=== PATIENT | female | born 1980 | race Caucasian/White ===

== ENCOUNTER 2021-03-08 09:43 | Outpatient (REF) | payer OTHER, SELFPAY ==
--- NOTE | ~2021-03-08 | XR_ITS ---
EXAMINATION: XR SINUSES CLINICAL INFORMATION: Acute sinusitis. COMPARISON: None TECHNIQUE: 3 views of the sinuses were obtained. FINDINGS: Paranasal sinuses appear clear without air-fluid levels. No fractures are identified. No radiodense foreign bodies. XR/XR sinus min 3V IMPRESSION: Unremarkable sinus exam.
[2021-03-08 11:15] LABS: MANUAL DIFF FLAG NO
[2021-03-08 11:18] LABS: Glucose Urine UA NEG (NEG); Leukocyte Esterase Urine NEG (NEG); Nitrite Urine NEG (NEG); Specific Gravity - Urine <= 1.005 (1.005-1.025); Urine Blood NEG (NEG); Urine Ketones NEG (NEG); Urine Protein NEG (NEG-TRACE)
[2021-03-08 11:22] LABS: Appearance Urine HAZY; Color Urine YELLOW
[2021-03-08 11:30] LABS: Basophils Absolute Auto 0.1 X10*3/uL (0.0-0.2); Basophils Percent Auto 1.2 % (0-2); Eosinophils Absolute Auto 0.2 X10*3/uL (0.0-0.4); Eosinophils Percent Auto 2.8 % (0-4); Hematocrit 38.1 % (37-47); Hemoglobin 12.7 g/dl (12.0-16.0); Imm Gran Abs Auto 0.01 X10*3/uL (0.00-0.03); Imm Gran Pct Auto 0.2 % (0.0-0.4); Lymphocytes Absolute Auto 2.4 X10*3/uL (1.2-4.9); Lymphocytes Percent Auto 40.4 % (20-40); Mean Corpuscular HGB Conc 33.3 g/dl (31.0-35.0); Mean Corpuscular Hemoglobin 30.3 pg (27.0-33.0); Mean Corpuscular Volume 90.9 fL (80-98); Monocytes Absolute Auto 0.6 X10*3/uL (0.1-1.2); Monocytes Percent Auto 10.6 % (2-11); Neutrophils Absolute Auto 2.7 X10*3/uL (2.0-8.3); Neutrophils Percent Auto 44.8 % (45-73); Platelet Count 341 X10*3/uL (160-400); Red Blood Count 4.19 X10*6/uL (4.20-5.50); Red Cell Distribution Width 13.2 % (11.0-16.0)
[2021-03-08 11:37] LABS: RBC Urine 0-2 /HPF (0); Squamous Epithelial Cell Urine 2+ /LPF; WBC Urine 0-2 /HPF (0-4)
[2021-03-08 12:51] LABS: Alanine Aminotransferase 14 U/L (0-31); Albumin Level 4.3 g/dL (3.5-5.0); Alkaline Phosphatase 30 U/L (39-117); Anion Gap 13 (12-20); Aspartate Amino Transferase 13 U/L (5-31); Bilirubin Total 0.2 mg/dL (0.0-1.0); Blood Urea Nitrogen 10 mg/dL (9-16); Calcium 8.9 mg/dL (8.4-10.2); Carbon Dioxide 23 mmol/L (22-29); Chloride 103 mmol/L (96-108); Estimated Glomerular Filt Rate > 60; Glucose Random 164 mg/dL (60-115); Potassium 4.3 mmol/L (3.3-5.1); Sodium 135 mmol/L (135-145); Total Protein 6.9 g/dL (6.5-8.0)
== END 2021-03-08 09:44 | disposition home or self-care (01) ==
LOC: HO.HMGCLDS 09:43
PROVIDERS: PCP Nurse Practitioner Family; Visit Provider Nurse Practitioner Family
DX: J01.90 Acute sinusitis, unspecified (principal); R39.15 Urgency of urination
CPT/HCPCS: 36415; 70220; 80053; 81001; 85025; 87086; 87088; 87186

== ENCOUNTER 2021-03-15 11:12 | Outpatient (REF) | payer OTHER, SELFPAY ==
[2021-03-15 14:15] LABS: Glucose Urine UA NEG (NEG); Leukocyte Esterase Urine NEG (NEG); Nitrite Urine NEG (NEG); PH 6.5 (5.0-8.0); Specific Gravity - Urine <= 1.005 (1.005-1.025); Urine Blood NEG (NEG); Urine Ketones NEG (NEG); Urine Protein NEG (NEG-TRACE)
[2021-03-15 14:19] LABS: Appearance Urine CLEAR; Color Urine YELLOW
== END 2021-03-15 11:13 | disposition home or self-care (01) ==
LOC: HO.HMGCLDS 11:12
PROVIDERS: PCP Nurse Practitioner Family; Visit Provider Nurse Practitioner Family
DX: R39.15 Urgency of urination (principal)
CPT/HCPCS: 81003; 87086

== ENCOUNTER 2021-03-18 08:16 | Outpatient (REF) | payer OTHER, SELFPAY ==
--- NOTE | ~2021-03-18 | CT_ITS ---
EXAMINATION: CT HEAD WITHOUT CONTRAST CLINICAL INFORMATION: Headache COMPARISON: None TECHNIQUE: Contiguous axial imaging was performed from the skull base to vertex without intravenous administration of contrast. This CT examination was performed using dose optimization techniques as appropriate, variously including the following: *Automated exposure control *Adjustment of mA and/or kV according to patient size (this includes techniques or standardized protocols for targeted exams where dose is matched to indication/reason for exam; i.e. extremities or head) *Use of iterative reconstruction technique DLP: 703 mGy-cm FINDINGS: There is no evidence of acute intracranial hemorrhage or territorial infarction. No abnormal mass effect or midline shift is seen. [place] to white matter differentiation is well preserved. No extra-axial fluid collections are identified. The ventricles are normal in size. There is no abnormal attenuation within the brain parenchyma. The osseous structures and soft tissues are normal. The mastoid air cells and visualized portions of the paranasal sinuses are well aerated. CT/CT head/brain wo con IMPRESSION: No acute intracranial pathology.
== END 2021-03-18 08:17 | disposition home or self-care (01) ==
LOC: HO.CT 08:16
PROVIDERS: PCP Nurse Practitioner Family; Visit Provider Nurse Practitioner Family
DX: R51.9 Headache, unspecified (principal); G89.29 Other chronic pain
CPT/HCPCS: 70450

== ENCOUNTER 2021-03-29 13:19 | Outpatient (REF) | payer OTHER, SELFPAY ==
[2021-03-29 14:31] LABS: Glucose Urine UA NEG (NEG); Leukocyte Esterase Urine NEG (NEG); Nitrite Urine NEG (NEG); Specific Gravity - Urine <= 1.005 (1.005-1.025); Urine Blood 2+ (NEG); Urine Ketones NEG (NEG); Urine Protein NEG (NEG-TRACE)
[2021-03-29 14:32] LABS: Appearance Urine CLEAR; Color Urine STRAW
[2021-03-29 14:42] LABS: Creatinine Urine 11.76 mg/dL; Microalbumin Urine < 5.0 mg/L
[2021-03-29 14:59] LABS: Squamous Epithelial Cell Urine TRACE /LPF; WBC Urine 0 /HPF (0-4)
[2021-03-29 15:01] LABS: RBC Urine 0-2 /HPF (0)
== END 2021-03-29 13:20 | disposition home or self-care (01) ==
LOC: HO.HMGCLDS 13:19
PROVIDERS: PCP Nurse Practitioner Family; Visit Provider Nurse Practitioner Family
DX: E10.9 Type 1 diabetes mellitus without complications (principal); R39.15 Urgency of urination
CPT/HCPCS: 81001; 82043; 87086

== ENCOUNTER 2021-04-06 08:47 | Outpatient (REF) | payer OTHER, SELFPAY ==
[2021-04-06 12:17] LABS: Appearance Urine CLEAR; Color Urine YELLOW; Glucose Urine UA NEG (NEG); Leukocyte Esterase Urine NEG (NEG); Nitrite Urine NEG (NEG); Specific Gravity - Urine <= 1.005 (1.005-1.025); Urine Blood NEG (NEG); Urine Ketones NEG (NEG); Urine Protein NEG (NEG-TRACE)
[2021-04-06 12:18] LABS: Alanine Aminotransferase 12 U/L (0-31); Albumin Level 4.4 g/dL (3.5-5.0); Alkaline Phosphatase 29 U/L (39-117); Anion Gap 12 (12-20); Aspartate Amino Transferase 11 U/L (5-31); Bilirubin Total 0.4 mg/dL (0.0-1.0); Blood Urea Nitrogen 12 mg/dL (9-16); Calcium 8.8 mg/dL (8.4-10.2); Carbon Dioxide 22 mmol/L (22-29); Chloride 106 mmol/L (96-108); Cholesterol 211 mg/dL; Estimated Glomerular Filt Rate > 60; Glucose Fasting 209 mg/dL (60-99); HDL Cholesterol 44 mg/dL; LDL Cholesterol Calculated 153 mg/dl; Potassium 4.2 mmol/L (3.3-5.1); Sodium 136 mmol/L (135-145); Total Protein 7.1 g/dL (6.5-8.0); Triglycerides 70 mg/dL
[2021-04-06 12:25] LABS: TSH reflex Free T4 3.55 uIU/mL (0.32-4.0)
[2021-04-06 12:49] LABS: RBC Urine 0 /HPF (0); Squamous Epithelial Cell Urine TRACE /LPF; WBC Urine 0 /HPF (0-4)
[2021-04-06 13:24] LABS: Estimated Average Glucose 163 mg/dL; Hemoglobin A1c % 7.3 %
== END 2021-04-06 08:48 | disposition home or self-care (01) ==
LOC: HO.HMGCLDS 08:47
PROVIDERS: PCP Nurse Practitioner Family; Visit Provider Nurse Practitioner Family
DX: E10.9 Type 1 diabetes mellitus without complications (principal)
CPT/HCPCS: 36415; 80053; 80061; 81001; 83036; 84443

== ENCOUNTER 2021-04-09 10:20 | Outpatient (REF) | payer OTHER, SELFPAY ==
--- NOTE | ~2021-04-09 | US_ITS ---
EXAMINATION: US RETROPERITONEAL COMPLETE (RENAL) CLINICAL INFORMATION: Urgency of urination. COMPARISON: Ultrasound abdomen 12/21/2012. TECHNIQUE: Real-time imaging of the kidneys and bladder. FINDINGS: RIGHT KIDNEY: 10.8 x 4.7 x 6.1 cm (SAG x AP x TRV). The kidney is normal in size, contour, and echogenicity. Renal cortical thickness is normal. No calculi or focal parenchymal lesions. No hydronephrosis. LEFT KIDNEY: 10.3 x 4.5 x 5.5 cm (SAG x AP x TRV). The kidney is normal in size, contour, and echogenicity. Renal cortical thickness is normal. No calculi or focal parenchymal lesions. No hydronephrosis. BLADDER: Well distended and normal. Bilateral ureteral jets are demonstrated. Prevoid bladder volume is 209 mL. Postvoid bladder volume is 3.7 mL. US/US retroperitoneal comp IMPRESSION: Normal exam.
== END 2021-04-09 10:21 | disposition home or self-care (01) ==
LOC: HO.HMGCX 10:20
PROVIDERS: PCP Nurse Practitioner Family; Visit Provider Nurse Practitioner Family
DX: R39.15 Urgency of urination (principal); R10.2 Pelvic and perineal pain
CPT/HCPCS: 76770

== ENCOUNTER 2021-08-24 09:53 | Outpatient (REF) | payer OTHER, SELFPAY ==
[2021-08-24 10:23] LABS: Binax Internal Control QC Valid; Binax Now Covid-19 Ag Negative (Negative); Binax Performed by: HO.BONILM
[2021-08-24 11:31] LABS: Hematocrit 40.2 % (37.0-47.0); Hemoglobin 12.8 g/dl (12.0-16.0); Mean Corpuscular HGB Conc 31.8 g/dl (31.0-35.0); Mean Corpuscular Hemoglobin 29.2 pg (27.0-33.0); Mean Corpuscular Volume 91.6 fL (80.0-98.0); Mean Platelet Volume 9.7 fL (9.4-12.3); Platelet Count 338 X10*3/uL (160-400); Red Blood Count 4.39 X10*6/uL (4.20-5.50); Red Cell Distribution Width 13.6 % (11.0-16.0)
[2021-08-24 11:58] LABS: Estimated Average Glucose 183 mg/dL
[2021-08-24 12:01] LABS: Alanine Aminotransferase 11 U/L (0-31); Albumin Level 4.1 g/dL (3.5-5.0); Alkaline Phosphatase 28 U/L (39-117); Anion Gap 11 (12-20); Aspartate Amino Transferase 12 U/L (5-31); Bilirubin Direct < 0.2 mg/dL (0.0-0.5); Bilirubin Total 0.3 mg/dL (0.0-1.0); Blood Urea Nitrogen 16 mg/dL (9-16); C Reactive Protein 0.21 mg/dL (< or = 0.50); Calcium 9.2 mg/dL (8.4-10.2); Carbon Dioxide 25 mmol/L (22-29); Chloride 107 mmol/L (96-108); Estimated Glomerular Filt Rate > 60; Glucose Random 212 mg/dL (60-115); Potassium 4.8 mmol/L (3.3-5.1); Sodium 138 mmol/L (135-145)
== END 2021-08-24 09:54 | disposition home or self-care (01) ==
LOC: HO.HMGCLDS 09:53
PROVIDERS: PCP Nurse Practitioner Family; Visit Provider Internal Medicine
DX: Z20.822 Contact with and (suspected) exposure to COVID-19 (principal); J06.9 Acute upper respiratory infection, unspecified; R73.9 Hyperglycemia, unspecified
CPT/HCPCS: 80048; 80076; 83036; 85027; 86140

== ENCOUNTER 2021-10-05 08:05 | Outpatient (REF) | payer OTHER, SELFPAY ==
[2021-10-05 11:38] LABS: Appearance Urine CLEAR; Color Urine YELLOW; Glucose Urine UA NEG (NEG); Leukocyte Esterase Urine NEG (NEG); Nitrite Urine NEG (NEG); Urine Blood NEG (NEG); Urine Ketones 5 MG/DL (NEG); Urine Protein NEG (NEG-TRACE)
[2021-10-05 11:54] LABS: Cholesterol 137 mg/dL; HDL Cholesterol 41 mg/dL; LDL Cholesterol Calculated 70 mg/dl; Triglycerides 131 mg/dL
[2021-10-05 12:09] LABS: Calcium Oxalate Crystals Urine 1+ /LPF; Mucus Urine TRACE /LPF; RBC Urine 0 /HPF (0); Squamous Epithelial Cell Urine TRACE /LPF; WBC Urine 0 /HPF (0-4)
== END 2021-10-05 08:06 | disposition home or self-care (01) ==
LOC: HO.HMGCLDS 08:05
PROVIDERS: Visit Provider Nurse Practitioner Family
DX: R39.15 Urgency of urination (principal); E78.5 Hyperlipidemia, unspecified
CPT/HCPCS: 36415; 80061; 81001; 87086

== ENCOUNTER 2021-10-18 13:21 | Outpatient (REF) | payer OTHER, SELFPAY ==
--- NOTE | ~2021-10-18 | XR_ITS ---
EXAMINATION: XR CERVICAL SPINE CLINICAL INFORMATION: Cervical disc disorder COMPARISON: None TECHNIQUE: 3 views of the cervical spine were obtained. FINDINGS: There are no prevertebral soft tissue or bony abnormalities demonstrated. No compression fractures or subluxations are identified. Alignment is maintained at the atlanto-axial articulation. The disc spaces are preserved. No endplate changes are seen. The prevertebral soft tissues are normal. The foramina are patent. XR/XR cervical spine 2V IMPRESSION: Unremarkable examination.
== END 2021-10-18 13:22 | disposition home or self-care (01) ==
LOC: HO.HMGCX 13:21
PROVIDERS: PCP Nurse Practitioner Family; Visit Provider Nurse Practitioner Family
DX: M50.90 Cervical disc disorder, unspecified, unspecified cervical region (principal)
CPT/HCPCS: 72040

== ENCOUNTER 2022-01-07 15:27 | Outpatient (REF) | payer OTHER, SELFPAY ==
[2022-01-07 16:50] LABS: MANUAL DIFF FLAG NO
[2022-01-07 16:52] LABS: Basophils Absolute Auto 0.1 X10*3/uL (0.0-0.2); Basophils Percent Auto 1.6 % (0-2); Eosinophils Absolute Auto 0.6 X10*3/uL (0.0-0.4); Eosinophils Percent Auto 7.3 % (0-4); Hematocrit 39.3 % (37.0-47.0); Imm Gran Abs Auto 0.01 X10*3/uL (0.00-0.03); Imm Gran Pct Auto 0.1 % (0.0-0.4); Lymphocytes Absolute Auto 3.2 X10*3/uL (1.2-4.9); Lymphocytes Percent Auto 41.4 % (20-40); Mean Corpuscular HGB Conc 33.1 g/dl (31.0-35.0); Mean Corpuscular Hemoglobin 30.2 pg (27.0-33.0); Mean Corpuscular Volume 91.2 fL (80.0-98.0); Mean Platelet Volume 9.4 fL (9.4-12.3); Monocytes Absolute Auto 0.6 X10*3/uL (0.1-1.2); Monocytes Percent Auto 8.1 % (2-11); Neutrophils Absolute Auto 3.2 x10*3/uL (2.0-8.3); Neutrophils Percent Auto 41.5 % (45-73); Platelet Count 397 X10*3/uL (160-400); Red Blood Count 4.31 X10*6/uL (4.20-5.50); Red Cell Distribution Width 12.8 % (11.0-16.0); White Blood Count 7.7 X10*3/uL (4.8-10.8)
[2022-01-07 17:08] LABS: Anion Gap 13 (12-20); Blood Urea Nitrogen 12 mg/dL (9-16); Calcium 9.5 mg/dL (8.4-10.2); Carbon Dioxide 26 mmol/L (22-29); Chloride 101 mmol/L (96-108); Estimated Glomerular Filt Rate > 60; Glucose Random 115 mg/dL (60-115); Potassium 4.2 mmol/L (3.3-5.1); Sodium 136 mmol/L (135-145)
[2022-01-07 17:30] LABS: Thyroid Stimulating Hormone 3.29 uIU/mL (0.32-4.0)
== END 2022-01-07 15:28 | disposition home or self-care (01) ==
LOC: HO.HMGCLDS 15:27
PROVIDERS: PCP Nurse Practitioner Family; Visit Provider Physician Assistant
DX: R00.2 Palpitations (principal); I49.3 Ventricular premature depolarization; R06.02 Shortness of breath; R07.89 Other chest pain
CPT/HCPCS: 36415; 80048; 84443; 85025

== ENCOUNTER 2022-02-09 15:24 | Outpatient (REF) | payer OTHER, SELFPAY ==
--- NOTE | ~2022-02-09 | XR_ITS ---
EXAMINATION: XR SINUSES CLINICAL INFORMATION: J34.89 - Other specified disorders of nose and nasal sinuses COMPARISON: Sinus radiographs 03/08/2021; CT head 03/08/2021 TECHNIQUE: 3 views of the sinuses were obtained. 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 The sinuses are otherwise well-aerated and clear. No mucosal thickening, polypoid mass, or air-fluid levels. No bony sclerosis or thickening or destructive process. XR/XR sinus min 3V IMPRESSION: Unremarkable examination.
== END 2022-02-09 15:25 | disposition home or self-care (01) ==
LOC: HO.HMGCX 15:24
PROVIDERS: PCP Nurse Practitioner Family; Visit Provider Nurse Practitioner Family
DX: J34.89 Other specified disorders of nose and nasal sinuses (principal)
CPT/HCPCS: 70220

== ENCOUNTER 2022-06-15 07:15 | Outpatient (REF) | payer OTHER, SELFPAY ==
--- NOTE | ~2022-06-15 | MR_ITS ---
EXAMINATION: MR BRAIN WITHOUT CONTRAST CLINICAL INFORMATION: Migraine COMPARISON: CT head without contrast 03/18/2021. TECHNIQUE: Multiplanar multisequence MR imaging of the brain was obtained without intravenous contrast. FINDINGS: There is no acute infarct on diffusion-weighted imaging. There is no intracranial hemorrhage on iron-sensitive imaging. No extra-axial collection or mass effect/herniation. Normal parenchymal signal characteristics. No hydrocephalus. The ventricles are normal in morphology and size. The major flow voids at the skull base are preserved. The midline structures are normal. The cerebellar tonsils are normally positioned. The craniocervical junction is normal. Marrow signal is within normal limits. The visualized soft tissues are without significant abnormality. No signal abnormality within the paranasal sinuses or within the mastoid air cells. MR/MR head/brain wo con IMPRESSION: Unremarkable noncontrast MRI of the brain.
== END 2022-06-15 07:16 | disposition home or self-care (01) ==
LOC: HO.MRI 07:15
PROVIDERS: Visit Provider Nurse Practitioner Family
DX: G43.909 Migraine, unspecified, not intractable, without status migrainosus (principal)
CPT/HCPCS: 70551

== ENCOUNTER → 2022-08-30 09:00 | Outpatient (BNVA) | payer OTHER, SELFPAY | PROVIDERS: PCP Nurse Practitioner Family; Visit Provider Nurse Practitioner Family | DX: Z13.89 Encounter for screening for other disorder (principal) ==

== ENCOUNTER 2022-11-24 09:32 | Outpatient (REF) | payer OTHER, SELFPAY | END 2022-11-24 09:33 | disposition home or self-care (01) | LOC: HO.LAB 09:32 | PROVIDERS: Visit Provider Internal Medicine | DX: R35.0 Frequency of micturition (principal) | CPT/HCPCS: 87086 ==

== ENCOUNTER 2022-11-29 14:18 | Outpatient (REF) | payer OTHER, SELFPAY ==
[2022-11-30 11:48] LABS: Appearance Urine Clear; Color Urine Yellow; Glucose Urine UA Negative (Negative); Leukocyte Esterase Urine Negative (Negative); Nitrite Urine Negative (Negative); Urine Blood Negative (Negative); Urine Ketones Trace mg/dL (Negative); Urine Protein Negative (Neg-Trace)
== END 2022-11-29 14:19 | disposition home or self-care (01) ==
LOC: HO.HMGCLDS 14:18
PROVIDERS: PCP Nurse Practitioner Family; Visit Provider Nurse Practitioner Family
DX: Z00.00 Encounter for general adult medical examination without abnormal findings (principal); R35.0 Frequency of micturition
CPT/HCPCS: 81003; 87086

== ENCOUNTER → 2022-12-12 14:51 | Outpatient (BNVA) | payer OTHER, SELFPAY | PROVIDERS: PCP Nurse Practitioner Family; Visit Provider Nurse Practitioner Family | DX: R39.15 Urgency of urination (principal); R35.0 Frequency of micturition; R39.89 Other symptoms and signs involving the genitourinary system; E10.9 Type 1 diabetes mellitus without complications; Z79.4 Long term (current) use of insulin | CPT/HCPCS: 51798 ==

== ENCOUNTER 2022-12-20 12:31 | Outpatient (REF) | payer OTHER, SELFPAY ==
--- NOTE | ~2022-12-20 | US_ITS ---
EXAMINATION: US RETROPERITONEAL COMPLETE (RENAL) CLINICAL INFORMATION: Frequency of micturition. COMPARISON: Ultrasound retroperitoneal complete (renal) 04/09/2021. Ultrasound abdomen complete 12/21/2012. TECHNIQUE: Real-time imaging of the kidneys and bladder. FINDINGS: RIGHT KIDNEY: 10.7 x 5.0 x 5.6 cm (SAG x AP x TRV). The kidney is normal in size, contour, and echogenicity. Renal cortical thickness is normal. No calculi or focal parenchymal lesions. No hydronephrosis. LEFT KIDNEY: 10.7 x 6.1 x 5.4 cm (SAG x AP x TRV). The kidney is normal in size, contour, and echogenicity. Renal cortical thickness is normal. No calculi or focal parenchymal lesions. No hydronephrosis. BLADDER: Well distended and normal. Bilateral ureteral jets are demonstrated. Prevoid bladder volume is 223 mL. Postvoid bladder volume is 7.7 mL. US/US retroperitoneal comp IMPRESSION: Normal renal and bladder ultrasound.
== END 2022-12-20 12:32 | disposition home or self-care (01) ==
LOC: HO.HMGCX 12:31
PROVIDERS: PCP Nurse Practitioner Family; Visit Provider Nurse Practitioner Family
DX: R35.0 Frequency of micturition (principal); R39.15 Urgency of urination; R39.89 Other symptoms and signs involving the genitourinary system
CPT/HCPCS: 76770

== ENCOUNTER 2022-12-23 07:30 | Outpatient (REF) | payer OTHER, SELFPAY ==
[2022-12-23 11:17] LABS: MANUAL DIFF FLAG NO
[2022-12-23 11:34] LABS: Appearance Urine Clear; Color Urine Yellow; Glucose Urine UA Negative (Negative); Leukocyte Esterase Urine Negative (Negative); Nitrite Urine Negative (Negative); PH 5.5 (5.0-9.0); Specific Gravity - Urine 1.025 (1.005-1.025); Urine Blood Negative (Negative); Urine Ketones Negative (Negative); Urine Protein Negative (Neg-Trace)
[2022-12-23 11:49] LABS: Basophils Absolute Auto 0.1 X10*3/uL (0.0-0.2); Basophils Percent Auto 1.3 % (0-2); Eosinophils Absolute Auto 0.5 X10*3/uL (0.0-0.4); Eosinophils Percent Auto 7.4 % (0-4); Hematocrit 37.9 % (37.0-47.0); Hemoglobin 12.6 g/dl (12.0-16.0); Imm Gran Abs Auto 0.01 X10*3/uL (0.00-0.03); Imm Gran Pct Auto 0.2 % (0.0-0.4); Lymphocytes Absolute Auto 2.8 X10*3/uL (1.2-4.9); Lymphocytes Percent Auto 46.3 % (20-40); Mean Corpuscular HGB Conc 33.2 g/dl (31.0-35.0); Mean Corpuscular Hemoglobin 29.7 pg (27.0-33.0); Mean Corpuscular Volume 89.4 fL (80.0-98.0); Monocytes Absolute Auto 0.5 X10*3/uL (0.1-1.2); Monocytes Percent Auto 7.8 % (2-11); Neutrophils Absolute Auto 2.2 x10*3/uL (2.0-8.3); Platelet Count 336 X10*3/uL (160-400); Red Blood Count 4.24 X10*6/uL (4.20-5.50); Red Cell Distribution Width 13.5 % (11.0-16.0); White Blood Count 6.1 X10*3/uL (4.8-10.8)
[2022-12-23 12:00] LABS: Alanine Aminotransferase 17 U/L (0-31); Albumin Level 4.4 g/dL (3.5-5.0); Alkaline Phosphatase 25 U/L (39-117); Anion Gap 13 (12-20); Aspartate Amino Transferase 14 U/L (5-31); Bilirubin Total 0.3 mg/dL (0.0-1.0); Blood Urea Nitrogen 14 mg/dL (9-16); Calcium 9.2 mg/dL (8.4-10.2); Carbon Dioxide 24 mmol/L (22-29); Chloride 106 mmol/L (96-108); Cholesterol 200 mg/dL; Estimated Glomerular Filt Rate > 60; Glucose Fasting 169 mg/dL (60-99); HDL Cholesterol 43 mg/dL; LDL Cholesterol Calculated 143 mg/dl; Potassium 4.4 mmol/L (3.3-5.1); Sodium 139 mmol/L (135-145); Triglycerides 74 mg/dL
[2022-12-23 12:17] LABS: TSH reflex Free T4 5.61 uIU/mL (0.32-4.0)
[2022-12-23 13:58] LABS: Free T4 (Free Thyroxine) 0.86 ng/dL (0.71-1.85)
== END 2022-12-23 07:31 | disposition home or self-care (01) ==
LOC: HO.HMGCLDS 07:30
PROVIDERS: PCP Nurse Practitioner Family; Visit Provider Nurse Practitioner Family
DX: Z00.00 Encounter for general adult medical examination without abnormal findings (principal); R35.0 Frequency of micturition; E10.9 Type 1 diabetes mellitus without complications; F41.9 Anxiety disorder, unspecified
CPT/HCPCS: 36415; 80053; 80061; 81003; 84439; 84443; 85025; 87086

== ENCOUNTER 2023-01-04 09:55 | Outpatient (REF) | payer OTHER, SELFPAY ==
[2023-01-05 13:39] LABS: BV Int Neg Control Negative (Negative); BV Int Pos Control Positive (Positive)
== END 2023-01-04 09:56 | disposition home or self-care (01) ==
LOC: HO.LAB 09:55
PROVIDERS: PCP Nurse Practitioner Family; Visit Provider Advanced Practice Midwife
DX: N89.8 Other specified noninflammatory disorders of vagina (principal); R39.89 Other symptoms and signs involving the genitourinary system; R35.0 Frequency of micturition; E10.9 Type 1 diabetes mellitus without complications; B37.31 Acute candidiasis of vulva and vagina; N90.4 Leukoplakia of vulva; Z79.899 Other long term (current) drug therapy
CPT/HCPCS: 81003; 87102; 87480; 87510; 87660

== ENCOUNTER 2023-01-09 17:07 | Outpatient (REF) | payer OTHER, SELFPAY ==
[2023-01-09 17:41] LABS: Appearance Urine Clear; Color Urine Yellow; Glucose Urine UA Negative (Negative); Leukocyte Esterase Urine Trace (Negative); Nitrite Urine Negative (Negative); UMIC TRIGGER UACC YES; Urine Blood Negative (Negative); Urine Ketones Trace mg/dL (Negative); Urine Protein Negative (Neg-Trace)
[2023-01-09 17:44] LABS: Bacteria Urine None Seen (None Seen); Hyaline Casts Urine 0-2 /LPF (0-2); RBC Urine 0-2 /HPF (0-2); Squamous Epithelial Cell Urine 0-2 /HPF (0-2); WBC Urine 0-5 /HPF (0-5)
== END 2023-01-09 17:08 | disposition home or self-care (01) ==
LOC: HO.LAB 17:07
PROVIDERS: PCP Nurse Practitioner Family; Visit Provider Nurse Practitioner Family
DX: R30.0 Dysuria (principal)
CPT/HCPCS: 81001

== ENCOUNTER → 2023-01-11 12:39 | Outpatient (BNVA) | payer OTHER, SELFPAY | PROVIDERS: PCP Nurse Practitioner Family; Visit Provider Urology | DX: N30.10 Interstitial cystitis (chronic) without hematuria (principal); R35.1 Nocturia; R35.0 Frequency of micturition; R23.2 Flushing; E10.9 Type 1 diabetes mellitus without complications | CPT/HCPCS: 52000 ==

== ENCOUNTER 2023-01-18 08:05 | Outpatient (REF) | payer OTHER, SELFPAY ==
[2023-01-19 13:55] LABS: BV Int Neg Control Negative (Negative); BV Int Pos Control Positive (Positive)
== END 2023-01-18 08:06 | disposition home or self-care (01) ==
LOC: HO.LAB 08:05
PROVIDERS: PCP Nurse Practitioner Family; Visit Provider Advanced Practice Midwife
DX: N89.8 Other specified noninflammatory disorders of vagina (principal); N94.89 Other specified conditions associated with female genital organs and menstrual cycle; N90.89 Other specified noninflammatory disorders of vulva and perineum; L29.2 Pruritus vulvae
CPT/HCPCS: 81003; 81025; 87480; 87510; 87660

== ENCOUNTER → 2023-01-26 14:35 | Outpatient (BNVA) | payer OTHER, SELFPAY | PROVIDERS: Visit Provider Nurse Practitioner Family | DX: R35.1 Nocturia (principal); N89.8 Other specified noninflammatory disorders of vagina; R39.89 Other symptoms and signs involving the genitourinary system; R35.0 Frequency of micturition | CPT/HCPCS: 51798 ==

== ENCOUNTER 2023-02-10 07:50 | Outpatient (REF) | payer OTHER, SELFPAY ==
--- NOTE | ~2023-02-10 | MM_ITS ---
EXAMINATION: MM SCREENING DIGITAL BREAST TOMOSYNTHESIS, BILATERAL CLINICAL INFORMATION: Screening. Asymptomatic. The lifetime risk of breast cancer based on the Tyrer-Cuzick Model is 10%. COMPARISON: Mammography: This is a baseline mammogram. TECHNIQUE: Digital breast tomosynthesis is performed in both the craniocaudal and mediolateral oblique views along with computer-aided detection (CAD). Synthesized 2D images are generated from the tomosynthesis. FINDINGS: The breasts are heterogeneously dense, which may obscure small masses (ACR BI-RADS breast composition Category c). There are no significant masses, abnormal calcifications, or other abnormalities. MM/MM tomosynthesis screening BI IMPRESSION: No mammographic evidence of malignancy. ASSESSMENT: BI-RADS BI-RADS 1 - Negative RECOMMENDATION: Routine annual mammography screening. 1 year F/U This examination should not preclude the clinical evaluation of a suspicious palpable abnormality. This patient's information was entered into a reminder system with a target due date for their next mammogram.
== END 2023-02-10 07:51 | disposition home or self-care (01) ==
LOC: HO.MAMMO 07:50
PROVIDERS: PCP Nurse Practitioner Family; Visit Provider Nurse Practitioner Family
DX: Z12.31 Encounter for screening mammogram for malignant neoplasm of breast (principal)
CPT/HCPCS: 77063; 77067

== ENCOUNTER → 2023-02-10 08:15 | Outpatient (BNV) | payer OTHER, SELFPAY | PROVIDERS: PCP Nurse Practitioner Family; Visit Provider Radiology Diagnostic Radiology | DX: Z12.31 Encounter for screening mammogram for malignant neoplasm of breast (principal) | CPT/HCPCS: 77063; 77067 ==

== ENCOUNTER → 2023-02-24 12:59 | Outpatient (BNVA) | payer OTHER, SELFPAY | PROVIDERS: PCP Nurse Practitioner Family; Visit Provider Nurse Practitioner Family ==

== ENCOUNTER 2023-02-28 13:04 | Outpatient (AMB) | payer OTHER, SELFPAY ==
--- NOTE | 2023-02-28 13:13 | A.OFFVIS_ITS ---
Intake Vital Signs 02/28/23 13:14 Height 5 ft 3 in Weight 149 lb 7.574 oz BMI 26.5 BP 96/60 Blood Pressure Location Lt brachial Position Sitting Pulse 77 Intake Visit Reasons: TUBE COREMAKER/ glojamesski/prev PVC pt/ pvc's trans care Intake Note: NPV w/ EKG Field Operator Required: No Accompanied by: Self / Same As Patient Allergies amoxicillin [AMOXICILLIN] Allergy (Unknown, Verified 02/28/23 13:16) HIVES azithromycin Allergy (Unknown, Verified 02/28/23 13:16) palpitations levofloxacin Allergy (Unknown, Verified 02/28/23 13:16) Hives Sulfa (Sulfonamide Antibiotics) Allergy (Unknown, Verified 02/28/23 13:16) Unknown ciprofloxacin [From Cipro] Adverse Reaction (Mild, Verified 02/28/23 13:16) Rash bactrium Adverse Reaction (Mild, Uncoded 02/28/23 13:16) Rash Medication List - Last Reconciled 02/28/23 by Chu Shelton MD atorvastatin 20 mg PO DAILY 90 days blood-glucose meter As directed cetirizine 20 mg (2 x 10 mg) PO DAILY fluticasone propionate 50 mcg/actuation 2 sprays intranasal BID insulin lispro units subcut insulin lispro (Humalog U-100 Insulin) 0 - 50 units subcut DAILY levothyroxine 25 mcg PO DAILY metformin 1,000 mg PO BID metoprolol tartrate 25 mg PO BID nitrofurantoin macrocrystal 50 mg PO BEDTIME norethindrone (contraceptive) 0.35 mg PO DAILY HPI HPI Comments History of Present Illness Details Michelle is here for consultation regarding palpitations. She has been previously seen at [facility] but she would like to switch. Over the last couple of years, she has been having palpitations. It seems that she was having lot of PVCs initially. Patient states that one point, her burden was over 20%. However, more recently it has been much less. She has a structurally normal heart by echocardiogram and also has unremarkable prior stress test. Patient states that she can still feel her heart pounding at different times. Somewhat erratic. Additionally, she has also been diagnosed with type 1 diabetes in the last couple of years. Her sugars are well controlled. She is on insulin. Otherwise, generally doing okay apart from occasional palpitations. When she sometimes gets up she can get dizzy. That seems orthostatic. According to [facility] notes, she has tried different drugs including as a beautiful all, flecainide, verapamil, Inderal. Most recently on Lopressor. She is listed to be on 25 mg twice daily. She might take an additional tablet if she feels too much palpitations. She believes that she had COVID when the pandemic started and that might have led to the palpitations but not entirely clear. [facility] Medical History Diabetes type 1, controlled Facial cellulitis Lichen sclerosus of vulva PVC (premature ventricular contraction) Family History Father Heart disease Mother No problems noted. Family/Other Thyroid disease Social History Housing: House Alcohol intake: former Patient Tobacco Use Status: Former Tobacco user Years Smoked: 6 years ago e-Cigarette/Vaping Use: Former Use Second Hand Smoke Exposure: No service: No Current occupational status: employed Current occupation: [employer] Current occupational exposures/hazards: No Cognitive needs: No Hearing needs: No Vision needs: No Review of Systems Const Denies chills, Denies daytime sleepiness, Denies fatigue, Denies fever(s), Denies frequent falls, Denies night sweats, Denies snoring, Denies weakness, Denies weight gain and Denies weight loss Eyes Denies loss of vision ENT Denies dizziness and Denies hearing loss Card Denies chest pain, Denies chest pain with activity, Denies syncope, Denies rapid heart rate, Denies edema, Denies claudication, Denies leg edema, Denies lightheadedness, Denies palpitations, Denies dyspnea, Denies dyspnea on exertion and Denies orthopnea Resp Denies cough, Denies excessive phlegm production, Denies dyspnea, Denies dyspnea on exertion, Denies snoring and Denies wheezing GI Denies abdominal pain, Denies hematochezia, Denies change in bowel habits, Denies change in stool character, Denies heartburn, Denies nausea and Denies vomiting Denies hematuria, Denies urinary frequency and Denies dysuria Musc Denies arthralgias, Denies muscle weakness, Denies numbness and Denies tingling Skin/Breast Denies nail changes and Denies rash Neuro Denies Abnormal speech present, Denies dizziness, Denies syncope, Denies frequent falls, Denies loss of vision, Denies memory loss, Denies numbness, Denies tingling and Denies weakness Psych Denies depression and Denies memory loss Endo Denies fatigue and Denies palpitations Aller/Immun Denies wheezing Physical Exam Vital Signs: Last Vital Signs Pulse 77 02/28/23 13:14 BP 96/60 02/28/23 13:14 BMI result Body Mass Index 26.5 Const General: comfortable and no acute distress Orientation/consciousness: patient oriented x3 HEENT Other: Unremarkable Head: Yes normal to inspection Neck Neck: Yes normal visual inspection Chest Chest palpation & inspection: normal inspection of the chest Resp Auscultation: clear to auscultation bilaterally Cardio Palpation: normal PMI Heart sounds: S1 normal heart sound present, S2 normal heart sound present, no gallops, no murmurs and no rubs GI Palpation (GI): Soft to palpation Back/Spine/Pelvis Other: unremarkable Skin General skin exam: no rashes or lesions noted Neuro General: patient oriented x3 Speech: No Abnormal speech present Extrem General: Yes normal to inspection Psych Mental Status: mental status grossly normal Office Procedures EKG Details: EKG with sinus rhythm at 77/Min; sinus arrhythmia; no significant ST-T changes and otherwise unremark[place] [id number], Complete Assessment & Plan Assessment & Plan (1) Sinus tachycardia: Code(s): R00.0 - Tachycardia, unspecified (2) PVC (premature ventricular contraction): Code(s): I49.3 - Ventricular premature depolarization (3) Diabetes type 1, controlled: Code(s): E10.9 - Type 1 diabetes mellitus without complications Plan Prior cardiology records reviewed. Echocardiogram from 2021 with LVEF of 60-65%. Normal diastolic function no significant valvular disease. Normal left atrial size. Stress test 2021-10.9 Mets; 86% of max predicted heart rate and no symptoms or EKG changes. Fourteen day monitor 2021-symptomatic events correlating with sinus rhythm or sinus tachycardia; isolated PACs/PVCs with a burden of less than 2%. Most recent Holter from this year shows sinus rhythm with an average rate of 82/Min. Max 143/Min. For about 7 hours out of 48 hours, she had sinus tachycardia. There is only 1 Pac/PVC. When she had reported palpitations/chest pain, EKG had shown sinus rhythm in the 80s. Overall, structurally normal heart, sinus tachycardia, rare PACs/PVCs. She has been well managed so far and would continue the current level of care. She can continue beta-blockers but hopefully does not require this lifelong. Her diabetes may also play a role in some of the erratic heart rates and sinus tachycardia. We discussed these in detail. No changes made to her medical regimen for now. We will recheck in 6 months with another Holter that time. Total time spent including review of all the [facility] records, counseling, documentation, coordination of care-50 minutes. Orders: Orders ECG 7 day holter monitor Today I49.3 - Ventricular premature depolarization, R00.0 - Tachycardia, unspecified, R00.2 - Palpitations Medications: Changed From nitrofurantoin macrocrystal must administer with a meal/food 50 mg PO BEDTIME 90 days 90 caps 1RF To nitrofurantoin macrocrystal must administer with a meal/food 50 mg PO BEDTIME Coding Level of Care Code New Pt Level 4 (78695) Diagnoses Sinus tachycardia R00.0 PVC (premature ventricular contraction) I49.3 Diabetes type 1, controlled E10.9 CPT Codes EKG - CPT: 41063-[id number], Complete ([id number])
[2023-02-28 13:14] VITALS: BP 96/60; PULSE 77; BMI 26.5
== END 2023-02-28 13:41 | disposition home or self-care (01) ==
PROVIDERS: PCP Nurse Practitioner Family; Visit Provider Internal Medicine
DX: R00.0 Tachycardia, unspecified (principal); I49.3 Ventricular premature depolarization; E10.9 Type 1 diabetes mellitus without complications
CPT/HCPCS: 93010; 99204

== ENCOUNTER → 2023-02-28 13:04 | Outpatient (BNVA) | payer OTHER, SELFPAY | PROVIDERS: PCP Nurse Practitioner Family; Visit Provider Internal Medicine | DX: I49.3 Ventricular premature depolarization (principal); R00.2 Palpitations; R00.0 Tachycardia, unspecified; E10.9 Type 1 diabetes mellitus without complications | CPT/HCPCS: 93005 ==

== ENCOUNTER 2023-04-13 08:23 | Outpatient (AMB) | payer OTHER, SELFPAY ==
--- NOTE | 2023-04-13 08:51 | AM.OFFVISNUR ---
Intake Intake Visit Reasons: ekg/palpitations/on new med Allergies amoxicillin [AMOXICILLIN] Allergy (Unknown, Verified 04/13/23 08:51) HIVES azithromycin Allergy (Unknown, Verified 04/13/23 08:51) palpitations levofloxacin Allergy (Unknown, Verified 04/13/23 08:51) Hives Sulfa (Sulfonamide Antibiotics) Allergy (Unknown, Verified 04/13/23 08:51) Unknown ciprofloxacin [From Cipro] Adverse Reaction (Mild, Verified 04/13/23 08:51) Rash bactrium Adverse Reaction (Mild, Uncoded 04/13/23 08:51) Rash Nursing Note EKG patient complaining of palpitations. EKG shows NSR w/ heart rate of 83bpm. Patient reports feeling on going palpitations no other complaints. EKG handed to Dr. Shelton for review. Office Procedures EKG [id number], Complete Coding CPT Codes EKG - CPT: 83925-Ivvgzicdshdoihofs, Complete ([id number])
== END 2023-04-13 09:01 | disposition home or self-care (01) ==
PROVIDERS: PCP Nurse Practitioner Family; Visit Provider Internal Medicine
DX: R94.31 Abnormal electrocardiogram [ECG] [EKG] (principal)
CPT/HCPCS: 93010

== ENCOUNTER → 2023-04-13 08:23 | Outpatient (BNVA) | payer OTHER, SELFPAY | PROVIDERS: PCP Nurse Practitioner Family; Visit Provider Internal Medicine | DX: R00.2 Palpitations (principal) | CPT/HCPCS: 93005 ==

== ENCOUNTER → 2023-04-17 13:40 | Outpatient (BNVA) | payer OTHER, SELFPAY | PROVIDERS: PCP Nurse Practitioner Family; Visit Provider Nurse Practitioner Family ==

== ENCOUNTER 2023-04-27 15:00 | Outpatient (AMB) | payer OTHER, SELFPAY ==
--- NOTE | 2023-04-27 15:00 | A.OFFVIS_ITS ---
Intake Intake Visit Reasons: 3m follow up Intake Note: Patient is present for follow up recurrent uti/frequency/nocturia/interstitial cystitis Urology Medications: none Blood Thinner: none Restaurant Attendant Required: No Allergies azithromycin Allergy (Unknown, Verified 04/27/23 15:01) palpitations levofloxacin Allergy (Unknown, Verified 04/27/23 15:01) Hives Sulfa (Sulfonamide Antibiotics) Allergy (Unknown, Verified 04/27/23 15:01) Unknown ciprofloxacin [From Cipro] Adverse Reaction (Mild, Verified 04/27/23 15:01) Rash bactrium Adverse Reaction (Mild, Uncoded 04/27/23 15:01) Rash HPI HPI Comments History of Present Illness Details Michelle is a pleasant 42-year-old female patient of Dr. Schaefer.?She has a past medical history of type 1 diabetes, migraines, and dyslipidemia. She is being follow-up on today via video telehealth for follow- up of her recurrent urinary tract infections and lower urinary tract symptoms. In discussion with the patient today she reports to be doing and feeling well. She reports having started Augmentin therapy for recent microgen testing completed that showed Klebsiella pneumoniae on 04/24. She discusses following up with an schedule announcer and having testing for her longstanding history of penicillin and has since been told she is not allergic. When asked she reports she continues with urinary frequency and bladder pressure. Previous workup has included a retroperitoneal ultrasound noting the bladder is well distended and normal. Normal retroperitoneal ultrasound. As well as an in office cystoscopy noting trabeculation grade 2, decreased bladder capacity, combination diabetic cystopathy versus interstitial cystitis. Patient has trialed and had no improvement with daily tadalafil and evening amitriptyline and gabapentin. She reports being diagnosed with vaginal atrophy and Lichen Sclerosis. She has trialed estradiol and felt this helped her urinary issues however made vaginal issues worse. She reports to be drinking plenty of water daily. She discusses calling pelvic floor therapy in [place] and is awaiting call back for further assessment evaluation. 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 [facility] Medical History PVC (premature ventricular contraction) Lichen sclerosus of vulva Facial cellulitis Diabetes type 1, controlled Family History Father Heart disease Mother No problems noted. Family/Other Thyroid disease Social History Housing: House Alcohol intake: former Patient Tobacco Use Status: Former Tobacco user Years Smoked: 6 years ago e-Cigarette/Vaping Use: Former Use Second Hand Smoke Exposure: No service: No Current occupational status: employed Current occupation: [employer] Current occupational exposures/hazards: No Cognitive needs: No Hearing needs: No Vision needs: No Review of Systems Const All systems reviewed & are unremarkable except as noted in HPI and below Reports as per HPI Eyes Reports no additional complaints ENT Reports no additional complaints Card Reports no additional complaints Resp Reports no additional complaints GI Reports no additional complaints Reports as per HPI Musc Reports no additional complaints Neuro Reports as per HPI Psych Reports no additional complaints Endo Reports as per HPI [place]/Lymph Reports no additional complaints Aller/Immun Reports no additional complaints Physical Exam Const General: cooperative, healthy appearing, comfortable, no acute distress, well developed, alert and awake Orientation/consciousness: patient oriented x3 Resp Effort & Inspection: normal respiratory effort and able to speak in complete sentences Neuro General: patient oriented x3 Psych Appearance: grossly normal Mental Status: mental status grossly normal Speech and movement: Clear speech present Affect: normal affect Attitude: cooperative Thought process: Normal thought process present Thought content: Normal thought content present Insight: Fair insight present (Psych) Judgement: Fair judgement present (Psych) Assessment & Plan Assessment & Plan (1) Nocturia more than twice per night: Code(s): R35.1 - Nocturia (2) Sensation of pressure in bladder area: Code(s): R39.89 - Other symptoms and signs involving the genitourinary system (3) Frequency of urination: Code(s): R35.0 - Frequency of micturition (4) Urinary tract infection: Code(s): N39.0 - Urinary tract infection, site not specified Plan Recent Microgen results reviewed with the patient today-Klebsiella pneumoniae Start/continue Augmentin as discussed and prescribed. Discussed, educated, encouraged to continue drinking plenty of water daily. Discussed at length UTI prevention with Lucy mannose supplement, vitamin-C, increasing fluid intake, behavioral therapy with timed voiding, perineal hygiene and postcoital voiding, and management of constipation with stool softeners and increased fiber intake. Discuss trial of methenamine and vitamin-C if recurrent UTIs continue. Discussed holding low-dose suppression therapy of nitrofurantoin while on treatment of urinary tract infection Follow-up in 1 month with PVR; or sooner with any issues, concerns, and or questions. Medications: New itraconazole must administer with a meal/food 200 mg (2 x 100 mg) PO DAILY 2 days 4 caps 3RF Patient Instructions: The patient had an opportunity to ask questions regarding the treatment plan. All questions were answered. Physical exam, labs, and imaging were discussed and reviewed in detail. As well as risks, benefits, and discussion of treatment choices. No major barriers to understanding were identified. The patient expressed understanding and agreement with the above treatment plan. The patient was made aware they should contact our office by phone for worsening of their current condition, the appearance of new symptoms, or with any questions or concerns. Compliance is encouraged with any medications and follow up testing that is ordered. It is a privilege to be allowed the opportunity to participate in? your urological care.? Again, if you have any questions or concerns If you have any questions or concerns please do not hesitate to contact me. The office is [phone]. This note is constructed using voice recognition software. While every effort has been made to ensure accuracy rn case management errors may have been included. Yours sincerely, TRACY Burk Telehealth Telehealth Location of provider rendering services: practice address Location of patient: address on file Patient Identification confirmed using: Name, : Yes Telehealth method: video Patient verbally consented to treatment: Yes Patient verbally consented to billing insurance company: Yes Patient informed of any privacy concerns related to visit: Yes Minutes spent on Phone/Video with Pt.: 15 Coding Level of Care Code Tele Est Pt Level 4 (79172) Diagnoses Nocturia more than twice per night R35.1 Sensation of pressure in bladder area R39.89 Frequency of urination R35.0 Urinary tract infection N39.0
== END 2023-04-27 15:40 | disposition home or self-care (01) ==
LOC: HO.HUSH 15:00
PROVIDERS: PCP Nurse Practitioner Family; Visit Provider Nurse Practitioner Family
DX: R35.1 Nocturia (principal); R39.89 Other symptoms and signs involving the genitourinary system; R35.0 Frequency of micturition; N39.0 Urinary tract infection, site not specified
CPT/HCPCS: 99214

== ENCOUNTER → 2023-04-27 15:00 | Outpatient (BNVA) | payer OTHER, SELFPAY | PROVIDERS: PCP Nurse Practitioner Family; Visit Provider Nurse Practitioner Family ==

== ENCOUNTER 2023-06-02 09:33 | Outpatient (AMB) | payer OTHER, SELFPAY ==
--- NOTE | 2023-06-02 09:37 | MHC.OFFVIS ---
Intake Intake Visit Reasons: follow up/PVR Intake Note: Patient is present for follow up recurrent uti/frequency/nocturia/interstitial cystitis Urology Medications: macrobid Blood Thinner: none Support Team Member Required: No Accompanied by: Self / Same As Patient Allergies azithromycin Allergy (Unknown, Verified 06/02/23 09:53) palpitations levofloxacin Allergy (Unknown, Verified 06/02/23 09:53) Hives Sulfa (Sulfonamide Antibiotics) Allergy (Unknown, Verified 06/02/23 09:53) Unknown ciprofloxacin [From Cipro] Adverse Reaction (Mild, Verified 06/02/23 09:53) Rash bactrium Adverse Reaction (Mild, Uncoded 06/02/23 09:53) Rash Medication List - Last Reconciled 06/02/23 by JOSE DAVID Burk atorvastatin 20 mg PO DAILY 90 days blood-glucose meter As directed cetirizine 20 mg (2 x 10 mg) PO DAILY fluoxetine 20 mg PO DAILY insulin lispro (Humalog U-100 Insulin) 0 - 50 units subcut DAILY levothyroxine 25 mcg PO DAILY metformin 1,000 mg PO BID metoprolol tartrate 25 mg PO BID nitrofurantoin macrocrystal 50 mg PO BEDTIME norethindrone (contraceptive) 0.35 mg PO DAILY HPI HPI Comments History of Present Illness Details Michelle is a pleasant 42-year-old female patient of Dr. Schaefer.?She has a past medical history of type 1 diabetes, migraines, and dyslipidemia. She presents to the office today for follow-up of her recurrent urinary tract infections and lower urinary tract symptoms. In discussion with the patient today she reports to be doing and feeling well. She reports having completed Augmentin therapy for most recent microgen results 04/24 noting Klebsiella pneumoniae. She reports somewhat significant improvement in lower urinary tract symptoms she had been experiencing. She does endorse to intermittent episodes of bladder pressure, urinary urgency, and urinary frequency however reports symptoms are much more improved since prior as well as infrequent. She discusses knowing bladder triggers for herself such as [place] flavored coffee. Previous workup has included a retroperitoneal ultrasound noting the bladder is well distended and normal. Normal retroperitoneal ultrasound. As well as an in office cystoscopy noting trabeculation grade 2, decreased bladder capacity, combination diabetic cystopathy versus interstitial cystitis. Patient has trialled and had no improvement with daily tadalafil and evening amitriptyline and gabapentin. She reports being diagnosed with vaginal atrophy and Lichen Sclerosis. She has trialed estradiol and felt this helped her urinary issues however made vaginal issues worse. She reports to be drinking plenty of water daily. She reports compliance with low-dose Macrobid daily for suppression therapy. In office urinalysis results reviewed with the patient today. PVR 0ml's. She otherwise denies hematuria, dysuria, foul smelling urine, changes to urinary stream, flank pain, fever, and or chills. [facility] Medical History PVC (premature ventricular contraction) Lichen sclerosus of vulva Facial cellulitis Diabetes type 1, controlled Family History Father Heart disease Mother No problems noted. Family/Other Thyroid disease Social History Housing: House Alcohol intake: former Patient Tobacco Use Status: Former Tobacco user Years Smoked: 6 years ago e-Cigarette/Vaping Use: Former Use Second Hand Smoke Exposure: No service: No Current occupational status: employed Current occupation: [employer] Current occupational exposures/hazards: No Cognitive needs: No Hearing needs: No Vision needs: No Review of Systems Const All systems reviewed & are unremarkable except as noted in HPI and below Reports as per HPI Eyes Reports no additional complaints ENT Reports no additional complaints Card Reports no additional complaints Resp Reports no additional complaints GI Reports no additional complaints Reports as per HPI Musc Reports no additional complaints Neuro Reports as per HPI Psych Reports no additional complaints Endo Reports as per HPI [place]/Lymph Reports no additional complaints Aller/Immun Reports no additional complaints Physical Exam Const General: cooperative, healthy appearing, comfortable, no acute distress, well developed, alert and awake Orientation/consciousness: patient oriented x3 Limitations: no limitations HEENT Head: Yes normal to inspection, Yes normocephalic and Yes atraumatic Ears: hearing grossly normal bilaterally Eyes General: appearance normal, both eyes and all related structures Neck Neck: Yes normal visual inspection and Yes trachea midline Chest Chest palpation & inspection: normal inspection of the chest Resp Effort & Inspection: normal respiratory effort and able to speak in complete sentences Cardio Rate: regular rate GI Inspection: Yes normal to inspection General: Yes no CVA tenderness Back/Spine/Pelvis Back: no CVA tenderness Skin General skin exam: no rashes or lesions noted Neuro General: patient oriented x3 Extrem General: Yes normal to inspection Psych Appearance: grossly normal and well kempt Mental Status: mental status grossly normal Speech and movement: Normal speech and movement present and Clear speech present Affect: normal affect Attitude: cooperative Thought process: Normal thought process present Thought content: Normal thought content present Insight: Good insight present (Psych) Judgement: Good judgement present (Psych) Office Procedures Post Void Residual Post Residual Void Post Void Residual (PVR): 0 [id number] Void Residual by ultrasound Results AMB Urinalysis, Automated UA Leukoctes 0 Suman/uL Last Edit by [place] on 06/02/23 09:56 UA Nitrite Negative Last Edit by [place] on 06/02/23 09:56 UA Urobilinogen 0.2 mg/dL Last Edit by [place] on 06/02/23 09:56 UA Protein 0 mg/dL Last Edit by [place] on 06/02/23 09:56 UA pH 6.5 Last Edit by [place] on 06/02/23 09:56 UA Blood 0 Jorge/uL Last Edit by [employer] on 06/02/23 09:56 UA Specific Thompson 1.010 Last Edit by [place] on 06/02/23 09:56 UA Ketone Negative Last Edit by [place] on 06/02/23 09:56 UA Bilirubin 0 mg/dL Last Edit by [place] on 06/02/23 09:56 UA Glucose 0 mg/dL Last Edit by [place] on 06/02/23 09:56 Results Reviewed Results Reviewed: Laboratory Last Values Urine pH (Auto) 6.5 06/02/23 09:44 Specific Thompson (Auto) 1.010 06/02/23 09:44 Urine Protein (Auto) 0 mg/dL 06/02/23 09:44 Glucose (UA)(Auto) 0 mg/dL 06/02/23 09:44 Urine Ketones (Auto) Negative 06/02/23 09:44 Urine Blood (Auto) 0 Jorge/uL 06/02/23 09:44 Urine Nitrite (Auto) Negative 06/02/23 09:44 Urine Bilirubin (Auto) 0 mg/dL 06/02/23 09:44 Urine Urobilinogen (Auto) 0.2 mg/dL 06/02/23 09:44 Leukocyte Esterase (Auto) 0 Suman/uL 06/02/23 09:44 Assessment & Plan Assessment & Plan (1) Sensation of pressure in bladder area: Code(s): R39.89 - Other symptoms and signs involving the genitourinary system (2) Frequency of urination: Code(s): R35.0 - Frequency of micturition (3) Lower urinary tract symptoms: Code(s): R39.9 - Unspecified symptoms and signs involving the genitourinary system (4) Recurrent urinary tract infection: Code(s): N39.0 - Urinary tract infection, site not specified Plan In office urinalysis results reviewed with the patient today; as noted above. PVR 0 mL. Continue Macrobid as prescribed. Discussed, educated, encouraged to continue drinking plenty of water daily. Discussed at length UTI prevention with D mannose supplement, vitamin-C, increasing fluid intake, behavioral therapy with timed voiding, perineal hygiene and postcoital voiding, and management of constipation with stool softeners and increased fiber intake. Discuss trial of methenamine and vitamin-C if recurrent UTIs continue. Discussed bladder triggers/irritants Discussed importance of managing diabetes for improvement in lower urinary tract symptoms as well as overall health and well-being. Follow-up in 3 months with PVR; or sooner with any issues, concerns, and or questions. Orders: Orders AMB Urinalysis Automated 06/02/23 Z13.9 - Encounter for screening, unspecified AMB Post Void Residual by ultrasound 06/02/23 N39.0 - Urinary tract infection, site not specified Medications: Discontinued fluoxetine Discontinued Reason: Ancillary Entered New Order 20 mg PO DAILY 90 caps 0RF amoxicillin-pot clavulanate 875-125 mg Discontinued Reason: Patient Completed Course 1 tab PO BID 7 days 14 tabs 0RF UTI Patient Instructions: The patient had an opportunity to ask questions regarding the treatment plan. All questions were answered. Physical exam, labs, and imaging were discussed and reviewed in detail. As well as risks, benefits, and discussion of treatment choices. No major barriers to understanding were identified. The patient expressed understanding and agreement with the above treatment plan. The patient was made aware they should contact our office by phone for worsening of their current condition, the appearance of new symptoms, or with any questions or concerns. Compliance is encouraged with any medications and follow up testing that is ordered. It is a privilege to be allowed the opportunity to participate in? your urological care.? Again, if you have any questions or concerns If you have any questions or concerns please do not hesitate to contact me. The office is [phone]. This note is constructed using voice recognition software. While every effort has been made to ensure accuracy staff development coordinator rn errors may have been included. Yours sincerely, JOSE DAVID Burk Coding Level of Care Code Est Pt Level 3 (12451) Diagnoses Sensation of pressure in bladder area R39.89 Frequency of urination R35.0 Lower urinary tract symptoms R39.9 Recurrent urinary tract infection N39.0 CPT Codes Post Residual Void - PVR CPT Code: 27251-Zfur Void Residual by ultrasound ([id number])
== END 2023-06-02 10:10 | disposition home or self-care (01) ==
PROVIDERS: PCP Nurse Practitioner Family; Visit Provider Nurse Practitioner Family
DX: R39.89 Other symptoms and signs involving the genitourinary system (principal); R35.0 Frequency of micturition; R39.9 Unspecified symptoms and signs involving the genitourinary system; N39.0 Urinary tract infection, site not specified
CPT/HCPCS: 99213

== ENCOUNTER → 2023-06-02 09:33 | Outpatient (BNVA) | payer OTHER, SELFPAY | PROVIDERS: PCP Nurse Practitioner Family; Visit Provider Nurse Practitioner Family | DX: N39.0 Urinary tract infection, site not specified (principal); E10.9 Type 1 diabetes mellitus without complications; R35.0 Frequency of micturition | CPT/HCPCS: 51798; 81003 ==

== ENCOUNTER 2023-06-06 09:37 | Outpatient (AMB) | payer OTHER, SELFPAY ==
--- NOTE | 2023-06-06 09:47 | A.OFFPC_ITS ---
Vital Signs 06/06/23 09:49 Height 5 ft 3 in Weight 148 lb BMI 26.2 BP 100/68 Blood Pressure Location Lt brachial Position Sitting Pulse 62 Pulse Source Pulse Oximeter Pulse Oximetry (%) 98 Oxygen Delivery Method Room Air Intake Visit Reasons: 6 month follow up Allergies azithromycin Allergy (Unknown, Verified 06/06/23 09:49) palpitations levofloxacin Allergy (Unknown, Verified 06/06/23 09:49) Hives Sulfa (Sulfonamide Antibiotics) Allergy (Unknown, Verified 06/06/23 09:49) Unknown ciprofloxacin [From Cipro] Adverse Reaction (Mild, Verified 06/06/23 09:49) Rash bactrium Adverse Reaction (Mild, Uncoded 06/06/23 09:49) Rash Medication List - Last Reconciled 06/06/23 by JOSE DAVID Edwards atorvastatin 20 mg PO DAILY 90 days blood-glucose meter As directed cetirizine 20 mg (2 x 10 mg) PO DAILY fluoxetine 20 mg PO DAILY insulin lispro (Humalog U-100 Insulin) 0 - 50 units subcut DAILY levothyroxine 25 mcg PO DAILY metformin 1,000 mg PO BID metoprolol tartrate 12.5 mg PO BID norethindrone (contraceptive) 0.35 mg PO DAILY Tobacco use date assessed: 11/29/22 Dental Screening Dental Screen Date: 06/06/23 Did you have a dental visit in the last 12 months?: Yes Did you have a dental problem in the last 6 months where you did not have access to dental care?: No Was dental information given to patient?: Patient has dentist HPI 6 month follow up HPI Details Pt is a diabetic, on a statin. A1C in office today is 7.3. Due for microalbumin, will order. Denies polyuria, polydipsia, and neuropathy. Pt denies any signs and symptoms of hypoglycemia and does know how to correct it. Pt will be following up with endo in July. Eye exam is up to date. Pt c/o joint pains. She reports significant bilat hip pain. She reports popping but no pain associated with this to her hips. Will order XRs and labs. Pt is on levothyroxine 25mcg. Will check TSH. [facility] Medical History PVC (premature ventricular contraction) Lichen sclerosus of vulva Facial cellulitis Diabetes type 1, controlled Family History Father Heart disease Mother No problems noted. Family/Other Thyroid disease Social History Housing: House Alcohol intake: former Patient Tobacco Use Status: Former Tobacco user Years Smoked: 6 years ago e-Cigarette/Vaping Use: Former Use Second Hand Smoke Exposure: No service: No Current occupational status: employed Current occupation: [employer] Current occupational exposures/hazards: No Cognitive needs: No Hearing needs: No Vision needs: No Questionnaire Thrive Questionnaire Date Thrive assessed: 11/29/22 KATHYA-7 AMB Questionnaire KATHYA-7 Date KATHYA - 7 assessed: 11/29/22 Source: Developed by Drs. Luis Fuller, Corrie Pacheco, Fab Miller and colleagues, with an educational darlin from [employer]. Review of Systems Const Reports as per HPI Physical exam (Primary Care) Vital Signs: Last Vital Signs Pulse 62 06/06/23 09:49 BP 100/68 06/06/23 09:49 Pulse Ox 98 06/06/23 09:49 Oxygen Delivery Method Room Air 06/06/23 09:49 BMI result Body Mass Index 26.2 Tobacco/Smoking Status: Tobacco use Status Tobacco use date assessed 11/29/22 06/06/23 09:52 Patient Tobacco Use Status Former Tobacco user 06/06/23 09:52 e-Cigarette/Vaping Use Former Use 06/06/23 09:52 Thrive Assessment: Date of Thrive Assessment Date Thrive assessed 11/29/22 06/06/23 09:52 Const General: cooperative Orientation/consciousness: patient oriented x3 Resp Effort & Inspection: normal respiratory effort Auscultation: clear to auscultation bilaterally Cardio Rate: regular rate Rhythm: regular rhythm Heart sounds: S1 normal heart sound present and S2 normal heart sound present Neuro General: patient oriented x3 Extrem Other: + fabers to right hip, right hip pain exacerbated with abduction of RLE Psych Appearance: grossly normal Mental Status: mental status grossly normal Speech and movement: Normal speech and movement present Affect: normal affect Attitude: cooperative Thought process: Normal thought process present Thought content: Normal thought content present Insight: Good insight present (Psych) Judgement: Good judgement present (Psych) Results AMB Hemoglobin A1c AMB Hemoglobin A1c 7.3 % Last Edit by DAVID Aceves on 06/06/23 10 :38 Results Reviewed Results Reviewed: Laboratory Last Values Hgb A1c (Clinic) 7.3 % (4.0-6.0) H 06/06/23 10:37 Assessment and Plan Assessment & Plan (1) Diabetes type 1, controlled: Code(s): E10.9 - Type 1 diabetes mellitus without complications (2) Arthralgia: Code(s): M25.50 - Pain in unspecified joint Plan: Labs and hip XRs ordered (3) Bilateral hip pain: Code(s): M25.551 - Pain in right hip; M25.552 - Pain in left hip Plan: Labs and XRs ordered Plan The patient agreed to the use of a medical record technician for this encounter. Scribed for GISSELLE Ahmadi-BC by Prabha Pritchett medical record technician, on 06/06/2023 at 09:55 EST. Orders: Orders Complete Blood Count Auto Diff Today M25.50 - Pain in unspecified joint Comprehensive [place]. Panel Fast Today M25.50 - Pain in unspecified joint Lipid Panel Today M25.50 - Pain in unspecified joint Erythrocyte Sedimentation Rate Today M25.50 - Pain in unspecified joint C Reactive Protein Today M25.50 - Pain in unspecified joint DNA Double Stranded-Crithidia Today M25.50 - Pain in unspecified joint Microalbumin, Random (w Creat) Today E10.9 - Type 1 diabetes mellitus without complications TSH reflex Free T4 Today M25.50 - Pain in unspecified joint UA CC w/rflx Micro + Cult Today M25.50 - Pain in unspecified joint Tick-borne Disease Molecular Today M25.50 - Pain in unspecified joint Sjogren's Antibodies Today M25.50 - Pain in unspecified joint AMELIA Reflex Titer and Pattern Today M25.50 - Pain in unspecified joint Rheumatoid Factor Today M25.50 - Pain in unspecified joint Cyclic Citrullinated Peptide Today M25.50 - Pain in unspecified joint XR hips MIKE min 3V Today M25.551 - Pain in right hip, M25.552 - Pain in left hip AMB Hemoglobin A1c Today Z13.9 - Encounter for screening, unspecified Coding Level of Care Code Est Pt Level 3 (69362) Diagnoses Diabetes type 1, controlled E10.9 Arthralgia M25.50 Bilateral hip pain M25.551; M25.552
[2023-06-06 09:49] VITALS: BP 100/68; PULSE 62; O2SAT 98; BMI 26.2
== END 2023-06-06 15:58 | disposition home or self-care (01) ==
PROVIDERS: Visit Provider Nurse Practitioner Family
DX: E10.9 Type 1 diabetes mellitus without complications (principal); M25.50 Pain in unspecified joint; M25.551 Pain in right hip; M25.552 Pain in left hip
CPT/HCPCS: 83036; 99213

== ENCOUNTER 2023-06-06 10:14 | Outpatient (REF) | payer OTHER, SELFPAY ==
--- NOTE | ~2023-06-06 | XR_ITS ---
EXAMINATION: XR BILATERAL HIPS WITH AP PELVIS CLINICAL INFORMATION: Pain in right hip COMPARISON: None available. TECHNIQUE: AP view of the pelvis and single views of each hip were obtained. FINDINGS: No fracture. Hips joint spaces are maintained. Alignment is anatomic. Sacroiliac joints and pubic symphysis are normal. No abnormal soft tissue calcifications. XR/XR hips MIKE min 3V IMPRESSION: Normal bilateral hips.
[2023-06-06 13:23] LABS: Appearance Urine Clear; Color Urine Yellow; Glucose Urine UA Negative (Negative); Leukocyte Esterase Urine Trace (Negative); Nitrite Urine Negative (Negative); UMIC TRIGGER UACC YES; Urine Blood Negative (Negative); Urine Ketones Negative (Negative); Urine Protein Negative (Neg-Trace)
[2023-06-06 13:28] LABS: Bacteria Urine None Seen (None Seen); Hyaline Casts Urine 0-2 /LPF (0-2); RBC Urine 0-2 /HPF (0-2); Squamous Epithelial Cell Urine 0-2 /HPF (0-2); WBC Urine 0-5 /HPF (0-5)
[2023-06-06 13:30] LABS: MANUAL DIFF FLAG NO
[2023-06-06 13:32] LABS: Basophils Absolute Auto 0.1 X10*3/uL (0.0-0.2); Basophils Percent Auto 1.3 % (0-2); Eosinophils Absolute Auto 0.4 X10*3/uL (0.0-0.4); Eosinophils Percent Auto 6.4 % (0-4); Hematocrit 39.3 % (37.0-47.0); Imm Gran Abs Auto 0.01 X10*3/uL (0.00-0.03); Imm Gran Pct Auto 0.1 % (0.0-0.4); Lymphocytes Absolute Auto 2.3 X10*3/uL (1.2-4.9); Lymphocytes Percent Auto 34.2 % (20-40); Mean Corpuscular HGB Conc 33.1 g/dl (31.0-35.0); Mean Corpuscular Hemoglobin 29.9 pg (27.0-33.0); Mean Corpuscular Volume 90.3 fL (80.0-98.0); Mean Platelet Volume 9.8 fL (9.4-12.3); Monocytes Absolute Auto 0.6 X10*3/uL (0.1-1.2); Monocytes Percent Auto 8.4 % (2-11); Neutrophils Absolute Auto 3.4 x10*3/uL (2.0-8.3); Neutrophils Percent Auto 49.6 % (45-73); Platelet Count 375 X10*3/uL (160-400); Red Blood Count 4.35 X10*6/uL (4.20-5.50); Red Cell Distribution Width 13.7 % (11.0-16.0); White Blood Count 6.8 X10*3/uL (4.8-10.8)
[2023-06-06 13:45] LABS: Rheumatoid Factor < 13.0 IU/mL (<15.0)
[2023-06-06 13:56] LABS: Alanine Aminotransferase 16 U/L (0-31); Albumin Level 4.5 g/dL (3.5-5.0); Alkaline Phosphatase 23 U/L (39-117); Anion Gap 12 (12-20); Aspartate Amino Transferase 14 U/L (5-31); Bilirubin Total 0.4 mg/dL (0.0-1.0); Blood Urea Nitrogen 17 mg/dL (9-16); Calcium 9.8 mg/dL (8.4-10.2); Carbon Dioxide 25 mmol/L (22-29); Chloride 105 mmol/L (96-108); Cholesterol 213 mg/dL (<200); Estimated Glomerular Filt Rate > 60; Glucose Fasting 154 mg/dL (60-99); HDL Cholesterol 45 mg/dL (>40); LDL Cholesterol Calculated 154 mg/dL (<100); Potassium 4.4 mmol/L (3.3-5.1); Sodium 138 mmol/L (135-145); Total Protein 7.6 g/dL (6.5-8.0); Triglycerides 70 mg/dL (<150)
[2023-06-06 14:06] LABS: TSH reflex Free T4 2.91 uIU/mL (0.32-4.0)
[2023-06-06 14:11] LABS: Erythrocyte Sedimentation Rate 8 MM/HR (0-20)
[2023-06-06 14:21] LABS: Creatinine Urine 25.04 mg/dL; Microalbumin Urine < 5.0 mg/L
[2023-06-08 13:22] LABS: Cyclic Citrullinated Peptide <16 UNITS
[2023-06-08 18:34] LABS: Antibody to SS-A Antigen <1.0 NEG AI (<1.0 NEG); Antibody to SS-B Antigen <1.0 NEG AI (<1.0 NEG)
[2023-06-09 15:03] LABS: A. Phagocytphilium DNA,RT-PCR NOT DETECTED (NOT DETECTED); Babesia Microti DNA, RT-PCR NOT DETECTED (NOT DETECTED); Borrelia Miyamotoi,DNA RT-PCR NOT DETECTED (NOT DETECTED); E.Chaffeensis DNA RT-PCR NOT DETECTED (NOT DETECTED); Lyme(Borrelia ssp)DNA RT-PCR NOT DETECTED (NOT DETECTED)
[2023-06-13 14:14] LABS: Anti Nuclear Antibody Screen POSITIVE (NEGATIVE); Anti Nuclear Antibody Titer 1:40 titer
[2023-06-15 06:23] LABS: DNAds, Crithidia Antibody Negative (Negative)
== END 2023-06-06 10:15 | disposition home or self-care (01) ==
LOC: HO.HMGCX 10:14
PROVIDERS: PCP Nurse Practitioner Family; Visit Provider Nurse Practitioner Family
DX: M25.552 Pain in left hip (principal); M25.551 Pain in right hip; E10.9 Type 1 diabetes mellitus without complications; M25.50 Pain in unspecified joint
CPT/HCPCS: 36415; 73522; 80053; 80061; 81001; 82043; 82570; 84443; 85025; 85652; 86038; 86039; 86140; 86200; 86235; 86255; 86431; 87468; 87469; 87478; 87484; 87798

== ENCOUNTER → 2023-08-18 12:42 | Outpatient (REF) | payer OTHER, SELFPAY ==
--- NOTE | 2023-08-18 12:44 | HM_ITS ---
* Total monitoring time 5 days and 8 hours. * Underlying rhythm is sinus with an average rate of 74/Min. Range 52 to 119/Min. * Very rare supraventricular ectopy. * Very rare ventricular ectopy. 1 run of 3 beats. * No significant pauses or AV blocks. * Palpitations in diary correlates with sinus rhythm. MTDD
== END ==
LOC: HO.CARD 12:42
PROVIDERS: PCP Nurse Practitioner Family; Visit Provider Internal Medicine
DX: R00.2 Palpitations (principal); R00.0 Tachycardia, unspecified; I49.3 Ventricular premature depolarization
CPT/HCPCS: 93242

== ENCOUNTER → 2023-08-18 12:44 | Outpatient (BNV) | payer OTHER, SELFPAY | PROVIDERS: PCP Nurse Practitioner Family; Visit Provider Internal Medicine | DX: I47.10 Supraventricular tachycardia, unspecified (principal) | CPT/HCPCS: 93244 ==

== ENCOUNTER 2023-11-22 08:04 | Outpatient (AMB) | payer OTHER, SELFPAY ==
[2023-11-22 08:08] VITALS: BP 102/66; PULSE 71; TEMP 37.1; O2SAT 97; BMI 25.7
--- NOTE | 2023-11-22 08:08 | MHC.OFFWIV ---
Intake Vital Signs 11/22/23 08:08 Height 5 ft 3 in Weight 145 lb BMI 25.7 BP 102/66 Blood Pressure Location Rt brachial Position Sitting Pulse 71 Pulse Source Pulse Oximeter Temp 98.7 F Temp Source Oral Pulse Oximetry (%) 97 Oxygen Delivery Method Room Air Intake Visit Reasons: EP ear infection Intake Note: pt is here for ear infection on right side for about 8 days Patient Tobacco Use Status: Former Tobacco user Allergies azithromycin Allergy (Unknown, Verified 11/22/23 08:08) palpitations levofloxacin Allergy (Unknown, Verified 11/22/23 08:08) Hives Sulfa (Sulfonamide Antibiotics) Allergy (Unknown, Verified 11/22/23 08:08) Unknown ciprofloxacin [From Cipro] Adverse Reaction (Mild, Verified 11/22/23 08:08) Rash bactrium Adverse Reaction (Mild, Uncoded 06/06/23 09:49) Rash Do you need a note to return to daycare/school/sports/work: Yes HPI HPI Comments History of Present Illness Details She presents to office with R ear pain She tried to go through teled[facility] without relief R ear pain since last week Constant pain She denies cold symptoms last week but that slowly developed By the weekend it got worse She feels like R sided sinus pressure as well No drainage from ear She said it feels full and feels like she hears crackling No recent travel Trid muinex and sterid nasal spray without relief Ibuprofn helped with headache/ST PFSH Medical History PVC (premature ventricular contraction) Lichen sclerosus of vulva Facial cellulitis Diabetes type 1, controlled Family History Father Heart disease Mother No problems noted. Family/Other Thyroid disease Social History Housing: House Alcohol intake: former Patient Tobacco Use Status: Former Tobacco user Years Smoked: 6 years ago e-Cigarette/Vaping Use: Former Use Second Hand Smoke Exposure: No service: No Current occupational status: employed Current occupation: [employer] Current occupational exposures/hazards: No Cognitive needs: No Hearing needs: No Vision needs: No Review of Systems Const Denies chills, Denies fever(s) and Reports headache(s) (R sided sinus headache) Eyes Denies blurry vision ENT Denies dizziness, Reports ear discharge, Reports otalgia, Reports headache(s) (R sided sinus headache), Reports nasal congestion and Denies sinus pressure Card Denies chest pain and Denies dyspnea Resp Denies cough and Denies dyspnea GI Denies abdominal pain Musc Denies back pain and Denies tingling Neuro Denies dizziness, Reports headache(s) (R sided sinus headache) and Denies tingling Physical Exam Vital Signs: Last Vital Signs Temp 98.7 F 11/22/23 08:08 Pulse 71 11/22/23 08:08 BP 102/66 11/22/23 08:08 Pulse Ox 97 11/22/23 08:08 Oxygen Delivery Method Room Air 11/22/23 08:08 BMI result Body Mass Index 25.7 General: Non-toxic, NAD. Speaking full sentences. Skin: Warm dry throughout Eye: EOMI, PERRL HENT: Airway patent. Uvula midline. No pharyngeal erythema or edema. No NURSE RN BSN. No mastoid tenderness bilaterally. Slight R aurical tenderness to palpation. Canal patent without edema or discharge. R TM non-buging or erythema. + clear fluid behind membrane. L canal clear. TM non-erythematous, non-bulging. No TM perforation or hemotympanum noted bilaterally Lymph: No lymphadenopathy. Respiratory: No respiratory distress MSK: Full ROM extremities. Neurology: A/O No aphasia or facial droop. Gait without abnormality Psych: Good mood and affect Assessment & Plan Assessment & Plan (1) Eustachian tube dysfunction: Code(s): H69.90 - Unspecified Eustachian tube disorder, unspecified ear Qualifiers: Laterality: right Qualified Code(s): H69.91 - Unspecified Eustachian tube disorder, right ear Plan: Patient seen and evaluated. No infection OM or OE noted Discussed concern for fluid She will switch fron flonase to prescription She declined wanting prednisone due to diabetes and sugars Discussed if not infected, may need to go to ENT Discussed s/s to minitor for and when to call office if not improved Patient gave verbal understanding and had no additional questions or concerns at time of discharge All questions answered Medications: New ipratropium bromide administer into each nostril 2 sprays intranasal TID 15 mL 0RF Coding Level of Care Code Est Pt Level 3 (92519) Diagnoses Dysfunction of right eustachian tube H69.91 Laterality: right
== END 2023-11-22 09:08 | disposition home or self-care (01) ==
PROVIDERS: PCP Nurse Practitioner Family; Visit Provider Physician Assistant
DX: H69.91 Unspecified Eustachian tube disorder, right ear (principal)
CPT/HCPCS: 99213

== ENCOUNTER 2023-12-04 11:42 | Outpatient (AMB) | payer OTHER, SELFPAY ==
--- NOTE | 2023-12-04 11:53 | A.OFFVIS_ITS ---
Intake Visit Reasons: 3m/PVR Intake Note: Patient is present for follow up recurrent uti/frequency/nocturia/interstitial cystitis Urology Medications: macrobid Blood Thinner: none PVR: 0ml's Lead Driver Required: No Accompanied by: Self / Same As Patient Allergies azithromycin Allergy (Unknown, Verified 12/04/23 12:29) palpitations levofloxacin Allergy (Unknown, Verified 12/04/23 12:29) Hives Sulfa (Sulfonamide Antibiotics) Allergy (Unknown, Verified 12/04/23 12:29) Unknown ciprofloxacin [From Cipro] Adverse Reaction (Mild, Verified 12/04/23 12:29) Rash bactrium Adverse Reaction (Mild, Uncoded 12/04/23 12:29) Rash Medication List - Last Reconciled 12/04/23 by JOSE DAVID Burk albuterol sulfate 90 mcg/actuation 1 puff inhalation QID PRN atorvastatin 20 mg PO DAILY 90 days blood-glucose meter As directed cetirizine 20 mg (2 x 10 mg) PO DAILY clindamycin-benzoyl peroxide 1-5 % 1 appl topical DAILY duloxetine 20 mg PO DAILY fluoxetine 20 mg PO DAILY insulin lispro (Humalog U-100 Insulin) 0 - 50 units subcut DAILY ipratropium bromide 2 sprays intranasal TID levothyroxine 25 mcg PO DAILY metformin 1,000 mg PO BID metoprolol tartrate 12.5 mg PO BID norethindrone (contraceptive) 0.35 mg PO DAILY oxybutynin chloride 5 mg PO Q8H PRN 30 days HPI Comments Details: Michelle is a pleasant 43-year-old female patient of Dr. Schaefer.?She has a past medical history of type 1 diabetes, migraines, and dyslipidemia. She presents to the office today for follow-up of her recurrent urinary tract infections and lower urinary tract symptoms. In discussion with the patient today she reports to be doing and feeling well. She reports feeling lower urinary tract symptoms she had been experiencing have significantly improved as she felt they were extremely bothersome. She does continue to report urinary urgency and frequency with episodes of bladder pressure however states they are much more tolerable compared to prior. She discusses noting symptoms worsen when she works out. She otherwise denies incontinence, nocturia, hematuria, dysuria, foul smelling urine, changes to urinary stream, flank pain, fever, and or chills.She is happy with her current voiding parameters. Previous workup has included a retroperitoneal ultrasound noting the bladder is well distended and normal. Normal retroperitoneal ultrasound. As well as an in office cystoscopy noting trabeculation grade 2, decreased bladder capacity, combination diabetic cystopathy versus interstitial cystitis. Patient has trialled and had no improvement with daily tadalafil and evening amitriptyline and gabapentin. She reports being diagnosed with vaginal atrophy and Lichen Sclerosis. She has trialed estradiol and felt this helped her urinary issues however made vaginal issues worse. She reports to be drinking plenty of water daily. She discusses feeling her bladder triggers are dark chocolate and caffeinated drinks. She reports having started Cymbalta with her PCP for her ongoing vulvodynia. In office urinalysis results reviewed with the patient today. PVR 0ml's. She otherwise offers no other issues or concerns at this time. [facility] Medical History PVC (premature ventricular contraction) Lichen sclerosus of vulva Facial cellulitis Diabetes type 1, controlled Family History Father Heart disease Mother No problems noted. Family/Other Thyroid disease Social History Housing: House Alcohol intake: former Patient Tobacco Use Status: Former Tobacco user Years Smoked: 6 years ago e-Cigarette/Vaping Use: Former Use Second Hand Smoke Exposure: No service: No Current occupational status: employed Current occupation: [employer] Current occupational exposures/hazards: No Cognitive needs: No Hearing needs: No Vision needs: No Review of Systems Const All systems reviewed & are unremarkable except as noted in HPI and below Reports as per HPI Eyes Reports no additional complaints ENT Reports no additional complaints Card Reports no additional complaints Resp Reports no additional complaints GI Reports no additional complaints Reports as per HPI Musc Reports no additional complaints Neuro Reports as per HPI Psych Reports no additional complaints Endo Reports as per HPI [place]/Lymph Reports no additional complaints Aller/Immun Reports no additional complaints Physical Exam Const General: cooperative, healthy appearing, comfortable, no acute distress, well developed, alert and awake Orientation/consciousness: patient oriented x3 Limitations: no limitations HEENT Head: Yes normal to inspection, Yes normocephalic and Yes atraumatic Ears: hearing grossly normal bilaterally Eyes General: appearance normal, both eyes and all related structures Neck Neck: Yes normal visual inspection and Yes trachea midline Chest Chest palpation & inspection: normal inspection of the chest Resp Effort & Inspection: normal respiratory effort and able to speak in complete sentences Cardio Rate: regular rate GI Inspection: Yes normal to inspection General: Yes no CVA tenderness Back/Spine/Pelvis Back: no CVA tenderness Skin General skin exam: no rashes or lesions noted Neuro General: patient oriented x3 Extrem General: Yes normal to inspection Psych Appearance: grossly normal and well kempt Mental Status: mental status grossly normal Speech and movement: Normal speech and movement present and Clear speech present Affect: normal affect Attitude: cooperative Thought process: Normal thought process present Thought content: Normal thought content present Insight: Fair insight present (Psych) Judgement: Fair judgement present (Psych) Office Procedures Post Void Residual Post Residual Void Post Void Residual (PVR): 0 [id number] Void Residual by ultrasound Results AMB Urinalysis, Automated UA Leukoctes 0 Suman/uL Last Edit by [employer] on 12/04/23 12:07 UA Nitrite Last Edit by [employer] on 12/04/23 12:07 UA Urobilinogen 0.2 mg/dL Last Edit by [employer] on 12/04/23 12:07 UA Protein 0 mg/dL Last Edit by [employer] on 12/04/23 12:07 UA pH 7.0 Last Edit by [employer] on 12/04/23 12:07 UA Blood 0 Jorge/uL Last Edit by [employer] on 12/04/23 12:07 UA Specific [place] 1.015 Last Edit by [employer] on 12/04/23 12:07 UA Ketone Negative Last Edit by [employer] on 12/04/23 12:07 UA Bilirubin 0 mg/dL Last Edit by [employer] on 12/04/23 12:07 UA Glucose 0 mg/dL Last Edit by [employer] on 12/04/23 12:07 Results Reviewed Results Reviewed: Laboratory Last Values Urine pH (Auto) 7.0 12/04/23 12:05 Specific [place] (Auto) 1.015 12/04/23 12:05 Urine Protein (Auto) 0 mg/dL 12/04/23 12:05 Glucose (UA)(Auto) 0 mg/dL 12/04/23 12:05 Urine Ketones (Auto) Negative 12/04/23 12:05 Urine Blood (Auto) 0 Jorge/uL 12/04/23 12:05 Urine Bilirubin (Auto) 0 mg/dL 12/04/23 12:05 Urine Urobilinogen (Auto) 0.2 mg/dL 12/04/23 12:05 Leukocyte Esterase (Auto) 0 Suman/uL 12/04/23 12:05 Assessment & Plan Assessment & Plan (1) Lower urinary tract symptoms: Code(s): R39.9 - Unspecified symptoms and signs involving the genitourinary system Category: Medical (2) Nocturia more than twice per night: Code(s): R35.1 - Nocturia Category: Medical (3) Sensation of pressure in bladder area: Code(s): R39.89 - Other symptoms and signs involving the genitourinary system Category: Medical (4) Frequency of urination: Code(s): R35.0 - Frequency of micturition Category: Medical Plan In office urinalysis results reviewed with the patient today; as noted above. PVR 0 mL. Discussed bladder triggers/irritants. Discussed trial of oxybutynin as needed; prescription provided Discussed referral to pelvic floor therapy for further assessment evaluation; however patient will think about this. Discussed, educated, and stressed the importance of drinking plenty of water daily. Follow-up in 6-8 weeks; or sooner with any issues, concerns, and or questions. Orders: Orders AMB Urinalysis Automated Today Z13.9 - Encounter for screening, unspecified AMB Post Void Residual by ultrasound Today N39.0 - Urinary tract infection, site not specified Medications: New oxybutynin chloride 5 mg PO Q8H PRN 20 tabs 2RF bladder spasms 30 days R33.9 - Retention of urine, unspecified, R39.15 - Urgency of urination Patient Instructions: The patient had an opportunity to ask questions regarding the treatment plan. All questions were answered. Physical exam, labs, and imaging were discussed and reviewed in detail. As well as risks, benefits, and discussion of treatment choices. No major barriers to understanding were identified. The patient expressed understanding and agreement with the above treatment plan. The patient was made aware they should contact our office by phone for worsening of their current condition, the appearance of new symptoms, or with any questions or concerns. Compliance is encouraged with any medications and follow up testing that is ordered. It is a privilege to be allowed the opportunity to participate in? your urological care.? Again, if you have any questions or concerns If you have any questions or concerns please do not hesitate to contact me. The office is [phone]. This note is constructed using voice recognition software. While every effort has been made to ensure accuracy housecalls nurse errors may have been included. Yours sincerely, JOSE DAVID Burk Coding Level of Care Code Est Pt Level 4 (87888) Diagnoses Lower urinary tract symptoms R39.9 Nocturia more than twice per night R35.1 Sensation of pressure in bladder area R39.89 Frequency of urination R35.0 CPT Codes Post Residual Void - PVR CPT Code: 84113-[place] Void Residual by ultrasound ([id number])
== END 2023-12-04 12:31 | disposition home or self-care (01) ==
PROVIDERS: PCP Nurse Practitioner Family; Visit Provider Nurse Practitioner Family
DX: R39.9 Unspecified symptoms and signs involving the genitourinary system (principal); R35.1 Nocturia; R39.89 Other symptoms and signs involving the genitourinary system; R35.0 Frequency of micturition
CPT/HCPCS: 99214

== ENCOUNTER → 2023-12-04 11:42 | Outpatient (BNVA) | payer OTHER, SELFPAY | PROVIDERS: PCP Nurse Practitioner Family; Visit Provider Nurse Practitioner Family | DX: R35.1 Nocturia (principal); R39.89 Other symptoms and signs involving the genitourinary system; R35.0 Frequency of micturition | CPT/HCPCS: 51798; 81003 ==

== ENCOUNTER 2023-12-07 10:44 | Outpatient (AMB) | payer OTHER, SELFPAY ==
--- NOTE | 2023-12-07 11:13 | MHC.PC.OV ---
Vital Signs 12/07/23 11:16 Height 5 ft 3 in Weight 150 lb BMI 26.6 BP 100/70 Blood Pressure Location Rt brachial Position Sitting Pulse 82 Pulse Source Pulse Oximeter Pulse Oximetry (%) 98 Oxygen Delivery Method Room Air Intake Visit Reasons: PE Intake Note: Patient here for physical exam. Pt would like to talk about getting hydroxyzine for bladder issues, she would also like a referral to ENT for frequent sinus infections. mammo: 2022 due this year Allergies azithromycin Allergy (Unknown, Verified 12/07/23 11:17) palpitations levofloxacin Allergy (Unknown, Verified 12/07/23 11:17) Hives Sulfa (Sulfonamide Antibiotics) Allergy (Unknown, Verified 12/07/23 11:17) Unknown ciprofloxacin [From Cipro] Adverse Reaction (Mild, Verified 12/07/23 11:17) Rash bactrium Adverse Reaction (Mild, Uncoded 12/07/23 11:17) Rash Medication List - Last Reconciled 12/07/23 by Antwon Mendoza, PHARMACY CLINICAL SPECIALIST- albuterol sulfate 90 mcg/actuation 1 puff inhalation QID PRN atorvastatin 20 mg PO DAILY 90 days blood-glucose meter As directed cetirizine 20 mg (2 x 10 mg) PO DAILY clindamycin-benzoyl peroxide 1-5 % 1 appl topical DAILY duloxetine 20 mg PO DAILY hydroxyzine HCl 25 mg PO BID PRN 30 days insulin lispro (Humalog U-100 Insulin) 0 - 50 units subcut DAILY ipratropium bromide 2 sprays intranasal TID levothyroxine 50 mcg PO DAILY metformin 1,000 mg PO BID metoprolol tartrate 25 mg PO BID norethindrone (contraceptive) 0.35 mg PO DAILY oxybutynin chloride 5 mg PO Q8H PRN 30 days Tobacco use date assessed: 12/07/23 Dental Screening Dental Screen Date: 12/07/23 Did you have a dental visit in the last 12 months?: Yes Did you have a dental problem in the last 6 months where you did not have access to dental care?: No Was dental information given to patient?: Patient has dentist HPI PE HPI Details Pt is here for a PE. Will order labs. Mammo is up to date. 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 Pt is a diabetic, sees endo. Pt follows up with urology and cardiology. [facility] Medical History PVC (premature ventricular contraction) Lichen sclerosus of vulva Facial cellulitis Diabetes type 1, controlled Family History Father Heart disease Mother No problems noted. Family/Other Thyroid disease Social History Housing: House Alcohol intake: former Patient Tobacco Use Status: Former Tobacco user Years Smoked: 6 years ago e-Cigarette/Vaping Use: Former Use Second Hand Smoke Exposure: No service: No Current occupational status: employed Current occupation: [employer] Current occupational exposures/hazards: No Cognitive needs: No Hearing needs: No Vision needs: No Questionnaire Thrive Questionnaire Date Thrive assessed: 11/29/22 AUDIT C Alcohol Use Questionnaire (AUDIT-C) 1. How often do you have a drink containing alcohol?: Never 3. How often do you have six or more drinks on one occasion?: Never Total Score: 0 Score Reviewed/Action Taken: No KATHYA-7 AMB Questionnaire KATHYA-7 Date KATHYA - 7 assessed: 11/29/22 Source: Developed by Drs. Luis Fuller, Corrie Pacheco, Fab Miller and colleagues, with an educational darlin from [employer]. Review of Systems Const Denies chills and Denies fever(s) Eyes Denies blurry vision ENT Denies vertigo, Denies dizziness and Denies sore throat Card Denies chest pain at rest, Denies chest pain with activity, Denies diaphoresis, Denies dyspnea and Denies dyspnea on exertion Resp Denies cough, Denies dyspnea, Denies dyspnea on exertion and Denies wheezing GI Denies abdominal pain, Denies melena, Denies hematochezia, Denies constipation, Denies diarrhea and Denies loose stools Denies hematuria Musc Denies numbness and Denies tingling Skin/Breast Denies lesions Neuro Denies vertigo, Denies dizziness, Denies numbness and Denies tingling Psych Denies anxiety, Denies depression, Denies homicidal ideation, Denies suicidal ideation and Denies other (substance abuse) Aller/Immun Denies wheezing Physical exam (Primary Care) Vital Signs: Last Vital Signs Pulse 82 12/07/23 11:16 BP 100/70 12/07/23 11:16 Pulse Ox 98 12/07/23 11:16 Oxygen Delivery Method Room Air 12/07/23 11:16 BMI result Body Mass Index 26.6 Tobacco/Smoking Status: Tobacco use Status Tobacco use date assessed 12/07/23 12/07/23 11:20 Patient Tobacco Use Status Former Tobacco user 12/07/23 11:13 e-Cigarette/Vaping Use Former Use 12/07/23 11:13 Thrive Assessment: Date of Thrive Assessment Date Thrive assessed 11/29/22 12/07/23 11:13 Const General: cooperative Nutritional Appearance: well nourished Orientation/consciousness: patient oriented x3 HENMT Head: Yes normal to inspection, Yes normocephalic and Yes atraumatic Ears: TM's normal bilaterally Eyes General: appearance normal, both eyes and all related structures Alignment and Position: alignment normal and position normal Neck Neck: Yes normal visual inspection and Yes no lymphadenopathy Thyroid: Thyroid normal Resp Effort & Inspection: normal respiratory effort Auscultation: clear to auscultation bilaterally Cardio Rate: regular rate Rhythm: regular rhythm Heart sounds: S1 normal heart sound present, S2 normal heart sound present and no murmurs GI Palpation (GI): Soft to palpation and nontender Auscultation: normal bowel sounds Skin Rashes: no rashes Neuro General: patient oriented x3, moves all extremities, no focal motor deficits and deep tendon reflexes 2+ bilaterally Romberg Test: Negative Extrem Right lower extremity: no edema Left lower extremity: no edema Psych Appearance: grossly normal Mental Status: mental status grossly normal Speech and movement: Normal speech and movement present Affect: normal affect Attitude: cooperative Thought process: Normal thought process present Thought content: Normal thought content present Insight: Good insight present (Psych) Judgement: Good judgement present (Psych) Assessment and Plan Assessment & Plan (1) Physical exam: Code(s): Z00.00 - Encounter for general adult medical examination without abnormal findings Plan: Labs ordered Plan The patient agreed to the use of a medical transcription radiology for this encounter. Scribed for JOSE DAVID Ahmadi by willie Sorto scribe, on 12/07/2023 at 11:25 EST. Orders: Orders Complete Blood Count Auto Diff Today Z00.00 - Encounter for general adult medical examination without abnormal findings TSH reflex Free T4 Today Z00.00 - Encounter for general adult medical examination without abnormal findings Comprehensive [place]. Panel Fast Today Z00.00 - Encounter for general adult medical examination without abnormal findings UA CC w/rflx Micro + Cult Today Z00.00 - Encounter for general adult medical examination without abnormal findings Lipid Panel Today Z00.00 - Encounter for general adult medical examination without abnormal findings MM screening mammo BI Today Z12.31 - Encounter for screening mammogram for malignant neoplasm of breast Medications: New hydroxyzine HCl 25 mg PO BID 30 days PRN 60 tabs 1RF anxiety Coding Level of Care Code Est Pt Prev Care 40-64y(54536) Diagnoses Physical exam Z00.00
[2023-12-07 11:16] VITALS: BP 100/70; PULSE 82; O2SAT 98; BMI 26.6
== END 2023-12-07 11:40 | disposition home or self-care (01) ==
PROVIDERS: Visit Provider Nurse Practitioner Family
DX: Z00.00 Encounter for general adult medical examination without abnormal findings (principal)
CPT/HCPCS: 99396

== ENCOUNTER 2024-02-13 08:41 | Outpatient (REF) | payer OTHER, SELFPAY ==
--- NOTE | ~2024-02-13 | MM_ITS ---
EXAMINATION: MM SCREENING DIGITAL BREAST TOMOSYNTHESIS, BILATERAL CLINICAL INFORMATION: Screening. Asymptomatic. COMPARISON: Mammography: This study is compared with prior exams dating back to 2022. TECHNIQUE: Digital breast tomosynthesis is performed in both the craniocaudal and mediolateral oblique views along with computer-aided detection (CAD). Synthesized 2D images are generated from the tomosynthesis. FINDINGS: The breasts are heterogeneously dense, which may obscure small masses (ACR BI-RADS breast composition Category c). There are no significant masses, abnormal calcifications, or other abnormalities. MM/MM tomosynthesis screening BI IMPRESSION: No mammographic evidence of malignancy. ASSESSMENT: BI-RADS BI-RADS 1 - Negative RECOMMENDATION: Routine annual mammography screening. 1 year F/U This examination should not preclude the clinical evaluation of a suspicious palpable abnormality. This patient's information was entered into a reminder system with a target due date for their next mammogram.
== END 2024-02-13 08:42 | disposition home or self-care (01) ==
LOC: HO.MAMMO 08:41
PROVIDERS: Visit Provider Nurse Practitioner Family
DX: Z12.31 Encounter for screening mammogram for malignant neoplasm of breast (principal)
CPT/HCPCS: 77063; 77067

== ENCOUNTER → 2024-02-13 09:00 | Outpatient (BNV) | payer OTHER, SELFPAY | PROVIDERS: Visit Provider Radiology Diagnostic Radiology | DX: Z12.31 Encounter for screening mammogram for malignant neoplasm of breast (principal) | CPT/HCPCS: 77063; 77067 ==

== ENCOUNTER 2024-02-26 09:35 | Outpatient (AMB) | payer OTHER, SELFPAY ==
--- OUTSIDE RECORDS SUMMARY | 2024-02-26 09:39 | XMS_ITS | Continuity of Care Document ---
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 Name Role Phone Reji PAZ, Antwon Capps Primary Care Physician [facility]): 08[facility]10/23 - 09/09/23 [facility] [address] [place] [id number] Allergies, Adverse Reactions, Alerts Substance Reaction Severity Status ciprofloxacin Chest pain at rest Moderate Active amoxicillin rash Active azithromycin Active levofloxacin headache Active Bactrim rash Active Immunizations Given and Recorded Vaccine Date Status Refusal Reason pneumococcal 23-valent vaccine 01/08/15 Given influenza virus vaccine, inactivated 1 05/28/13 Re corded tetanus/diphtheria/pertussis, acel(Tdap) 2 04/06/11 Given FluLaval (oldterm) 3 05/31/10 Given 1Result Comment: [06/19/2013] [facility] at [facility] 2Admin Note: VIM 06/17/08 3Admin Note: ADMINISTERED BY [facility] Medications Baqsimi intranasal spray Baqsimi intranasal spray, See Instructions, # 2 each, Refills 11, Tot. Refills 11, Maintenance, useintranasally for emergent hypglycemia E10.9 30 day, 02/18/22 15:28:00 EDT, Supply, 161, cm, 02/10/22 23:44:00 EDT, Height, 67.7, kg, 02/10/22 23:44:00... Start Date: 02/18/22 Status: Ordered BD pen needle 31g 4mm BD pen needle 31g 4mm, See Instructions, # 250 each, Refills 11, Tot. Refills 11, Maintenance, use with insulin 8 x daily. E10.9 30 day, 09/13/21 14:07:00 EST, Supply, 160, cm, 03/16/21 17:17:00 EDT,Height, 63.1, kg, 03/16/21 13:07:00 EDT, Dry Weight Start Date: 09/13/21 Status: Ordered Freestyle Lite Lancets See Instructions, # 120 each, Refills 6, Tot. Refills 6, Maintenance, Use Freestyle lite lancets tocheck blood glucose 4x a day, E10.65, 03/26/21 16:25:00 EDT, Supply, 160, cm, 03/16/21 17:17:00 EDT, Height, 63.1, kg, 03/16/21 13:07:00 EDT, Dry Weight Start Date: 03/26/21 Status: Ordered Freestyle Lite Monitor See Instructions, # 1 each, Refills 0, Tot. Refills 0, Maintenance, Use Freestyle lite glucose meter to check blood glucose 4x a day, E10.65, 07/01/22 12:32:00 EST, Supply, 160, cm, 05/03/22 12:20:00EDT, Height, 68.1, kg, 05/03/22 9:57:00 EDT, Dry We... Start Date: 07/01/22 Status: Ordered Freestyle Lite Test Strips See Instructions, # 750 each, Refills 3, Tot. Refills 3, Maintenance, 8x/day. Use test strips to check blood sugar 8x/day E10.65 90 day, 07/18/23 13:40:00 EST, Supply, 161, cm, 02/23/23 7:34:00 EDT, Height, 68.3, kg, 11/26/22 9:16:00 EDT, Dry Weight Start Date: 07/18/23 Status: Ordered glucagon baqsimi auto injector glucagon baqsimi auto injector, See Instructions, # 2 each, Refills 11, Tot. Refills 11, Maintenance, E10.9 use for emergent hypoglycemia, 08/01/23 11:10:00 EST, Supply, 161, cm, 02/23/23 7:34:00 EDT, Height, 68.3, kg, 11/26/22 9:16:00 EDT, Dry Weight Start Date: 08/01/23 Status: Ordered Humalog 100 u/ml subcutaneous injection See Instructions, USE UPTO 50 UNITS DAILY VIA PUMP, # 50 mL, 3 Refills, Maintenance, 01/26/23 16:03:00 EDT, [facility] #[id number], 161, cm, 11/26/22 9:16:00 EDT, Height, 68.3, kg, 11/26/22 9:16:00 EDT, Dry Weight Start Date: 01/26/23 Status: Ordered Lantus Solostar Pen 100 units/mL subcutaneous solution = 15 units, Subcutaneous Injection, Daily at bedtime, # 10 mL, 5 Refills, Maintenance, 10/25/22 14:51:00 EDT, Solution, [facility] #[id number], Partial fill upon patient request if the prescription is for a schedule II opioid drug., 160, cm, 09/29... Start Date: 10/25/22 Status: Ordered levothyroxine 0.05 mg oral tablet 1 tablet = 50 mcg, By Mouth, Daily, # 30 tablet, 11 Refills, Maintenance, 08/28/23 20:59:00 EST, Tablet, [facility] #[id number], Partial fill upon patient request if the prescription is for a schedule II opioid drug., 161, cm, 02/23/23 7:34:00 ED... Start Date: 08/28/23 Status: Ordered metFORMIN 500 mg oral tablet, extended release 2 tablet = 1,000 mg, By Mouth, 2 times a day, # 120 tablet, 11 Refills, Maintenance, 08/10/23 14:13:00 EST, [facility] #[id number], Partial fill upon patient request if the prescription is for aschedule II opioid drug., 161, cm, 02/23/23 7:34:00... Start Date: 08/10/23 Stop Date: 08/04/24 Status: Ordered oxybutynin 5 mg oral tablet 1 tablet = 5 mg, By Mouth, Daily, # 14 tablet, 0 Refills, Maintenance, 11/26/22 10:32:00 EDT, Tablet, [facility] #[id number], Partial fill upon patient request if the prescription is for a schedule II opioid drug., 161, cm, 11/26/22 9:16:00 EDT,... Start Date: 11/26/22 Status: Ordered Pen Acosta, 31 G x 5 mm BD Ultra Fine III See Instructions, # 100 each, Refills 3, Tot. Refills 3, Maintenance, use daily with victoza, 08/22/23 7:18:00 EST, Supply, 161, cm, 02/23/23 7:34:00 EDT, Height, 68.3, kg, 11/26/22 9:16:00 EDT, Dry Weight Start Date: 08/22/23 Status: Ordered Pen Acosta, 31 G x 5 mm BD Ultra Fine III See Instructions, # 300 each, Refills 3, Tot. Refills 3, Maintenance, E10.9 90 day use with symlin TID, 08/01/23 11:18:00 EST, Supply, 161, cm, 02/23/23 7:34:00 EDT, Height, 68.3, kg, 11/26/22 9:16:00 EDT, Dry Weight Start Date: 08/01/23 Status: Ordered SymlinPen 60 subcutaneous solution = 60 mcg, Subcutaneous Injection, 3 times a day before meals, # 3 mL, 11 Refills, Maintenance, 08/01/23 11:12:00 EST, [id number], please dispense 2 1.5 mL pens as I believeeach pen would last 20 days, 161, cm, 02/23/23 7:34... Start Date: 08/01/23 Status: Ordered Victoza 18 mg/3 mL subcutaneous solution = 1.8 mg, Subcutaneous Injection, Daily, # 27 mL, 3 Refills, Maintenance, 08/22/23 7:18:00 EST, Solution, [facility] #[id number], Partial fill upon patient request if the prescription is for a schedule II opioid drug., 161, cm, 02/23/23 7:34:00 E... Start Date: 08/22/23 Status: Ordered Zyrtec 10 mg oral tablet 1 tablet = 10 mg, By Mouth, Daily, # 90 tablet, 0 Refills, Maintenance, 05/03/16 7:50:31 Start Date: 05/03/16 Stop Date: 08/01/16 Status: Ordered Problem List Condition Confirmation Course Effective Dates Status Health St atus Informant Anxiety 1, 2 Confirmed Active Asthma Confirmed Active GERD - Gastro-esophageal reflux disease 3 Confirmed Active 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/04/13 Active Tobacco 4 Confirmed Active 1no current therapist or psych 2Deidre [place], psych 3intermittent 4smokes occasionally Social History Social History Type Response Smoking Status Former smoker; Other : quit june 2010; entered on: 01/08/15 Sex Patient Care team information Care Team Personnel Name: Reji PAZ , Antwon Capps Position: Reference Physician Member Role: PCP Address: Address: [address] [place] [id number]- Name: Mirza RUSH, Twila Salazar Position: [facility] PARAFFIN PLANT OPERATOR MD Member Role: Lifetime PARAFFIN PLANT OPERATOR Physician Address: Address: [address] [place] [address]'s [facility] [place] [employer] [place] [address]- Care Team Related Persons Name: NAOMIE PADILLA Address: home [address] [place] [address] Name: RUPERTO LOPEZ Address: home [address] [place] [address]
--- OUTSIDE RECORDS SUMMARY | 2024-02-26 09:39 | XMS_ITS | Continuity of Care Document ---
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 Name Role Phone Reji PAZ, Antwon Capps Primary Care Physician [facility] 08[facility]21 - 09/09/21 [facility] [address] [place] [id number] Allergies, Adverse Reactions, Alerts Substance Reaction Severity Status azithromycin Active Bactrim rash Active amoxicillin rash Active levofloxacin headache Active Immunizations Given and Recorded Vaccine Date Status Refusal Reason pneumococcal 23-valent vaccine 01/08/15 Given influenza virus vaccine, inactivated 1 05/28/13 Re corded tetanus/diphtheria/pertussis, acel(Tdap) 2 04/06/11 Given FluLaval (oldterm) 3 05/31/10 Given 1Result Comment: [06/19/2013] [facility] at [facility] 2Admin Note: VIM 06/17/08 3Admin Note: ADMINISTERED BY [facility] Medications Advair Diskus 100 mcg-50 mcg inhalation powder 1, puffs, Inhalation, 2 times a day, OV needed for further refills., # 60 each, Refills 0, Tot. Refills 0, Maintenance, 04/20/16 16:46:50, Route to Pharmacy Electronically, [id number], [facility] [id number] Start Date: 04/20/16 Stop Date: 05/20/16 Status: Ordered Advair Diskus 100 mcg-50 mcg inhalation powder 1, puffs, Inhalation, 2 times a day, # 60 each, Refills 0, Tot. Refills 0, Maintenance, 07/14/16 12:50:54, Route to Pharmacy Electronically, [id number], [id number] Start Date: 07/14/16 Stop Date: 08/13/16 Status: Ordered albuterol 0.083% inhalation solution 3 mL = 2.5 mg, Inhalation, Every 6 hours, # 120 each, 0 Refills, Maintenance, 01/10/19 21:10:23 EDT, Solution Start Date: 01/10/19 Status: Ordered Freestyle Lite Lancets See Instructions, # 120 each, Refills 6, Tot. Refills 6, Maintenance, Use Freestyle lite lancets [facility] blood glucose 4x a day, E10.65, 03/26/21 16:25:00 EDT, Supply, 160, cm, 03/16/21 17:17:00 EDT, Height, 63.1, kg, 03/16/21 13:07:00 EDT, Dry Weight Start Date: 03/26/21 Status: Ordered Freestyle Lite Monitor See Instructions, # 1 each, Maintenance, Use Freestyle lite glucose meter to check blood glucose 4xa day, E10.65, 03/26/21 16:25:00 EDT, Supply, 160, cm, 03/16/21 17:17:00 EDT, Height, 63.1, kg, 03/16/21 13:07:00 EDT, Dry Weight Start Date: 03/26/21 Status: Ordered Freestyle Lite Test Strips See Instructions, # 250 each, Refills 6, Tot. Refills 6, Maintenance, 8x/day. Use test strips to check blood sugar 8x/day E10.65, 04/01/21 14:30:00 EDT, Supply, 160, cm, 03/16/21 17:17:00 EDT, Height, 63.1, kg, 03/16/21 13:07:00 EDT, Dry Weight Start Date: 04/01/21 Status: Ordered glucagon baqsimi auto injector glucagon baqsimi auto injector, See Instructions, # 2 each, Refills 11, Tot. Refills 11, Maintenance, E10.9 use for emergent hypoglycemia, 09/03/20 14:50:00 EST, Supply, 158, cm, 02/09/19 12:52:00 EDT, Height, 66.2, kg, 01/16/19 16:43:00 EDT, Dry Weight Start Date: 09/03/20 Status: Ordered Humalog 100 u/ml subcutaneous injection See Instructions, take up to 30 units daily via insulin pump, # 30 mL, 11 Refills, Maintenance, 08/13/21 15:14:00 EST, [facility] #[id number], Partial fill upon patient request if the prescription is for a schedule II opioid drug., 160, cm, 03/16... Start Date: 08/13/21 Status: Ordered HumaLOG Min KwikPen 100 units/mL injectable solution See Instructions, use with CR and SF, TDD 30 units. 90 day E10.9, # 45 mL, 6 Refills, Maintenance, 08/13/21 15:14:00 EST, Solution, [facility] #[id number], Partial fill upon patient request if the prescription is for a schedule II opioid drug., 1... Start Date: 08/13/21 Status: Ordered INPEN 100/PINK/DELISA PINK DEVICE INPEN 100/PINK/DELISA PINK DEVICE, See Instructions, # 1 each, 0 Refills, Maintenance, CONSULT MD FOR MANE SETTINGS. Start Date: 02/12/21 Status: Ordered metFORMIN 500 mg oral tablet 1 tablet = 500 mg, By Mouth, 2 times a day, # 60 tablet, 11 Refills, Maintenance, 10/01/20 16:53:00EST, [facility] #[id number], Partial fill upon patient request if the prescription is for a schedule II opioid drug., 158, cm, 02/09/19 12:52:00 E... Start Date: 10/01/20 Status: Ordered metFORMIN 500 mg oral tablet, extended release 1 tablet = 500 mg, By Mouth, 2 times a day, # 180 tablet, 3 Refills, Maintenance, 01/01/21 10:11:00EDT, ER Tablet, [facility] #[id number], Partial fill upon patient request if the prescription is for a schedule II opioid drug., 158, cm, 02/09/19... Start Date: 01/01/21 Status: Ordered omnipod dash pods omnipod dash pods, See Instructions, # 10 each, Refills 9, Tot. Refills 9, Maintenance, Change evry3 days for DM for insulin pump, 06/18/21 11:40:00 EST, duplicate from rx sent 04/09/21 that pt states was not received, Supply, 160, cm, 03/16/21 17:17:... Start Date: 06/18/21 Status: Ordered Tresiba FlexTouch 100 units/mL subcutaneous solution See Instructions, TAKE TRESIBA 15 UNITS SQ INJECTION DAILY E 10.9, # 15 mL, 11 Refills, Maintenance, 08/18/21 12:29:00 EST, [facility] #[id number], Partial fill upon patient request if the prescription is for a schedule II opioid drug., 160, cm,... Start Date: 08/18/21 Status: Ordered Zyrtec 10 mg oral tablet 1 tablet = 10 mg, By Mouth, Daily, # 90 tablet, 0 Refills, Maintenance, 05/03/16 7:50:31 Start Date: 05/03/16 Stop Date: 08/01/16 Status: Ordered Problem List Condition Effective Dates Status Health Status Inform ant Anxiety(Confirmed) 1, 2 Active Asthma(Confirmed) Active GERD - Gastro-esophageal ref lux disease(Confirmed) 3 Active Polyuria(Confirmed) 01/04/13 Active Tobacco(Confirmed) 4 Active 1no current therapist or psych 2Deidre [place], psych 3intermittent 4smokes occasionally Social History Social History Type Response Smoking Status Former smoker; Other : quit june 2010; entered on: 01/08/15 Sex
--- OUTSIDE RECORDS SUMMARY | 2024-02-26 09:39 | XMS_ITS | Continuity of Care Document ---
Author Organization [facility] Address [address] [place] [id number]- Care Team Providers Care Body Technician Name Role Phone Reji PAZ, Antwon Capps Primary Care Physician [facility]): 02[facility]07[facility]22 - 03/09/22 [facility] [address] [place] [address] Allergies, Adverse Reactions, Alerts Substance Reaction Severity Status amoxicillin rash Active azithromycin Active levofloxacin headache Active Bactrim rash Active Immunizations Given and Recorded Vaccine Date Status Refusal Reason pneumococcal 23-valent vaccine 01/08/15 Given influenza virus vaccine, inactivated 1 05/28/13 Re corded tetanus/diphtheria/pertussis, acel(Tdap) 2 04/06/11 Given FluLaval (oldterm) 3 05/31/10 Given 1Result Comment: [06/19/2013] [facility] at [facility] 2Admin Note: VIM 06/17/08 3Admin Note: ADMINISTERED BY [facility] Medications Advair Diskus 100 mcg-50 mcg inhalation powder 1, puffs, Inhalation, 2 times a day, OV needed for further refills., # 60 each, Refills 0, Tot. Refills 0, Maintenance, 04/20/16 16:46:50, Route to Pharmacy Electronically, [id number], [facility] [id number] Start Date: 04/20/16 Stop Date: 05/20/16 Status: Ordered Advair Diskus 100 mcg-50 mcg inhalation powder 1, puffs, Inhalation, 2 times a day, # 60 each, Refills 0, Tot. Refills 0, Maintenance, 07/14/16 12:50:54, Route to Pharmacy Electronically, [id number][id number] Start Date: 07/14/16 Stop Date: 08/13/16 Status: Ordered albuterol 0.083% inhalation solution 3 mL = 2.5 mg, Inhalation, Every 6 hours, # 120 each, 0 Refills, Maintenance, 01/10/19 21:10:23 EDT, Solution Start Date: 01/10/19 Status: Ordered Baqsimi intranasal spray Baqsimi intranasal spray, See [...] Dry Weight Start Date: 09/13/21 Status: Ordered dexamethasone 6 mg oral tablet 1 tablet = 6 mg, By Mouth, Once, # 1 tablet, 0 Refills, Soft Stop, 02/11/22 2:10:00 EDT, [facility] #[id number], Partial fill upon patient request if the prescription is for a schedule II opioiddrug., 161, cm, 02/10/22 23:44:00 EDT, Height, 67.7... Start Date: 02/11/22 Status: Ordered Freestyle Lite Lancets See Instructions, # 120 each, Refills 6, Tot. Refills 6, Maintenance, Use Freestyle lite lancets [facility] blood glucose 4x a day, E10.65, 03/26/21 [...] Strips See Instructions, # 250 each, Refills 11, Tot. Refills 11, Maintenance, 8x/day. Use test strips to check blood sugar 8x/day E10.65 30 day, 09/13/21 14:07:00 EST, Supply, 160, cm, 03/16/21 17:17:00 EDT, Height, 63.1, kg, 03/16/21 13:07:00 EDT, Dry We... Start Date: 09/13/21 Status: Ordered glucagon baqsimi auto injector glucagon baqsimi auto injector, See Instructions, # 2 each, Refills 11, Tot. Refills 11, Maintenance, E10.9 use for emergent hypoglycemia, 09/03/20 14:50:00 EST, Supply, 158, cm, 02/09/19 12:52:00 EDT, Height, 66.2, kg, 01/16/19 16:43:00 EDT, Dry Weight Start Date: 09/03/20 Status: Ordered INPEN 100/PINK/DELISA PINK DEVICE INPEN 100/PINK/DELISA PINK DEVICE, See Instructions, # 1 each, 0 Refills, CONSULT MD FOR MANE SETTINGS. Start Date: 02/12/21 Status: Ordered insulin lispro 100 u/ml subcutaneous injection See Instructions, use up to 50 units daily in pump E10.9 90 day, # 50 mL, 3 Refills, Maintenance, 01/17/22 12:46:00 EDT, Solution, [facility] #[id number], Partial fill upon patient request if the prescription is for a schedule II opioid drug., 16... Start Date: 01/17/22 Status: Ordered metFORMIN 500 mg oral tablet 1 tablet = 500 mg, By Mouth, 2 times a day, # 60 tablet, 11 Refills, Maintenance, 10/01/20 16:53:00EST, [facility] #[id number], Partial fill upon patient request if the prescription is for a schedule II opioid drug., 158, cm, 02/09/19 12:52:00 E... Start Date: 10/01/20 Status: Ordered metFORMIN 500 mg oral tablet, extended release 1 tablet = 500 mg, By Mouth, 2 times a day, # 180 tablet, 3 Refills, Maintenance, 01/01/21 10:11:00EDT, ER Tablet, [facility] #[id number], Partial fill upon patient request if the prescription is for a schedule II opioid drug., 158, cm, 02/09/19... Start Date: 01/01/21 Status: Ordered Omnipod 5 five pack Omnipod 5 five pack, See Instructions, # 6 each, Refills 3, Tot. Refills 3, Maintenance, [facility] [id number] change every 3 days E10.9 90 day, 01/17/22 13:07:00 EDT, Supply, 160, cm, 03/16/21 17:17:00 EDT, Height, 63.1, kg, 03/16/21 13:07:00 EDT, Dry... Start Date: 01/17/22 Status: Ordered omnipod dash pods omnipod dash pods, See Instructions, # 10 each, Refills 6, Tot. Refills 6, Maintenance, Change evry3 days for DM for insulin pump OMNI POD DASH 5 Pack DX E10.65, 01/17/22 12:45:00 EDT, Supply, 160, cm, 03/16/21 17:17:00 EDT, Height, 63.1, kg, 03/16... Start Date: 01/17/22 Status: Ordered Tresiba FlexTouch 100 units/mL subcutaneous solution See Instructions, TAKE TRESIBA 15 UNITS SQ INJECTION DAILY E 10.9, # 15 mL, 11 Refills, Maintenance, 08/18/21 12:29:00 EST, [facility] #[id number], Partial fill upon patient request if the [...]
--- OUTSIDE RECORDS SUMMARY | 2024-02-26 09:39 | XMS_ITS | Continuity of Care Document ---
Author Organization [facility] Diabetes Address [address] [place] [id number]- Care Team Providers Care Sales Account Leader Name Role Phone Reji PAZ, Antwon Capps Primary Care Physician [phone] [facility]): 05/18/23 - 06/17/23 [facility] [address] [place] [id number] Allergies, Adverse Reactions, Alerts Substance Reaction Severity Status ciprofloxacin Chest pain at rest Moderate Active Bactrim rash Active levofloxacin headache Active amoxicillin rash Active azithromycin Active Immunizations Given and Recorded Vaccine Date Status Refusal Reason pneumococcal 23-valent vaccine 01/08/15 Given influenza virus vaccine, inactivated 1 05/28/13 Re corded tetanus/diphtheria/pertussis, acel(Tdap) 2 04/06/11 Given FluLaval (oldterm) 3 05/31/10 Given 1Result Comment: [06/19/2013] [facility] 2Admin Note: VIM 06/17/08 3Admin Note: ADMINISTERED BY [facility] Medications Baqsimi intranasal spray Baqsimi intranasal spray, [...] check blood sugar 8x/day E10.65 90 day, 07/01/22 9:43:00 EST, Supply, 160, cm, 05/03/22 12:20:00 EDT, Height, 68.1, kg, 05/03/22 9:57:00 EDT, Dry Weight Start Date: 07/01/22 Status: Ordered glucagon baqsimi auto injector glucagon [...] mL, 3 Refills, Maintenance, 01/26/23 16:03:00 EDT, [facility] #[id number], 161, cm, 11/26/22 9:16:00 EDT, Height, 68.3, kg, 11/26/22 9:16:00 EDT, Dry Weight Start Date: 01/26/23 Status: Ordered Lantus Solostar Pen 100 units/mL subcutaneous solution = 15 units, Subcutaneous Injection, Daily at bedtime, # 10 mL, 5 Refills, Maintenance, 10/25/22 14:51:00 EDT, Solution, [facility] #[id number], Partial fill upon patient request if the prescription is for a schedule II opioid drug., 160, cm, 09/29... Start Date: 10/25/22 Status: Ordered levothyroxine 0.025 mg oral tablet 1 tablet = 25 mcg, By Mouth, Daily, # 90 tablet, 3 Refills, Maintenance, 06/05/23 13:11:00 EST, Tablet, [facility] #[id number], Partial fill upon patient request if the prescription is for a schedule II opioid drug., 161, cm, 02/23/23 7:34:00 EDT... Start Date: 06/05/23 Status: Ordered Omnipod 5 five pack Omnipod 5 five pack, See Instructions, # 6 each, Refills 3, Tot. Refills 3, Maintenance, [facility] [id number] change every 3 days E10.9 90 day, 01/17/22 13:07:00 EDT, Supply, 160, cm, 03/16/21 17:17:00 EDT, Height, 63.1, kg, 03/16/21 13:07:00 EDT, Dry... Start Date: 01/17/22 Status: Ordered oxybutynin 5 mg oral tablet 1 tablet = 5 mg, By Mouth, Daily, # 14 tablet, 0 Refills, Maintenance, 11/26/22 10:32:00 EDT, [facility] #[id number], Partial fill upon patient request if the prescription is for a schedule II opioid drug., 161, cm, 11/26/22 9:16:00 EDT,... Start Date: 11/26/22 Status: Ordered Ozempic 2 mg/1.5 mL (0.25 mg or 0.5 mg dose) subcutaneous solution = 0.5 mg, Subcutaneous Infusion, Every week, rotate injection sites e11.9, # 1.5 mL, 3 Refills, Maintenance, 04/11/23 9:17:00 EDT, [facility] #[id number], Partial fill upon patient request if the prescription is for a schedule II opioid drug., 0... Start Date: 04/11/23 Status: Ordered Zyrtec 10 mg oral tablet [...] Active 1no current therapist or psych 2Deidre [place], psych 3intermittent 4smokes occasionally Social History Social History Type Response Smoking Status Former smoker; Other : quit june 2010; entered on: 01/08/15 Sex Patient Care team information Care Team Personnel Name: Antwon Mendoza NP Position: Reference Physician Member Role: PCP Address: Address: [address] [place] [address]- Name: Twila Blue MD Position: [facility] TELEVISION CABLE INSTALLER MD Member Role: Lifetime TELEVISION CABLE INSTALLER Physician Address: Address: [address] [place] [address]'s [facility] [place] [address]- Care Team Related Persons Name: NAOMIE PADILLA Address: home [address] [place] [address] Name: RUPERTO LOPEZ Address: [address] [place] [address]
--- OUTSIDE RECORDS SUMMARY | 2024-02-26 09:39 | XMS_ITS | Continuity of Care Document ---
Author Organization [facility] Endocrinolo gy and Diabetes Address [address] [place] [address]- Care Team Providers Care Generator Operator Name Role Phone Reji PAZ, Antwon Capps Primary Care Physician [phone] [facility]): 07/18/22 - 08/17/22 [facility] Endocrinology and Diabetes [address] [place] [id number] Allergies, Adverse Reactions, Alerts Substance Reaction Severity Status ciprofloxacin Chest pain at rest Moderate Active amoxicillin rash Active azithromycin Active Bactrim rash Active levofloxacin headache Active Immunizations Given and Recorded Vaccine Date Status Refusal Reason pneumococcal 23-valent vaccine 01/08/15 Given influenza virus vaccine, inactivated 1 05/28/13 Re corded tetanus/diphtheria/pertussis, acel(Tdap) 2 04/06/11 Given FluLaval (oldterm) 3 05/31/10 Given 1Result Comment: [06/19/2013] [facility] at [facility] 2Admin Note: VIM 06/17/08 3Admin Note: ADMINISTERED BY [facility] Medications Advair Diskus 100 mcg-50 mcg inhalation powder 1, puffs, Inhalation, 2 times a day, OV needed for further refills., # 60 each, Refills 0, Tot. Refills 0, Maintenance, 04/20/16 16:46:50, Route to Pharmacy Electronically, [id number], [facility] [id number] Start Date: 04/20/16 Stop Date: 05/20/16 Status: Ordered Advair Diskus 100 mcg-50 mcg inhalation powder 1, puffs, Inhalation, 2 times a day, # 60 each, Refills 0, Tot. Refills 0, Maintenance, 07/14/16 12:50:54, Route to Pharmacy Electronically, [id number], [id number] Start Date: 07/14/16 Stop Date: 08/13/16 Status: Ordered albuterol 0.083% inhalation solution 3 mL = 2.5 mg, Inhalation, Every 6 hours, # 120 each, 0 Refills, Maintenance, 01/10/19 21:10:23 EDT, Solution Start Date: 01/10/19 Status: Ordered albuterol CFC free 90 mcg/inh inhalation aerosol 2, puffs, Inhalation, 4 times a day, PRN, # 18 Gm, Refills 0, Tot. Refills 0, Maintenance, :33:00 EDT, Aerosol, Route to Pharmacy Electronically, NCPDP_[id number], [facility] #[id number], 160, cm, 04/16/22 23:50:00 EDT, Height, 67.9, kg... Start Date: 04/17/22 Status: Ordered Baqsimi intranasal spray Baqsimi intranasal [...] Refills 6, Maintenance, Use [facility] 4x a day, E10.65, 03/26/21 [...] Dry Weight Start Date: 09/03/20 Status: Ordered insulin lispro 100 u/ml subcutaneous injection See Instructions, use up to 50 units daily in pump E10.9 90 day, # 50 mL, 3 Refills, Maintenance, 01/17/22 12:46:00 EDT, Solution, [facility] #[id number], Partial fill upon patient request if the prescription is for a schedule II opioid drug., 16... Start Date: 01/17/22 Status: Ordered levothyroxine 0.025 mg oral tablet 1 tablet = 25 mcg, By Mouth, Daily, # 90 tablet, 3 Refills, Maintenance, 04/13/22 15:19:00 EDT, Tablet, [facility] #[id number], Partial fill upon patient request if the prescription is for a schedule II opioid drug., 161, cm, 02/10/22 23:44:00 ED... Start Date: 04/13/22 Status: Ordered Lidoderm 5% film 1 patch, Topically, Daily, PRN Pain , Mild, # 15 patch, 0 Refills, Maintenance, 05/03/22 11:22:00 EDT, [facility] #[id number], Partial fill upon patient request if the prescription is for a schedule II opioid drug., 1 patch Topically Daily,PRN:Pa... Start Date: 05/03/22 Status: Ordered metFORMIN 1000 mg oral tablet 1 tablet = 1,000 mg, By Mouth, 2 times a day, with food, # 180 tablet, 3 Refills, Maintenance, 10/11/21 10:30:00 EDT, Tablet, [facility] #[id number], Partial fill upon patient request if the prescription is for a schedule II opioid drug., 160, cm... Start Date: 10/11/21 Status: Ordered Omnipod 5 five pack Omnipod 5 five pack, See Instructions, # 6 each, Refills 3, Tot. Refills 3, Maintenance, [facility] [id number] change every 3 days E10.9 90 day, 01/17/22 13:07:00 EDT, Supply, 160, cm, 03/16/21 17:17:00 EDT, Height, 63.1, kg, 03/16/21 13:07:00 EDT, Dry... Start Date: 01/17/22 Status: Ordered Tresiba FlexTouch 100 units/mL subcutaneous solution = 15 units, Subcutaneous Injection, Daily, e10.9, use as directed if needed for pump failure. pt has a coupon card., # 15 mL, 11 Refills, Maintenance, 06/13/22 15:43:00 EST, [facility] #[id number], Partial fill upon patient request if the prescri... Start Date: 06/13/22 Stop Date: 06/08/23 Status: Ordered Zyrtec 10 mg oral tablet [...] Active 1no current therapist or psych 2Deidre [place], psych 3intermittent 4smokes occasionally Social History Social History Type Response Smoking Status Former smoker; Other : quit june 2010; entered on: 01/08/15 Sex Patient Care team information Care Team Personnel Name: Reji PAZ , Antwon Capps Position: Reference Physician Member Role: PCP Address: Address: [address] [place] [address]- Name: Mirza RUSH, Twila Salazar Position: [facility] ELECTRONEURODIAGNOSTIC TECHNICIAN MD Member Role: [employer] ELECTRONEURODIAGNOSTIC TECHNICIAN Physician Address: Address: [address] [place] [address] [facility] [address]- Care Team Related Persons Name: NAOMIE PADILLA Address: home [address] [place] [address] Name: RUPERTO LOPEZ Address: home [address] [place] [address]
--- OUTSIDE RECORDS SUMMARY | 2024-02-26 09:39 | XMS_ITS | Continuity of Care Document ---
Author Organization [facility] Endocrinolo gy and Diabetes Address [address] [place] [address]- Care Team Providers Care Manager Cafe Name Role Phone Reji PAZ, Antwon Capps Primary Care Physician [phone] [facility](s): 08/30/22 - 09/29/22 [facility] Endocrinology and Diabetes [address] [place] [id number] Allergies, Adverse Reactions, Alerts Substance Reaction Severity Status ciprofloxacin Chest pain at rest Moderate Active Bactrim rash Active amoxicillin rash Active azithromycin Active levofloxacin headache Active Immunizations Given and Recorded Vaccine Date Status Refusal Reason pneumococcal 23-valent vaccine 01/08/15 Given influenza virus vaccine, inactivated 1 05/28/13 Re corded tetanus/diphtheria/pertussis, acel(Tdap) 2 04/06/11 Given FluLaval (oldterm) 3 05/31/10 Given 1Result Comment: [06/19/2013] [facility] at [facility] 2Admin Note: VIM 06/17/08 3Admin Note: ADMINISTERED BY [facility] Medications Advair Diskus 100 mcg-50 mcg inhalation powder 1, puffs, Inhalation, 2 times a day, OV needed for further refills., # 60 each, Refills 0, Tot. Refills 0, Maintenance, 04/20/16 16:46:50, Route to Pharmacy Electronically, [id number], [facility] [id number] Start Date: 04/20/16 Stop Date: 05/20/16 Status: Ordered Advair Diskus 100 mcg-50 mcg inhalation powder 1, puffs, Inhalation, 2 times a day, # 60 each, Refills 0, Tot. Refills 0, Maintenance, 07/14/16 12:50:54, Route to Pharmacy Electronically, [id number], [id number] Start Date: 07/14/16 Stop Date: 08/13/16 Status: [...] :33:00 EDT, Aerosol, Route to Pharmacy Electronically, NCPDP_[id number], [email or web address] #[id number], 160, cm, 04/16/22 23:50:00 EDT, Height, 67.9, [...] Refills 6, Maintenance, Use Freestyle lite [facility]ancets [facility] 4x a day, E10.65, 03/26/21 [...] 3 Refills, Maintenance, 01/17/22 12:46:00 EDT, Solution, [facility] #[id number], Partial fill upon patient request if the prescription is for a schedule II opioid drug., 16... Start Date: 01/17/22 Status: Ordered levothyroxine 0.025 mg oral tablet 1 tablet = 25 mcg, By Mouth, Daily, # 90 tablet, 3 Refills, Maintenance, 04/13/22 15:19:00 EDT, Tablet, [facility] #[id number], Partial fill upon patient request if the prescription is for a schedule II opioid drug., 161, cm, 02/10/22 23:44:00 ED... Start Date: 04/13/22 Status: Ordered Lidoderm 5% film 1 patch, Topically, Daily, PRN Pain , Mild, # 15 patch, 0 Refills, Maintenance, 05/03/22 11:22:00 EDT, [facility] #[id number], Partial fill upon patient request if the prescription is for a schedule II opioid drug., 1 patch Topically Daily,PRN:Pa... Start Date: 05/03/22 Status: Ordered metFORMIN 1000 mg oral tablet 1 tablet = 1,000 mg, By Mouth, 2 times a day, with food, # 180 tablet, 3 Refills, Maintenance, 09/23/22 13:57:00 EST, Tablet, [facility] #[id number], Partial fill upon patient request if the prescription is for a schedule II opioid drug., 160, cm... Start Date: 09/23/22 Status: Ordered Omnipod 5 five pack Omnipod 5 five pack, See Instructions, # 6 each, Refills 3, Tot. Refills 3, Maintenance, [facility] [id number] change every 3 days E10.9 90 day, 01/17/22 13:07:00 EDT, Supply, 160, cm, 03/16/21 17:17:00 EDT, Height, 63.1, kg, 03/16/21 13:07:00 EDT, Dry... Start Date: 01/17/22 Status: Ordered Tresiba FlexTouch 100 units/mL subcutaneous solution = 15 units, Subcutaneous Injection, Daily, e10.9, use as directed if needed for pump failure. pt has a coupon card., # 15 mL, 11 Refills, Maintenance, 06/13/22 15:43:00 EST, [email or web address] #[id number], Partial fill upon patient request if the prescri... Start Date: 11/14/22 Stop Date: 06/08/23 Status: Ordered Zyrtec 10 [...] Active 1no current therapist or psych 2Deidre [place], psych 3intermittent 4smokes occasionally Social History Social History Type Response Smoking Status Former smoker; Other : quit june 2010; entered on: 01/08/15 Sex Patient Care team information Care Team Personnel Name: Antwon Mendoza NP Position: Reference Physician Member Role: PCP Address: Address: [address] [place] [address]- Name: Mirza RUSH, Twila Salazar Position: [facility] BUSINESS SERVICES SPECIALIST SALES MD Member Role: [employer] BUSINESS SERVICES SPECIALIST SALES Physician Address: Address: [address] [place] [address] [facility] [address]- Care Team Related Persons Name: NAOMIE PADILLA Address: home [address] [place] [address] Name: RUPERTO LOPEZ Address: [address] [place] [address]
--- OUTSIDE RECORDS SUMMARY | 2024-02-26 09:39 | XMS_ITS | Continuity of Care Document ---
Author Organization [facility] Endocrinolo gy and Diabetes Address [address] [place] [address]- Care Team Providers Care Pinball Machine Repairer Name Role Phone Reji PAZ, Antwon Capps Primary Care Physician [facility] 03[facility]22 - 04/06/22 [facility] Endocrinology and Diabetes [address] [place] [id number] Allergies, Adverse Reactions, Alerts Substance Reaction Severity [...] Note: VIM 06/17/08 3Admin Note: ADMINISTERED BY [facility] Medications Advair Diskus 100 mcg-50 mcg inhalation powder 1, puffs, Inhalation, 2 times a day, OV needed for further refills., # 60 each, Refills 0, Tot. Refills 0, Maintenance, 04/20/16 16:46:50, Route to Pharmacy Electronically, [id number], [facility] [id number] Start Date: 04/20/16 Stop Date: 05/20/16 Status: Ordered Advair Diskus 100 mcg-50 mcg inhalation powder 1, puffs, Inhalation, 2 times a day, # 60 each, Refills 0, Tot. Refills 0, Maintenance, 07/14/16 12:50:54, Route to Pharmacy Electronically, [id number], [id number] Start Date: 07/14/16 Stop Date: 08/13/16 Status: [...] 0 Refills, Soft Stop, 02/11/22 2:10:00 EDT, [email or web address] #[id number], Partial fill upon patient request if the prescription is for a schedule II opioiddrug., 161, cm, 02/10/22 23:44:00 EDT, Height, 67.7... Start Date: 02/11/22 Status: Ordered Freestyle Lite Lancets See Instructions, # 120 each, Refills 6, Tot. Refills 6, Maintenance, Use Freestyle lite lancets [facility] blood glucose 4x a day, E10.65, 03/26/21 [...] Weight Start Date: 09/03/20 Status: Ordered Humalog Cartridge 100 units/mL subcutaneous injection See Instructions, [facility]: [id number] E 10.9 90 day use up to 40 units daily with INPEN, # 36 each, 3 Refills, Maintenance, 09/17/21 13:47:00 EST, Solution, [facility] #[id number], Partial fill upon patient request if the prescription is for a sche... Start Date: 09/17/21 Status: Ordered INPEN 100/PINK/DELISA PINK DEVICE INPEN 100/PINK/DELISA PINK DEVICE, See Instructions, # 1 each, 0 Refills, [facility]SULT FOR [facility]E SETTINGS. Start Date: 02/12/21 Status: Ordered insulin lispro 100 u/ml subcutaneous injection See Instructions, use up to 50 units daily in pump E10.9 90 day, # 50 mL, 3 Refills, Maintenance, 01/17/22 12:46:00 EDT, Solution, [facility] #[id number], Partial fill upon patient request if the prescription is for a schedule II opioid drug., 16... Start Date: 01/17/22 Status: Ordered metFORMIN 1000 mg oral tablet 1 tablet = 1,000 mg, By Mouth, 2 times a day, with food, # 180 tablet, 3 Refills, Maintenance, 10/11/21 10:30:00 EDT, Tablet, [facility] #[id number], Partial fill upon patient request if the prescription is for a schedule II opioid drug., 160, cm... Start Date: 10/11/21 Status: Ordered metFORMIN 500 mg oral tablet 1 tablet = 500 mg, By Mouth, 2 times a day, # 60 tablet, 11 Refills, Maintenance, 10/01/20 16:53:00EST, [facility] #[id number], Partial fill upon patient request if the prescription is for a schedule II opioid drug., 158, cm, 02/09/19 12:52:00 E... Start Date: 10/01/20 Status: Ordered metFORMIN 500 mg oral tablet, extended release 1 tablet = 500 mg, By Mouth, 2 times a day, # 180 tablet, 3 Refills, Maintenance, 01/01/21 10:11:00EDT, ER Tablet, [facility] #[id number], Partial fill upon patient request if the prescription is for a schedule II opioid drug., 158, cm, 02/09/19... Start Date: 01/01/21 Status: Ordered Omnipod 5 five pack Omnipod 5 five pack, See Instructions, # 6 each, Refills 3, Tot. Refills 3, Maintenance, [facility] [id number] change every 3 days E10.9 90 day, [...] mL, 11 Refills, Maintenance, 08/18/21 12:29:00 EST, [email or web address] #[id number], Partial fill upon patient request if the prescription is for a schedule II opioid drug., 160, cm,... Start Date: 08/18/21 Status: Ordered Trulicity Pen 0.75 mg/0.5 mL subcutaneous solution 0.5 mL = 0.75 mg, Subcutaneous Injection, Every week, # 2.5 mL, 0 Refills, Maintenance, 11/05/21 12:22:00 EDT, Solution, [email or web address] #[id number], Partial fill upon patient request if the prescription is for a schedule II opioid drug., 160, cm, ... Start Date: 11/05/21 Status: Ordered Trulicity Pen 1.5 mg/0.5 mL subcutaneous solution = 1.5 mg, Subcutaneous Injection, Every week, 90 day. Please dispense this in one month after the 0.75 mg dose has phased out. rotate injection sites, # 6.5 mL, 3 Refills, Maintenance, 11/05/21 12:22:00 EDT, [facility] #[id number], Part... Start Date: 11/05/21 Status: Ordered Zyrtec 10 mg oral tablet [...] quit june 2010; entered on: 01/08/15 Sex Care Team Personnel Name: Reji PAZ , Antwon Capps Address: [address] [place] [id number]
--- OUTSIDE RECORDS SUMMARY | 2024-02-26 09:39 | XMS_ITS | Continuity of Care Document ---
Author Organization [facility] Endocrinolo gy and Diabetes Address [address] [place] [address]- Care Team Providers Care Support Architect Name Role Phone Reji PAZ, Antwon Capps Primary Care Physician [phone] [facility] 09[facility]14[facility]21 - 10/14/21 [facility] Endocrinology and Diabetes [address] [place] [id number] Allergies, Adverse Reactions, Alerts Substance Reaction [...] Note: VIM 06/17/08 3Admin Note: ADMINISTERED BY [facility] Medications Advair Diskus 100 mcg-50 mcg inhalation powder 1, puffs, Inhalation, 2 times a day, OV needed for further refills., # 60 each, Refills 0, Tot. Refills 0, Maintenance, 04/20/16 16:46:50, Route to Pharmacy Electronically, [id number], [id number] Start Date: 04/20/16 Stop Date: 05/20/16 Status: Ordered Advair Diskus 100 mcg-50 mcg inhalation powder 1, puffs, Inhalation, 2 times a day, # 60 each, Refills 0, Tot. Refills 0, Maintenance, 07/14/16 12:50:54, Route to Pharmacy Electronically, [id number], [id number] Start Date: 07/14/16 Stop Date: 08/13/16 Status: Ordered albuterol 0.083% inhalation solution 3 mL = 2.5 mg, Inhalation, Every 6 hours, # 120 each, 0 Refills, Maintenance, 01/10/19 21:10:23 EDT, Solution Start Date: 01/10/19 Status: Ordered BD pen needle 31g 4mm [...] Refills 6, Maintenance, Use Freestyle lite lancets [facility] glucose 4x a day, E10.65, 03/26/21 [...] 60 tablet, 11 Refills, Maintenance, 10/01/20 16:53:00EST, [facility] #[id number], Partial fill upon patient request if the prescription is for a schedule II opioid drug., 158, cm, 02/09/19 12:52:00 E... Start Date: 10/01/20 Status: Ordered metFORMIN 500 mg oral tablet, extended release 1 tablet = 500 mg, By Mouth, 2 times a day, # 180 tablet, 3 Refills, Maintenance, 01/01/21 10:11:00EDT, ER Tablet, [facility] #[id number], Partial fill upon patient request if the prescription is for a schedule II opioid drug., 158, cm, 02/09/19... Start Date: 01/01/21 Status: Ordered Tresiba FlexTouch 100 units/mL subcutaneous solution See Instructions, TAKE TRESIBA 15 UNITS SQ INJECTION DAILY E 10.9, # 15 mL, 11 Refills, Maintenance, 08/18/21 12:29:00 EST, [facility] #[id number], Partial fill upon patient request if the [...]
--- OUTSIDE RECORDS SUMMARY | 2024-02-26 09:39 | XMS_ITS | Continuity of Care Document ---
Author Organization [facility] Endocrinolo gy and Diabetes Address [address] [place] [address]- Care Team Providers Care Salesperson Floor Coverings Name Role Phone Reji PAZ, Antwon Capps Primary Care Physician [facility]): 04[facility]10[facility]23 - 05/10/23 [facility] Endocrinology and Diabetes [address] [place] [id number] Allergies, Adverse Reactions, Alerts Substance [...] Note: VIM 06/17/08 3Admin Note: ADMINISTERED BY [facility] Medications Baqsimi intranasal spray Baqsimi [...] mL, 3 Refills, Maintenance, 01/26/23 16:03:00 EDT, [facility] #[id number], 161, cm, 11/26/22 9:16:00 EDT, Height, 68.3, kg, 11/26/22 9:16:00 EDT, Dry Weight Start Date: 01/26/23 Status: Ordered Lantus Solostar Pen 100 units/mL subcutaneous solution = 15 units, Subcutaneous Injection, Daily at bedtime, # 10 mL, 5 Refills, Maintenance, 10/25/22 14:51:00 EDT, Solution, [facility] #[id number], Partial fill upon patient request if the prescription is for a schedule II opioid drug., 160, cm, 09/29... Start Date: 10/25/22 Status: Ordered levothyroxine 0.025 mg oral tablet 1 tablet = 25 mcg, By Mouth, Daily, # 90 tablet, 3 Refills, Maintenance, 04/13/22 15:19:00 EDT, Tablet, [facility] #[id number], Partial fill upon patient request if the prescription is for a schedule II opioid drug., 161, cm, 02/10/22 23:44:00 ED... Start Date: 04/13/22 Status: Ordered Omnipod 5 five pack Omnipod 5 five pack, See Instructions, # 6 each, Refills 3, Tot. Refills 3, Maintenance, [facility] [id number] change every 3 days E10.9 90 day, 01/17/22 13:07:00 EDT, Supply, 160, cm, 03/16/21 17:17:00 EDT, Height, 63.1, kg, 03/16/21 13:07:00 EDT, Dry... Start Date: 01/17/22 Status: Ordered oxybutynin 5 mg oral tablet 1 tablet = 5 mg, By Mouth, Daily, # 14 tablet, 0 Refills, Maintenance, 11/26/22 10:32:00 EDT, Tablet, [facility] #[id number], Partial fill upon patient request if the prescription is for a schedule II opioid drug., 161, cm, 11/26/22 9:16:00 EDT,... Start Date: 11/26/22 Status: Ordered Ozempic 2 mg/1.5 mL (0.25 mg or 0.5 mg dose) subcutaneous solution = 0.5 mg, Subcutaneous Infusion, Every week, rotate injection sites e11.9, # 1.5 mL, 3 Refills, Maintenance, 04/11/23 9:17:00 EDT, [facility] #[id number], Partial fill upon patient request if the [...] Active 1no current therapist or psych 2Deidre [place], psych 3intermittent 4smokes occasionally Social History Social History Type Response Smoking Status Former smoker; Other : quit june 2010; entered on: 01/08/15 Sex Patient Care team information Care Team Personnel Name: Antwon Mendoza NP Position: Reference Physician Member Role: PCP Address: Address: [address] [place] [address]- Name: Twila Blue MD Position: [facility] ENVIRONMENTAL PROTECTION OFFICER MD Member Role: [employer] ENVIRONMENTAL PROTECTION OFFICER Physician Address: Address: [address] [place] [address] [place] [address]- Care Team Related Persons Name: NAOMIE PADILLA Address: home [address] [place] [address] Name: RUPERTO LOPEZ Address: [address] [place] [address]
--- OUTSIDE RECORDS SUMMARY | 2024-02-26 09:39 | XMS_ITS | Continuity of Care Document ---
Author Organization [facility] Address [address] [place] [address]- Care Team Providers Care Housemaid Name Role Phone Reji PAZ, Antwon Capps Primary Care Physician [facility] Date[facility]s): 06/29/23 - 07/29/23 [facility] [address] [place] [id number] Allergies, Adverse Reactions, Alerts Substance Reaction Severity Status ciprofloxacin Chest pain at rest Moderate Active azithromycin Active levofloxacin headache Active Bactrim rash Active amoxicillin rash Active Immunizations Given and Recorded Vaccine Date Status Refusal Reason pneumococcal 23-valent vaccine 01/08/15 Given influenza virus vaccine, inactivated 1 05/28/13 Re corded tetanus/diphtheria/pertussis, acel(Tdap) 2 04/06/11 Given FluLaval (oldterm) 3 05/31/10 Given 1Result Comment: [06/19/2013] [facility] at [facility] 2Admin Note: VIM 06/17/08 3Admin Note: ADMINISTERED BY [facility] Medications Baqsimi intranasal spray Baqsimi intranasal [...] day, 09/13/21 14:07:00 EST, Supply, 160, cm, 08/17/21 17:17:00 EDT,Height, 63.1, kg, 03/16/21 13:07:00 EDT, Dry Weight Start Date: 09/13/21 Status: Ordered Freestyle Lite Lancets See Instructions, # 120 each, Refills 6, Tot. Refills 6, Maintenance, Use [facility] l[facility]ets [facility] glucose 4x a day, E10.65, [...] mL, 3 Refills, Maintenance, 01/26/23 16:03:00 EDT, [facility] #[id number], 161, cm, 11/26/22 9:16:00 EDT, Height, 68.3, kg, 11/26/22 9:16:00 EDT, Dry Weight Start Date: 01/26/23 Status: Ordered Lantus Solostar Pen 100 units/mL subcutaneous solution = 15 units, Subcutaneous Injection, Daily at bedtime, # 10 mL, 5 Refills, Maintenance, 10/25/22 14:51:00 EDT, Solution, [facility] #[id number], Partial fill upon patient request if the prescription is for a schedule II opioid drug., 160, cm, 09/29... Start Date: 10/25/22 Status: Ordered levothyroxine 0.025 mg oral tablet 1 tablet = 25 mcg, By Mouth, Daily, # 90 tablet, 3 Refills, Maintenance, 06/05/23 13:11:00 EST, Tablet, [facility] #[id number], Partial fill upon patient request if the prescription is for a schedule II opioid drug., 161, cm, 02/23/23 7:34:00 EDT... Start Date: 06/05/23 Status: Ordered Omnipod 5 five pack Omnipod 5 five pack, See Instructions, # 6 each, Refills 3, Tot. Refills 3, Maintenance, [facility] [id number] change every 3 days E10.9 90 day, 01/17/22 13:07:00 EDT, Supply, 160, cm, 03/16/21 17:17:00 EDT, Height, 63.1, kg, 03/16/21 13:07:00 EDT, Dry... Start Date: 01/17/22 Status: Ordered oxybutynin 5 mg oral tablet 1 tablet = 5 mg, By Mouth, Daily, # 14 tablet, 0 Refills, Maintenance, 11/26/22 10:32:00 EDT, Tablet, [facility] #[id number], Partial fill upon patient request if the prescription is for a schedule II opioid drug., 161, cm, 11/26/22 9:16:00 EDT,... Start Date: 11/26/22 Status: Ordered Ozempic 2 mg/1.5 mL (0.25 mg or 0.5 mg dose) subcutaneous solution = 0.5 mg, Subcutaneous Infusion, Every week, rotate injection sites e11.9, # 1.5 mL, 3 Refills, Maintenance, 04/11/23 9:17:00 EDT, [facility] #[id number], Partial fill upon patient request if the [...] Active 1no current therapist or psych 2Deidre [place], psych 3intermittent 4smokes occasionally Social History Social History Type Response Smoking Status Former smoker; Other : quit june 2010; entered on: 01/08/15 Sex Patient Care team information Care Team Personnel Name: Antwon Mendoza NP Position: Reference Physician Member Role: PCP Address: Address: [address] [place] [id number]- Name: Twila Blue MD Position: [facility] FILTER BED PLACER MD Member Role: [employer]etime FILTER BED PLACER Physician Address: Address: [address] [place] [address]'s Health [place] [address]- Care Team Related Persons Name: NAOMIE PADILLA Address: home [address] [place] [address] Name: RUPERTO LOPEZ Address: home [address] [place] [address]
--- OUTSIDE RECORDS SUMMARY | 2024-02-26 09:39 | XMS_ITS | Continuity of Care Document ---
Author Organization [facility] Diabetes Address [address] [place] [address]- Care Team Providers Care Industrial Court Magistrate Name Role Phone Reji PAZ, Antwon Capps Primary Care Physician [facility]s): 10/24/22 - 11/23/22 [facility] Diabetes [address] [place] [id number] Allergies, Adverse Reactions, Alerts Substance Reaction Severity [...] Note: VIM 06/17/08 3Admin Note: ADMINISTERED BY [facility] Medications Advair Diskus 100 mcg-50 mcg inhalation powder 1, puffs, Inhalation, 2 times a day, OV needed for further refills., # 60 each, Refills 0, Tot. Refills 0, Maintenance, 04/20/16 16:46:50, Route to Pharmacy Electronically, [id number], [facility] [address] Start Date: 04/20/16 Stop Date: 05/20/16 Status: Ordered Advair Diskus 100 mcg-50 mcg inhalation powder 1, puffs, Inhalation, 2 times a day, # 60 each, Refills 0, Tot. Refills 0, Maintenance, 07/14/16 12:50:54, Route to Pharmacy Electronically, [id number], [id number] Start Date: 07/14/16 Stop Date: 08/13/16 Status: [...] :33:00 EDT, Aerosol, Route to Pharmacy Electronically, NCPDP_[id number], [facility] #[id number], 160, cm, 04/16/22 23:50:00 EDT, Height, 67.9, [...] Refills 6, Maintenance, Use Freestyle lite lancets [facility] blood glucose 4x a day, E10.65, [...] 3 Refills, Maintenance, 01/17/22 12:46:00 EDT, Solution, [facility] #[id number], Partial fill upon patient request if the prescription is for a schedule II opioid drug., 16... Start Date: 01/17/22 Status: Ordered Lantus Solostar Pen 100 units/mL subcutaneous solution = 15 units, Subcutaneous Injection, Daily at bedtime, # 10 mL, 5 Refills, Maintenance, 10/25/22 14:51:00 EDT, Solution, [facility] #[id number], Partial fill upon patient request if the prescription is for a schedule II opioid drug., 160, cm, 2... Start Date: 10/25/22 Status: Ordered levothyroxine 0.025 mg oral tablet 1 tablet = 25 mcg, By Mouth, Daily, # 90 tablet, 3 Refills, Maintenance, 04/13/22 15:19:00 EDT, Tablet, [facility] #[id number], Partial fill upon patient request if the prescription is for a schedule II opioid drug., 161, cm, 02/10/22 23:44:00 ED... Start Date: 04/13/22 Status: Ordered Lidoderm 5% film 1 patch, Topically, Daily, PRN Pain , Mild, # 15 patch, 0 Refills, Maintenance, 05/03/22 11:22:00 EDT, [facility] #[id number], Partial fill upon patient request if the prescription is for a schedule II opioid drug., 1 patch Topically Daily,PRN:Pa... Start Date: 05/03/22 Status: Ordered metFORMIN 1000 mg oral tablet 1 tablet = 1,000 mg, By Mouth, 2 times a day, with food, # 180 tablet, 3 Refills, Maintenance, 09/23/22 13:57:00 EST, Tablet, [facility] #[id number], Partial fill upon patient request if the prescription is for a schedule II opioid drug., 160, cm... Start Date: 09/23/22 Status: Ordered Omnipod 5 five pack Omnipod 5 five pack, See Instructions, # 6 each, Refills 3, Tot. Refills 3, Maintenance, [facility] [id number] change every 3 days E10.9 90 day, 01/17/22 13:07:00 EDT, Supply, 160, cm, 03/16/21 17:17:00 EDT, Height, 63.1, kg, 03/16/21 13:07:00 EDT, Dry... Start Date: 01/17/22 Status: Ordered Ozempic 2 mg/1.5 mL (0.25 mg or 0.5 mg dose) subcutaneous solution = 0.25 mg, Subcutaneous Infusion, Every week, take once per week e10.65, # 3 mL, 5 Refills, Maintenance, 11/09/22 12:17:00 EDT, [facility] #[id number], Partial fill upon patient request if the prescription is for a schedule II opioid drug., 0.25... Start Date: 11/09/22 Status: Ordered Victoza 18 mg/3 mL subcutaneous solution = 1.8 mg, Subcutaneous Injection, Daily, # 9 mL, 11 Refills, Maintenance, 10/10/22 11:29:00 EDT, Solution, [facility] #[id number], Partial fill upon patient request if the prescription is for a schedule II opioid drug., 160, cm, 05/03/22 12:20:00... Start Date: 10/10/22 Status: Ordered Zyrtec 10 mg oral tablet [...] Active 1no current therapist or psych 2Deidre Collins, psych 3intermittent 4smokes occasionally Social History Social History Type Response Smoking Status Former smoker; Other : quit june 2010; entered on: 01/08/15 Sex Patient Care team information Care Team Personnel Name: Antwon Mendoza NP Position: Reference Physician Member Role: PCP Address: Address: [address] [place] [address]- Name: Twila Blue MD Position: [facility] HOOPER MD Member Role: [employer]etime HOGSHEAD HOOPER Physician Address: Address: [address] [place] [address]'s [place] [address]- Care Team Related Persons Name: NAOMIE PADILLA Address: home [address] [place] [address] Name: RUPERTO LOPEZ Address: home [address] [place] [address]
--- OUTSIDE RECORDS SUMMARY | 2024-02-26 09:39 | XMS_ITS | Continuity of Care Document ---
Author Organization [facility] Diabetes Address [address] [place] [address]- Care Team Providers Care Car Repairer Helper Name Role Phone Reji PAZ, Antwon Capps Primary Care Physician [facility] Date[facility]s): 10/25/22 - 11/24/22 [facility] Diabetes [address] [place] [id number] Allergies, Adverse Reactions, Alerts Substance [...] Note: VIM 06/17/08 3Admin Note: ADMINISTERED BY [facility] Medications Advair Diskus 100 mcg-50 mcg inhalation powder 1, puffs, Inhalation, 2 times a day, OV needed for further refills., # 60 each, Refills 0, Tot. Refills 0, Maintenance, 04/20/16 16:46:50, Route to Pharmacy Electronically, [id number], [facility] [address] Start Date: 04/20/16 Stop Date: 05/20/16 Status: Ordered Advair Diskus 100 mcg-50 mcg inhalation powder 1, puffs, Inhalation, 2 times a day, # 60 each, Refills 0, Tot. Refills 0, Maintenance, 07/14/16 12:50:54, Route to Pharmacy Electronically, [id number], [id number] Start Date: 07/14/16 Stop Date: 08/13/16 Status: [...] :33:00 EDT, Aerosol, Route to Pharmacy Electronically, NCPDP_[id number], [facility] #[id number], 160, cm, 04/16/22 23:50:00 EDT, Height, 67.9, [...] Refills 6, Maintenance, Use Freestyle lite lancets [facility] blood glucose 4x a day, E10.65, 03/26/21 [...] 3 Refills, Maintenance, 01/17/22 12:46:00 EDT, Solution, [facility] #[id number], Partial fill upon patient request if the prescription is for a schedule II opioid drug., 16... Start Date: 01/17/22 Status: Ordered Lantus Solostar Pen 100 units/mL subcutaneous solution = 15 units, Subcutaneous Injection, Daily at bedtime, # 10 mL, 5 Refills, Maintenance, 10/25/22 14:51:00 EDT, Solution, [facility] #[id number], Partial fill upon patient request if the prescription is for a schedule II opioid drug., 160, cm, 2... Start Date: 10/25/22 Status: Ordered levothyroxine 0.025 mg oral tablet 1 tablet = 25 mcg, By Mouth, Daily, # 90 tablet, 3 Refills, Maintenance, 04/13/22 15:19:00 EDT, Tablet, [facility] #[id number], Partial fill upon patient request if the prescription is for a schedule II opioid drug., 161, cm, 02/10/22 23:44:00 ED... Start Date: 04/13/22 Status: Ordered Lidoderm 5% film 1 patch, Topically, Daily, PRN Pain , Mild, # 15 patch, 0 Refills, Maintenance, 05/03/22 11:22:00 EDT, [facility] #[id number], Partial fill upon patient request if the prescription is for a schedule II opioid drug., 1 patch Topically Daily,PRN:Pa... Start Date: 05/03/22 Status: Ordered metFORMIN 1000 mg oral tablet 1 tablet = 1,000 mg, By Mouth, 2 times a day, with food, # 180 tablet, 3 Refills, Maintenance, 09/23/22 13:57:00 EST, Tablet, [facility] #[id number], Partial fill upon patient request if the prescription is for a schedule II opioid drug., 160, cm... Start Date: 09/23/22 Status: Ordered Omnipod 5 five pack Omnipod 5 five pack, See Instructions, # 6 each, Refills 3, Tot. Refills 3, Maintenance, [facility] [id number] change every 3 days E10.9 90 day, 01/17/22 13:07:00 EDT, Supply, 160, cm, 03/16/21 17:17:00 EDT, Height, 63.1, kg, 03/16/21 13:07:00 EDT, Dry... Start Date: 01/17/22 Status: Ordered Ozempic 2 mg/1.5 mL (0.25 mg or 0.5 mg dose) subcutaneous solution = 0.25 mg, Subcutaneous Infusion, Every week, take once per week e10.65, # 3 mL, 5 Refills, Maintenance, 11/09/22 12:17:00 EDT, [facility] #[id number], Partial fill upon patient request if the prescription is for a schedule II opioid drug., 0.25... Start Date: 11/09/22 Status: Ordered Victoza 18 mg/3 mL subcutaneous solution = 1.8 mg, Subcutaneous Injection, Daily, # 9 mL, 11 Refills, Maintenance, 10/10/22 11:29:00 EDT, Solution, [facility] #[id number], Partial fill upon patient request if the [...] Active 1no current therapist or psych 2Deidre Ash, psych 3intermittent 4smokes occasionally Social History Social History Type Response Smoking Status Former smoker; Other : quit june 2010; entered on: 01/08/15 Sex Patient Care team information Care Team Personnel Name: Antwon Mendoza NP Position: Reference Physician Member Role: PCP Address: Address: [address] [place] [address]- Name: Twila Blue MD Position: [facility] CLINICAL QUALITY ANALYST MD Member Role: [employer]etime CLINICAL QUALITY ANALYST Physician Address: Address: [address] [place] [address]'s Health [place] [address]- Care Team Related Persons Name: NAOMIE PADILLA Address: home [address] [place] [address] Name: RUPERTO LOPEZ Address: home [address] [place] [address]
--- OUTSIDE RECORDS SUMMARY | 2024-02-26 09:39 | XMS_ITS | Continuity of Care Document ---
Author Organization [facility]ocrinolo gy and Diabetes Address [address] [place] [address]- Care Team Providers Care Manager Physical Name Role Phone Reji PAZ, Antwon Capps Primary Care Physician [facility] Date[facility]s): 04/24/23 - 05/24/23 [facility] Diabetes [address] [place] [id number] Allergies, Adverse Reactions, Alerts Substance Reaction Severity [...] Note: VIM 06/17/08 3Admin Note: ADMINISTERED BY [facility] Medications Baqsimi intranasal spray Baqsimi [...] mL, 3 Refills, Maintenance, 01/26/23 16:03:00 EDT, [facility] #[id number], 161, cm, 11/26/22 9:16:00 EDT, Height, 68.3, kg, 11/26/22 9:16:00 EDT, Dry Weight Start Date: 01/26/23 Status: Ordered Lantus Solostar Pen 100 units/mL subcutaneous solution = 15 units, Subcutaneous Injection, Daily at bedtime, # 10 mL, 5 Refills, Maintenance, 10/25/22 14:51:00 EDT, Solution, [facility] #[id number], Partial fill upon patient request if the prescription is for a schedule II opioid drug., 160, cm, 09/29... Start Date: 10/25/22 Status: Ordered levothyroxine 0.025 mg oral tablet 1 tablet = 25 mcg, By Mouth, Daily, # 90 tablet, 3 Refills, Maintenance, 04/13/22 15:19:00 EDT, Tablet, [facility] #[id number], Partial fill upon patient request if the prescription is for a schedule II opioid drug., 161, cm, 02/10/22 23:44:00 ED... Start Date: 04/13/22 Status: Ordered Omnipod 5 five pack Omnipod 5 five pack, See Instructions, # 6 each, Refills 3, Tot. Refills 3, Maintenance, [facility] [id number] change every 3 days E10.9 90 day, 01/17/22 13:07:00 EDT, Supply, 160, cm, 03/16/21 17:17:00 EDT, Height, 63.1, kg, 03/16/21 13:07:00 EDT, Dry... Start Date: 01/17/22 Status: Ordered oxybutynin 5 mg oral tablet 1 tablet = 5 mg, By Mouth, Daily, # 14 tablet, 0 Refills, Maintenance, 11/26/22 10:32:00 EDT, Tablet, [facility] #[id number], Partial fill upon patient request if the prescription is for a schedule II opioid drug., 161, cm, 11/26/22 9:16:00 EDT,... Start Date: 11/26/22 Status: Ordered Ozempic 2 mg/1.5 mL (0.25 mg or 0.5 mg dose) subcutaneous solution = 0.5 mg, Subcutaneous Infusion, Every week, rotate injection sites e11.9, # 1.5 mL, 3 Refills, Maintenance, 04/11/23 9:17:00 EDT, [facility] #[id number], Partial fill upon patient request if the [...] Active 1no current therapist or psych 2Deidre Key[place], psych 3intermittent 4smokes occasionally Social History Social History Type Response Smoking Status Former smoker; Other : quit june 2010; entered on: 01/08/15 Sex Patient Care team information Care Team Personnel Name: Antwon Mendoza NP Position: Reference Physician Member Role: PCP Address: Address: [address] [place] [id number]- Name: Twila Blue MD Position: [facility] BUSINESS LAW TEACHER MD Member Role: Lifetime BUSINESS LAW TEACHER Physician Address: Address: [address] [place] [address]'s [facility] [place] [address]- Care Team Related Persons Name: NAOMIE PADILLA Address: home [address] [place] [address] Name: RUPERTO LOPEZ Address: [address] [place] [address]
--- OUTSIDE RECORDS SUMMARY | 2024-02-26 09:39 | XMS_ITS | Continuity of Care Document ---
Author Organization [facility] Address [address] [place] [address]- Care Team Providers Care Medical Nurse Name Role Phone Kylee Liriano MD Primary Care Physician Encounter [facility] Date(s): 10/16/20 - 11/15/[address] [address] Attending Physician: Admtr, Ar8 Admitting Physician: Admtr, Ar8 Referring Physician: Admtr, Ar8 Allergies, Adverse Reactions, Alerts Substance Reaction Severity Status Bactrim rash Active amoxicillin rash Active azithromycin Active levofloxacin headache Active Immunizations Given and Recorded Vaccine Date Status Refusal Reason pneumococcal 23-valent vaccine 01/08/15 Given influenza virus vaccine, inactivated 1 05/28/13 Re corded tetanus/diphtheria/pertussis, acel(Tdap) 2 04/06/11 Given FluLaval (oldterm) 3 05/31/10 Given 1Result Comment: [06/19/2013] given at [facility] 2Admin Note: VIM 06/17/08 3Admin Note: ADMINISTERED BY [facility] Medications Advair Diskus 100 mcg-50 mcg inhalation powder 1, puffs, Inhalation, 2 times a day, OV needed for further refills., # 60 each, Refills 0, Tot. Refills 0, Maintenance, 04/20/16 16:46:50, Route to Pharmacy Electronically, [id number], [facility] Start Date: 04/20/16 Stop Date: 05/20/16 Status: Ordered Advair Diskus 100 mcg-50 mcg inhalation powder 1, puffs, Inhalation, 2 times a day, # 60 each, Refills 0, Tot. Refills 0, Maintenance, 07/14/16 12:50:54, Route to Pharmacy Electronically, [id number], [id number] Start Date: 07/14/16 Stop Date: 08/13/16 Status: Ordered albuterol 0.083% inhalation solution 3 mL = 2.5 mg, Inhalation, Every 6 hours, # 120 each, 0 Refills, Maintenance, 01/10/19 21:10:23 EDT, Solution Start Date: 01/10/19 Status: Ordered glucagon baqsimi auto injector glucagon baqsimi auto injector, See Instructions, # 2 each, Refills 11, Tot. Refills 11, Maintenance, E10.9 use for emergent hypoglycemia, 09/03/20 14:50:00 EST, Supply, 158, cm, 02/09/19 12:52:00 EDT, Height, 66.2, kg, 01/16/19 16:43:00 EDT, Dry Weight Start Date: 09/03/20 Status: Ordered HumaLOG Min KwikPen 100 units/mL injectable solution See Instructions, use with CR and SF, TDD 10 units. 90 day E10.9, # 15 mL, 3 Refills, Maintenance, 09/03/20 14:40:00 EST, Solution, [facility] #[id number], Partial fill upon patient request if the prescription is for a schedule II opioid drug., 1... Start Date: 09/03/20 Status: Ordered metFORMIN 500 mg oral tablet 1 tablet = 500 mg, By Mouth, 2 times a day, # 60 tablet, 11 Refills, Maintenance, 10/01/20 16:53:00EST, [facility] #[id number], Partial fill upon patient request if the prescription is for a schedule II opioid drug., 158, cm, 02/09/19 12:52:00 E... Start Date: 10/01/20 Status: Ordered Zyrtec 10 mg oral tablet [...]
--- OUTSIDE RECORDS SUMMARY | 2024-02-26 09:39 | XMS_ITS | Continuity of Care Document ---
Author Organization [facility] Address [address] [place] [address]- Care Team Providers Care Lacing Presser Name Role Phone Reji PAZ, Antwon Capps Primary Care Physician [phone] Encounter [facility] Date(s): 10/25/21 - 11/24/21 [facility] [address] [place] [address]- Allergies, Adverse Reactions, Alerts Substance Reaction Severity [...] Note: VIM 06/17/08 3Admin Note: ADMINISTERED BY [facility] Medications Advair Diskus 100 mcg-50 mcg inhalation powder 1, puffs, Inhalation, 2 times a day, OV needed for further refills., # 60 each, Refills 0, Tot. Refills 0, Maintenance, 04/20/16 16:46:50, Route to Pharmacy Electronically, [id number], [facility] [address] Start Date: 04/20/16 Stop Date: 05/20/16 Status: Ordered Advair Diskus 100 mcg-50 mcg inhalation powder 1, puffs, Inhalation, 2 times a day, # 60 each, Refills 0, Tot. Refills 0, Maintenance, 07/14/16 12:50:54, Route to Pharmacy Electronically, [id number] Start Date: 07/14/16 Stop Date: 08/13/16 Status: [...] Refills 6, Maintenance, Use [facility] glucose 4x a day, E10.65, [...] 60 tablet, 11 Refills, Maintenance, 10/01/20 16:53:00EST, [facility] #[id number], Partial fill upon patient request if the prescription is for a schedule II opioid drug., 158, cm, 02/09/19 12:52:00 E... Start Date: 10/01/20 Status: Ordered metFORMIN 500 mg oral tablet, extended release 1 tablet = 500 mg, By Mouth, 2 times a day, # 180 tablet, 3 Refills, Maintenance, 01/01/21 10:11:00EDT, ER Tablet, [facility] #[id number], Partial fill upon patient request if the prescription is for a schedule II opioid drug., 158, cm, 02/09/19... Start Date: 01/01/21 Status: Ordered Tresiba FlexTouch 100 units/mL subcutaneous solution See Instructions, TAKE TRESIBA 15 UNITS SQ INJECTION DAILY E 10.9, # 15 mL, 11 Refills, Maintenance, 08/18/21 12:29:00 EST, [facility] #[id number], Partial fill upon patient request if the [...]
--- OUTSIDE RECORDS SUMMARY | 2024-02-26 09:39 | XMS_ITS | Continuity of Care Document ---
Author Organization [facility] Address [address] [place] [address]- Care Team Providers Care Shellfish Processing Machine Tender Name Role Phone Reji PAZ, Antwon Capps Primary Care Physician [phone] Encounter [facility] Date(s): 09/27/21 - 10/27/21 [facility] [address] [place] [address]- Allergies, Adverse Reactions, Alerts Substance Reaction Severity [...] Note: VIM 06/17/08 3Admin Note: ADMINISTERED BY [facility] Medications Advair Diskus 100 mcg-50 mcg inhalation powder 1, puffs, Inhalation, 2 times a day, OV needed for further refills., # 60 each, Refills 0, Tot. Refills 0, Maintenance, 04/20/16 16:46:50, Route to Pharmacy Electronically, [id number], [facility] [id number] Start Date: 04/20/16 Stop Date: 05/20/16 Status: Ordered Advair Diskus 100 mcg-50 mcg inhalation powder 1, puffs, Inhalation, 2 times a day, # 60 each, Refills 0, Tot. Refills 0, Maintenance, 07/14/16 12:50:54, Route to Pharmacy Electronically, [id number] Start Date: 07/14/16 Stop Date: 08/13/16 Status: [...] Refills 6, Maintenance, Use Freestyle lite lancets [facility] blood glucose 4x a day, E10.65, [...] 60 tablet, 11 Refills, Maintenance, 10/01/20 16:53:00EST, [facility] #[id number], Partial fill upon patient request if the prescription is for a schedule II opioid drug., 158, cm, 02/09/19 12:52:00 E... Start Date: 10/01/20 Status: Ordered metFORMIN 500 mg oral tablet, extended release 1 tablet = 500 mg, By Mouth, 2 times a day, # 180 tablet, 3 Refills, Maintenance, 01/01/21 10:11:00EDT, ER Tablet, [facility] #[id number], Partial fill upon patient request if the prescription is for a schedule II opioid drug., 158, cm, 02/09/19... Start Date: 01/01/21 Status: Ordered Tresiba FlexTouch 100 units/mL subcutaneous solution See Instructions, TAKE TRESIBA 15 UNITS SQ INJECTION DAILY E 10.9, # 15 mL, 11 Refills, Maintenance, 08/18/21 12:29:[id number], Partial fill upon patient request if the [...]
--- OUTSIDE RECORDS SUMMARY | 2024-02-26 09:39 | XMS_ITS | Continuity of Care Document ---
Author Organization [facility] Address [address] [place] [address]- Care Team Providers Care Furnace Reliner Name Role Phone Reji PAZ, Antwon Capps Primary Care Physician [facility] Date(s): 01/19/22 - 02/18/22 [facility] [address] [place] [id number] Allergies, Adverse Reactions, Alerts Substance Reaction [...] Note: VIM 06/17/08 3Admin Note: ADMINISTERED BY [facility] Medications Advair Diskus 100 mcg-50 mcg inhalation powder 1, puffs, Inhalation, 2 times a day, OV needed for further refills., # 60 each, Refills 0, Tot. Refills 0, Maintenance, 04/20/16 16:46:50, Route to Pharmacy Electronically, [id number], [facility] [address] Start Date: 04/20/16 Stop Date: 05/20/16 Status: Ordered Advair Diskus 100 mcg-50 mcg inhalation powder 1, puffs, Inhalation, 2 times a day, # 60 each, Refills 0, Tot. Refills 0, Maintenance, 07/14/16 12:50:54, Route to Pharmacy Electronically, [id number], [id number] Start Date: 07/14/16 Stop Date: 08/13/16 Status: [...] 0 Refills, Soft Stop, 02/11/22 2:10:00 EDT, [facility] #[id number], Partial fill upon patient request if the prescription is for a schedule II opioiddrug., 161, cm, 02/10/22 23:44:00 EDT, Height, 67.7... Start Date: 02/11/22 Status: Ordered Freestyle Lite Lancets See Instructions, # 120 each, Refills 6, Tot. Refills 6, Maintenance, [facility], E10.65, [...] 3 Refills, Maintenance, 01/17/22 12:46:00 EDT, Solution, [facility] #[id number], Partial fill upon patient request if the prescription is for a schedule II opioid drug., 16... Start Date: 01/17/22 Status: Ordered metFORMIN 500 mg oral tablet 1 tablet = 500 mg, By Mouth, 2 times a day, # 60 tablet, 11 Refills, Maintenance, 10/01/20 16:53:00EST, [facility] #[id number], Partial fill upon patient request if the prescription is for a schedule II opioid drug., 158, cm, 02/09/19 12:52:00 E... Start Date: 10/01/20 Status: Ordered metFORMIN 500 mg oral tablet, extended release 1 tablet = 500 mg, By Mouth, 2 times a day, # 180 tablet, 3 Refills, Maintenance, 01/01/21 10:11:00EDT, ER Tablet, [facility] #[id number], Partial fill upon patient request if the prescription is for a schedule II opioid drug., 158, cm, 02/09/19... Start Date: 01/01/21 Status: Ordered Omnipod 5 five pack Omnipod 5 five pack, See Instructions, # 6 each, Refills 3, Tot. Refills 3, Maintenance, [facility] [id number] change every 3 days E10.9 90 day, [...] mL, 11 Refills, Maintenance, 08/18/21 12:29:00 EST, [facility] #[id number], Partial fill upon patient request if the [...]
--- OUTSIDE RECORDS SUMMARY | 2024-02-26 09:39 | XMS_ITS | Continuity of Care Document ---
Author Organization [facility] Address [address] [place] [address]- Care Team Providers Care Linotype Worker Name Role Phone Reji PAZ, Antwon Capps Primary Care Physician [phone] Encounter [facility] Date(s): 10/05/21 - 11/04/21 [facility] [address] [place] [id number] Allergies, Adverse [...] Note: VIM 06/17/08 3Admin Note: ADMINISTERED BY [facility] Medications Advair Diskus 100 mcg-50 mcg inhalation powder 1, puffs, Inhalation, 2 times a day, OV needed for further refills., # 60 each, Refills 0, Tot. Refills 0, Maintenance, 04/20/16 16:46:50, Route to Pharmacy Electronically, [id number], [facility] [address] Start Date: 04/20/16 Stop Date: 05/20/16 Status: Ordered Advair Diskus 100 mcg-50 mcg inhalation powder 1, puffs, Inhalation, 2 times a day, # 60 each, Refills 0, Tot. Refills 0, Maintenance, 07/14/16 12:50:54, Route to Pharmacy Electronically, [id number] Start Date: 07/14/16 Stop Date: 08/13/16 Status: [...] Refills 6, Maintenance, Use Freestyle lite lancets [facility] blood glucose 4x a day, E10.65, [...] # 60 tablet, 11 Refills, Maintenance, 10/01/20 16:53:[facility][id number], Partial fill upon patient request if the prescription is for a schedule II opioid drug., 158, cm, 02/09/19 12:52:00 E... Start Date: 10/01/20 Status: Ordered metFORMIN 500 mg oral tablet, extended release 1 tablet = 500 mg, By Mouth, 2 times a day, # 180 tablet, 3 Refills, Maintenance, 01/01/21 10:11:00EDT, ER Tablet, [facility] #[id number], Partial fill upon patient request if the prescription is for a schedule II opioid drug., 158, cm, 02/09/19... Start Date: 01/01/21 Status: Ordered Tresiba FlexTouch 100 units/mL subcutaneous solution See Instructions, TAKE TRESIBA 15 UNITS SQ INJECTION DAILY E 10.9, # 15 mL, 11 Refills, Maintenance, 08/18/21 12:29:00 EST, [facility] #[id number], Partial fill upon patient request if the [...]
--- OUTSIDE RECORDS SUMMARY | 2024-02-26 09:39 | XMS_ITS | Continuity of Care Document ---
Author Organization [facility] Address [address] [place] [address]- Care Team Providers Care Parts Fabricator Name Role Phone Reji PAZ, Antwon Capps Primary Care Physician [phone] Encounter [facility] Date(s): 10/22/21 - 11/21/21 [facility] [address] [place] [address]- Allergies, Adverse Reactions, Alerts Substance Reaction Severity [...] 06/17/08 3Admin Note: ADMINISTERED BY [facility] Medications Advair Diskus 100 mcg-50 mcg inhalation powder 1, puffs, Inhalation, 2 times a day, OV needed for further refills., # 60 each, Refills 0, Tot. Refills 0, Maintenance, 04/20/16 16:46:50, Route to Pharmacy Electronically, [id number], [facility] [address] Start Date: 04/20/16 Stop Date: 05/20/16 Status: Ordered Advair Diskus 100 mcg-50 mcg inhalation powder 1, puffs, Inhalation, 2 times a day, # 60 each, Refills 0, Tot. Refills 0, Maintenance, 07/14/16 12:50:54, Route to Pharmacy Electronically, [id number] [id number] Start Date: 07/14/16 Stop Date: 08/13/16 Status: [...] Refills 6, Maintenance, Use Freestyle lite lancets [facility] blood glucose 4x a day, [...] 60 tablet, 11 Refills, Maintenance, 10/01/20 16:53:00EST, [facility] #[id number], Partial fill upon patient request if the prescription is for a schedule II opioid drug., 158, cm, 02/09/19 12:52:00 E... Start Date: 10/01/20 Status: Ordered metFORMIN 500 mg oral tablet, extended release 1 tablet = 500 mg, By Mouth, 2 times a day, # 180 tablet, 3 Refills, Maintenance, 01/01/21 10:11:00EDT, ER Tablet, [facility] #[id number], Partial fill upon patient request if the prescription is for a schedule II opioid drug., 158, cm, 02/09/19... Start Date: 01/01/21 Status: Ordered Tresiba FlexTouch 100 units/mL subcutaneous solution See Instructions, TAKE TRESIBA 15 UNITS SQ INJECTION DAILY E 10.9, # 15 mL, 11 Refills, Maintenance, 08/18/21 12:29:00 [facility] #[id number], Partial fill upon patient request if the [...]
--- OUTSIDE RECORDS SUMMARY | 2024-02-26 09:39 | XMS_ITS | Continuity of Care Document ---
Author Organization [facility] Address [address] [place] [address]- Care Team Providers Care Supervisor Belt And Link Assembly Name Role Phone Heri RUSH, Kylee Byrne Primary Care Physician Encounter [facility] Date(s): 09/03/20 - 09/10/20 [facility] [address] [place] [id number] Attending Physician: Wilma Ko MD Referring Physician: Dominga Helm Allergies, Adverse Reactions, Alerts Substance Reaction Severity Status amoxicillin rash Active azithromycin Active Bactrim rash [...] Maintenance, 04/20/16 16:46:50, Route to Pharmacy Electronically, [id number], [facility] [id number] Start Date: 04/20/16 Stop Date: 05/20/16 Status: Ordered Advair Diskus 100 mcg-50 mcg inhalation powder 1, puffs, Inhalation, 2 times a day, # 60 each, Refills 0, Tot. Refills 0, Maintenance, 07/14/16 12:50:54, Route to Pharmacy Electronically, [id number], [facility] [id number] Start Date: 07/14/16 Stop Date: 08/13/16 Status: [...] 3 Refills, Maintenance, 09/03/20 14:40:00 EST, Solution, [facility] #[id number], Partial fill upon patient request if the prescription is for a schedule II opioid drug., 1... Start Date: 09/03/20 Status: Ordered Zyrtec 10 mg oral tablet [...] Active 1no current therapist or psych 2Deidre Hewett, psych 3intermittent 4smokes occasionally Social History Social History Type Response Smoking Status Former smoker; Other : quit june 2010; entered on: 01/08/15 Sex
--- OUTSIDE RECORDS SUMMARY | 2024-02-26 09:39 | XMS_ITS | Continuity of Care Document ---
Author Organization [facility] Address [address] [place] [address]- Care Team Providers Care Adobe Layer Name Role Phone Reji PAZ, Antwon Capps Primary Care Physician [phone] Encounter [facility] Date(s): 06/13/22 - 07/13/22 [facility] [address] [place] [id number] Allergies, Adverse Reactions, Alerts Substance Reaction Severity [...] Maintenance, 04/20/16 16:46:50, Route to Pharmacy Electronically, [id number], [facility] [id number] Start Date: 04/20/16 Stop Date: 05/20/16 Status: Ordered Advair Diskus 100 mcg-50 mcg inhalation powder 1, puffs, Inhalation, 2 times a day, # 60 each, Refills 0, Tot. Refills 0, Maintenance, 07/14/16 12:50:54, Route to Pharmacy Electronically, [id number], [id number] Start Date: 07/14/16 Stop Date: 08/13/16 Status: [...] :33:00 EDT, Aerosol, Route to Pharmacy Electronically, NCPDP_[id number], [facility] #[id number], 160, cm, 04/16/22 23:50:00 EDT, Height, 67.9, [...] Refills 6, Maintenance, Use [facility]estyle lite [facility]ancets [facility]x a day, E10.65, 03/26/21 [...] 3 Refills, Maintenance, 01/17/22 12:46:00 EDT, Solution, [facility] #[id number], Partial fill upon patient request if the prescription is for a schedule II opioid drug., 16... Start Date: 01/17/22 Status: Ordered levothyroxine 0.025 mg oral tablet 1 tablet = 25 mcg, By Mouth, Daily, # 90 tablet, 3 Refills, Maintenance, 04/13/22 15:19:00 EDT, Tablet, [facility] #[id number], Partial fill upon patient request if the prescription is for a schedule II opioid drug., 161, cm, 02/10/22 23:44:00 ED... Start Date: 04/13/22 Status: Ordered Lidoderm 5% film 1 patch, Topically, Daily, PRN Pain , Mild, # 15 patch, 0 Refills, Maintenance, 05/03/22 11:22:00 EDT, [facility] #[id number], Partial fill upon patient request if the prescription is for a schedule II opioid drug., 1 patch Topically Daily,PRN:Pa... Start Date: 05/03/22 Status: Ordered metFORMIN 1000 mg oral tablet 1 tablet = 1,000 mg, By Mouth, 2 times a day, with food, # 180 tablet, 3 Refills, Maintenance, 10/11/21 10:30:00 EDT, Tablet, [facility] #[id number], Partial fill upon patient request if the prescription is for a schedule II opioid drug., 160, cm... Start Date: 10/11/21 Status: Ordered Omnipod 5 five pack Omnipod 5 five pack, See Instructions, # 6 each, Refills 3, Tot. Refills 3, Maintenance, [facility] [id number] change every 3 days E10.9 90 day, 01/17/22 13:07:00 EDT, Supply, 160, cm, 03/16/21 17:17:00 EDT, Height, 63.1, kg, 03/16/21 13:07:00 EDT, Dry... Start Date: 01/17/22 Status: Ordered Tresiba FlexTouch 100 units/mL subcutaneous solution = 15 units, Subcutaneous Injection, Daily, e10.9, use as directed if needed for pump failure. pt has a coupon card., # 15 mL, 11 Refills, Maintenance, 06/13/22 15:43:00 EST, [facility] #[id number], Partial fill upon patient request if the [...] Active 1no current therapist or psych 2Deidre Jarreau, psych 3intermittent 4smokes occasionally Social History Social History Type Response Smoking Status Former smoker; Other : quit june 2010; entered on: 01/08/15 Sex Patient Care team information Care Team Personnel Name: Reji PAZ , Antwon Capps Position: Reference Physician Member Role: PCP Address: Address: [address] [place] [address]- Name: Mirza RUSH, Twila Salazar Position: [facility] MAGISTERIAL DISTRICT JUDGE MD Member Role: Lifetime MAGISTERIAL DISTRICT JUDGE Physician Address: Address: [address] [place] [address] [facility] [place] [address]- Care Team Related Persons Name: NAOMIE PADILLA Address: home [address] [place] [address] Name: RUPERTO LOPEZ Address: home [address] [place] [address]
--- OUTSIDE RECORDS SUMMARY | 2024-02-26 09:39 | XMS_ITS | Continuity of Care Document ---
Author Organization [facility] Address [address] [place] [address]- Care Team Providers Care Snow Remover Name Role Phone Reji PAZ, Antwon Capps Primary Care Physician [phone] [facility]counter [facility] Date(s): 09/21/23 - 10/21/23 [facility] [address] [place] [id number] Allergies, Adverse Reactions, Alerts Substance Reaction [...] Note: ADMINISTERED BY [facility] Medications Baqsimi intranasal spray Baqsimi intranasal [...] mL, 3 Refills, Maintenance, 01/26/23 16:03:00 EDT, [facility] #[id number], 161, cm, 11/26/22 9:16:00 EDT, Height, 68.3, kg, 11/26/22 9:16:00 EDT, Dry Weight Start Date: 01/26/23 Status: Ordered Lantus Solostar Pen 100 units/mL subcutaneous solution = 15 units, Subcutaneous Injection, Daily at bedtime, # 10 mL, 5 Refills, Maintenance, 10/25/22 14:51:00 EDT, Solution, [facility] #[id number], Partial fill upon patient request if the prescription is for a schedule II opioid drug., 160, cm, 09/29... Start Date: 10/25/22 Status: Ordered levothyroxine 0.05 mg oral tablet 1 tablet = 50 mcg, By Mouth, Daily, # 30 tablet, 11 Refills, Maintenance, 08/28/23 20:59:00 EST, Tablet, [facility] #[id number], Partial fill upon patient request if the prescription is for a schedule II opioid drug., 161, cm, 02/23/23 7:34:00 ED... Start Date: 08/28/23 Status: Ordered metFORMIN 500 mg oral tablet, extended release 2 tablet = 1,000 mg, By Mouth, 2 times a day, # 120 tablet, 11 Refills, Maintenance, 08/10/23 14:13:00 EST, [facility] #[id number], Partial fill upon patient request if the prescription is for aschedule II opioid drug., 161, cm, 02/23/23 7:34:00... Start Date: 08/10/23 Stop Date: 08/04/24 Status: Ordered oxybutynin 5 mg oral tablet 1 tablet = 5 mg, By Mouth, Daily, # 14 tablet, 0 Refills, Maintenance, 11/26/22 10:32:00 EDT, Tablet, [facility] #[id number], Partial fill upon patient request if the prescription is for a schedule II opioid drug., 161, cm, 11/26/22 9:16:00 EDT,... Start Date: 11/26/22 Status: Ordered Pen [place], 31 G x 5 mm BD Ultra Fine III See Instructions, # 100 each, Refills 3, Tot. Refills 3, Maintenance, use daily with victoza, 08/22/23 7:18:00 EST, Supply, 161, cm, 02/23/23 7:34:00 EDT, Height, 68.3, kg, 11/26/22 9:16:00 EDT, Dry Weight Start Date: 08/22/23 Status: Ordered Pen [place], 31 G x 5 mm BD Ultra [...] mL, 11 Refills, Maintenance, 08/01/23 11:12:00 EST, [facility] #[id number], please dispense 2 1.5 mL pens as I believeeach pen would last 20 days, 161, cm, 02/23/23 7:34... Start Date: 08/01/23 Status: Ordered Victoza 18 mg/3 mL subcutaneous solution = 1.8 mg, Subcutaneous Injection, Daily, # 27 mL, 3 Refills, Maintenance, 08/22/23 7:18:00 EST, [facility] #[id number], Partial fill upon patient request if the [...] Active 1no current therapist or psych 2Deidre [place], psych 3intermittent 4smokes occasionally Social History Social History Type Response Smoking Status Former smoker; Other : quit june 2010; entered on: 01/08/15 Sex Patient Care team information Care Team Personnel Name: Reji PAZ , Antwon Capps Position: Reference Physician Member Role: PCP Address: Address: [address] [place] [address]- Name: Mirza RUSH, Twila Salazar Position: [facility] FRAME MAKER MD Member Role: Lifetime FRAME MAKER Physician Address: Address: [address] [place] [address] [place] [address]- Care Team Related Persons Name: NAOMIE PADILLA Address: home [address] [place] [address] Name: RUPERTO LOPEZ Address: home [address] [place] [address]
--- OUTSIDE RECORDS SUMMARY | 2024-02-26 09:39 | XMS_ITS | Continuity of Care Document ---
Author Organization [facility] Address [address] [place] [address]- Care Team Providers Care State Farm Agent Name Role Phone Heri RUSH, Kylee Byrne Primary Care Physician [facility] Date(s): 09/04/20 - 10/04/20 [facility] Diabetes [address] [place] [id number] Allergies, Adverse Reactions, Alerts Substance Reaction [...] Note: VIM 06/17/08 3Admin Note: ADMINISTERED BY [facility] Medications Advair Diskus 100 mcg-50 mcg inhalation powder 1, puffs, Inhalation, 2 times a day, OV needed for further refills., # 60 each, Refills 0, Tot. Refills 0, Maintenance, 04/20/16 16:46:50, Route to Pharmacy Electronically, [id number], [facility] [id number] Start Date: 04/20/16 Stop Date: 05/20/16 Status: Ordered Advair Diskus 100 mcg-50 mcg inhalation powder 1, puffs, Inhalation, 2 times a day, # 60 each, Refills 0, Tot. Refills 0, Maintenance, 07/14/16 12:50:54, Route to Pharmacy Electronically, [id number], [id number] Start Date: 07/14/16 Stop Date: 08/13/16 Status: [...] 3 Refills, Maintenance, 09/03/20 14:40:00 EST, Solution, [facility] #[id number], Partial fill upon patient request if the prescription is for a schedule II opioid drug., 1... Start Date: 09/03/20 Status: Ordered metFORMIN 500 mg oral tablet 1 tablet = 500 mg, By Mouth, 2 times a day, # 60 tablet, 11 Refills, Maintenance, 10/01/20 16:53:00EST, [facility] #[id number], Partial fill upon patient request if the [...] Gastro-esophageal ref lux disease(Confirmed) 3 Active Polyuria(Confirmed) 6/7/13 Active Tobacco(Confirmed) 4 Active 1no current therapist or psych 2Deidre Aaron, psych 3intermittent 4smokes occasionally Social History Social History Type Response Smoking Status Former smoker; Other : quit june 2010; entered on: 01/08/15 Sex
--- OUTSIDE RECORDS SUMMARY | 2024-02-26 09:39 | XMS_ITS | Continuity of Care Document ---
Author Organization [facility] Address [address] [place] [address]- Care Team Providers Care Purchasing Supervisor Name Role Phone Reji PAZ, Antwon Capps Primary Care Physician [facility] Date(s): 11/08/22 - 12/08/22 [facility] [address] [place] [id number] Allergies, Adverse Reactions, Alerts Substance Reaction [...] Note: VIM 06/17/08 3Admin Note: ADMINISTERED BY [facility] Medications Baqsimi intranasal spray [...] Refills 6, Maintenance, Use Freestyle lite lancets [facility] blood glucose 4x a day, E10.65, [...] day, # 50 mL, 3 Refills, Maintenance, 12/08/22 14:41:00 EDT, Solution, [facility] #[id number], Partial fill upon patient request if the prescription is for a schedule II opioid drug., 16... Start Date: 12/08/22 Status: Ordered Lantus Solostar Pen 100 units/mL subcutaneous solution = 15 units, Subcutaneous Injection, Daily at bedtime, # 10 mL, 5 Refills, Maintenance, 10/25/22 14:51:00 EDT, Solution, [facility] #[id number], Partial fill upon patient request if the prescription is for a schedule II opioid drug., 160, cm, 09/29... Start Date: 10/25/22 Status: Ordered levothyroxine 0.025 mg oral tablet 1 tablet = 25 mcg, By Mouth, Daily, # 90 tablet, 3 Refills, Maintenance, 04/13/22 15:19:00 EDT, Tablet, [facility] #[id number], Partial fill upon patient request if the prescription is for a schedule II opioid drug., 161, cm, 02/10/22 23:44:00 ED... Start Date: 04/13/22 Status: Ordered Omnipod 5 five pack Omnipod 5 five pack, See Instructions, # 6 each, Refills 3, Tot. Refills 3, Maintenance, [facility] [id number] change every 3 days E10.9 90 day, 01/17/22 13:07:00 EDT, Supply, 160, cm, 03/16/21 17:17:00 EDT, Height, 63.1, kg, 03/16/21 13:07:00 EDT, Dry... Start Date: 01/17/22 Status: Ordered oxybutynin 5 mg oral tablet 1 tablet = 5 mg, By Mouth, Daily, # 14 tablet, 0 Refills, Maintenance, 11/26/22 10:32:00 EDT, Tablet, [facility] #[id number], Partial fill upon patient request if the prescription is for a schedule II opioid drug., 161, cm, 11/26/22 9:16:00 EDT,... Start Date: 11/26/22 Status: Ordered Ozempic 2 mg/1.5 mL (0.25 mg or 0.5 mg dose) subcutaneous solution = 0.25 mg, Subcutaneous Infusion, Every week, take once per week e10.65, # 3 mL, 5 Refills, Maintenance, 11/09/22 12:17:00 EDT, [facility] #[id number], Partial fill upon patient request if the prescription is for a schedule II opioid drug., 0.25... Start Date: 11/09/22 Status: Ordered Zyrtec 10 mg oral tablet [...] Active 1no current therapist or psych 2Deidre [place], psych 3intermittent 4smokes occasionally Social History Social History Type Response Smoking Status Former smoker; Other : quit june 2010; entered on: 01/08/15 Sex Patient Care team information Care Team Personnel Name: Antwon Mendoza NP Position: Reference Physician Member Role: PCP Address: Address: [address] [place] [address]- Name: Twila Blue MD Position: [facility] SOLUTION DESIGNER MD Member Role: Lifetime SOLUTION DESIGNER Physician Address: Address: [address] [place] [address]'s Health [place] [address]- Care Team Related Persons Name: NAOMIE PADILLA Address: home [address] [place] [address] Name: RUPERTO LOPEZ Address: home [address] [place] [address]
--- OUTSIDE RECORDS SUMMARY | 2024-02-26 09:39 | XMS_ITS | Continuity of Care Document ---
Author Organization [facility] Address [address] [place] [address]- Care Team Providers Care Plant Pathologist Name Role Phone Reji PAZ, Antwon Capps Primary Care Physician [facility]): 06[facility]/23 - 07/30/23 [facility] [address] [place] [id number] Allergies, Adverse Reactions, Alerts Substance Reaction Severity Status ciprofloxacin Chest pain at rest Moderate Active levofloxacin headache Active Bactrim rash Active azithromycin Active amoxicillin rash Active Immunizations Given and Recorded Vaccine Date Status Refusal Reason pneumococcal 23-valent vaccine 01/08/15 Given influenza virus vaccine, inactivated 1 05/28/13 Re corded tetanus/diphtheria/pertussis, acel(Tdap) 2 04/06/11 Given FluLaval (oldterm) 3 05/31/10 Given 1Result Comment: [06/19/2013] given at [facility] 2Admin Note: VIM 06/17/08 3Admin Note: ADMINISTERED BY [facility] Medications Baqsimi intranasal spray Baqsimi intranasal [...] Refills 6, Maintenance, Use Freestyle lite lancets [facility] blood glucose 4x a day, E10.65, [...] mL, 3 Refills, Maintenance, 01/26/23 16:03:00 EDT, [facility] #[id number], 161, cm, 11/26/22 9:16:00 EDT, Height, 68.3, kg, 11/26/22 9:16:00 EDT, Dry Weight Start Date: 01/26/23 Status: Ordered Lantus Solostar Pen 100 units/mL subcutaneous solution = 15 units, Subcutaneous Injection, Daily at bedtime, # 10 mL, 5 Refills, Maintenance, 10/25/22 14:51:00 EDT, Solution, [facility] #[id number], Partial fill upon patient request if the prescription is for a schedule II opioid drug., 160, cm, 09/29... Start Date: 10/25/22 Status: Ordered levothyroxine 0.025 mg oral tablet 1 tablet = 25 mcg, By Mouth, Daily, # 90 tablet, 3 Refills, Maintenance, 06/05/23 13:11:00 EST, Tablet, [facility] #[id number], Partial fill upon patient request if the prescription is for a schedule II opioid drug., 161, cm, 02/23/23 7:34:00 EDT... Start Date: 06/05/23 Status: Ordered Omnipod 5 five pack Omnipod 5 five pack, See Instructions, # 6 each, Refills 3, Tot. Refills 3, Maintenance, [facility] [id number] change every 3 days E10.9 90 day, 01/17/22 13:07:00 EDT, Supply, 160, cm, 03/16/21 17:17:00 EDT, Height, 63.1, kg, 03/16/21 13:07:00 EDT, Dry... Start Date: 01/17/22 Status: Ordered oxybutynin 5 mg oral tablet 1 tablet = 5 mg, By Mouth, Daily, # 14 tablet, 0 Refills, Maintenance, 11/26/22 10:32:00 EDT, Tablet, [facility] #[id number], Partial fill upon patient request if the prescription is for a schedule II opioid drug., 161, cm, 11/26/22 9:16:00 EDT,... Start Date: 11/26/22 Status: Ordered Ozempic 2 mg/1.5 mL (0.25 mg or 0.5 mg dose) subcutaneous solution = 0.5 mg, Subcutaneous Infusion, Every week, rotate injection sites e11.9, # 1.5 mL, 3 Refills, Maintenance, 04/11/23 9:17:00 EDT, [facility] #[id number], Partial fill upon patient request if the [...] Active 1no current therapist or psych 2Deidre [place], psych 3intermittent 4smokes occasionally Social History Social History Type Response Smoking Status Former smoker; Other : quit june 2010; entered on: 01/08/15 Sex Patient Care team information Care Team Personnel Name: Antown Mendoza NP Position: Reference Physician Member Role: PCP Address: Address: [address] [place] [id number]- Name: Twila Blue MD Position: [facility] CARDIAC CATHETERIZATION TECHNOLOGIST MD Member Role: Lifetime CARDIAC CATHETERIZATION TECHNOLOGIST Physician Address: Address: [address] [place] [address]'s [facility] [place] [address]- Care Team Related Persons Name: NAOMIE PADILLA Address: home [address] [place] [address] Name: RUPERTO LOPEZ Address: home [address] [place] [address]
--- OUTSIDE RECORDS SUMMARY | 2024-02-26 09:40 | XMS_ITS | Continuity of Care Document ---
Author Organization [facility] Address [address] [place] [address]- Care Team Providers Care Mammography Supervisor Name Role Phone Reji PAZ, Antwon Capps Primary Care Physician [facility] Date[facility]s): 04/05/23 - 05/05/23 [facility] [address] [place] [id number] Allergies, Adverse [...] Note: VIM 06/17/08 3Admin Note: ADMINISTERED BY [facility] Medications Baqsimi intranasal spray Baqsimi intranasal spray, [...] Refills 6, Maintenance, Use Freestyle lite lancets [facility] blood glucose 4x a day, E10.65, [...] mL, 3 Refills, Maintenance, 01/26/23 16:03:00 EDT, [facility] #[id number], 161, cm, 11/26/22 9:16:00 EDT, Height, 68.3, kg, 11/26/22 9:16:00 EDT, Dry Weight Start Date: 01/26/23 Status: Ordered Lantus Solostar Pen 100 units/mL subcutaneous solution = 15 units, Subcutaneous Injection, Daily at bedtime, # 10 mL, 5 Refills, Maintenance, 10/25/22 14:51:00 EDT, Solution, [facility] #[id number], Partial fill upon patient request if the prescription is for a schedule II opioid drug., 160, cm, 09/29... Start Date: 10/25/22 Status: Ordered levothyroxine 0.025 mg oral tablet 1 tablet = 25 mcg, By Mouth, Daily, # 90 tablet, 3 Refills, Maintenance, 04/13/22 15:19:00 EDT, Tablet, [facility] #[id number], Partial fill upon patient request if the prescription is for a schedule II opioid drug., 161, cm, 02/10/22 23:44:00 ED... Start Date: 04/13/22 Status: Ordered Omnipod 5 five pack Omnipod 5 five pack, See Instructions, # 6 each, Refills 3, Tot. Refills 3, Maintenance, [facility][NOTE 3] [id number] change every 3 days E10.9 90 day, 01/17/22 13:07:00 EDT, Supply, 160, cm, 03/16/21 17:17:00 EDT, Height, 63.1, kg, 03/16/21 13:07:00 EDT, Dry... Start Date: 01/17/22 Status: Ordered oxybutynin 5 mg oral tablet 1 tablet = 5 mg, By Mouth, Daily, # 14 tablet, 0 Refills, Maintenance, 11/26/22 10:32:00 EDT, Tablet, [facility] #[id number], Partial fill upon patient request if the prescription is for a schedule II opioid drug., 161, cm, 11/26/22 9:16:00 EDT,... Start Date: 11/26/22 Status: Ordered Ozempic 2 mg/1.5 mL (0.25 mg or 0.5 mg dose) subcutaneous solution = 0.5 mg, Subcutaneous Infusion, Every week, rotate injection sites e11.9, # 1.5 mL, 3 Refills, Maintenance, 04/11/23 9:17:00 EDT, [facility] #[id number], Partial fill upon patient request if the [...] Active 1no current therapist or psych 2Deidre [place], psych 3intermittent 4smokes occasionally Social History Social History Type Response Smoking Status Former smoker; Other : quit june 2010; entered on: 01/08/15 Sex Patient Care team information Care Team Personnel Name: Antwon Mendoza NP Position: Reference Physician Member Role: PCP Address: Address: [address] [place] [address]- Name: Mirza RUSH, Twila Salazar Position: [facility] RADIATION THERAPIST MD Member Role: Lifetime RADIATION THERAPIST Physician Address: Address: [address] [place] [address]'s [place] [address]- Care Team Related Persons Name: NAOMIE PADILLA Address: home [address] [place] [address] Name: RUPERTO LOPEZ Address: home [address] [place] [address]
--- OUTSIDE RECORDS SUMMARY | 2024-02-26 09:40 | XMS_ITS | Continuity of Care Document ---
Author Organization [facility] Address [address] [place] [address]- Care Team Providers Care Watch Parts Grinder Name Role Phone Reji PAZ, Antwon Capps Primary Care Physician Encounter [facility] Date(s): 08/01/23 - 08/31/23 [facility] [address] [place] [id number] Attending Physician: Admtr, Ar8 Admitting Physician: Admtr, [...] Note: VIM 06/17/08 3Admin Note: ADMINISTERED BY [facility] Medications Baqsimi intranasal spray [...] Refills 6, Maintenance, Use Freestyle lite lancets [facility] blood glucose 4x a day, E10.65, [...] mL, 3 Refills, Maintenance, 01/26/23 16:03:00 EDT, [facility] #[id number], 161, cm, 11/26/22 9:16:00 EDT, Height, 68.3, kg, 11/26/22 9:16:00 EDT, Dry Weight Start Date: 01/26/23 Status: Ordered Lantus Solostar Pen 100 units/mL subcutaneous solution = 15 units, Subcutaneous Injection, Daily at bedtime, # 10 mL, 5 Refills, Maintenance, 10/25/22 14:51:00 EDT, Solution, [facility] #[id number], Partial fill upon patient request if the prescription is for a schedule II opioid drug., 160, cm, 09/29... Start Date: 10/25/22 Status: Ordered levothyroxine 0.05 mg oral tablet 1 tablet = 50 mcg, By Mouth, Daily, # 30 tablet, 11 Refills, Maintenance, 08/28/23 20:59:00 EST, Tablet, [facility] #[id number], Partial fill upon patient request if the prescription is for a schedule II opioid drug., 161, cm, 02/23/23 7:34:00 ED... Start Date: 08/28/23 Status: Ordered metFORMIN 500 mg oral tablet, extended release 2 tablet = 1,000 mg, By Mouth, 2 times a day, # 120 tablet, 11 Refills, Maintenance, 08/10/23 14:13:00 EST, [facility] #[id number], Partial fill upon patient request if the prescription is for aschedule II opioid drug., 161, cm, 02/23/23 7:34:00... Start Date: 08/10/23 Stop Date: 08/04/24 Status: Ordered oxybutynin 5 mg oral tablet 1 tablet = 5 mg, By Mouth, Daily, # 14 tablet, 0 Refills, Maintenance, 11/26/22 10:32:00 EDT, Tablet, [facility] #[id number], Partial fill upon patient request if the prescription is for a schedule II opioid drug., 161, cm, 11/26/22 9:16:00 EDT,... Start Date: 11/26/22 Status: Ordered Pen Robert Lee, 31 G x 5 mm BD Ultra Fine III See Instructions, # 100 each, Refills 3, Tot. Refills 3, Maintenance, use daily with victoza, 08/22/23 7:18:00 EST, Supply, 161, cm, 02/23/23 7:34:00 EDT, Height, 68.3, kg, 11/26/22 9:16:00 EDT, Dry Weight Start Date: 08/22/23 Status: Ordered Pen Robert Lee, 31 G x 5 mm BD Ultra [...] mL, 11 Refills, Maintenance, 08/01/23 11:12:00 EST, Solution, [facility] #[id number], please dispense 2 1.5 mL pens as I believeeach pen would last 20 days, 161, cm, 02/23/23 7:34... Start Date: 08/01/23 Status: Ordered Victoza 18 mg/3 mL subcutaneous solution = 1.8 mg, Subcutaneous Injection, Daily, # 27 mL, 3 Refills, Maintenance, 08/22/23 7:18:00 EST, Solution, [facility] #[id number], Partial fill upon patient request if the [...] Active 1no current therapist or psych 2Deidre [place], psych 3intermittent 4smokes occasionally Social History Social History Type Response Smoking Status Former smoker; Other : quit june 2010; entered on: 01/08/15 Sex Laboratory * Event Display: Non Lab Results Authored Date: Patient Care team information Care Team Personnel Name: Reji PAZ , Antwon Capps Position: Reference Physician Member Role: PCP Address: Address: [address] [place] [address]- Name: Mirza RUSH, Twila Salazar Position: [facility] PUMP ERECTOR HELPER MD Member Role: Lifetime PUMP ERECTOR HELPER Physician Address: Address: [address] [place] [address] Women's Health [place] [address]- Care Team Related Persons Name: NAOMIE PADILLA Address: home [address] [place] [address] Name: RUPERTO LOPEZ Address: home [address] [place] [address]
--- OUTSIDE RECORDS SUMMARY | 2024-02-26 09:40 | XMS_ITS | Continuity of Care Document ---
Author Organization [facility] Diabetes Address [address] [place] [address]- Care Team Providers Care Crystal Attacher Name Role Phone Reji PAZ, Antwon Capps Primary Care Physician [phone] [facility]counter [facility] Date(s): 09/20/21 - 10/20/21 [facility] Diabetes [address] [place] [id number] Allergies, Adverse Reactions, Alerts Substance Reaction [...] 06/17/08 3Admin Note: ADMINISTERED BY [facility] Medications Advair Diskus 100 mcg-50 mcg inhalation powder 1, puffs, Inhalation, 2 times a day, OV needed for further refills., # 60 each, Refills 0, Tot. Refills 0, Maintenance, 04/20/16 16:46:50, Route to Pharmacy Electronically, [id number], [facility] [id number] Start Date: 04/20/16 Stop Date: 05/20/16 Status: Ordered Advair Diskus 100 mcg-50 mcg inhalation powder 1, puffs, Inhalation, 2 times a day, # 60 each, Refills 0, Tot. Refills 0, Maintenance, 07/14/16 12:50:54, Route to Pharmacy Electronically, [id number], [id number] Start Date: 07/14/16 Stop Date: 08/13/16 Status: [...] Refills 6, Maintenance, Use Freestyle lite lancets [facility] blood glucose 4x a day, E10.65, [...] 60 tablet, 11 Refills, Maintenance, 10/01/20 16:53:00EST, [facility] #[id number], Partial fill upon patient request if the prescription is for a schedule II opioid drug., 158, cm, 02/09/19 12:52:00 E... Start Date: 10/01/20 Status: Ordered metFORMIN 500 mg oral tablet, extended release 1 tablet = 500 mg, By Mouth, 2 times a day, # 180 tablet, 3 Refills, Maintenance, 01/01/21 10:11:00EDT, ER Tablet, [facility] #[id number], Partial fill upon patient request if the prescription is for a schedule II opioid drug., 158, cm, 02/09/19... Start Date: 01/01/21 Status: Ordered Tresiba FlexTouch 100 units/mL subcutaneous solution See Instructions, TAKE TRESIBA 15 UNITS SQ INJECTION DAILY E 10.9, # 15 mL, 11 Refills, Maintenance, 08/18/21 12:29:00 EST, [facility] #[id number], Partial fill upon patient request if the [...]
--- OUTSIDE RECORDS SUMMARY | 2024-02-26 09:40 | XMS_ITS | Continuity of Care Document ---
Author Organization [facility] End[facility]inolo gy and Diabetes Address [address] [place] [address]- Care Team Providers Care Digital Circuit Designer Name Role Phone Reji PAZ, Antwon Capps Primary Care Physician [facility] Date(s): 11/15/23 - 12/15/23 [facility] Diabetes [address] [place] [id number] Allergies, Adverse Reactions, Alerts Substance Reaction Severity [...] Dry Weight Start Date: 08/01/23 Status: Ordered Gvoke HypoPen Two Pack 1 mg/0.2 mL subcutaneous solution = 1 mg, Subcutaneous Infusion, Once, E10.9 30 day. Use for hypoglycemic emergency, # 2 each, 3 Refills, Soft Stop, 11/16/23 15:32:00 EDT, [facility] #[id number], Partial fill upon patient request if the prescription is for a schedule II opioid dr... Start Date: 11/16/23 Status: Ordered Humalog 100 u/ml subcutaneous injection See Instructions, USE UPTO 50 UNITS DAILY VIA PUMP, # 50 mL, 3 Refills, Maintenance, 01/26/23 16:03:00 EDT, [facility] #[id number], 161, cm, 11/26/22 9:16:00 EDT, Height, 68.3, kg, 11/26/22 9:16:00 EDT, Dry Weight Start Date: 01/26/23 Status: Ordered Lantus Solostar Pen 100 units/mL subcutaneous solution = 15 units, Subcutaneous Injection, Daily at bedtime, # 10 mL, 5 Refills, Maintenance, 10/25/22 14:51:00 EDT, Solution, [facility] #[id number], Partial fill upon patient request if the prescription is for a schedule II opioid drug., 160, cm, 09/29... Start Date: 10/25/22 Status: Ordered levothyroxine 0.05 mg oral tablet 1 tablet = 50 mcg, By Mouth, Daily, # 30 tablet, 11 Refills, Maintenance, 08/28/23 20:59:00 EST, Tablet, [facility] #[id number], Partial fill upon patient request if the prescription is for a schedule II opioid drug., 161, cm, 02/23/23 7:34:00 ED... Start Date: 08/28/23 Status: Ordered metFORMIN 500 mg oral tablet, extended release 2 tablet = 1,000 mg, By Mouth, 2 times a day, # 120 tablet, 11 Refills, Maintenance, 12/05/23 16:21:00 EDT, [facility] #[id number], Partial fill upon patient request if the prescription is for aschedule II opioid drug., 161, cm, 02/23/23 7:34:00... Start Date: 12/05/23 Stop Date: 11/29/24 Status: Ordered oxybutynin 5 mg oral tablet 1 tablet = 5 mg, By Mouth, Daily, # 14 tablet, 0 Refills, Maintenance, 11/26/22 10:32:00 EDT, Tablet, [facility] #[id number], Partial fill upon patient request if the prescription is for a schedule II opioid drug., 161, cm, 11/26/22 9:16:00 EDT,... Start Date: 11/26/22 Status: Ordered Pen Lawrence, 31 G x 5 mm BD Ultra Fine III See Instructions, # 100 each, Refills 3, Tot. Refills 3, Maintenance, use daily with victoza, 08/22/23 7:18:00 EST, Supply, 161, cm, 02/23/23 7:34:00 EDT, Height, 68.3, kg, 11/26/22 9:16:00 EDT, Dry Weight Start Date: 08/22/23 Status: Ordered Pen Lawrence, 31 G x 5 mm BD Ultra [...] 11 Refills, Maintenance, 08/01/23 11:12:00 EST, Solution, [facility] #[id number], please dispense 2 1.5 mL pens as I believeeach pen would last 20 days, 161, cm, 02/23/23 7:34... Start Date: 08/01/23 Status: Ordered Victoza 18 mg/3 mL subcutaneous solution = 1.8 mg, Subcutaneous Injection, Daily, # 27 mL, 3 Refills, Maintenance, 08/22/23 7:18:00 EST, Solution, [facility] #[id number], Partial fill upon patient request if the [...] Active 1no current therapist or psych 2Deidre [place], psych 3intermittent 4smokes occasionally Social History Social History Type Response Smoking Status Former smoker; Other : quit june 2010; entered on: 01/08/15 Sex Patient Care team information Care Team Personnel Name: Antwon Mendoza NP Position: Reference Physician Member Role: PCP Address: Address: [address] [place] [address]- Name: Mirza RUSH, Twila Salazar Position: [facility] REFINERY OPERATOR ALKYLATION MD Member Role: Lifetime REFINERY OPERATOR ALKYLATION Physician Address: Address: [address] [place] [address] [facility] [address]- Care Team Related Persons Name: NAOMIE PADILLA Address: home [address] [place] [address] Name: RUPERTO LOPEZ Address: home [address] [place] [address]
--- OUTSIDE RECORDS SUMMARY | 2024-02-26 09:40 | XMS_ITS | Continuity of Care Document ---
Author Organization [facility] Endocrinolo gy and Diabetes Address [address] [place] [address]- Care Team Providers Care Applications Manager Name Role Phone Reji PAZ, Antwon Capps Primary Care Physician [phone] [facility] 11[facility]22 - 12/07/22 [facility] Endocrinology and Diabetes [address] [place] [address] Allergies, Adverse Reactions, Alerts Substance [...] VIM 06/17/08 3Admin Note: ADMINISTERED BY [facility] Medications Baqsimi intranasal spray Baqsimi intranasal [...] 3 Refills, Maintenance, 01/17/22 12:46:00 EDT, Solution, [facility] #[id number], Partial fill upon patient request if the prescription is for a schedule II opioid drug., 16... Start Date: 01/17/22 Status: Ordered Lantus Solostar Pen 100 units/mL subcutaneous solution = 15 units, Subcutaneous Injection, Daily at bedtime, # 10 mL, 5 Refills, Maintenance, 10/25/22 14:51:00 EDT, Solution, [facility] #[id number], Partial fill upon patient request if the prescription is for a schedule II opioid drug., 160, cm, 09/29... Start Date: 10/25/22 Status: Ordered levothyroxine 0.025 mg oral tablet 1 tablet = 25 mcg, By Mouth, Daily, # 90 tablet, 3 Refills, Maintenance, 04/13/22 15:19:00 EDT, Tablet, [facility] #[id number], Partial fill upon patient request if the prescription is for a schedule II opioid drug., 161, cm, 02/10/22 23:44:00 ED... Start Date: 04/13/22 Status: Ordered Omnipod 5 five pack Omnipod 5 five pack, See Instructions, # 6 each, Refills 3, Tot. Refills 3, Maintenance, [facility] [place] [address] change every 3 days E10.9 90 day, 01/17/22 13:07:00 EDT, Supply, 160, cm, 03/16/21 17:17:00 EDT, Height, 63.1, kg, 03/16/21 13:07:00 EDT, Dry... Start Date: 01/17/22 Status: Ordered oxybutynin 5 mg oral tablet 1 tablet = 5 mg, By Mouth, Daily, # 14 tablet, 0 Refills, Maintenance, 11/26/22 10:32:00 EDT, Tablet, [facility] #[id number], Partial fill upon patient request if the prescription is for a schedule II opioid drug., 161, cm, 11/26/22 9:16:00 EDT,... Start Date: 11/26/22 Status: Ordered Ozempic 2 mg/1.5 mL (0.25 mg or 0.5 mg dose) subcutaneous solution = 0.25 mg, Subcutaneous Infusion, Every week, take once per week e10.65, # 3 mL, 5 Refills, Maintenance, 11/09/22 12:17:00 EDT, [facility] #[id number], Partial fill upon patient request if the [...] Active 1no current therapist or psych 2Deidre [place], psych 3intermittent 4smokes occasionally Social History Social History Type Response Smoking Status Former smoker; Other : quit june 2010; entered on: 01/08/15 Sex Patient Care team information Care Team Personnel Name: Antwon Mendoza NP Position: Reference Physician Member Role: PCP Address: Address: [address] [place] [address]- Name: Twila Blue MD Position: [facility] REED WORKER MD Member Role: Lifetime REED WORKER Physician Address: Address: [address] [place] [address]'s [employer] [place] [address]- Care Team Related Persons Name: NAOMIE PADILLA Address: home [address] [place] [address] Name: RUPERTO LOPEZ Address: home [address] [place] [address]
--- OUTSIDE RECORDS SUMMARY | 2024-02-26 09:40 | XMS_ITS | Continuity of Care Document ---
Author Organization [facility] Endocrinolo gy and Diabetes Address [address] [place] [address]- Care Team Providers Care Treatment Plant Mechanic Name Role Phone Reji PAZ, Antwon Capps Primary Care Physician [phone] [facility] 10[facility]22 - 11/16/22 [facility] Endocrinology and Diabetes [address] [place] [id number] Allergies, Adverse Reactions, Alerts Substance Reaction [...] 06/17/08 3Admin Note: ADMINISTERED BY [facility] Medications Advair Diskus 100 mcg-50 mcg inhalation powder 1, puffs, Inhalation, 2 times a day, OV needed for further refills., # 60 each, Refills 0, Tot. Refills 0, Maintenance, 04/20/16 16:46:50, Route to Pharmacy Electronically, [id number], [facility] [id number] Start Date: 04/20/16 Stop Date: 05/20/16 Status: Ordered Advair Diskus 100 mcg-50 mcg inhalation powder 1, puffs, Inhalation, 2 times a day, # 60 each, Refills 0, Tot. Refills 0, Maintenance, 07/14/16 12:50:54, Route to Pharmacy Electronically, [id number], [facility] [id number] Start Date: 07/14/16 Stop Date: 08/13/16 Status: [...] :33:00 EDT, Aerosol, Route to Pharmacy Electronically, NCPDP_[id number], [facility] #[id number], 160, cm, 04/16/22 23:50:00 EDT, Height, 67.9, [...] Maintenance, Use Freestyle lite lancets [facility] blood glucose 4x a day, E10.65, 03/26/21 [...] 3 Refills, Maintenance, 01/17/22 12:46:00 EDT, Solution, [facility] #[id number], Partial fill upon patient request if the prescription is for a schedule II opioid drug., 16... Start Date: 01/17/22 Status: Ordered Lantus Solostar Pen 100 units/mL subcutaneous solution = 15 units, Subcutaneous Injection, Daily at bedtime, # 10 mL, 5 Refills, Maintenance, 10/25/22 14:51:00 EDT, Solution, [facility] #[id number], Partial fill upon patient request if the prescription is for a schedule II opioid drug., 160, cm, 2... Start Date: 10/25/22 Status: Ordered levothyroxine 0.025 mg oral tablet 1 tablet = 25 mcg, By Mouth, Daily, # 90 tablet, 3 Refills, Maintenance, 04/13/22 15:19:00 EDT, Tablet, [facility] #[id number], Partial fill upon patient request if the prescription is for a schedule II opioid drug., 161, cm, 02/10/22 23:44:00 ED... Start Date: 04/13/22 Status: Ordered Lidoderm 5% film 1 patch, Topically, Daily, PRN Pain , Mild, # 15 patch, 0 Refills, Maintenance, 05/03/22 11:22:00 EDT, [facility] #[id number], Partial fill upon patient request if the prescription is for a schedule II opioid drug., 1 patch Topically Daily,PRN:Pa... Start Date: 05/03/22 Status: Ordered metFORMIN 1000 mg oral tablet 1 tablet = 1,000 mg, By Mouth, 2 times a day, with food, # 180 tablet, 3 Refills, Maintenance, 09/23/22 13:57:00 EST, Tablet, [facility] #[id number], Partial fill upon patient request if the prescription is for a schedule II opioid drug., 160, cm... Start Date: 09/23/22 Status: Ordered Omnipod 5 five pack Omnipod 5 five pack, See Instructions, # 6 each, Refills 3, Tot. Refills 3, Maintenance, [facility] [address]-07 change every 3 days E10.9 90 day, 01/17/22 13:07:00 EDT, Supply, 160, cm, 03/16/21 17:17:00 EDT, Height, 63.1, kg, 03/16/21 13:07:00 EDT, Dry... Start Date: 01/17/22 Status: Ordered Ozempic 2 mg/1.5 mL (0.25 mg or 0.5 mg dose) subcutaneous solution = 0.25 mg, Subcutaneous Infusion, Every week, take once per week e10.65, # 3 mL, 5 Refills, Maintenance, 11/09/22 12:17:00 EDT, [facility] #[id number], Partial fill upon patient request if the prescription is for a schedule II opioid drug., 0.25... Start Date: 11/09/22 Status: Ordered Victoza 18 mg/3 mL subcutaneous solution = 1.8 mg, Subcutaneous Injection, Daily, # 9 mL, 11 Refills, Maintenance, 10/10/22 11:29:00 EDT, Solution, [facility] #[id number], Partial fill upon patient request if the [...] Active 1no current therapist or psych 2Deidre [place], psych 3intermittent 4smokes occasionally Social History Social History Type Response Smoking Status Former smoker; Other : quit june 2010; entered on: 01/08/15 Sex Patient Care team information Care Team Personnel Name: Antwon Mendoza NP Position: Reference Physician Member Role: PCP Address: Address: [address] [place] [id number]- Name: Twila Blue MD Position: [facility] TEACHER THEATER ARTS MD Member Role: Lifetime TEACHER THEATER ARTS Physician Address: Address: [address] [place] [address]'s Health [place] [address]- Care Team Related Persons Name: NAOMIE PADILLA Address: home [address] [place] [address] Name: RUPERTO LOPEZ Address: home [address] [place] [address]
--- OUTSIDE RECORDS SUMMARY | 2024-02-26 09:40 | XMS_ITS | Continuity of Care Document ---
Author Organization [facility] Endocrinolo gy and Diabetes Address [address] [place] [address]- Care Team Providers Care Contract Specialist Name Role Phone Reji PAZ, Antwon Capps Primary Care Physician [phone] [facility](s): 01/17/22 - 02/16/22 [facility] Endocrinology and Diabetes [address] [place] [address] Allergies, Adverse Reactions, Alerts Substance [...] ADMINISTERED BY [facility] Medications Advair Diskus 100 mcg-50 mcg inhalation powder 1, puffs, Inhalation, 2 times a day, OV needed for further refills., # 60 each, Refills 0, Tot. Refills 0, Maintenance, 04/20/16 16:46:50, Route to Pharmacy Electronically, [id number], [facility] [id number] Start Date: 04/20/16 Stop Date: 05/20/16 Status: Ordered Advair Diskus 100 mcg-50 mcg inhalation powder 1, puffs, Inhalation, 2 times a day, # 60 each, Refills 0, Tot. Refills 0, Maintenance, 07/14/16 12:50:54, Route to Pharmacy Electronically, [id number], [id number] Start Date: 07/14/16 Stop Date: 08/13/16 Status: [...] 0 Refills, Soft Stop, 02/11/22 2:10:00 EDT, [facility] #[id number], Partial fill upon patient request if the prescription is for a schedule II opioiddrug., 161, cm, 02/10/22 23:44:00 EDT, Height, 67.7... Start Date: 02/11/22 Status: Ordered Freestyle Lite Lancets See Instructions, # 120 each, Refills 6, Tot. Refills 6, Maintenance, Use [facility] 4x a day, E10.65, [...] 3 Refills, Maintenance, 01/17/22 12:46:00 EDT, Solution, [facility] #[id number], Partial fill upon patient request if the prescription is for a schedule II opioid drug., 16... Start Date: 01/17/22 Status: Ordered metFORMIN 500 mg oral tablet 1 tablet = 500 mg, By Mouth, 2 times a day, # 60 tablet, 11 Refills, Maintenance, 10/01/20 16:53:[facility] #[id number], Partial fill upon patient request if the prescription is for a schedule II opioid drug., 158, cm, 02/09/19 12:52:00 E... Start Date: 10/01/20 Status: Ordered metFORMIN 500 mg oral tablet, extended release 1 tablet = 500 mg, By Mouth, 2 times a day, # 180 tablet, 3 Refills, Maintenance, 01/01/21 10:11:00EDT, ER Tablet, [facility] #[id number], Partial fill upon patient request if the prescription is for a schedule II opioid drug., 158, cm, 02/09/19... Start Date: 01/01/21 Status: Ordered Omnipod 5 five pack Omnipod 5 five pack, See Instructions, # 6 each, Refills 3, Tot. Refills 3, Maintenance, [facility] [address]-38 change every 3 days E10.9 90 day, [...] mL, 11 Refills, Maintenance, 08/18/21 12:29:00 EST, [facility] #[id number], Partial fill upon patient request if the [...]
--- OUTSIDE RECORDS SUMMARY | 2024-02-26 09:40 | XMS_ITS | Continuity of Care Document ---
Author Organization [facility] Endocrinolo gy and Diabetes Address [address] [place] [address]- Care Team Providers Care Housing Inspectors Name Role Phone Reji PAZ, Antwon Capps Primary Care Physician [facility] 04/13/22 - 05/13/22 [facility] Endocrinology and Diabetes [address] [place] [id number] Allergies, Adverse Reactions, Alerts Substance Reaction [...] Note: VIM 06/17/08 3Admin Note: ADMINISTERED BY [facility] Medications Advair Diskus 100 mcg-50 mcg inhalation powder 1, puffs, Inhalation, 2 times a day, OV needed for further refills., # 60 each, Refills 0, Tot. Refills 0, Maintenance, 04/20/16 16:46:50, Route to Pharmacy Electronically, [id number], [facility] [id number] Start Date: 04/20/16 Stop Date: 05/20/16 Status: Ordered Advair Diskus 100 mcg-50 mcg inhalation powder 1, puffs, Inhalation, 2 times a day, # 60 each, Refills 0, Tot. Refills 0, Maintenance, 07/14/16 12:50:54, Route to Pharmacy Electronically, [id number], [facility] [id number] Start Date: 07/14/16 Stop Date: 08/13/16 Status: [...] :33:00 EDT, Aerosol, Route to Pharmacy Electronically, NCPDP_[id number], [facility] #[id number], 160, cm, 04/16/22 23:50:00 EDT, Height, 67.9, [...] 6, Maintenance, [facility] Freestyle l[facility] glucose 4x a day, E10.65, 03/26/21 [...] Cartridge 100 units/mL subcutaneous injection See Instructions, [facility]: [id number] E 10.9 90 day use up to 40 units daily with INPEN, # 36 each, 3 Refills, Maintenance, 09/17/21 13:47:00 EST, Solution, [facility] #[id number], Partial fill upon patient request if the prescription is for a sche... Start Date: 09/17/21 Status: Ordered insulin lispro 100 u/ml subcutaneous injection See Instructions, use up to 50 units daily in pump E10.9 90 day, # 50 mL, 3 Refills, Maintenance, 01/17/22 12:46:00 EDT, Solution, [facility] #[id number], Partial fill upon patient request if the prescription is for a schedule II opioid drug., 16... Start Date: 01/17/22 Status: Ordered levothyroxine 0.025 mg oral tablet 1 tablet = 25 mcg, By Mouth, Daily, # 90 tablet, 3 Refills, Maintenance, 04/13/22 15:19:00 EDT, Tablet, [facility] #[id number], Partial fill upon patient request if the prescription is for a schedule II opioid drug., 161, cm, 02/10/22 23:44:00 ED... Start Date: 04/13/22 Status: Ordered Lidoderm 5% film 1 patch, Topically, Daily, PRN Pain , Mild, # 15 patch, 0 Refills, Maintenance, 05/03/22 11:22:00 EDT, [facility] #[id number], Partial fill upon patient request if the prescription is for a schedule II opioid drug., 1 patch Topically Daily,PRN:Pa... Start Date: 05/03/22 Status: Ordered metFORMIN 1000 mg oral tablet 1 tablet = 1,000 mg, By Mouth, 2 times a day, with food, # 180 tablet, 3 Refills, Maintenance, 10/11/21 10:30:00 EDT, Tablet, [facility] #[id number], Partial fill upon patient request if the prescription is for a schedule II opioid drug., 160, cm... Start Date: 10/11/21 Status: Ordered Omnipod 5 five pack Omnipod 5 five pack, See Instructions, # 6 each, Refills 3, Tot. Refills 3, Maintenance, [facility] [address]-94 change every 3 days E10.9 90 day, 01/17/22 13:07:00 EDT, Supply, 160, cm, 03/16/21 17:17:00 EDT, Height, 63.1, kg, 03/16/21 13:07:00 EDT, Dry... Start Date: 01/17/22 Status: Ordered Zyrtec 10 mg oral tablet [...] on: 01/08/15 Sex Patient Care team information Personnel Name: Reji PAZ , Antwon Capps Address: Address: [address] [place] [address] [place] [id number]
--- OUTSIDE RECORDS SUMMARY | 2024-02-26 09:40 | XMS_ITS | Continuity of Care Document ---
Author Organization [facility] Endocrinolo gy and Diabetes Address [address] [place] [address]- Care Team Providers Care Fraud Manager Name Role Phone Reji PAZ, Antwon Capps Primary Care Physician [phone] [facility]): 07/25/23 - 08/24/23 [facility] Endocrinology and Diabetes [address] [place] [address] Allergies, Adverse Reactions, Alerts Substance [...] Note: VIM 06/17/08 3Admin Note: ADMINISTERED BY [facility] Medications Baqsimi intranasal spray Baqsimi intranasal [...] Refills 6, Maintenance, Use Freestyle lite [facility]ancets [facility] 4x a day, E10.65, [...] mL, 3 Refills, Maintenance, 01/26/23 16:03:00 EDT, [facility] #[id number], 161, cm, 11/26/22 9:16:00 EDT, Height, 68.3, kg, 11/26/22 9:16:00 EDT, Dry Weight Start Date: 01/26/23 Status: Ordered Lantus Solostar Pen 100 units/mL subcutaneous solution = 15 units, Subcutaneous Injection, Daily at bedtime, # 10 mL, 5 Refills, Maintenance, 10/25/22 14:51:00 EDT, Solution, [facility] #[id number], Partial fill upon patient request if the prescription is for a schedule II opioid drug., 160, cm, 09/29... Start Date: 10/25/22 Status: Ordered levothyroxine 0.025 mg oral tablet 1 tablet = 25 mcg, By Mouth, Daily, # 90 tablet, 3 Refills, Maintenance, 06/05/23 13:11:00 EST, Tablet, [facility] #[id number], Partial fill upon patient request if the prescription is for a schedule II opioid drug., 161, cm, 02/23/23 7:34:00 EDT... Start Date: 06/05/23 Status: Ordered metFORMIN 500 mg oral tablet, extended release 2 tablet = 1,000 mg, By Mouth, 2 times a day, # 120 tablet, 11 Refills, Maintenance, 08/10/23 14:13:00 EST, [facility] #[id number], Partial fill upon patient request if the prescription is for aschedule II opioid drug., 161, cm, 02/23/23 7:34:00... Start Date: 08/10/23 Stop Date: 08/04/24 Status: Ordered oxybutynin 5 mg oral tablet 1 tablet = 5 mg, By Mouth, Daily, # 14 tablet, 0 Refills, Maintenance, 11/26/22 10:32:00 EDT, Tablet, [facility] #[id number], Partial fill upon patient request if the prescription is for a schedule II opioid drug., 161, cm, 11/26/22 9:16:00 EDT,... Start Date: 11/26/22 Status: Ordered Pen [place], 31 G x 5 mm BD Ultra Fine III See Instructions, # 100 each, Refills 3, Tot. Refills 3, Maintenance, use daily with victoza, 08/22/23 7:18:00 EST, Supply, 161, cm, 02/23/23 7:34:00 EDT, Height, 68.3, kg, 11/26/22 9:16:00 EDT, Dry Weight Start Date: 08/22/23 Status: Ordered Pen [place], 31 G x 5 mm BD Ultra [...] mL, 11 Refills, Maintenance, 08/01/23 11:12:00 EST, [facility] #[id number], please dispense 2 1.5 mL pens as I believeeach pen would last 20 days, 161, cm, 02/23/23 7:34... Start Date: 08/01/23 Status: Ordered Victoza 18 mg/3 mL subcutaneous solution = 1.8 mg, Subcutaneous Injection, Daily, # 27 mL, 3 Refills, Maintenance, 08/22/23 7:18:00 EST, [facility] #[id number], Partial fill upon patient request if the [...] Active 1no current therapist or psych 2Deidre [place], psych 3intermittent 4smokes occasionally Social History Social History Type Response Smoking Status Former smoker; Other : quit june 2010; entered on: 01/08/15 Sex Patient Care team information Care Team Personnel Name: Reji PAZ , Antwon Capps Position: Reference Physician Member Role: PCP Address: Address: [address] [place] [address]- Name: Mirza RUSH, Twila Salazar Position: [facility] DRIVER UTILITY WORKER MD Member Role: Lifetime DRIVER UTILITY WORKER Physician Address: Address: [address] [place] [address] Women[employer] [place] [address]- Care Team Related Persons Name: NAOMIE PADILLA Address: home [address] [place] [address] Name: RUPERTO LOPEZ Address: home [address] [place] [address]
--- OUTSIDE RECORDS SUMMARY | 2024-02-26 09:40 | XMS_ITS | Continuity of Care Document ---
Author Organization [facility] Endocrinolo gy and Diabetes Address [address] [place] [address]- Care Team Providers Care Statement Clerks Manager Name Role Phone Heri RUSH, Kylee Byrne Primary Care Physician [phone] [facility] 12[facility]20 - 01/30/21 [facility] Endocrinology and Diabetes [address] [place] [address] Allergies, Adverse Reactions, Alerts Substance [...] Maintenance, 04/20/16 16:46:50, Route to Pharmacy Electronically, [id number], [facility] Start Date: 04/20/16 Stop Date: 05/20/16 Status: Ordered Advair Diskus 100 mcg-50 mcg inhalation powder 1, puffs, Inhalation, 2 times a day, # 60 each, Refills 0, Tot. Refills 0, Maintenance, 07/14/16 12:50:54, Route to Pharmacy Electronically, [id number], [id number] Start Date: 07/14/16 Stop Date: 08/13/16 Status: [...] 3 Refills, Maintenance, 09/03/20 14:40:00 EST, Solution, [facility] #[id number], Partial fill upon patient request if the prescription is for a schedule II opioid drug., 1... Start Date: 09/03/20 Status: Ordered metFORMIN 500 mg oral tablet 1 tablet = 500 mg, By Mouth, 2 times a day, # 60 tablet, 11 Refills, Maintenance, 10/01/20 16:53:00EST, [facility] #[id number], Partial fill upon patient request if the prescription is for a schedule II opioid drug., 158, cm, 02/09/19 12:52:00 E... Start Date: 10/01/20 Status: Ordered metFORMIN 500 mg oral tablet, extended release 1 tablet = 500 mg, By Mouth, 2 times a day, # 180 tablet, 3 Refills, Maintenance, 01/01/21 10:11:00EDT, ER Tablet, [facility] #[id number], Partial fill upon patient request if the prescription is for a schedule II opioid drug., 158, cm, 02/09/19... Start Date: 01/01/21 Status: Ordered Tresiba FlexTouch 200 units/mL subcutaneous solution = 12 units, Subcutaneous Injection, Daily, rotate injection sites, # 3 mL, 11 Refills, Maintenance,01/25/21 15:39:00 EDT, Solution, [id number], Partial fill upon patient request if the prescription is for a schedule II opioid drug.,... Start Date: 01/25/21 Status: Ordered Zyrtec 10 mg oral tablet [...]
--- OUTSIDE RECORDS SUMMARY | 2024-02-26 09:41 | XMS_ITS | Continuity of Care Document ---
Author Organization [facility] Address [address] [place] [address]- Care Team Providers Care Bleaching Machine Operator Name Role Phone Reji PAZ, Antwon Capps Primary Care Physician [facility] Date(s): 10/07/22 - 11/06/22 [facility] [address] [place] [id number] Allergies, Adverse Reactions, Alerts Substance [...] Maintenance, 04/20/16 16:46:50, Route to Pharmacy Electronically, [id number], [facility] 83719 Start Date: 04/20/16 Stop Date: 05/20/16 Status: Ordered Advair Diskus 100 mcg-50 mcg inhalation powder 1, puffs, Inhalation, 2 times a day, # 60 each, Refills 0, Tot. Refills 0, Maintenance, 07/14/16 12:50:54, Route to Pharmacy Electronically, [id number], [id number] Start Date: 07/14/16 Stop Date: 08/13/16 Status: [...] :33:00 EDT, Aerosol, Route to Pharmacy Electronically, NCPDP_[id number], [facility] #[id number], 160, cm, 04/16/22 23:50:00 EDT, Height, 67.9, [...] Refills 6, Maintenance, Use Freestyle lite lancets [facility] blood glucose 4x a day, [...] 3 Refills, Maintenance, 01/17/22 12:46:00 EDT, Solution, [facility] #[id number], Partial fill upon patient request if the prescription is for a schedule II opioid drug., 16... Start Date: 01/17/22 Status: Ordered Lantus Solostar Pen 100 units/mL subcutaneous solution = 15 units, Subcutaneous Injection, Daily at bedtime, # 10 mL, 5 Refills, Maintenance, 10/25/22 14:51:00 EDT, Solution, [facility] #[id number], Partial fill upon patient request if the prescription is for a schedule II opioid drug., 160, cm, 2... Start Date: 10/25/22 Status: Ordered levothyroxine 0.025 mg oral tablet 1 tablet = 25 mcg, By Mouth, Daily, # 90 tablet, 3 Refills, Maintenance, 04/13/22 15:19:00 EDT, Tablet, [facility] #[id number], Partial fill upon patient request if the prescription is for a schedule II opioid drug., 161, cm, 02/10/22 23:44:00 ED... Start Date: 04/13/22 Status: Ordered Lidoderm 5% film 1 patch, Topically, Daily, PRN Pain , Mild, # 15 patch, 0 Refills, Maintenance, 05/03/22 11:22:00 EDT, [facility] #[id number], Partial fill upon patient request if the prescription is for a schedule II opioid drug., 1 patch Topically Daily,PRN:Pa... Start Date: 05/03/22 Status: Ordered metFORMIN 1000 mg oral tablet 1 tablet = 1,000 mg, By Mouth, 2 times a day, with food, # 180 tablet, 3 Refills, Maintenance, 09/23/22 13:57:00 EST, Tablet, [facility] #[id number], Partial fill upon patient request if the prescription is for a schedule II opioid drug., 160, cm... Start Date: 09/23/22 Status: Ordered Omnipod 5 five pack Omnipod 5 five pack, See Instructions, # 6 each, Refills 3, Tot. Refills 3, Maintenance, [facility] [id number] change every 3 days E10.9 90 day, 01/17/22 13:07:00 EDT, Supply, 160, cm, 03/16/21 17:17:00 EDT, Height, 63.1, kg, 03/16/21 13:07:00 EDT, Dry... Start Date: 01/17/22 Status: Ordered Victoza 18 mg/3 mL subcutaneous solution = 1.8 mg, Subcutaneous Injection, Daily, # 9 mL, 11 Refills, Maintenance, 10/10/22 11:29:00 EDT, Solution, [facility] #[id number], Partial fill upon patient request if the [...] Active 1no current therapist or psych 2Deidre Eustis, psych 3intermittent 4smokes occasionally Social History Social History Type Response Smoking Status Former smoker; Other : quit june 2010; entered on: 01/08/15 Sex Patient Care team information Care Team Personnel Name: Antwon Mendoza NP Position: Reference Physician Member Role: PCP Address: Address: [address] [place] [address]- Name: Twila Blue MD Position: [facility] LEVELER HELPER MD Member Role: Lifetime LEVELER HELPER Physician Address: Address: [address] [place] [address]'s [facility] [place] [address]- Care Team Related Persons Name: NAOMIE PADILLA Address: home [address] [place] [address] Name: RUPERTO LOPEZ Address: home [address] [place] [address]
--- OUTSIDE RECORDS SUMMARY | 2024-02-26 09:41 | XMS_ITS | Continuity of Care Document ---
Author Organization [facility] Address [address] [place] [address]- Care Team Providers Care Sizing Machine Tender Name Role Phone Reji PAZ, Antwon Capps Primary Care Physician [phone] Encounter [facility] Date(s): 09/16/21 - 10/16/21 [facility] [address] [place] [address]- Allergies, Adverse Reactions, Alerts Substance Reaction Severity [...] VIM 06/17/08 3Admin Note: ADMINISTERED BY [facility] Medications Advair Diskus 100 mcg-50 mcg inhalation powder 1, puffs, Inhalation, 2 times a day, OV needed for further refills., # 60 each, Refills 0, Tot. Refills 0, Maintenance, 04/20/16 16:46:50, Route to Pharmacy Electronically, [id number], [facility] [id number] Start Date: 04/20/16 Stop Date: 05/20/16 Status: Ordered Advair Diskus 100 mcg-50 mcg inhalation powder 1, puffs, Inhalation, 2 times a day, # 60 each, Refills 0, Tot. Refills 0, Maintenance, 07/14/16 12:50:54, Route to Pharmacy Electronically, [id number], [facility] [id number] Start Date: 07/14/16 Stop Date: 08/13/16 Status: [...] Refills 6, Maintenance, Use Freestyle lite lancets [facility] blood glucose 4x a day, [...] # 60 tablet, 11 Refills, Maintenance, 10/01/20 16[id number], Partial fill upon patient request if the prescription is for a schedule II opioid drug., 158, cm, 02/09/19 12:52:00 E... Start Date: 10/01/20 Status: Ordered metFORMIN 500 mg oral tablet, extended release 1 tablet = 500 mg, By Mouth, 2 times a day, # 180 tablet, 3 Refills, Maintenance, 01/01/21 10:11:00EDT, ER Tablet, [facility] #[id number], Partial fill upon patient request if the prescription is for a schedule II opioid drug., 158, cm, 02/09/19... Start Date: 01/01/21 Status: Ordered Tresiba FlexTouch 100 units/mL subcutaneous solution See Instructions, TAKE TRESIBA 15 UNITS SQ INJECTION DAILY E 10.9, # 15 mL, 11 Refills, Maintenance, 08/18/21 12:29:00 EST, [facility] #[id number], Partial fill upon patient request if the [...]
--- OUTSIDE RECORDS SUMMARY | 2024-02-26 09:41 | XMS_ITS | Continuity of Care Document ---
Author Organization [facility] Address [address] [place] [address]- Care Team Providers Care Boarding Machine Operator Name Role Phone Reji PAZ, Antwon Capps Primary Care Physician Encounter [facility] Date(s): 03/16/21 - 03/16/[address] [address]- Discharge Disposition: A-D/C Home Attending Physician: Allan Cloud MD Admitting Physician: Allan Cloud MD Referring Physician: Not on Staff, Referring MD Allergies, Adverse Reactions, Alerts Substance Reaction Severity [...] Note: VIM 06/17/08 3Admin Note: ADMINISTERED BY [facility] Medications Advair Diskus 100 mcg-50 mcg inhalation powder 1, puffs, Inhalation, 2 times a day, OV needed for further refills., # 60 each, Refills 0, Tot. Refills 0, Maintenance, 04/20/16 16:46:50, Route to Pharmacy Electronically, [id number], [facility] [id number] Start Date: 04/20/16 Stop Date: 05/20/16 Status: Ordered Advair Diskus 100 mcg-50 mcg inhalation powder 1, puffs, Inhalation, 2 times a day, # 60 each, Refills 0, Tot. Refills 0, Maintenance, 07/14/16 12:50:54, Route to Pharmacy Electronically, [id number], [facility] [id number] Start Date: 07/14/16 Stop Date: 08/13/16 Status: [...] 3 Refills, Maintenance, 09/03/20 14:40:00 EST, Solution, [facility] #[id number], Partial fill upon patient request if the prescription is for a schedule II opioid drug., 1... Start Date: 09/03/20 Status: Ordered INPEN 100/PINK/DELISA PINK DEVICE INPEN 100/PINK/DELISA PINK DEVICE, See Instructions, # 1 each, 0 Refills, Maintenance, CONSULT MD FOR MANE SETTINGS. Start Date: 02/12/21 Status: Ordered metFORMIN 500 mg oral tablet 1 tablet = 500 mg, By Mouth, 2 times a day, # 60 tablet, 11 Refills, Maintenance, 10/01/20 16:53:00EST, [facility] #[id number], Partial fill upon patient request if the prescription is for a schedule II opioid drug., 158, cm, 02/09/19 12:52:00 E... Start Date: 10/01/20 Status: Ordered metFORMIN 500 mg oral tablet, extended release 1 tablet = 500 mg, By Mouth, 2 times a day, # 180 tablet, 3 Refills, Maintenance, 01/01/21 10:11:00EDT, ER Tablet, [facility] #[id number], Partial fill upon patient request if the prescription is for a schedule II opioid drug., 158, cm, 02/09/19... Start Date: 01/01/21 Status: Ordered Tresiba FlexTouch 200 units/mL subcutaneous solution = 12 units, Subcutaneous Injection, Daily, rotate injection sites, # 3 mL, 11 Refills, Maintenance,01/25/21 15:39:00 EDT, Solution, [facility] #[id number], Partial fill upon patient request if the [...] psych 2Deidre Aaron, psych 3intermittent 4smokes occasionally Vital Signs Most recent to oldest [Reference Range]: 1 2 Height 160 cm (03/16/21 5:17 PM) 160 cm (03/16/21 1:07 PM) Weight 63.1 kg (03/16/21 1:07 PM) Oxygen Saturation [94-100 %] 100 % (03/16/21 5:17 PM) 98 % (03/16/21 1:07 PM) Pulse Rate [55-90 bpm] 66 bpm (03/16/21 5:17 PM) 87 bpm (03/16/21 1:07 PM) Blood Pressure [90-138/55-84 mm Hg] 102/ 64mm Hg (03/16/21 5:17 PM) 95/55mm Hg (03/16/21 1:07 PM) Respiratory Rate [16-30 br/min] 18 br/mi n (8/17/21 5:17 PM) 18 br/min (03/16/21 1:07 PM) Temperature [96.8-100.4 DegF] 98.3 DegF (03/16/21 1:07 PM) Mode of Delivery (Oxygen) Room air (03/16/21 5:17 PM) Blood pressure sites Arm, right (03/16/21 5:17 PM) Temperature Route Temporal (03/16/21 1:07 PM) Dry Weight 63.1 kg (03/16/21 1:07 PM) Dry Weight Obtained Via Standing scale (03/16/21 1:07 PM) Social History Social History Type Response Smoking Status Former smoker; Other : quit june 2010; entered on: 01/08/15 Sex
--- OUTSIDE RECORDS SUMMARY | 2024-02-26 09:41 | XMS_ITS | Continuity of Care Document ---
Author Organization [facility] Address [address] [place] [address]- Care Team Providers Care Roving Court Reporter Name Role Phone Reji PAZ, Antwon Capps Primary Care Physician [phone] Encounter [facility] Date(s): 09/29/23 - 10/29/23 [facility] [address] [place] [address] Attending Physician: Admtr, [id number] Admitting Physician: Admtr, [id number] Referring Physician: Admtr, [...] 3Admin Note: ADMINISTERED BY [facility] Medications Baqsimi intranasal spray Baqsimi [...] Refills 6, Maintenance, Use Freestyle lite lancets [facility] blood glucose 4x a day, E10.65, [...] mL, 3 Refills, Maintenance, 01/26/23 16:03:00 EDT, [facility] #[id number], 161, cm, 11/26/22 9:16:00 EDT, Height, 68.3, kg, 11/26/22 9:16:00 EDT, Dry Weight Start Date: 01/26/23 Status: Ordered Lantus Solostar Pen 100 units/mL subcutaneous solution = 15 units, Subcutaneous Injection, Daily at bedtime, # 10 mL, 5 Refills, Maintenance, 10/25/22 14:51:00 EDT, Solution, [facility] #[id number], Partial fill upon patient request if the prescription is for a schedule II opioid drug., 160, cm, 09/29... Start Date: 10/25/22 Status: Ordered levothyroxine 0.05 mg oral tablet 1 tablet = 50 mcg, By Mouth, Daily, # 30 tablet, 11 Refills, Maintenance, 08/28/23 20:59:00 EST, Tablet, [facility] #[id number], Partial fill upon patient request if the prescription is for a schedule II opioid drug., 161, cm, 02/23/23 7:34:00 ED... Start Date: 08/28/23 Status: Ordered metFORMIN 500 mg oral tablet, extended release 2 tablet = 1,000 mg, By Mouth, 2 times a day, # 120 tablet, 11 Refills, Maintenance, 08/10/23 14:13:00 EST, [facility] #[id number], Partial fill upon patient request if the prescription is for aschedule II opioid drug., 161, cm, 02/23/23 7:34:00... Start Date: 08/10/23 Stop Date: 08/04/24 Status: Ordered oxybutynin 5 mg oral tablet 1 tablet = 5 mg, By Mouth, Daily, # 14 tablet, 0 Refills, Maintenance, 11/26/22 10:32:00 EDT, Tablet, [email or web address] #[id number], Partial fill upon patient request if the prescription is for a schedule II opioid drug., 161, cm, 11/26/22 9:16:00 EDT,... Start Date: 11/26/22 Status: Ordered Pen Marion, 31 G x 5 mm BD Ultra Fine III See Instructions, # 100 each, Refills 3, Tot. Refills 3, Maintenance, use daily with victoza, 08/22/23 7:18:00 EST, Supply, 161, cm, 02/23/23 7:34:00 EDT, Height, 68.3, kg, 11/26/22 9:16:00 EDT, Dry Weight Start Date: 08/22/23 Status: Ordered Pen Marion, 31 G x 5 mm BD Ultra [...] 11 Refills, Maintenance, 08/01/23 11:12:00 EST, Solution, [email or web address] #54985, please dispense 2 1.5 mL pens as I believeeach pen would last 20 days, 161, cm, 02/23/23 7:34... Start Date: 08/01/23 Status: Ordered Victoza 18 mg/3 mL subcutaneous solution = 1.8 mg, Subcutaneous Injection, Daily, # 27 mL, 3 Refills, Maintenance, 08/22/23 7:18:00 EST, Solution, [email or web address] #30552, Partial fill upon patient request if the [...] Active 1no current therapist or psych 2Deidre [place], psych 3intermittent 4smokes occasionally Social History Social History Type Response Smoking Status Former smoker; Other : quit june 2010; entered on: 01/08/15 Sex Laboratory * Event Display: Non Lab Results Authored Date: Patient Care team information Care Team Personnel Name: Reji PAZ , Antwon Capps Position: Reference Physician Member Role: PCP Address: Address: [address] [place] [address]- Name: Mirza RUSH, Twila Salazar Position: [facility] CERTIFIED BREASTFEEDING EDUCATOR MD Member Role: Lifetime CERTIFIED BREASTFEEDING EDUCATOR Physician Address: Address: [address] [place] [address] Women[employer] [place] [address]- Care Team Related Persons Name: NAOMIE PADILLA Address: home [address] [place] [address] Name: RUPERTO LOPEZ Address: home [address] [place] [address]
--- OUTSIDE RECORDS SUMMARY | 2024-02-26 09:41 | XMS_ITS | Continuity of Care Document ---
Author Organization [facility] Address [address] [place] [address]- Care Team Providers Care Cook Fish Eggs Name Role Phone Reji PAZ, Antwon Capps Primary Care Physician [phone] Encounter [facility] Date(s): 04/05/22 - 05/05/22 [facility] [address] [place] [address] Allergies, Adverse Reactions, Alerts Substance [...] Maintenance, 04/20/16 16:46:50, Route to Pharmacy Electronically, [id number], [id number] Start Date: 04/20/16 Stop Date: 05/20/16 Status: Ordered Advair Diskus 100 mcg-50 mcg inhalation powder 1, puffs, Inhalation, 2 times a day, # 60 each, Refills 0, Tot. Refills 0, Maintenance, 07/14/16 12:50:54, Route to Pharmacy Electronically, [id number], [facility] [id number] Start Date: 07/14/16 Stop Date: 08/13/16 Status: [...] :33:00 EDT, Aerosol, Route to Pharmacy Electronically, NCPDP_[id number], [facility] #[id number], 160, cm, 04/16/22 23:50:00 EDT, Height, 67.9, [...] Maintenance, Use Freestyle lite lancets [facility] blood glucose 4x a day, E10.65, [...] Cartridge 100 units/mL subcutaneous injection See Instructions, [facility]NOTE 2]: [id number] E 10.9 90 day use up to 40 units daily with INPEN, # 36 each, 3 Refills, Maintenance, 09/17/21 13:47:00 EST, Solution, [facility] #[id number], Partial fill upon patient request if the prescription is for a sche... Start Date: 09/17/21 Status: Ordered insulin lispro 100 u/ml subcutaneous injection See Instructions, use up to 50 units daily in pump E10.9 90 day, # 50 mL, 3 Refills, Maintenance, 01/17/22 12:46:00 EDT, Solution, [facility] #[id number], Partial fill upon patient request if the prescription is for a schedule II opioid drug., 16... Start Date: 01/17/22 Status: Ordered levothyroxine 0.025 mg oral tablet 1 tablet = 25 mcg, By Mouth, Daily, # 90 tablet, 3 Refills, Maintenance, 04/13/22 15:19:00 EDT, Tablet, [facility] #[id number], Partial fill upon patient request if the prescription is for a schedule II opioid drug., 161, cm, 02/10/22 23:44:00 ED... Start Date: 04/13/22 Status: Ordered Lidoderm 5% film 1 patch, Topically, Daily, PRN Pain , Mild, # 15 patch, 0 Refills, Maintenance, 05/03/22 11:22:00 EDT, [facility] #10449, Partial fill upon patient request if the prescription is for a schedule II opioid drug., 1 patch Topically Daily,PRN:Pa... Start Date: 05/03/22 Status: Ordered metFORMIN 1000 mg oral tablet 1 tablet = 1,000 mg, By Mouth, 2 times a day, with food, # 180 tablet, 3 Refills, Maintenance, 10/11/21 10:30:00 EDT, Tablet, [facility] #35908, Partial fill upon patient request if the prescription is for a schedule II opioid drug., 160, cm... Start Date: 10/11/21 Status: Ordered Omnipod 5 five pack Omnipod 5 five pack, See Instructions, # 6 each, Refills 3, Tot. Refills 3, Maintenance, [facility]NOTE 2] [address]-62 change every 3 days E10.9 90 day, [...] Reji PAZ , Antwon Capps Address: Address: [address] [place] [address] [place] [address]
--- OUTSIDE RECORDS SUMMARY | 2024-02-26 09:41 | XMS_ITS | Continuity of Care Document ---
Author Organization [facility] Address [address] [place] [address]- Care Team Providers Care Hangersmith Name Role Phone Reji PAZ, Antwon Capps Primary Care Physician [facility] Date(s): 09/13/21 - 10/13/21 [facility] [address] [place] [address] Allergies, Adverse Reactions, Alerts Substance Reaction Severity [...] Note: VIM 06/17/08 3Admin Note: ADMINISTERED BY [facility] Medications Advair Diskus 100 mcg-50 mcg inhalation powder 1, puffs, Inhalation, 2 times a day, OV needed for further refills., # 60 each, Refills 0, Tot. Refills 0, Maintenance, 04/20/16 16:46:50, Route to Pharmacy Electronically, [id number], [facility] [address] Start Date: 04/20/16 Stop Date: 05/20/16 Status: Ordered Advair Diskus 100 mcg-50 mcg inhalation powder 1, puffs, Inhalation, 2 times a day, # 60 each, Refills 0, Tot. Refills 0, Maintenance, 07/14/16 12:50:54, Route to Pharmacy Electronically, [id number], [id number] Start Date: 07/14/16 Stop Date: 08/13/16 Status: [...] Refills 6, Maintenance, Use Freestyle lite lancets [facility] blood glucose 4x a day, [...] 60 tablet, 11 Refills, Maintenance, 10/01/20 16:53:00EST, [facility] #[id number], Partial fill upon patient request if the prescription is for a schedule II opioid drug., 158, cm, 02/09/19 12:52:00 E... Start Date: 10/01/20 Status: Ordered metFORMIN 500 mg oral tablet, extended release 1 tablet = 500 mg, By Mouth, 2 times a day, # 180 tablet, 3 Refills, Maintenance, 01/01/21 10:11:00EDT, ER Tablet, [facility] #[id number], Partial fill upon patient request if the prescription is for a schedule II opioid drug., 158, cm, 02/09/19... Start Date: 01/01/21 Status: Ordered Tresiba FlexTouch 100 units/mL subcutaneous solution See Instructions, TAKE TRESIBA 15 UNITS SQ INJECTION DAILY E 10.9, # 15 mL, 11 Refills, Maintenance, 08/18/21 12:29:00 EST, [facility] #[id number], Partial fill upon patient request if the [...]
--- OUTSIDE RECORDS SUMMARY | 2024-02-26 09:41 | XMS_ITS | Continuity of Care Document ---
Author Organization [facility] Address [address] [place] [address]- Care Team Providers Care Adapted Physical Education Specialist Name Role Phone Reji PAZ, Antwon Capps Primary Care Physician [phone] Encounter [facility] Date(s): 02/07/22 - 03/09/22 [facility] [address] [place] [address] Allergies, Adverse Reactions, Alerts Substance Reaction [...] Note: VIM 06/17/08 3Admin Note: ADMINISTERED BY [facility] Medications Advair Diskus 100 mcg-50 mcg inhalation powder 1, puffs, Inhalation, 2 times a day, OV needed for further refills., # 60 each, Refills 0, Tot. Refills 0, Maintenance, 04/20/16 16:46:50, Route to Pharmacy Electronically, [id number], [facility] [id number] Start Date: 04/20/16 Stop Date: 05/20/16 Status: Ordered Advair Diskus 100 mcg-50 mcg inhalation powder 1, puffs, Inhalation, 2 times a day, # 60 each, Refills 0, Tot. Refills 0, Maintenance, 07/14/16 12:50:54, Route to Pharmacy Electronically, [id number], [id number] Start Date: 07/14/16 Stop Date: 08/13/16 Status: [...] 0 Refills, Soft Stop, 02/11/22 2:10:00 EDT, [facility] #[id number], Partial fill upon patient request if the prescription is for a schedule II opioiddrug., 161, cm, 02/10/22 23:44:00 EDT, Height, 67.7... Start Date: 02/11/22 Status: Ordered Freestyle Lite Lancets See Instructions, # 120 each, Refills 6, Tot. Refills 6, Maintenance, Use Freestyle lite lancets [facility] blood glucose 4x a day, E10.65, [...] 3 Refills, Maintenance, 01/17/22 12:46:00 EDT, Solution, [facility] #52203, Partial fill upon patient request if the prescription is for a schedule II opioid drug., 16... Start Date: 01/17/22 Status: Ordered metFORMIN 500 mg oral tablet 1 tablet = 500 mg, By Mouth, 2 times a day, # 60 tablet, 11 Refills, Maintenance, 10/01/20 16:53:00EST, [facility] #[id number], Partial fill upon patient request if the prescription is for a schedule II opioid drug., 158, cm, 02/09/19 12:52:00 E... Start Date: 10/01/20 Status: Ordered metFORMIN 500 mg oral tablet, extended release 1 tablet = 500 mg, By Mouth, 2 times a day, # 180 tablet, 3 Refills, Maintenance, 01/01/21 10:11:00EDT, ER Tablet, [facility] #[id number], Partial fill upon patient request if the prescription is for a schedule II opioid drug., 158, cm, 02/09/19... Start Date: 01/01/21 Status: Ordered Omnipod 5 five pack Omnipod 5 five pack, See Instructions, # 6 each, Refills 3, Tot. Refills 3, Maintenance, [facility] [address]-29 change every 3 days E10.9 90 day, [...] mL, 11 Refills, Maintenance, 08/18/21 12:29:00 EST, [facility] #76329, Partial fill upon patient request if the [...]
--- OUTSIDE RECORDS SUMMARY | 2024-02-26 09:41 | XMS_ITS | Continuity of Care Document ---
Author Organization [facility] Address [address] [place] [id number]- Care Team Providers Care Customer Support Analyst Name Role Phone Reji PAZ, Antwon Capps Primary Care Physician [facility]counter [facility] Date(s): 04/24/23 - 05/24/23 [facility] [address] [place] [id number] Allergies, Adverse Reactions, Alerts [...] ADMINISTERED BY [facility] Medications Baqsimi intranasal spray Baqsimi [...] mL, 3 Refills, Maintenance, 01/26/23 16:03:00 EDT, [facility] #[id number], 161, cm, 11/26/22 9:16:00 EDT, Height, 68.3, kg, 11/26/22 9:16:00 EDT, Dry Weight Start Date: 01/26/23 Status: Ordered Lantus Solostar Pen 100 units/mL subcutaneous solution = 15 units, Subcutaneous Injection, Daily at bedtime, # 10 mL, 5 Refills, Maintenance, 10/25/22 14:51:00 EDT, Solution, [facility] #[id number], Partial fill upon patient request if the prescription is for a schedule II opioid drug., 160, cm, 09/29... Start Date: 10/25/22 Status: Ordered levothyroxine 0.025 mg oral tablet 1 tablet = 25 mcg, By Mouth, Daily, # 90 tablet, 3 Refills, Maintenance, 04/13/22 15:19:00 EDT, Tablet, [facility] #[id number], Partial fill upon patient request if the prescription is for a schedule II opioid drug., 161, cm, 02/10/22 23:44:00 ED... Start Date: 04/13/22 Status: Ordered Omnipod 5 five pack Omnipod 5 five pack, See Instructions, # 6 each, Refills 3, Tot. Refills 3, Maintenance, [facility] [id number] change every 3 days E10.9 90 day, 01/17/22 13:07:00 EDT, Supply, 160, cm, 03/16/21 17:17:00 EDT, Height, 63.1, kg, 03/16/21 13:07:00 EDT, Dry... Start Date: 01/17/22 Status: Ordered oxybutynin 5 mg oral tablet 1 tablet = 5 mg, By Mouth, Daily, # 14 tablet, 0 Refills, Maintenance, 11/26/22 10:32:00 EDT, Tablet, [facility] #[id number], Partial fill upon patient request if the prescription is for a schedule II opioid drug., 161, cm, 11/26/22 9:16:00 EDT,... Start Date: 11/26/22 Status: Ordered Ozempic 2 mg/1.5 mL (0.25 mg or 0.5 mg dose) subcutaneous solution = 0.5 mg, Subcutaneous Infusion, Every week, rotate injection sites e11.9, # 1.5 mL, 3 Refills, Maintenance, 04/11/23 9:17:00 EDT, [facility] #[id number], Partial fill upon patient request if the [...] Active 1no current therapist or psych 2Deidre Escalante, psych 3intermittent 4smokes occasionally Social History Social History Type Response Smoking Status Former smoker; Other : quit june 2010; entered on: 01/08/15 Sex Patient Care team information Care Team Personnel Name: Antwon Mendoza NP Position: Reference Physician Member Role: PCP Address: Address: [address] [place] [address]- Name: Twila Blue MD Position: [facility] DAIRY FARM OPERATOR MD Member Role: Lifetime DAIRY FARM OPERATOR Physician Address: Address: [address] [place] [address] [facility] [place] [address]- Care Team Related Persons Name: NAOMIE PADILLA Address: home [address] [place] [address] Name: RUPERTO LOPEZ Address: home [address] [place] [address]
--- OUTSIDE RECORDS SUMMARY | 2024-02-26 09:41 | XMS_ITS | Continuity of Care Document ---
Author Organization [facility] Address [address] [place] [address]- Care Team Providers Care Licensed Life And Health Agent Name Role Phone Reji PAZ, Antwon Capps Primary Care Physician [phone] [facility]counter [facility] Date(s): 08/09/23 - 09/08/23 [facility] [address] [place] [id number] Allergies, Adverse Reactions, Alerts [...] mL, 3 Refills, Maintenance, 01/26/23 16:03:00 EDT, [facility] #[id number], 161, cm, 11/26/22 9:16:00 EDT, Height, 68.3, kg, 11/26/22 9:16:00 EDT, Dry Weight Start Date: 01/26/23 Status: Ordered Lantus Solostar Pen 100 units/mL subcutaneous solution = 15 units, Subcutaneous Injection, Daily at bedtime, # 10 mL, 5 Refills, Maintenance, 10/25/22 14:51:00 EDT, Solution, [facility] #[id number], Partial fill upon patient request if the prescription is for a schedule II opioid drug., 160, cm, 09/29... Start Date: 10/25/22 Status: Ordered levothyroxine 0.05 mg oral tablet 1 tablet = 50 mcg, By Mouth, Daily, # 30 tablet, 11 Refills, Maintenance, 08/28/23 20:59:00 EST, Tablet, [facility] #[id number], Partial fill upon patient request if the prescription is for a schedule II opioid drug., 161, cm, 02/23/23 7:34:00 ED... Start Date: 08/28/23 Status: Ordered metFORMIN 500 mg oral tablet, extended release 2 tablet = 1,000 mg, By Mouth, 2 times a day, # 120 tablet, 11 Refills, Maintenance, 08/10/23 14:13:00 EST, [facility] #[id number], Partial fill upon patient request if the prescription is for aschedule II opioid drug., 161, cm, 02/23/23 7:34:00... Start Date: 08/10/23 Stop Date: 08/04/24 Status: Ordered oxybutynin 5 mg oral tablet 1 tablet = 5 mg, By Mouth, Daily, # 14 tablet, 0 Refills, Maintenance, 11/26/22 10:32:00 EDT, Tablet, [facility] #[id number], Partial fill upon patient request if the prescription is for a schedule II opioid drug., 161, cm, 11/26/22 9:16:00 EDT,... Start Date: 11/26/22 Status: Ordered Pen [place], 31 G x 5 mm BD Ultra Fine III See Instructions, # 100 each, Refills 3, Tot. Refills 3, Maintenance, use daily with victoza, 08/22/23 7:18:00 EST, Supply, 161, cm, 02/23/23 7:34:00 EDT, Height, 68.3, kg, 11/26/22 9:16:00 EDT, Dry Weight Start Date: 08/22/23 Status: Ordered Pen [place], 31 G x 5 mm BD Ultra [...] mL, 11 Refills, Maintenance, 08/01/23 11:12:00 EST, [facility] #[id number], please dispense 2 1.5 mL pens as I believeeach pen would last 20 days, 161, cm, 02/23/23 7:34... Start Date: 08/01/23 Status: Ordered Victoza 18 mg/3 mL subcutaneous solution = 1.8 mg, Subcutaneous Injection, Daily, # 27 mL, 3 Refills, Maintenance, 08/22/23 7:18:00 EST, Solution, [facility] #[id number], Partial fill upon patient request if the [...] Active 1no current therapist or psych 2Deidre [place], psych 3intermittent 4smokes occasionally Social History Social History Type Response Smoking Status Former smoker; Other : quit june 2010; entered on: 01/08/15 Sex Patient Care team information Care Team Personnel Name: Reji PAZ , Antwon Capps Position: Reference Physician Member Role: PCP Address: Address: [address] [place] [address]- Name: Mirza RUSH, Twila Salazar Position: [facility] GARBAGE PERSON MD Member Role: Lifetime GARBAGE PERSON Physician Address: Address: [address] [place] [address]'s [facility] [place] [address]- Care Team Related Persons Name: NAOMIE PADILLA Address: home [address] [place] [address] Name: RUPERTO LOPEZ Address: home [address] [place] [address]
--- OUTSIDE RECORDS SUMMARY | 2024-02-26 09:41 | XMS_ITS | Continuity of Care Document ---
Author Organization [facility] Address [address] [place] [address]- Care Team Providers Care Collar Folder Operator Name Role Phone Reji PAZ, Antwon Capps Primary Care Physician Encounter [facility] Date(s): 10/22/21 - 11/21/21 [facility] [address] [place] [address]- Allergies, Adverse Reactions, Alerts Substance Reaction Severity [...] Note: VIM 06/17/08 3Admin Note: ADMINISTERED BY [facility] Medications Advair Diskus 100 mcg-50 mcg inhalation powder 1, puffs, Inhalation, 2 times a day, OV needed for further refills., # 60 each, Refills 0, Tot. Refills 0, Maintenance, 04/20/16 16:46:50, Route to Pharmacy Electronically, [id number], [facility] [employer] [address] Start Date: 04/20/16 Stop Date: 05/20/16 Status: Ordered Advair Diskus 100 mcg-50 mcg inhalation powder 1, puffs, Inhalation, 2 times a day, # 60 each, Refills 0, Tot. Refills 0, Maintenance, 07/14/16 12:50:54, Route to Pharmacy Electronically, [id number] Start Date: 07/14/16 Stop Date: 08/13/16 Status: [...] Refills 6, Maintenance, Use Freestyle lite lancets [facility] blood glucose 4x a day, E10.65, [...] 60 tablet, 11 Refills, Maintenance, 10/01/20 16:53:00EST, [facility] #[id number], Partial fill upon patient request if the prescription is for a schedule II opioid drug., 158, cm, 02/09/19 12:52:00 E... Start Date: 10/01/20 Status: Ordered metFORMIN 500 mg oral tablet, extended release 1 tablet = 500 mg, By Mouth, 2 times a day, # 180 tablet, 3 Refills, Maintenance, 01/01/21 10:11:00EDT, ER Tablet, [facility] #[id number], Partial fill upon patient request if the prescription is for a schedule II opioid drug., 158, cm, 02/09/19... Start Date: 01/01/21 Status: Ordered Tresiba FlexTouch 100 units/mL subcutaneous solution See Instructions, TAKE TRESIBA 15 UNITS SQ INJECTION DAILY E 10.9, # 15 mL, 11 Refills, Maintenance, 08/18/21 12:29:[id number], Partial fill upon patient request if the [...]
--- OUTSIDE RECORDS SUMMARY | 2024-02-26 09:41 | XMS_ITS | Continuity of Care Document ---
Author Organization [facility] Address [address] [place] [address]- Care Team Providers Care Single Pass Soil Stabilizer Operator Name Role Phone Reji PAZ, Antwon Capps Primary Care Physician [phone] Encounter [facility] Date(s): 08/28/23 - 09/27/23 [facility] [address] [place] [id number] Allergies, Adverse Reactions, Alerts Substance Reaction Severity Status ciprofloxacin Chest pain at rest Moderate Active levofloxacin headache Active Bactrim rash Active amoxicillin rash Active azithromycin Active Immunizations Given and Recorded Vaccine Date Status Refusal Reason pneumococcal 23-valent vaccine 01/08/15 Given influenza virus vaccine, inactivated 1 05/28/13 Re corded tetanus/diphtheria/pertussis, acel(Tdap) 2 04/06/11 Given FluLaval (oldterm) 3 05/31/10 Given 1Result Comment: [06/19/2013] given at [facility] 2Admin Note: VIM 06/17/08 3Admin Note: ADMINISTERED BY [facility] Medications Baqsimi intranasal spray Baqsimi intranasal spray, [...] mL, 3 Refills, Maintenance, 01/26/23 16:03:00 EDT, [facility] #[id number], 161, cm, 11/26/22 9:16:00 EDT, Height, 68.3, kg, 11/26/22 9:16:00 EDT, Dry Weight Start Date: 01/26/23 Status: Ordered Lantus Solostar Pen 100 units/mL subcutaneous solution = 15 units, Subcutaneous Injection, Daily at bedtime, # 10 mL, 5 Refills, Maintenance, 10/25/22 14:51:00 EDT, Solution, [facility] #[id number], Partial fill upon patient request if the prescription is for a schedule II opioid drug., 160, cm, 09/29... Start Date: 10/25/22 Status: Ordered levothyroxine 0.05 mg oral tablet 1 tablet = 50 mcg, By Mouth, Daily, # 30 tablet, 11 Refills, Maintenance, 08/28/23 20:59:00 EST, Tablet, [facility] #[id number], Partial fill upon patient request if the prescription is for a schedule II opioid drug., 161, cm, 02/23/23 7:34:00 ED... Start Date: 08/28/23 Status: Ordered metFORMIN 500 mg oral tablet, extended release 2 tablet = 1,000 mg, By Mouth, 2 times a day, # 120 tablet, 11 Refills, Maintenance, 08/10/23 14:13:00 EST, [facility] #[id number], Partial fill upon patient request if the prescription is for aschedule II opioid drug., 161, cm, 02/23/23 7:34:00... Start Date: 08/10/23 Stop Date: 08/04/24 Status: Ordered oxybutynin 5 mg oral tablet 1 tablet = 5 mg, By Mouth, Daily, # 14 tablet, 0 Refills, Maintenance, 11/26/22 10:32:00 EDT, Tablet, [facility] #[id number], Partial fill upon patient request if the prescription is for a schedule II opioid drug., 161, cm, 11/26/22 9:16:00 EDT,... Start Date: 11/26/22 Status: Ordered Pen [place], 31 G x 5 mm BD Ultra Fine III See Instructions, # 100 each, Refills 3, Tot. Refills 3, Maintenance, use daily with victoza, 08/22/23 7:18:00 EST, Supply, 161, cm, 02/23/23 7:34:00 EDT, Height, 68.3, kg, 11/26/22 9:16:00 EDT, Dry Weight Start Date: 08/22/23 Status: Ordered Pen [place], 31 G x 5 mm BD Ultra [...] mL, 11 Refills, Maintenance, 08/01/23 11:12:00 EST, [facility] #[id number], please dispense 2 1.5 mL pens as I believeeach pen would last 20 days, 161, cm, 02/23/23 7:34... Start Date: 08/01/23 Status: Ordered Victoza 18 mg/3 mL subcutaneous solution = 1.8 mg, Subcutaneous Injection, Daily, # 27 mL, 3 Refills, Maintenance, 08/22/23 7:18:00 EST, [facility][id number], Partial fill upon patient request if the [...] Active 1no current therapist or psych 2Deidre [place], psych 3intermittent 4smokes occasionally Social History Social History Type Response Smoking Status Former smoker; Other : quit june 2010; entered on: 01/08/15 Sex Patient Care team information Care Team Personnel Name: Reji PAZ , Antwon Capps Position: Reference Physician Member Role: PCP Address: Address: [address] [place] [address]- Name: Mirza RUSH, Twila Salazar Position: [facility] PHYSICIAN SUPPORT COORDINATOR MD Member Role: Lifetime PHYSICIAN SUPPORT COORDINATOR Physician Address: Address: [address] [place] [address] [address]- Care Team Related Persons Name: NAOMIE PADILLA Address: home [address] [place] [address] Name: RUPERTO LOPEZ Address: home [address] [place] [address]
--- OUTSIDE RECORDS SUMMARY | 2024-02-26 09:41 | XMS_ITS | Continuity of Care Document ---
Author Organization [facility] Address [address] [place] [address]- Care Team Providers Care Line Leader Name Role Phone Reji PAZ, Antwon Capps Primary Care Physician [facility] Date(s): 08/12/21 - 09/11/21 [facility] [address] [place] [address] Allergies, Adverse Reactions, Alerts Substance [...] Note: VIM 06/17/08 3Admin Note: ADMINISTERED BY [facility] Medications Advair Diskus 100 mcg-50 mcg inhalation powder 1, puffs, Inhalation, 2 times a day, OV needed for further refills., # 60 each, Refills 0, Tot. Refills 0, Maintenance, 04/20/16 16:46:50, Route to Pharmacy Electronically, [id number], [facility] [id number] Start Date: 04/20/16 Stop Date: 05/20/16 Status: Ordered Advair Diskus 100 mcg-50 mcg inhalation powder 1, puffs, Inhalation, 2 times a day, # 60 each, Refills 0, Tot. Refills 0, Maintenance, 07/14/16 12:50:54, Route to Pharmacy Electronically, [id number], [id number] Start Date: 07/14/16 Stop Date: 08/13/16 Status: Ordered albuterol 0.083% inhalation solution 3 mL = 2.5 mg, Inhalation, Every 6 hours, # 120 each, 0 Refills, Maintenance, 01/10/19 21:10:23 EDT, Solution Start Date: 01/10/19 Status: Ordered Freestyle Lite Lancets See Instructions, # 120 each, Refills 6, Tot. Refills 6, Maintenance, Use Freestyle lite lancets [facility] blood glucose 4x a day, E10.65, [...] mL, 11 Refills, Maintenance, 08/13/21 15:14:00 EST, [facility] #[id number], Partial fill upon patient request if the prescription is for a schedule II opioid drug., 160, cm, 03/16... Start Date: 08/13/21 Status: Ordered HumaLOG Min KwikPen 100 units/mL injectable solution See Instructions, use with CR and SF, TDD 30 units. 90 day E10.9, # 45 mL, 6 Refills, Maintenance, 08/13/21 15:14:00 EST, Solution, [facility] #[id number], Partial fill upon patient request if the [...] 60 tablet, 11 Refills, Maintenance, 10/01/20 16:53:00EST, [facility] #[id number], Partial fill upon patient request if the prescription is for a schedule II opioid drug., 158, cm, 02/09/19 12:52:00 E... Start Date: 10/01/20 Status: Ordered metFORMIN 500 mg oral tablet, extended release 1 tablet = 500 mg, By Mouth, 2 times a day, # 180 tablet, 3 Refills, Maintenance, 01/01/21 10:11:00EDT, ER Tablet, [facility] #[id number], Partial fill upon patient request if the [...] mL, 11 Refills, Maintenance, 08/18/21 12:29:00 EST, [facility] #[id number], Partial fill upon patient request if the [...]
--- OUTSIDE RECORDS SUMMARY | 2024-02-26 09:41 | XMS_ITS | Continuity of Care Document ---
Author Organization [facility] Address [address] [place] [address]- Care Team Providers Care Insolvency Consultant Name Role Phone Reji PAZ, Antwon Capps Primary Care Physician Encounter [facility] Date(s): 02/10/22 - 02/11/[address] [address]- Discharge Disposition: A-D/C Home Attending Physician: Gricelda RUSH, Rell Capps Admitting Physician: Rell Madison MD Referring Physician: Not on Staff, Referring [...] Maintenance, 04/20/16 16:46:50, Route to Pharmacy Electronically, [id number], [facility] [id number] Start Date: 04/20/16 Stop Date: 05/20/16 Status: Ordered Advair Diskus 100 mcg-50 mcg inhalation powder 1, puffs, Inhalation, 2 times a day, # 60 each, Refills 0, Tot. Refills 0, Maintenance, 07/14/16 12:50:54, Route to Pharmacy Electronically, [id number], [id number] Start Date: 07/14/16 Stop Date: 08/13/16 Status: [...] 0 Refills, Soft Stop, 02/11/22 2:10:00 EDT, [facility] #[id number], Partial fill upon patient request if the prescription is for a schedule II opioiddrug., 161, cm, 02/10/22 23:44:00 EDT, Height, 67.7... Start Date: 02/11/22 Status: Ordered Freestyle Lite Lancets See Instructions, # 120 each, Refills 6, Tot. Refills 6, Maintenance, Use [facility] lite [facility]ancets [facility] 4x a day, E10.65, 03/26/21 [...] 3 Refills, Maintenance, 01/17/22 12:46:00 EDT, Solution, [facility] #[id number], Partial fill upon patient request if the prescription is for a schedule II opioid drug., 16... Start Date: 01/17/22 Status: Ordered metFORMIN 500 mg oral tablet 1 tablet = 500 mg, By Mouth, 2 times a day, # 60 tablet, 11 Refills, Maintenance, 10/01/20 16:53:00[facility] #[id number], Partial fill upon patient request if the prescription is for a schedule II opioid drug., 158, cm, 02/09/19 12:52:00 E... Start Date: 10/01/20 Status: Ordered metFORMIN 500 mg oral tablet, extended release 1 tablet = 500 mg, By Mouth, 2 times a day, # 180 tablet, 3 Refills, Maintenance, 01/01/21 10:11:00EDT, ER Tablet, [facility] #[id number], Partial fill upon patient request if the prescription is for a schedule II opioid drug., 158, cm, 02/09/19... Start Date: 01/01/21 Status: Ordered Omnipod 5 five pack Omnipod 5 five pack, See Instructions, # 6 each, Refills 3, Tot. Refills 3, Maintenance, [facility] [id number] change every 3 days E10.9 90 day, [...] kg, 03/16... Start Date: 01/17/22 Status: Ordered oxyCODONE 5 mg oral tablet 5 mg, 1, tablet, By Mouth, Every 6 hours, PRN, for 5 days, # 20 tablet, Refills 0, Tot. Refills 0, Acute 02/16/22 1:26:00 EDT, for pain, 02/11/22 1:26:00 EDT, Route to Pharmacy Electronically, [facility] #[id number], Partial fill upon patient req... Start Date: 02/11/22 Stop Date: 02/16/22 Status: Ordered Tresiba FlexTouch 100 units/mL subcutaneous solution See Instructions, TAKE TRESIBA 15 UNITS SQ INJECTION DAILY E 10.9, # 15 mL, 11 Refills, Maintenance, 08/18/21 12:29:00 [facility] #[id number], Partial fill upon patient request if [...] Most recent to oldest [Reference Range]: 1 Height 161 cm (02/10/22 11:44 PM) Weight 67.7 kg (02/10/22 11:44 PM) Oxygen Saturation [94-100 %] 98 % (02/10/22 11:44 PM) Pulse Rate [55-90 bpm] 63 bpm (02/10/22 11:44 PM) Blood Pressure [90-138/55-84 mm Hg] 109/ 65mm Hg (02/10/22 11:44 PM) Respiratory Rate [16-30 br/min] 19 br/mi n (02/10/22 11:44 PM) Temperature [96.8-100.4 DegF] 98.5 DegF (02/10/22 11:44 PM) Mode of Delivery (Oxygen) Room air (02/10/22 11:44 PM) Blood pressure sites Arm, right (02/10/22 11:44 PM) Temperature Route Oral (02/10/22 11:44 PM) Dry Weight 67.7 kg (02/10/22 11:44 PM) Weight Obtained Via Standing scale (02/10/22 11:44 PM) Social History Social History Type Response Smoking Status Former smoker; Other : quit june 2010; entered on: 01/08/15 Sex
--- OUTSIDE RECORDS SUMMARY | 2024-02-26 09:41 | XMS_ITS | Continuity of Care Document ---
Author Organization [facility] Address [address] [place] [address]- Care Team Providers Care Property Inspector Name Role Phone Reji PAZ, Antwon Capps Primary Care Physician [facility] Date(s): 01/28/22 - 02/27/22 [facility] [address] [place] [address] Allergies, Adverse Reactions, Alerts Substance Reaction Severity [...] Note: VIM 06/17/08 3Admin Note: ADMINISTERED BY [facility] Medications Advair Diskus 100 mcg-50 mcg inhalation powder 1, puffs, Inhalation, 2 times a day, OV needed for further refills., # 60 each, Refills 0, Tot. Refills 0, Maintenance, 04/20/16 16:46:50, Route to Pharmacy Electronically, [id number], [facility] [place] [facility] [id number] Start Date: 04/20/16 Stop Date: 05/20/16 Status: Ordered Advair Diskus 100 mcg-50 mcg inhalation powder 1, puffs, Inhalation, 2 times a day, # 60 each, Refills 0, Tot. Refills 0, Maintenance, 07/14/16 12:50:54, Route to Pharmacy Electronically, [id number], [id number] Start Date: 07/14/16 Stop Date: 08/13/16 Status: [...] 0 Refills, Soft Stop, 02/11/22 2:10:00 EDT, [facility] #[id number], Partial fill upon patient request if the prescription is for a schedule II opioiddrug., 161, cm, 02/10/22 23:44:00 EDT, Height, 67.7... Start Date: 02/11/22 Status: Ordered Freestyle Lite Lancets See Instructions, # 120 each, Refills 6, Tot. Refills 6, Maintenance, [facility], E10.65, [...] mL, 3 Refills, Maintenance, 01/17/22 12:46:00 EDT, [place], [facility] #[id number], Partial fill upon patient request if the prescription is for a schedule II opioid drug., 16... Start Date: 01/17/22 Status: Ordered metFORMIN 500 mg oral tablet 1 tablet = 500 mg, By Mouth, 2 times a day, # 60 tablet, 11 Refills, Maintenance, 10/01/20 16:53:00EST, [facility] #[id number], Partial fill upon patient request if the prescription is for a schedule II opioid drug., 158, cm, 02/09/19 12:52:00 E... Start Date: 10/01/20 Status: Ordered metFORMIN 500 mg oral tablet, extended release 1 tablet = 500 mg, By Mouth, 2 times a day, # 180 tablet, 3 Refills, Maintenance, 01/01/21 10:11:00EDT, ER Tablet, [facility] #[id number], Partial fill upon patient request if the prescription is for a schedule II opioid drug., 158, cm, 02/09/19... Start Date: 01/01/21 Status: Ordered Omnipod 5 five pack Omnipod 5 five pack, See Instructions, # 6 each, Refills 3, Tot. Refills 3, Maintenance, [facility] [id number] change every 3 days E10.9 90 day, [...] mL, 11 Refills, Maintenance, 08/18/21 12:29:00 EST, [facility] #[id number], Partial fill upon patient request if the [...]
--- OUTSIDE RECORDS SUMMARY | 2024-02-26 09:41 | XMS_ITS | Continuity of Care Document ---
Author Organization [facility] Address [address] [place] [address]- Care Team Providers Care Metal Treater Name Role Phone Reji PAZ, Antwon Capps Primary Care Physician [facility] Date[facility]s): 02/03/22 - 03/05/22 [facility] [address] [place] [address] Allergies, Adverse Reactions, Alerts Substance [...] ADMINISTERED BY [facility] Medications Advair Diskus 100 mcg-50 mcg inhalation powder 1, puffs, Inhalation, 2 times a day, OV needed for further refills., # 60 each, Refills 0, Tot. Refills 0, Maintenance, 04/20/16 16:46:50, Route to Pharmacy Electronically, [id number], [facility] [address] Start Date: 04/20/16 Stop Date: 05/20/16 Status: Ordered Advair Diskus 100 mcg-50 mcg inhalation powder 1, puffs, Inhalation, 2 times a day, # 60 each, Refills 0, Tot. Refills 0, Maintenance, 07/14/16 12:50:54, Route to Pharmacy Electronically, [id number], [id number] Start Date: 07/14/16 Stop Date: 08/13/16 Status: [...] 0 Refills, Soft Stop, 02/11/22 2:10:00 EDT, [facility] #[id number], Partial fill upon patient request if the prescription is for a schedule II opioiddrug., 161, cm, 02/10/22 23:44:00 EDT, Height, 67.7... Start Date: 02/11/22 Status: Ordered Freestyle Lite Lancets See Instructions, # 120 each, Refills 6, Tot. Refills 6, Maintenance, Use Freestyle lite lancets [facility] blood glucose 4x a day, E10.65, [...] 3 Refills, Maintenance, 01/17/22 12:46:00 EDT, Solution, [facility] #[id number], Partial fill upon patient request if the prescription is for a schedule II opioid drug., 16... Start Date: 01/17/22 Status: Ordered metFORMIN 500 mg oral tablet 1 tablet = 500 mg, By Mouth, 2 times a day, # 60 tablet, 11 Refills, Maintenance, 10/01/20 16:53:00EST, [facility] #[id number], Partial fill upon patient request if the prescription is for a schedule II opioid drug., 158, cm, 02/09/19 12:52:00 E... Start Date: 10/01/20 Status: Ordered metFORMIN 500 mg oral tablet, extended release 1 tablet = 500 mg, By Mouth, 2 times a day, # 180 tablet, 3 Refills, Maintenance, 01/01/21 10:11:00EDT, ER Tablet, [facility] #[id number], Partial fill upon patient request if the prescription is for a schedule II opioid drug., 158, cm, 02/09/19... Start Date: 01/01/21 Status: Ordered Omnipod 5 five pack Omnipod 5 five pack, See Instructions, # 6 each, Refills 3, Tot. Refills 3, Maintenance, [facility] [address]-58 change every 3 days E10.9 90 day, [...] mL, 11 Refills, Maintenance, 08/18/21 12:29:00 EST, [facility] #[id number], Partial fill upon patient request if the [...]
--- OUTSIDE RECORDS SUMMARY | 2024-02-26 09:41 | XMS_ITS | Continuity of Care Document ---
Author Organization [facility] Address [address] [place] [address]- Care Team Providers Care Feather Mixer Name Role Phone Reji PAZ, Antwon Capps Primary Care Physician Encounter [facility] Date(s): 09/22/21 - 10/22/21 [facility] [address] [place] [address]- Allergies, Adverse Reactions, Alerts Substance Reaction Severity [...] Maintenance, 04/20/16 16:46:50, Route to Pharmacy Electronically, [id number], [facility] [address] Start Date: 04/20/16 Stop Date: 05/20/16 Status: Ordered Advair Diskus 100 mcg-50 mcg inhalation powder 1, puffs, Inhalation, 2 times a day, # 60 each, Refills 0, Tot. Refills 0, Maintenance, 07/14/16 12:50:54, Route to Pharmacy Electronically, [id number] Start Date: 07/14/16 Stop Date: 08/13/16 Status: [...] Refills 6, Maintenance, Use Freestyle lite lancets [facility] blood glucose 4x a day, E10.65, [...] 60 tablet, 11 Refills, Maintenance, 10/01/20 16:53:00EST, [facility] #[id number], Partial fill upon patient request if the prescription is for a schedule II opioid drug., 158, cm, 02/09/19 12:52:00 E... Start Date: 10/01/20 Status: Ordered metFORMIN 500 mg oral tablet, extended release 1 tablet = 500 mg, By Mouth, 2 times a day, # 180 tablet, 3 Refills, Maintenance, 01/01/21 10:11:00EDT, ER Tablet, [facility] #[id number], Partial fill upon patient request if the prescription is for a schedule II opioid drug., 158, cm, 02/09/19... Start Date: 01/01/21 Status: Ordered Tresiba FlexTouch 100 units/mL subcutaneous solution See Instructions, TAKE TRESIBA 15 UNITS SQ INJECTION DAILY E 10.9, # 15 mL, 11 Refills, Maintenance, 08/18/21 12:29[id number], Partial fill upon patient request if the [...]
--- OUTSIDE RECORDS SUMMARY | 2024-02-26 09:41 | XMS_ITS | Continuity of Care Document ---
Author Organization [facility] Address [address] [place] [address]- Care Team Providers Care Tank Officer Name Role Phone Reji PAZ, Antwon Capps Primary Care Physician [facility] Date[facility]s): 09/13/21 - 10/13/21 [facility] [address] [place] [address] Attending Physician: Admtr, Missael Admitting Physician: Admtr, Missael Referring Physician: Admtr, Ar8 Allergies, Adverse Reactions, [...] Note: VIM 06/17/08 3Admin Note: ADMINISTERED BY [facility] Medications Advair Diskus 100 mcg-50 mcg inhalation powder 1, puffs, Inhalation, 2 times a day, OV needed for further refills., # 60 each, Refills 0, Tot. Refills 0, Maintenance, 04/20/16 16:46:50, Route to Pharmacy Electronically, [id number], [facility] [address] Start Date: 04/20/16 Stop Date: 05/20/16 Status: Ordered Advair Diskus 100 mcg-50 mcg inhalation powder 1, puffs, Inhalation, 2 times a day, # 60 each, Refills 0, Tot. Refills 0, Maintenance, 07/14/16 12:50:54, Route to Pharmacy Electronically, [id number], [id number] Start Date: 07/14/16 Stop Date: 08/13/16 Status: [...] Maintenance, Use [facility]ancets [facility] day, [...] 60 tablet, 11 Refills, Maintenance, 10/01/20 16:53:00EST, [facility] #[id number], Partial fill upon patient request if the prescription is for a schedule II opioid drug., 158, cm, 02/09/19 12:52:00 E... Start Date: 10/01/20 Status: Ordered metFORMIN 500 mg oral tablet, extended release 1 tablet = 500 mg, By Mouth, 2 times a day, # 180 tablet, 3 Refills, Maintenance, 01/01/21 10:11:00EDT, ER Tablet, [facility] #[id number], Partial fill upon patient request if the prescription is for a schedule II opioid drug., 158, cm, 02/09/19... Start Date: 01/01/21 Status: Ordered Tresiba FlexTouch 100 units/mL subcutaneous solution See Instructions, TAKE TRESIBA 15 UNITS SQ INJECTION DAILY E 10.9, # 15 mL, 11 Refills, Maintenance, 08/18/21 12:29:00 EST, [facility] #[id number], Partial fill upon patient request if the [...]
--- OUTSIDE RECORDS SUMMARY | 2024-02-26 09:41 | XMS_ITS | Continuity of Care Document ---
Author Organization [facility] Address [address] [place] [address]- Care Team Providers Care Shop Estimator Name Role Phone Reji PAZ, Antwon Capps Primary Care Physician [phone] Encounter [facility] Date(s): 01/19/22 - 02/18/22 [facility] [address] [place] [id number] Allergies, Adverse Reactions, Alerts Substance Reaction [...] Note: VIM 06/17/08 3Admin Note: ADMINISTERED BY [facility] Medications Advair Diskus 100 mcg-50 mcg inhalation powder 1, puffs, Inhalation, 2 times a day, OV needed for further refills., # 60 each, Refills 0, Tot. Refills 0, Maintenance, 04/20/16 16:46:50, Route to Pharmacy Electronically, [id number], [facility] [address] Start Date: 04/20/16 Stop Date: 05/20/16 Status: Ordered Advair Diskus 100 mcg-50 mcg inhalation powder 1, puffs, Inhalation, 2 times a day, # 60 each, Refills 0, Tot. Refills 0, Maintenance, 07/14/16 12:50:54, Route to Pharmacy Electronically, [id number], [id number] Start Date: 07/14/16 Stop Date: 08/13/16 Status: [...] 0 Refills, Soft Stop, 02/11/22 2:10:00 EDT, [facility] #[id number], Partial fill upon patient request if the prescription is for a schedule II opioiddrug., 161, cm, 02/10/22 23:44:00 EDT, Height, 67.7... Start Date: 02/11/22 Status: Ordered Freestyle Lite Lancets See Instructions, # 120 each, Refills 6, Tot. Refills 6, Maintenance, Use Freestyle lite lancets [facility] blood glucose 4x a day, E10.65, 03/26/21 [...] 3 Refills, Maintenance, 01/17/22 12:46:00 EDT, Solution, [facility] #[id number], Partial fill upon patient request if the prescription is for a schedule II opioid drug., 16... Start Date: 01/17/22 Status: Ordered metFORMIN 500 mg oral tablet 1 tablet = 500 mg, By Mouth, 2 times a day, # 60 tablet, 11 Refills, Maintenance, 10/01/20 16:53:00EST, [facility] #[id number], Partial fill upon patient request if the prescription is for a schedule II opioid drug., 158, cm, 02/09/19 12:52:00 E... Start Date: 10/01/20 Status: Ordered metFORMIN 500 mg oral tablet, extended release 1 tablet = 500 mg, By Mouth, 2 times a day, # 180 tablet, 3 Refills, Maintenance, 01/01/21 10:11:00EDT, ER Tablet, [facility] #58505, Partial fill upon patient request if the prescription is for a schedule II opioid drug., 158, cm, 02/09/19... Start Date: 01/01/21 Status: Ordered Omnipod 5 five pack Omnipod 5 five pack, See Instructions, # 6 each, Refills 3, Tot. Refills 3, Maintenance, [facility] [id number] change every 3 days E10.9 90 day, [...] mL, 11 Refills, Maintenance, 08/18/21 12:29:00 EST, [facility] #[id number], Partial fill upon patient request if the [...]
--- OUTSIDE RECORDS SUMMARY | 2024-02-26 09:41 | XMS_ITS | Continuity of Care Document ---
Author Organization [facility] Address [address] [place] [address]- Care Team Providers Care Product Manager Name Role Phone Reji PAZ, Antwon Capps Primary Care Physician [phone] [facility]counter [facility] Date(s): 03/16/21 - 03/16/[address] [address]- Discharge Disposition: A-D/C Walkout Attending Physician: Not on Staff, Attending MD Admitting Physician: Not on Staff, Admitting MD Referring Physician: Not on Staff, Referring [...] Maintenance, 04/20/16 16:46:50, Route to Pharmacy Electronically, [id number], [facility] [id number] Start Date: 04/20/16 Stop Date: 05/20/16 Status: Ordered Advair Diskus 100 mcg-50 mcg inhalation powder 1, puffs, Inhalation, 2 times a day, # 60 each, Refills 0, Tot. Refills 0, Maintenance, 07/14/16 12:50:54, Route to Pharmacy Electronically, [id number], [id number] Start Date: 07/14/16 Stop Date: 08/13/16 Status: [...] 3 Refills, Maintenance, 09/03/20 14:40:00 EST, Solution, [facility] #[id number], Partial fill upon patient request if the [...] 60 tablet, 11 Refills, Maintenance, 10/01/20 16:53:00EST, [facility] #[id number], Partial fill upon patient request if the prescription is for a schedule II opioid drug., 158, cm, 02/09/19 12:52:00 E... Start Date: 10/01/20 Status: Ordered metFORMIN 500 mg oral tablet, extended release 1 tablet = 500 mg, By Mouth, 2 times a day, # 180 tablet, 3 Refills, Maintenance, 01/01/21 10:11:00EDT, ER Tablet, [facility] #[id number], Partial fill upon patient request if the prescription is for a schedule II opioid drug., 158, cm, 02/09/19... Start Date: 01/01/21 Status: Ordered Tresiba FlexTouch 200 units/mL subcutaneous solution = 12 units, Subcutaneous Injection, Daily, rotate injection sites, # 3 mL, 11 Refills, Maintenance,01/25/21 15:39:00 EDT, Solution, [facility] #[id number], Partial fill upon patient request if the [...] Most recent to oldest [Reference Range]: 1 Oxygen Saturation [94-100 %] 100 % (03/16/21 11:29 AM) Pulse Rate [55-90 bpm] 80 bpm (03/16/21 11:29 AM) Mode of Delivery (Oxygen) Room air (03/16/21 11:29 AM) Social History Social History Type Response Smoking Status Former smoker; Other : quit june 2010; entered on: 01/08/15 Sex
--- OUTSIDE RECORDS SUMMARY | 2024-02-26 09:41 | XMS_ITS | Continuity of Care Document ---
Author Organization [facility] Address [address] [place] [address]- Care Team Providers Care Residential Sales Rep Name Role Phone Reji PAZ, Antwon Capps Primary Care Physician [facility] Date[facility]s): 08/22/23 - 09/21/23 [facility] [address] [place] [id number] Allergies, Adverse Reactions, Alerts Substance Reaction Severity Status ciprofloxacin Chest pain at rest Moderate Active azithromycin Active Bactrim rash Active levofloxacin headache Active amoxicillin rash Active Immunizations Given and Recorded Vaccine Date Status Refusal Reason pneumococcal 23-valent vaccine 01/08/15 Given influenza virus vaccine, inactivated 1 05/28/13 Re corded tetanus/diphtheria/pertussis, acel(Tdap) 2 04/06/11 Given FluLaval (oldterm) 3 05/31/10 Given 1Result Comment: [06/19/2013] given at [facility] 2Admin Note: VIM 06/17/08 3Admin Note: ADMINISTERED BY [facility] Medications Baqsimi intranasal spray Baqsimi intranasal spray, [...] mL, 3 Refills, Maintenance, 01/26/23 16:03:00 EDT, [email or web address] #[id number], 161, cm, 11/26/22 9:16:00 EDT, Height, 68.3, kg, 11/26/22 9:16:00 EDT, Dry Weight Start Date: 01/26/23 Status: Ordered Lantus Solostar Pen 100 units/mL subcutaneous solution = 15 units, Subcutaneous Injection, Daily at bedtime, # 10 mL, 5 Refills, Maintenance, 10/25/22 14:51:00 EDT, Solution, [email or web address] #[id number], Partial fill upon patient request if the prescription is for a schedule II opioid drug., 160, cm, 09/29... Start Date: 10/25/22 Status: Ordered levothyroxine 0.05 mg oral tablet 1 tablet = 50 mcg, By Mouth, Daily, # 30 tablet, 11 Refills, Maintenance, 08/28/23 20:59:00 EST, Tablet, [email or web address] #[id number], Partial fill upon patient request if the prescription is for a schedule II opioid drug., 161, cm, 02/23/23 7:34:00 ED... Start Date: 08/28/23 Status: Ordered metFORMIN 500 mg oral tablet, extended release 2 tablet = 1,000 mg, By Mouth, 2 times a day, # 120 tablet, 11 Refills, Maintenance, 08/10/23 14:13:00 EST, [email or web address] #[id number], Partial fill upon patient request if the prescription is for aschedule II opioid drug., 161, cm, 02/23/23 7:34:00... Start Date: 08/10/23 Stop Date: 08/04/24 Status: Ordered oxybutynin 5 mg oral tablet 1 tablet = 5 mg, By Mouth, Daily, # 14 tablet, 0 Refills, Maintenance, 11/26/22 10:32:00 EDT, Tablet, [email or web address] #[id number], Partial fill upon patient request if the prescription is for a schedule II opioid drug., 161, cm, 11/26/22 9:16:00 EDT,... Start Date: 11/26/22 Status: Ordered Pen Castalia, 31 G x 5 mm BD Ultra Fine III See Instructions, # 100 each, Refills 3, Tot. Refills 3, Maintenance, use daily with victoza, 08/22/23 7:18:00 EST, Supply, 161, cm, 02/23/23 7:34:00 EDT, Height, 68.3, kg, 11/26/22 9:16:00 EDT, Dry Weight Start Date: 08/22/23 Status: Ordered Pen Castalia, 31 G x 5 mm BD Ultra [...] mL, 11 Refills, Maintenance, 08/01/23 11:12:00 EST, [email or web address] #[id number], please dispense 2 1.5 mL pens as I believeeach pen would last 20 days, 161, cm, 02/23/23 7:34... Start Date: 08/01/23 Status: Ordered Victoza 18 mg/3 mL subcutaneous solution = 1.8 mg, Subcutaneous Injection, Daily, # 27 mL, 3 Refills, Maintenance, 08/22/23 7:18:00 EST, [email or web address] #[id number], Partial fill upon patient request if the [...] Active 1no current therapist or psych 2Deidre [place], psych 3intermittent 4smokes occasionally Social History Social History Type Response Smoking Status Former smoker; Other : quit june 2010; entered on: 01/08/15 Sex Patient Care team information Care Team Personnel Name: Reji PAZ , Antwon aCpps Position: Reference Physician Member Role: PCP Address: Address: [address] [place] [address]- Name: Mirza RUSH, Twila Salazar Position: [facility] SHIPPING CLERK CRATING MD Member Role: Lifetime SHIPPING CLERK CRATING Physician Address: Address: [address] [place] [address] [address]- Care Team Related Persons Name: NAOMIE PADILLA Address: home [address] [place] [address] Name: RUPERTO LOPEZ Address: home [address] [place] [address]
--- OUTSIDE RECORDS SUMMARY | 2024-02-26 09:41 | XMS_ITS | Continuity of Care Document ---
Author Organization [facility] Address [address] [place] [address]- Care Team Providers Care Autocad Detailer Name Role Phone Reji PAZ, Antwon Capps Primary Care Physician [facility]s): 11/07/22 - 12/07/22 [facility] [address] [place] [id number] Allergies, Adverse Reactions, Alerts Substance [...] Note: VIM 06/17/08 3Admin Note: ADMINISTERED BY [facility] Medications Baqsimi intranasal spray Baqsimi intranasal spray, [...] Refills 6, Maintenance, Use Freestyle lite [facility]ancets [facility] 4x a day, [...] 3 Refills, Maintenance, 01/17/22 12:46:00 EDT, Solution, [facility] #[id number], Partial fill upon patient request if the prescription is for a schedule II opioid drug., 16... Start Date: 01/17/22 Status: Ordered Lantus Solostar Pen 100 units/mL subcutaneous solution = 15 units, Subcutaneous Injection, Daily at bedtime, # 10 mL, 5 Refills, Maintenance, 10/25/22 14:51:00 EDT, Solution, [facility] #[id number], Partial fill upon patient request if the prescription is for a schedule II opioid drug., 160, cm, 09/29... Start Date: 10/25/22 Status: Ordered levothyroxine 0.025 mg oral tablet 1 tablet = 25 mcg, By Mouth, Daily, # 90 tablet, 3 Refills, Maintenance, 04/13/22 15:19:00 EDT, Tablet, [facility] #[id number], Partial fill upon patient request if the prescription is for a schedule II opioid drug., 161, cm, 02/10/22 23:44:00 ED... Start Date: 04/13/22 Status: Ordered Omnipod 5 five pack Omnipod 5 five pack, See Instructions, # 6 each, Refills 3, Tot. Refills 3, Maintenance, [facility] [id number] change every 3 days E10.9 90 day, 01/17/22 13:07:00 EDT, Supply, 160, cm, 03/16/21 17:17:00 EDT, Height, 63.1, kg, 03/16/21 13:07:00 EDT, Dry... Start Date: 01/17/22 Status: Ordered oxybutynin 5 mg oral tablet 1 tablet = 5 mg, By Mouth, Daily, # 14 tablet, 0 Refills, Maintenance, 11/26/22 10:32:00 EDT, Tablet, [facility] #[id number], Partial fill upon patient request if the prescription is for a schedule II opioid drug., 161, cm, 11/26/22 9:16:00 EDT,... Start Date: 11/26/22 Status: Ordered Ozempic 2 mg/1.5 mL (0.25 mg or 0.5 mg dose) subcutaneous solution = 0.25 mg, Subcutaneous Infusion, Every week, take once per week e10.65, # 3 mL, 5 Refills, Maintenance, 11/09/22 12:17:00 EDT, [facility] #66513, Partial fill upon patient request if the [...] Active 1no current therapist or psych 2Deidre [place], psych 3intermittent 4smokes occasionally Social History Social History Type Response Smoking Status Former smoker; Other : quit june 2010; entered on: 01/08/15 Sex Patient Care team information Care Team Personnel Name: Antwon Mendoza NP Position: Reference Physician Member Role: PCP Address: Address: [address] [place] [address]- Name: Twila Blue MD Position: [facility] PENSION AGENT MD Member Role: Lifetime PENSION AGENT Physician Address: Address: [address] [place] [address] [address]- Care Team Related Persons Name: NAOMIE PADILLA Address: home [address] [place] [address] Name: RUPERTO LOPEZ Address: [address] [place] [address]
--- OUTSIDE RECORDS SUMMARY | 2024-02-26 09:41 | XMS_ITS | Continuity of Care Document ---
Author Organization [facility] Address [address] [place] [address]- Care Team Providers Care Retail Pharmacy Technician Name Role Phone Reji PAZ, Antwon Capps Primary Care Physician [facility] 02[facility]22 - 03/05/22 [facility] [address] [place] [id number] Allergies, Adverse Reactions, Alerts [...] Note: VIM 06/17/08 3Admin Note: ADMINISTERED BY [facility] Medications Advair Diskus 100 mcg-50 mcg inhalation powder 1, puffs, Inhalation, 2 times a day, OV needed for further refills., # 60 each, Refills 0, Tot. Refills 0, Maintenance, 04/20/16 16:46:50, Route to Pharmacy Electronically, [id number], [facility] [address] Start Date: 04/20/16 Stop Date: 05/20/16 Status: Ordered Advair Diskus 100 mcg-50 mcg inhalation powder 1, puffs, Inhalation, 2 times a day, # 60 each, Refills 0, Tot. Refills 0, Maintenance, 07/14/16 12:50:54, Route to Pharmacy Electronically, [id number], [id number] Start Date: 07/14/16 Stop Date: 08/13/16 Status: [...] 0 Refills, Soft Stop, 02/11/22 2:10:00 EDT, [email or web address] #[id number], Partial fill upon patient request if the prescription is for a schedule II opioiddrug., 161, cm, 02/10/22 23:44:00 EDT, Height, 67.7... Start Date: 02/11/22 Status: Ordered Freestyle Lite Lancets See Instructions, # 120 each, Refills 6, Tot. Refills 6, Maintenance, Use Freestyle lite lancets [facility] blood glucose 4x a day, E10.65, 03/26/21 [...] 3 Refills, Maintenance, 01/17/22 12:46:00 EDT, Solution, [facility] #[id number], Partial fill upon patient request if the prescription is for a schedule II opioid drug., 16... Start Date: 01/17/22 Status: Ordered metFORMIN 500 mg oral tablet 1 tablet = 500 mg, By Mouth, 2 times a day, # 60 tablet, 11 Refills, Maintenance, 10/01/20 16:53:00EST, [email or web address] #[id number], Partial fill upon patient request if the prescription is for a schedule II opioid drug., 158, cm, 02/09/19 12:52:00 E... Start Date: 10/01/20 Status: Ordered metFORMIN 500 mg oral tablet, extended release 1 tablet = 500 mg, By Mouth, 2 times a day, # 180 tablet, 3 Refills, Maintenance, 01/01/21 10:11:00EDT, ER Tablet, [email or web address] #[id number], Partial fill upon patient request if the prescription is for a schedule II opioid drug., 158, cm, 02/09/19... Start Date: 01/01/21 Status: Ordered Omnipod 5 five pack Omnipod 5 five pack, See Instructions, # 6 each, Refills 3, Tot. Refills 3, Maintenance, [facility] [id number] change every 3 days E10.9 90 day, [...] mL, 11 Refills, Maintenance, 08/18/21 12:29:00 EST, [email or web address] #[id number], Partial fill upon patient request if the [...]
--- OUTSIDE RECORDS SUMMARY | 2024-02-26 09:41 | XMS_ITS | Continuity of Care Document ---
Author Organization [facility] Address [address] [place] [address]- Care Team Providers Care Registered Dietitian Name Role Phone Reji PAZ, Antwon Capps Primary Care Physician [facility] - 01/25/24 [facility] [address] [place] [id number] Allergies, Adverse Reactions, Alerts Substance [...] Note: VIM 06/17/08 3Admin Note: ADMINISTERED BY [facility] Medications Baqsimi intranasal spray [...] Dry Weight Start Date: 09/13/21 Status: Ordered duloxetine 20 mg oral enteric coated capsule 2 capsule = 40 mg, By Mouth, Daily, # 60 capsule, 0 Refills, Maintenance, 12/27/23 8:53:00 EDT, [facility] Caps[facility], Partial fill upon patient request if the prescription is for a schedule II opioid drug. Start Date: 12/27/23 Status: Ordered Freestyle Lite Lancets See Instructions, # 120 each, Refills 6, Tot. Refills 6, Maintenance, Use Freestyle lite lancets [facility] blood glucose 4x a day, E10.65, [...] 3 Refills, Soft Stop, 11/16/23 15:32:00 EDT, [facility] #[id number], Partial fill upon patient request if the prescription is for a schedule II opioid drDanielle.. Start Date: 11/16/23 Status: Ordered Humalog 100 u/ml subcutaneous injection See Instructions, USE UPTO 50 UNITS DAILY VIA PUMP, # 50 mL, 3 Refills, Maintenance, 01/26/23 16:03:00 EDT, [facility] #[id number], 161, cm, 11/26/22 9:16:00 EDT, Height, 68.3, kg, 11/26/22 9:16:00 EDT, Dry Weight Start Date: 01/26/23 Status: Ordered levothyroxine 0.05 mg oral tablet 1 tablet = 50 mcg, By Mouth, Daily, # 30 tablet, 11 Refills, Maintenance, 08/28/23 20:59:00 EST, Tablet, [facility] #[id number], Partial fill upon patient request if the prescription is for a schedule II opioid drug., 161, cm, 02/23/23 7:34:00 ED... Start Date: 08/28/23 Status: Ordered metFORMIN 1000 mg oral tablet 1 tablet = 1,000 mg, By Mouth, 2 times a day, # 180 tablet, 3 Refills, Maintenance, 01/22/24 10:07:00 EDT, Tablet, [facility] #[id number], Partial fill upon patient request if the prescription is for a schedule II opioid drug., 161, cm, 12/27/23... Start Date: 01/22/24 Status: Ordered metoprolol 25 mg oral tablet 25 mg, 1, tablet, By Mouth, 2 times a day, # 60 tablet, Refills 0, Maintenance, 12/27/23 8:51:00 EDT, Partial fill upon patient request if the prescription is for a schedule II opioid drug. Start Date: 12/27/23 Status: Ordered Pen [place], 31 G x 5 mm BD Ultra Fine III See Instructions, # 100 each, Refills 3, Tot. Refills 3, Maintenance, use daily with victoza, 08/22/23 7:18:00 EST, Supply, 161, cm, 02/23/23 7:34:00 EDT, Height, 68.3, kg, 11/26/22 9:16:00 EDT, Dry Weight Start Date: 08/22/23 Status: Ordered Pen [place], 31 G x 5 mm BD Ultra Fine III See Instructions, # 300 each, Refills 3, Tot. Refills 3, Maintenance, E10.9 90 day use with symlin TID, 08/01/23 11:18:00 EST, Supply, 161, cm, 02/23/23 7:34:00 EDT, Height, 68.3, kg, 11/26/22 9:16:00 EDT, Dry Weight Start Date: 08/01/23 Status: Ordered Zyrtec 10 mg oral tablet [...] Active 1no current therapist or psych 2Deidre [place], psych 3intermittent 4smokes occasionally Social History Social History Type Response Smoking Status Former smoker; Other : quit june 2010; entered on: 01/08/15 Sex Patient Care team information Care Team Personnel Name: Louise Tate RN Position: S RN Member Role: Primary Care Nurse Name: Antwon Mendoza NP Position: Reference Physician Member Role: PCP Address: Address: [address] [place] [id number] Name: Twila Blue MD Position: [facility] FLEET SALES MANAGER MD Member Role: [employer]etime FLEET SALES MANAGER Physician Address: Address: [address] [facility] Information [place] [address]- Care Team Related Persons Name: NAOMIE PADILLA Address: home [address] [place] [address] Name: RUPERTO LOPEZ Address: home [address] [facility] [address]
--- OUTSIDE RECORDS SUMMARY | 2024-02-26 09:41 | XMS_ITS | Continuity of Care Document ---
Author Organization [facility] Address [address] [place] [address]- Care Team Providers Care Comb Capper Name Role Phone Reji PAZ, Antwon Capps Primary Care Physician [facility] Date[facility]): 05/[facility]/21 - 06/02/21 [facility] [address] [place] [id number] Allergies, Adverse [...] 06/17/08 3Admin Note: ADMINISTERED BY [facility] Medications Advair Diskus 100 mcg-50 mcg inhalation powder 1, puffs, Inhalation, 2 times a day, OV needed for further refills., # 60 each, Refills 0, Tot. Refills 0, Maintenance, 04/20/16 16:46:50, Route to Pharmacy Electronically, [id number], [facility] [id number] Start Date: 04/20/16 Stop Date: 05/20/16 Status: Ordered Advair Diskus 100 mcg-50 mcg inhalation powder 1, puffs, Inhalation, 2 times a day, # 60 each, Refills 0, Tot. Refills 0, Maintenance, 07/14/16 12:50:54, Route to Pharmacy Electronically, [id number], [id number] Start Date: 07/14/16 Stop Date: 08/13/16 Status: Ordered albuterol 0.083% inhalation solution 3 mL = 2.5 mg, Inhalation, Every 6 hours, # 120 each, 0 Refills, Maintenance, 01/10/19 21:10:23 EDT, Solution Start Date: 01/10/19 Status: Ordered Freestyle Lite Lancets See Instructions, # 120 each, Refills 6, Tot. Refills 6, Maintenance, Use Freestyle lite lancets [facility] blood glucose 4x a day, E10.65, [...] pump, # 30 mL, 11 Refills, Maintenance, 04/09/21 16:18:00 EDT, [facility] #[id number], Partial fill upon patient request if the prescription is for a schedule II opioid drug., 160, cm, 03/16... Start Date: 04/09/21 Status: Ordered HumaLOG Min KwikPen 100 units/mL injectable solution See Instructions, use with CR and SF, TDD 30 units. 90 day E10.9, # 45 mL, 0 Refills, Maintenance, 04/02/21 13:19:00 EDT, Solution, [facility] #[id number], Partial fill upon patient request if the prescription is for a schedule II opioid drug., 1... Start Date: 04/02/21 Status: Ordered INPEN 100/PINK/DELISA PINK DEVICE INPEN 100/PINK/DELISA PINK DEVICE, See Instructions, # 1 each, 0 Refills, Maintenance, CONSULT MD FOR MANE SETTINGS. Start Date: 02/12/21 Status: Ordered metFORMIN 500 mg oral tablet 1 tablet = 500 mg, By Mouth, 2 times a day, # 60 tablet, 11 Refills, Maintenance, 10/01/20 16:53:00EST, [facility] #[id number], Partial fill upon patient request if the prescription is for a schedule II opioid drug., 158, cm, 02/09/19 12:52:00 E... Start Date: 10/01/20 Status: Ordered metFORMIN 500 mg oral tablet, extended release 1 tablet = 500 mg, By Mouth, 2 times a day, # 180 tablet, 3 Refills, Maintenance, 01/01/21 10:11:00EDT, ER Tablet, [facility] #[id number], Partial fill upon patient request if the prescription is for a schedule II opioid drug., 158, cm, 02/09/19... Start Date: 01/01/21 Status: Ordered omnipod dash pods omnipod dash pods, See Instructions, # 10 each, Refills 11, Tot. Refills 11, Maintenance, Change evry 3 days for DM for insulin pump, 04/09/21 16:16:00 EDT, Supply, 160, cm, 03/16/21 17:17:00 EDT, Height, 63.1, kg, 03/16/21 13:07:00 EDT, Dry Weight Start Date: 04/09/21 Status: Ordered Tresiba FlexTouch 200 units/mL subcutaneous solution = 12 units, Subcutaneous Injection, Daily, E10.65, # 15 mL, 6 Refills, Maintenance, 04/13/21 16:52:00 EDT, Solution, [facility] #[id number], Partial fill upon patient request if the prescriptionis for a schedule II opioid drug., 160, cm, ... Start Date: 04/13/21 Status: Ordered Zyrtec 10 mg oral tablet [...]
--- OUTSIDE RECORDS SUMMARY | 2024-02-26 09:41 | XMS_ITS | Continuity of Care Document ---
Author Organization [facility] Address [address] [place] [address]- Care Team Providers Care Welder Railcar Mechanic Name Role Phone Reji PAZ, Antwon Capps Primary Care Physician [phone] [facility] Date(s): 02/15/22 - 03/17/22 [facility] [address] [place] [id number] Allergies, Adverse Reactions, Alerts [...] Maintenance, 04/20/16 16:46:50, Route to Pharmacy Electronically, [id number], [facility] [address] Start Date: 04/20/16 Stop Date: 05/20/16 Status: Ordered Advair Diskus 100 mcg-50 mcg inhalation powder 1, puffs, Inhalation, 2 times a day, # 60 each, Refills 0, Tot. Refills 0, Maintenance, 07/14/16 12:50:54, Route to Pharmacy Electronically, [id number], [id number] Start Date: 07/14/16 Stop Date: 08/13/16 Status: [...] 0 Refills, Soft Stop, 02/11/22 2:10:00 EDT, [email or web address] #[id number], Partial fill upon patient request if the prescription is for a schedule II opioiddrug., 161, cm, 02/10/22 23:44:00 EDT, Height, 67.7... Start Date: 02/11/22 Status: Ordered Freestyle Lite Lancets See Instructions, # 120 each, Refills 6, Tot. Refills 6, Maintenance, Use Freestyle lite lancets [facility] blood glucose 4x a day, [...] 3 Refills, Maintenance, 01/17/22 12:46:00 EDT, Solution, [facility] #02513, Partial fill upon patient request if the prescription is for a schedule II opioid drug., 16... Start Date: 01/17/22 Status: Ordered metFORMIN 500 mg oral tablet 1 tablet = 500 mg, By Mouth, 2 times a day, # 60 tablet, 11 Refills, Maintenance, 10/01/20 16:53:00EST, [email or web address] #[id number], Partial fill upon patient request if the prescription is for a schedule II opioid drug., 158, cm, 02/09/19 12:52:00 E... Start Date: 10/01/20 Status: Ordered metFORMIN 500 mg oral tablet, extended release 1 tablet = 500 mg, By Mouth, 2 times a day, # 180 tablet, 3 Refills, Maintenance, 01/01/21 10:11:00EDT, ER Tablet, [email or web address] #[id number], Partial fill upon patient request if the prescription is for a schedule II opioid drug., 158, cm, 02/09/19... Start Date: 01/01/21 Status: Ordered Omnipod 5 five pack Omnipod 5 five pack, See Instructions, # 6 each, Refills 3, Tot. Refills 3, Maintenance, [facility] [id number] change every 3 days E10.9 90 day, [...] mL, 11 Refills, Maintenance, 08/18/21 12:29:00 EST, [email or web address] #[id number], Partial fill upon patient request if the [...]
--- OUTSIDE RECORDS SUMMARY | 2024-02-26 09:41 | XMS_ITS | Continuity of Care Document ---
Author Organization [facility] Address [address] [place] [address]- Care Team Providers Care Statistical Technician Name Role Phone Reji PAZ, Antwon Capps Primary Care Physician [phone] [facility]counter [facility] Date(s): 07/26/23 - 08/25/23 [facility] [address] [place] [id number] Allergies, Adverse Reactions, Alerts Substance Reaction Severity Status ciprofloxacin Chest pain at rest Moderate Active azithromycin Active Bactrim rash Active amoxicillin rash [...] BY [facility] Medications Baqsimi intranasal spray Baqsimi intranasal spray, [...] mL, 3 Refills, Maintenance, 01/26/23 16:03:00 EDT, [facility] #[id number], 161, cm, 11/26/22 9:16:00 EDT, Height, 68.3, kg, 11/26/22 9:16:00 EDT, Dry Weight Start Date: 01/26/23 Status: Ordered Lantus Solostar Pen 100 units/mL subcutaneous solution = 15 units, Subcutaneous Injection, Daily at bedtime, # 10 mL, 5 Refills, Maintenance, 10/25/22 14:51:00 EDT, Solution, [facility] #[id number], Partial fill upon patient request if the prescription is for a schedule II opioid drug., 160, cm, 09/29... Start Date: 10/25/22 Status: Ordered levothyroxine 0.025 mg oral tablet 1 tablet = 25 mcg, By Mouth, Daily, # 90 tablet, 3 Refills, Maintenance, 06/05/23 13:11:00 EST, Tablet, [facility] #[id number], Partial fill upon patient request if the prescription is for a schedule II opioid drug., 161, cm, 02/23/23 7:34:00 EDT... Start Date: 06/05/23 Status: Ordered metFORMIN 500 mg oral tablet, extended release 2 tablet = 1,000 mg, By Mouth, 2 times a day, # 120 tablet, 11 Refills, Maintenance, 08/10/23 14:13:00 EST, [facility] #[id number], Partial fill upon patient request if the prescription is for aschedule II opioid drug., 161, cm, 02/23/23 7:34:00... Start Date: 08/10/23 Stop Date: 08/04/24 Status: Ordered oxybutynin 5 mg oral tablet 1 tablet = 5 mg, By Mouth, Daily, # 14 tablet, 0 Refills, Maintenance, 11/26/22 10:32:00 EDT, Tablet, [facility] #[id number], Partial fill upon patient request if the prescription is for a schedule II opioid drug., 161, cm, 11/26/22 9:16:00 EDT,... Start Date: 11/26/22 Status: Ordered Pen [place], 31 G x 5 mm BD Ultra Fine III See Instructions, # 100 each, Refills 3, Tot. Refills 3, Maintenance, use daily with victoza, 08/22/23 7:18:00 EST, Supply, 161, cm, 02/23/23 7:34:00 EDT, Height, 68.3, kg, 11/26/22 9:16:00 EDT, Dry Weight Start Date: 08/22/23 Status: Ordered Pen [place], 31 G x 5 mm BD Ultra [...] mL, 11 Refills, Maintenance, 08/01/23 11:12:00 EST, [facility] #[id number], please dispense 2 1.5 mL pens as I believeeach pen would last 20 days, 161, cm, 02/23/23 7:34... Start Date: 08/01/23 Status: Ordered Victoza 18 mg/3 mL subcutaneous solution = 1.8 mg, Subcutaneous Injection, Daily, # 27 mL, 3 Refills, Maintenance, 08/22/23 7:18:00 EST, Solution, [facility] #[id number], Partial fill upon patient request if the [...] Active 1no current therapist or psych 2Deidre [place], psych 3intermittent 4smokes occasionally Social History Social History Type Response Smoking Status Former smoker; Other : quit june 2010; entered on: 01/08/15 Sex Patient Care team information Care Team Personnel Name: Reji PAZ , Antwon Capps Position: Reference Physician Member Role: PCP Address: Address: [address] [place] [address]- Name: Mirza RUSH, Twila Salazar Position: [facility] SPEEDER OPERATOR MD Member Role: Lifetime SPEEDER OPERATOR Physician Address: Address: [address] [place] [address] [facility] [place] [address]- Care Team Related Persons Name: NAOMIE PADILLA Address: home [address] [place] [address] Name: RUPERTO LOPEZ Address: home [address] [place] [address]
--- OUTSIDE RECORDS SUMMARY | 2024-02-26 09:42 | XMS_ITS | Continuity of Care Document ---
Author Organization [facility] Address [address] [place] [address]- Care Team Providers Care Engineer Technician Name Role Phone Reji PAZ, Antwon Capps Primary Care Physician Encounter [facility] Date(s): 11/04/21 - 12/04/21 [facility] [address] [place] [address]- Allergies, Adverse Reactions, Alerts Substance Reaction Severity [...] Note: VIM 06/17/08 3Admin Note: ADMINISTERED BY [facility] Medications Advair Diskus 100 mcg-50 mcg inhalation powder 1, puffs, Inhalation, 2 times a day, OV needed for further refills., # 60 each, Refills 0, Tot. Refills 0, Maintenance, 04/20/16 16:46:50, Route to Pharmacy Electronically, [id number], [facility] [id number] Start Date: 04/20/16 Stop Date: 05/20/16 Status: Ordered Advair Diskus 100 mcg-50 mcg inhalation powder 1, puffs, Inhalation, 2 times a day, # 60 each, Refills 0, Tot. Refills 0, Maintenance, 07/14/16 12:50:54, Route to Pharmacy Electronically, [id number] Start Date: 07/14/16 Stop Date: 08/13/16 Status: [...] Refills 6, Maintenance, Use Freestyle lite [facility]ancets [facility]x a day, [...] 60 tablet, 11 Refills, Maintenance, 10/01/20 16:53:00EST, [facility] #[id number], Partial fill upon patient request if the prescription is for a schedule II opioid drug., 158, cm, 02/09/19 12:52:00 E... Start Date: 10/01/20 Status: Ordered metFORMIN 500 mg oral tablet, extended release 1 tablet = 500 mg, By Mouth, 2 times a day, # 180 tablet, 3 Refills, Maintenance, 01/01/21 10:11:00EDT, ER Tablet, [facility] #[id number], Partial fill upon patient request if the prescription is for a schedule II opioid drug., 158, cm, 02/09/19... Start Date: 01/01/21 Status: Ordered Tresiba FlexTouch 100 units/mL subcutaneous solution See Instructions, TAKE TRESIBA 15 UNITS SQ INJECTION DAILY E 10.9, # 15 mL, 11 Refills, Maintenance, 08/18/21 12:29:00 EST, [facility] #[id number], Partial fill upon patient request if the [...]
--- OUTSIDE RECORDS SUMMARY | 2024-02-26 09:42 | XMS_ITS | Continuity of Care Document ---
Author Organization [facility] Address [address] [place] [id number]- Care Team Providers Care Press Helper Name Role Phone Heri RUSH, Kylee Byrne Primary Care Physician Encounter [facility] Date(s): 03/23/21 - 04/22/21 [facility] [address] [place] [id number] Allergies, Adverse Reactions, Alerts Substance [...] Note: ADMINISTERED BY [facility] Medications Advair Diskus 100 mcg-50 mcg inhalation powder 1, puffs, Inhalation, 2 times a day, OV needed for further refills., # 60 each, Refills 0, Tot. Refills 0, Maintenance, 04/20/16 16:46:50, Route to Pharmacy Electronically, [id number], [facility] [id number] Start Date: 04/20/16 Stop Date: 05/20/16 Status: Ordered Advair Diskus 100 mcg-50 mcg inhalation powder 1, puffs, Inhalation, 2 times a day, # 60 each, Refills 0, Tot. Refills 0, Maintenance, 07/14/16 12:50:54, Route to Pharmacy Electronically, [id number], [facility] [id number] Start Date: 07/14/16 Stop Date: 08/13/16 Status: Ordered albuterol 0.083% inhalation solution 3 mL = 2.5 mg, Inhalation, Every 6 hours, # 120 each, 0 Refills, Maintenance, 01/10/19 21:10:23 EDT, Solution Start Date: 01/10/19 Status: Ordered Freestyle Lite Lancets See Instructions, # 120 each, Refills 6, Tot. Refills 6, Maintenance, Use Freestyle lite lancets [facility] blood glucose 4x a day, [...] mL, 11 Refills, Maintenance, 04/09/21 16:18:00 EDT, [facility] #[id number], Partial fill upon patient request if the prescription is for a schedule II opioid drug., 160, cm, 03/16... Start Date: 04/09/21 Status: Ordered HumaLOG Min KwikPen 100 units/mL injectable solution See Instructions, use with CR and SF, TDD 30 units. 90 day E10.9, # 45 mL, 0 Refills, Maintenance, 04/02/21 13:19:00 EDT, Solution, [facility] #[id number], Partial fill upon patient request if the [...] 60 tablet, 11 Refills, Maintenance, 10/01/20 16:53:00EST, [facility] #[id number], Partial fill upon patient request if the prescription is for a schedule II opioid drug., 158, cm, 02/09/19 12:52:00 E... Start Date: 10/01/20 Status: Ordered metFORMIN 500 mg oral tablet, extended release 1 tablet = 500 mg, By Mouth, 2 times a day, # 180 tablet, 3 Refills, Maintenance, 01/01/21 10:11:00EDT, ER Tablet, [facility] #[id number], Partial fill upon patient request if the [...] 6 Refills, Maintenance, 04/13/21 16:52:00 EDT, Solution, [facility] #[id number], Partial fill upon patient request if the [...]
--- OUTSIDE RECORDS SUMMARY | 2024-02-26 09:42 | XMS_ITS | Continuity of Care Document ---
Author Organization [facility] Address [address] [place] [address]- Care Team Providers Care Estimator Name Role Phone Reji PAZ, Antwon Capps Primary Care Physician [phone] [facility] Date(s): 10/07/22 - 11/06/22 [facility] [address] [place] [id number] Allergies, Adverse Reactions, Alerts Substance Reaction Severity [...] Note: VIM 06/17/08 3Admin Note: ADMINISTERED BY [facility] Medications Advair Diskus 100 mcg-50 mcg inhalation powder 1, puffs, Inhalation, 2 times a day, OV needed for further refills., # 60 each, Refills 0, Tot. Refills 0, Maintenance, 04/20/16 16:46:50, Route to Pharmacy Electronically, [id number], [facility] [id number] Start Date: 04/20/16 Stop Date: 05/20/16 Status: Ordered Advair Diskus 100 mcg-50 mcg inhalation powder 1, puffs, Inhalation, 2 times a day, # 60 each, Refills 0, Tot. Refills 0, Maintenance, 07/14/16 12:50:54, Route to Pharmacy Electronically, [id number], [id number] Start Date: 07/14/16 Stop Date: 08/13/16 Status: [...] :33:00 EDT, Aerosol, Route to Pharmacy Electronically, [id number]_[id number], [facility] #[id number], 160, cm, 04/16/22 23:50:00 EDT, Height, 67.9, [...] Maintenance, Use Freestyle lite lancets [facility] blood glucose 4x a day, E10.65, 03/26/21 [...] 3 Refills, Maintenance, 01/17/22 12:46:00 EDT, Solution, [facility] #[id number], Partial fill upon patient request if the prescription is for a schedule II opioid drug., 16... Start Date: 01/17/22 Status: Ordered Lantus Solostar Pen 100 units/mL subcutaneous solution = 15 units, Subcutaneous Injection, Daily at bedtime, # 10 mL, 5 Refills, Maintenance, 10/25/22 14:51:00 EDT, Solution, [facility] #[id number], Partial fill upon patient request if the prescription is for a schedule II opioid drug., 160, cm, 2... Start Date: 10/25/22 Status: Ordered levothyroxine 0.025 mg oral tablet 1 tablet = 25 mcg, By Mouth, Daily, # 90 tablet, 3 Refills, Maintenance, 04/13/22 15:19:00 EDT, Tablet, [facility] #[id number], Partial fill upon patient request if the prescription is for a schedule II opioid drug., 161, cm, 02/10/22 23:44:00 ED... Start Date: 04/13/22 Status: Ordered Lidoderm 5% film 1 patch, Topically, Daily, PRN Pain , Mild, # 15 patch, 0 Refills, Maintenance, 05/03/22 11:22:00 EDT, [facility] #[id number], Partial fill upon patient request if the prescription is for a schedule II opioid drug., 1 patch Topically Daily,PRN:Pa... Start Date: 05/03/22 Status: Ordered metFORMIN 1000 mg oral tablet 1 tablet = 1,000 mg, By Mouth, 2 times a day, with food, # 180 tablet, 3 Refills, Maintenance, 09/23/22 13:57:00 EST, Tablet, [facility] #[id number], Partial fill upon patient request if the prescription is for a schedule II opioid drug., 160, cm... Start Date: 09/23/22 Status: Ordered Omnipod 5 five pack Omnipod 5 five pack, See Instructions, # 6 each, Refills 3, Tot. Refills 3, Maintenance, [facility] [id number] change every 3 days E10.9 90 day, 01/17/22 13:07:00 EDT, Supply, 160, cm, 03/16/21 17:17:00 EDT, Height, 63.1, kg, 03/16/21 13:07:00 EDT, Dry... Start Date: 01/17/22 Status: Ordered Victoza 18 mg/3 mL subcutaneous solution = 1.8 mg, Subcutaneous Injection, Daily, # 9 mL, 11 Refills, Maintenance, 10/10/22 11:29:00 EDT, Solution, [facility] #[id number], Partial fill upon patient request if the [...] Active 1no current therapist or psych 2Deidre [place], psych 3intermittent 4smokes occasionally Social History Social History Type Response Smoking Status Former smoker; Other : quit june 2010; entered on: 01/08/15 Sex Patient Care team information Care Team Personnel Name: Antwon Mendoza NP Position: Reference Physician Member Role: PCP Address: Address: [address] [place] [id number]- Name: Twila Blue MD Position: [facility] SENIOR HR BUSINESS PARTNER MD Member Role: [employer] SENIOR HR BUSINESS PARTNER Physician Address: Address: [address] [place] [address]'s [facility] [place] [address]- Care Team Related Persons Name: NAOMIE PADILLA Address: home [address] [place] [address] Name: RUPERTO LOPEZ Address: home [address] [place] [address]
--- OUTSIDE RECORDS SUMMARY | 2024-02-26 09:42 | XMS_ITS | Continuity of Care Document ---
Author Organization [facility] Address [address] [place] [address]- Care Team Providers Care Bar Waiter/Waitress Name Role Phone Reji PAZ, Antwon Capps Primary Care Physician Encounter [facility] Date(s): 09/27/21 - 10/27/21 [facility] [address] [place] [address]- Allergies, Adverse Reactions, Alerts Substance Reaction Severity [...] Note: VIM 06/17/08 3Admin Note: ADMINISTERED BY [facility] Medications Advair Diskus 100 mcg-50 mcg inhalation powder 1, puffs, Inhalation, 2 times a day, OV needed for further refills., # 60 each, Refills 0, Tot. Refills 0, Maintenance, 04/20/16 16:46:50, Route to Pharmacy Electronically, [id number], [facility] [id number] Start Date: 04/20/16 Stop Date: 05/20/16 Status: Ordered Advair Diskus 100 mcg-50 mcg inhalation powder 1, puffs, Inhalation, 2 times a day, # 60 each, Refills 0, Tot. Refills 0, Maintenance, 07/14/16 12:50:54, Route to Pharmacy Electronically, [id number] Start Date: 07/14/16 Stop Date: 08/13/16 Status: [...] Refills 6, Maintenance, Use Freestyle lite lancets [facility] blood glucose 4x a day, E10.65, [...] 60 tablet, 11 Refills, Maintenance, 10/01/20 16:53:00EST, [facility] #[id number], Partial fill upon patient request if the prescription is for a schedule II opioid drug., 158, cm, 02/09/19 12:52:00 E... Start Date: 10/01/20 Status: Ordered metFORMIN 500 mg oral tablet, extended release 1 tablet = 500 mg, By Mouth, 2 times a day, # 180 tablet, 3 Refills, Maintenance, 01/01/21 10:11:00EDT, ER Tablet, [facility] #[id number], Partial fill upon patient request if the prescription is for a schedule II opioid drug., 158, cm, 02/09/19... Start Date: 01/01/21 Status: Ordered Tresiba FlexTouch 100 units/mL subcutaneous solution See Instructions, TAKE TRESIBA 15 UNITS SQ INJECTION DAILY E 10.9, # 15 mL, 11 Refills, Maintenance, 08/18/21 12:29:[id number], Partial fill upon patient request if the [...]
--- OUTSIDE RECORDS SUMMARY | 2024-02-26 09:42 | XMS_ITS | Continuity of Care Document ---
Author Organization [facility] Address [address] [place] [address]- Care Team Providers Care Freelance Writer Name Role Phone Reji PAZ, Antwon Capps Primary Care Physician [phone] [facility]counter [facility] Date(s): 03/28/23 - 04/27/23 [facility] [address] [place] [id number] Allergies, Adverse Reactions, Alerts [...] Note: VIM 06/17/08 3Admin Note: ADMINISTERED BY [facility] Medications Baqsimi intranasal spray Baqsimi [...] Refills 6, Maintenance, Use Freestyle lite lancets [facility] 4x a day, E10.65, [...] mL, 3 Refills, Maintenance, 01/26/23 16:03:00 EDT, [facility] #[id number], 161, cm, 11/26/22 9:16:00 EDT, Height, 68.3, kg, 11/26/22 9:16:00 EDT, Dry Weight Start Date: 01/26/23 Status: Ordered Lantus Solostar Pen 100 units/mL subcutaneous solution = 15 units, Subcutaneous Injection, Daily at bedtime, # 10 mL, 5 Refills, Maintenance, 10/25/22 14:51:00 EDT, Solution, [facility] #[id number], Partial fill upon patient request if the prescription is for a schedule II opioid drug., 160, cm, 09/29... Start Date: 10/25/22 Status: Ordered levothyroxine 0.025 mg oral tablet 1 tablet = 25 mcg, By Mouth, Daily, # 90 tablet, 3 Refills, Maintenance, 04/13/22 15:19:00 EDT, Tablet, [facility] #[id number], Partial fill upon patient request if the prescription is for a schedule II opioid drug., 161, cm, 02/10/22 23:44:00 ED... Start Date: 04/13/22 Status: Ordered Omnipod 5 five pack Omnipod 5 five pack, See Instructions, # 6 each, Refills 3, Tot. Refills 3, Maintenance, [facility] [id number] change every 3 days E10.9 90 day, 01/17/22 13:07:00 EDT, Supply, 160, cm, 03/16/21 17:17:00 EDT, Height, 63.1, kg, 03/16/21 13:07:00 EDT, Dry... Start Date: 01/17/22 Status: Ordered oxybutynin 5 mg oral tablet 1 tablet = 5 mg, By Mouth, Daily, # 14 tablet, 0 Refills, Maintenance, 11/26/22 10:32:00 EDT, Tablet, [facility] #[id number], Partial fill upon patient request if the prescription is for a schedule II opioid drug., 161, cm, 11/26/22 9:16:00 EDT,... Start Date: 11/26/22 Status: Ordered Ozempic 2 mg/1.5 mL (0.25 mg or 0.5 mg dose) subcutaneous solution = 0.5 mg, Subcutaneous Infusion, Every week, rotate injection sites e11.9, # 1.5 mL, 3 Refills, Maintenance, 04/11/23 9:17:00 EDT, [facility] #[id number], Partial fill upon patient request if the [...] Active 1no current therapist or psych 2Deidre [place], psych 3intermittent 4smokes occasionally Social History Social History Type Response Smoking Status Former smoker; Other : quit june 2010; entered on: 01/08/15 Sex Patient Care team information Care Team Personnel Name: Antwon Mendoza NP Position: Reference Physician Member Role: PCP Address: Address: [address] [place] [address]- Name: Mirza RUSH, Twila Salazar Position: [facility] CONVERTER SUPERVISOR MD Member Role: Lifetime CONVERTER SUPERVISOR Physician Address: Address: [address] [place] [address]'s [facility] [place] [address]- Care Team Related Persons Name: NAOMIE PADILLA Address: home [address] [place] [address] Name: RUPERTO LOPEZ Address: home [address] [place] [address]
--- OUTSIDE RECORDS SUMMARY | 2024-02-26 09:42 | XMS_ITS | Continuity of Care Document ---
Author Organization [facility] Address [address] [place] [address]- Care Team Providers Care Electrician Sound Name Role Phone Reji PAZ, Antwon Capps Primary Care Physician [facility] Date[facility]s): 02/03/22 - 03/05/22 [facility] [address] [place] [id number] Allergies, Adverse Reactions, Alerts Substance [...] VIM 06/17/08 3Admin Note: ADMINISTERED BY [facility] Medications Advair Diskus 100 mcg-50 mcg inhalation powder 1, puffs, Inhalation, 2 times a day, OV needed for further refills., # 60 each, Refills 0, Tot. Refills 0, Maintenance, 04/20/16 16:46:50, Route to Pharmacy Electronically, [id number], [facility] [address] Start Date: 04/20/16 Stop Date: 05/20/16 Status: Ordered Advair Diskus 100 mcg-50 mcg inhalation powder 1, puffs, Inhalation, 2 times a day, # 60 each, Refills 0, Tot. Refills 0, Maintenance, 07/14/16 12:50:54, Route to Pharmacy Electronically, [id number][id number] Start Date: 07/14/16 Stop Date: 08/13/16 Status: [...] 0 Refills, Soft Stop, 02/11/22 2:10:00 EDT, [facility] #[id number], Partial fill upon patient request if the prescription is for a schedule II opioiddrug., 161, cm, 02/10/22 23:44:00 EDT, Height, 67.7... Start Date: 02/11/22 Status: Ordered Freestyle Lite Lancets See Instructions, # 120 each, Refills 6, Tot. Refills 6, Maintenance, Use Freestyle lite lancets [facility] blood glucose 4x a day, E10.65, [...] 3 Refills, Maintenance, 01/17/22 12:46:00 EDT, Solution, [facility] #[id number], Partial fill upon patient request if the prescription is for a schedule II opioid drug., 16... Start Date: 01/17/22 Status: Ordered metFORMIN 500 mg oral tablet 1 tablet = 500 mg, By Mouth, 2 times a day, # 60 tablet, 11 Refills, Maintenance, 10/01/20 16:53:00EST, [facility] #[id number], Partial fill upon patient request if the prescription is for a schedule II opioid drug., 158, cm, 02/09/19 12:52:00 E... Start Date: 10/01/20 Status: Ordered metFORMIN 500 mg oral tablet, extended release 1 tablet = 500 mg, By Mouth, 2 times a day, # 180 tablet, 3 Refills, Maintenance, 01/01/21 10:11:00EDT, ER Tablet, [facility] #[id number], Partial fill upon patient request if the prescription is for a schedule II opioid drug., 158, cm, 02/09/19... Start Date: 01/01/21 Status: Ordered Omnipod 5 five pack Omnipod 5 five pack, See Instructions, # 6 each, Refills 3, Tot. Refills 3, Maintenance, [facility] [id number] change every 3 days E10.9 90 day, [...] mL, 11 Refills, Maintenance, 08/18/21 12:29:00 EST, [facility] #[id number], Partial fill upon patient request if the [...]
--- OUTSIDE RECORDS SUMMARY | 2024-02-26 09:42 | XMS_ITS | Continuity of Care Document ---
Author Organization [facility] Address [address] [place] [address]- Care Team Providers Care Scrap Baler Name Role Phone Reji PAZ, Antwon Capps Primary Care Physician [facility] Date[facility]s): 08/24/23 - 09/23/23 [facility] [address] [place] [address] Allergies, Adverse Reactions, Alerts Substance [...] Note: ADMINISTERED BY [facility] Medications Baqsimi intranasal spray Baqsimi intranasal [...] mL, 3 Refills, Maintenance, 01/26/23 16:03:00 EDT, [facility] #[id number], 161, cm, 11/26/22 9:16:00 EDT, Height, 68.3, kg, 11/26/22 9:16:00 EDT, Dry Weight Start Date: 01/26/23 Status: Ordered Lantus Solostar Pen 100 units/mL subcutaneous solution = 15 units, Subcutaneous Injection, Daily at bedtime, # 10 mL, 5 Refills, Maintenance, 10/25/22 14:51:00 EDT, Solution, [facility] #[id number], Partial fill upon patient request if the prescription is for a schedule II opioid drug., 160, cm, 09/29... Start Date: 10/25/22 Status: Ordered levothyroxine 0.05 mg oral tablet 1 tablet = 50 mcg, By Mouth, Daily, # 30 tablet, 11 Refills, Maintenance, 08/28/23 20:59:00 EST, Tablet, [facility] #[id number], Partial fill upon patient request if the prescription is for a schedule II opioid drug., 161, cm, 02/23/23 7:34:00 ED... Start Date: 08/28/23 Status: Ordered metFORMIN 500 mg oral tablet, extended release 2 tablet = 1,000 mg, By Mouth, 2 times a day, # 120 tablet, 11 Refills, Maintenance, 08/10/23 14:13:00 EST, [facility] #[id number], Partial fill upon patient request if the prescription is for aschedule II opioid drug., 161, cm, 02/23/23 7:34:00... Start Date: 08/10/23 Stop Date: 08/04/24 Status: Ordered oxybutynin 5 mg oral tablet 1 tablet = 5 mg, By Mouth, Daily, # 14 tablet, 0 Refills, Maintenance, 11/26/22 10:32:00 EDT, Tablet, [facility] #[id number], Partial fill upon patient request if the prescription is for a schedule II opioid drug., 161, cm, 11/26/22 9:16:00 EDT,... Start Date: 11/26/22 Status: Ordered Pen [place], 31 G x 5 mm BD Ultra Fine III See Instructions, # 100 each, Refills 3, Tot. Refills 3, Maintenance, use daily with victoza, 08/22/23 7:18:00 EST, Supply, 161, cm, 02/23/23 7:34:00 EDT, Height, 68.3, kg, 11/26/22 9:16:00 EDT, Dry Weight Start Date: 08/22/23 Status: Ordered Pen [place], 31 G x 5 mm BD Ultra [...] mL, 11 Refills, Maintenance, 08/01/23 11:12:00 EST, [facility] #[id number], please dispense 2 1.5 mL pens as I believeeach pen would last 20 days, 161, cm, 02/23/23 7:34... Start Date: 08/01/23 Status: Ordered Victoza 18 mg/3 mL subcutaneous solution = 1.8 mg, Subcutaneous Injection, Daily, # 27 mL, 3 Refills, Maintenance, 08/22/23 7:18:00 EST, [facility] #[id number], Partial fill upon patient request if the [...] Active 1no current therapist or psych 2Deidre Ray, psych 3intermittent 4smokes occasionally Social History Social History Type Response Smoking Status Former smoker; Other : quit june 2010; entered on: 01/08/15 Sex Patient Care team information Care Team Personnel Name: Reji PAZ , Antwon Capps Position: Reference Physician Member Role: PCP Address: Address: [address] [place] [address]- Name: Mirza RUSH, Twila Salazar Position: [facility] INSURANCE EXECUTIVE MD Member Role: Lifetime INSURANCE EXECUTIVE Physician Address: Address: [address] [place] [address]'s [facility] [place] [address]- Care Team Related Persons Name: NAOMIE PADILLA Address: home [address] [place] [address] Name: RUPERTO LOPEZ Address: home [address] [place] [address]
--- OUTSIDE RECORDS SUMMARY | 2024-02-26 09:42 | XMS_ITS | Continuity of Care Document ---
Author Organization [facility] Diabetes Address [address] [place] [address]- Care Team Providers Care Petroleum Refinery Operator Name Role Phone Reji PAZ, Antwon Capps Primary Care Physician [facility]s): 12/21/22 - 01/20/23 [facility] Endocr[facility] Diabetes [address] [place] [id number] Allergies, Adverse Reactions, [...] BY [facility] Medications Baqsimi intranasal spray Baqsimi intranasal [...] 3 Refills, Maintenance, 12/08/22 14:41:00 EDT, Solution, [facility] #[id number], Partial fill upon patient request if the prescription is for a schedule II opioid drug., 16... Start Date: 12/08/22 Status: Ordered Lantus Solostar Pen 100 units/mL subcutaneous solution = 15 units, Subcutaneous Injection, Daily at bedtime, # 10 mL, 5 Refills, Maintenance, 10/25/22 14:51:00 EDT, Solution, [facility] #[id number], Partial fill upon patient request if the prescription is for a schedule II opioid drug., 160, cm, 09/29... Start Date: 10/25/22 Status: Ordered levothyroxine 0.025 mg oral tablet 1 tablet = 25 mcg, By Mouth, Daily, # 90 tablet, 3 Refills, Maintenance, 04/13/22 15:19:00 EDT, Tablet, [facility] #[id number], Partial fill upon patient request if the prescription is for a schedule II opioid drug., 161, cm, 02/10/22 23:44:00 ED... Start Date: 04/13/22 Status: Ordered Omnipod 5 five pack Omnipod 5 five pack, See Instructions, # 6 each, Refills 3, Tot. Refills 3, Maintenance, [facility] [id number] change every 3 days E10.9 90 day, 01/17/22 13:07:00 EDT, Supply, 160, cm, 03/16/21 17:17:00 EDT, Height, 63.1, kg, 03/16/21 13:07:00 EDT, Dry... Start Date: 01/17/22 Status: Ordered oxybutynin 5 mg oral tablet 1 tablet = 5 mg, By Mouth, Daily, # 14 tablet, 0 Refills, Maintenance, 11/26/22 10:32:00 EDT, Tablet, [facility] #[id number], Partial fill upon patient request if the prescription is for a schedule II opioid drug., 161, cm, 11/26/22 9:16:00 EDT,... Start Date: 11/26/22 Status: Ordered Ozempic 2 mg/1.5 mL (0.25 mg or 0.5 mg dose) subcutaneous solution = 0.25 mg, Subcutaneous Infusion, Every week, take once per week e10.65, # 3 mL, 5 Refills, Maintenance, 11/09/22 12:17:00 EDT, [facility] #[id number], Partial fill upon patient request if the [...] Active 1no current therapist or psych 2Deidre [place], psych 3intermittent 4smokes occasionally Social History Social History Type Response Smoking Status Former smoker; Other : quit june 2010; entered on: 01/08/15 Sex Patient Care team information Care Team Personnel Name: Antwon Mendoza NP Position: Reference Physician Member Role: PCP Address: Address: [address] [place] [id number] Name: Twila Blue MD Position: [facility] IMPROVEMENT COORDINATOR MD Member Role: Lifetime IMPROVEMENT COORDINATOR Physician Address: Address: [address] [place] [address]'s Health [place] [address]- Care Team Related Persons Name: NAOMIE PADILLA Address: home [address] [place] [address] Name: RUPERTO LOPEZ Address: home [address] [place] [address]
--- OUTSIDE RECORDS SUMMARY | 2024-02-26 09:42 | XMS_ITS | Continuity of Care Document ---
Author Organization [facility] Address [address] [place] [address]- Care Team Providers Care Foxer Name Role Phone Reji PAZ, Antwon Capps Primary Care Physician [facility] 08[facility]23 - 09/09/23 [facility] [address] [place] [id number] Allergies, Adverse Reactions, Alerts Substance Reaction [...] 06/17/08 3Admin Note: ADMINISTERED BY [facility] Medications Baqsimi intranasal spray Baqsimi intranasal spray, [...] mL, 3 Refills, Maintenance, 01/26/23 16:03:00 EDT, [facility] #[id number], 161, cm, 11/26/22 9:16:00 EDT, Height, 68.3, kg, 11/26/22 9:16:00 EDT, Dry Weight Start Date: 01/26/23 Status: Ordered Lantus Solostar Pen 100 units/mL subcutaneous solution = 15 units, Subcutaneous Injection, Daily at bedtime, # 10 mL, 5 Refills, Maintenance, 10/25/22 14:51:00 EDT, Solution, [facility] #[id number], Partial fill upon patient request if the prescription is for a schedule II opioid drug., 160, cm, 09/29... Start Date: 10/25/22 Status: Ordered levothyroxine 0.05 mg oral tablet 1 tablet = 50 mcg, By Mouth, Daily, # 30 tablet, 11 Refills, Maintenance, 08/28/23 20:59:00 EST, Tablet, [facility] #[id number], Partial fill upon patient request if the prescription is for a schedule II opioid drug., 161, cm, 02/23/23 7:34:00 ED... Start Date: 08/28/23 Status: Ordered metFORMIN 500 mg oral tablet, extended release 2 tablet = 1,000 mg, By Mouth, 2 times a day, # 120 tablet, 11 Refills, Maintenance, 08/10/23 14:13:00 EST, [facility] #[id number], Partial fill upon patient request if the prescription is for aschedule II opioid drug., 161, cm, 02/23/23 7:34:00... Start Date: 08/10/23 Stop Date: 08/04/24 Status: Ordered oxybutynin 5 mg oral tablet 1 tablet = 5 mg, By Mouth, Daily, # 14 tablet, 0 Refills, Maintenance, 11/26/22 10:32:00 EDT, Tablet, [facility] #[id number], Partial fill upon patient request if the prescription is for a schedule II opioid drug., 161, cm, 11/26/22 9:16:00 EDT,... Start Date: 11/26/22 Status: Ordered Pen [place], 31 G x 5 mm BD Ultra Fine III See Instructions, # 100 each, Refills 3, Tot. Refills 3, Maintenance, use daily with victoza, 08/22/23 7:18:00 EST, Supply, 161, cm, 02/23/23 7:34:00 EDT, Height, 68.3, kg, 11/26/22 9:16:00 EDT, Dry Weight Start Date: 08/22/23 Status: Ordered Pen [place], 31 G x 5 mm BD Ultra [...] mL, 11 Refills, Maintenance, 08/01/23 11:12:00 EST, [facility] #[id number], please dispense 2 1.5 mL pens as I believeeach pen would last 20 days, 161, cm, 02/23/23 7:34... Start Date: 08/01/23 Status: Ordered Victoza 18 mg/3 mL subcutaneous solution = 1.8 mg, Subcutaneous Injection, Daily, # 27 mL, 3 Refills, Maintenance, 08/22/23 7:18:00 EST, [facility] #[id number], Partial fill upon patient request if the [...] Active 1no current therapist or psych 2Deidre [place], psych 3intermittent 4smokes occasionally Social History Social History Type Response Smoking Status Former smoker; Other : quit june 2010; entered on: 01/08/15 Sex Patient Care team information Care Team Personnel Name: eRji PAZ , Antwon Capps Position: Reference Physician Member Role: PCP Address: Address: [address] [place] [address]- Name: Mirza RUSH, Twila Salazar Position: [facility] PHYSICAL THERAPY MANAGER MD Member Role: Lifetime PHYSICAL THERAPY MANAGER Physician Address: Address: [address] [place] [address]'s Health [place] [address]- Care Team Related Persons Name: NAOMIE PADILLA Address: home [address] [place] [address] Name: RUPERTO LOPEZ Address: [address] [place] [address]
--- OUTSIDE RECORDS SUMMARY | 2024-02-26 09:42 | XMS_ITS | Continuity of Care Document ---
Author Organization [facility] End[facility]inolo gy and Diabetes Address [address] [place] [address]- Care Team Providers Care Quill Machine Tender Name Role Phone Reji PAZ, Antwon Capps Primary Care Physician [phone] [facility] 03[facility]23[facility]23 - 04/22/23 [facility] End[facility]inology and Diabetes [address] [place] [id number] Allergies, Adverse Reactions, Alerts Substance Reaction [...] Refills 6, Maintenance, Use Freestyle lite lancets [facility] blood glucose 4x a day, E10.65, [...] mL, 3 Refills, Maintenance, 01/26/23 16:03:00 EDT, [facility] #[id number], 161, cm, 11/26/22 9:16:00 EDT, Height, 68.3, kg, 11/26/22 9:16:00 EDT, Dry Weight Start Date: 01/26/23 Status: Ordered Lantus Solostar Pen 100 units/mL subcutaneous solution = 15 units, Subcutaneous Injection, Daily at bedtime, # 10 mL, 5 Refills, Maintenance, 10/25/22 14:51:00 EDT, Solution, [facility] #[id number], Partial fill upon patient request if the prescription is for a schedule II opioid drug., 160, cm, 09/29... Start Date: 10/25/22 Status: Ordered levothyroxine 0.025 mg oral tablet 1 tablet = 25 mcg, By Mouth, Daily, # 90 tablet, 3 Refills, Maintenance, 04/13/22 15:19:00 EDT, Tablet, [facility] #[id number], Partial fill upon patient request if the prescription is for a schedule II opioid drug., 161, cm, 02/10/22 23:44:00 ED... Start Date: 04/13/22 Status: Ordered Omnipod 5 five pack Omnipod 5 five pack, See Instructions, # 6 each, Refills 3, Tot. Refills 3, Maintenance, [facility] [id number] change every 3 days E10.9 90 day, 01/17/22 13:07:00 EDT, Supply, 160, cm, 03/16/21 17:17:00 EDT, Height, 63.1, kg, 03/16/21 13:07:00 EDT, Dry... Start Date: 01/17/22 Status: Ordered oxybutynin 5 mg oral tablet 1 tablet = 5 mg, By Mouth, Daily, # 14 tablet, 0 Refills, Maintenance, 11/26/22 10:32:00 EDT, Tablet, [facility] #[id number], Partial fill upon patient request if the prescription is for a schedule II opioid drug., 161, cm, 11/26/22 9:16:00 EDT,... Start Date: 11/26/22 Status: Ordered Ozempic 2 mg/1.5 mL (0.25 mg or 0.5 mg dose) subcutaneous solution = 0.5 mg, Subcutaneous Infusion, Every week, rotate injection sites e11.9, # 1.5 mL, 3 Refills, Maintenance, 04/11/23 9:17:00 EDT, [facility] #[id number], Partial fill upon patient request if the [...] Active 1no current therapist or psych 2Deidre [place], psych 3intermittent 4smokes occasionally Social History Social History Type Response Smoking Status Former smoker; Other : quit june 2010; entered on: 01/08/15 Sex Patient Care team information Care Team Personnel Name: Antwon Mendoza NP Position: Reference Physician Member Role: PCP Address: Address: [address] [place] [address]- Name: Twila Blue MD Position: [facility] TOP CARRIER MD Member Role: Lifetime TOP CARRIER Physician Address: Address: [address] [place] [address]'s Health [place] [address]- Care Team Related Persons Name: NAOMIE PADILLA Address: [address] [place] [address] Name: RUPERTO LOPEZ Address: [address] [place] [address]
--- OUTSIDE RECORDS SUMMARY | 2024-02-26 09:42 | XMS_ITS | Continuity of Care Document ---
Author Organization [facility] Diabetes Address [address] [place] [address]- Care Team Providers Care Welder Experimental Name Role Phone Reji PAZ, Antwon Capps Primary Care Physician [facility] Date[facility] 07/25/23 - 08/24/23 [facility] Diabetes [address] [place] [id number] Allergies, Adverse Reactions, Alerts [...] 06/17/08 3Admin Note: ADMINISTERED BY [facility] Medications Baqsimi intranasal spray Baqsimi intranasal [...] Refills 6, Maintenance, Use Freestyle lite lancets [facility] glucose 4x a day, [...] mL, 3 Refills, Maintenance, 01/26/23 16:03:00 EDT, [facility] #[id number], 161, cm, 11/26/22 9:16:00 EDT, Height, 68.3, kg, 11/26/22 9:16:00 EDT, Dry Weight Start Date: 01/26/23 Status: Ordered Lantus Solostar Pen 100 units/mL subcutaneous solution = 15 units, Subcutaneous Injection, Daily at bedtime, # 10 mL, 5 Refills, Maintenance, 10/25/22 14:51:00 EDT, Solution, [facility] #[id number], Partial fill upon patient request if the prescription is for a schedule II opioid drug., 160, cm, 09/29... Start Date: 10/25/22 Status: Ordered levothyroxine 0.025 mg oral tablet 1 tablet = 25 mcg, By Mouth, Daily, # 90 tablet, 3 Refills, Maintenance, 06/05/23 13:11:00 EST, Tablet, [facility] #[id number], Partial fill upon patient request if the prescription is for a schedule II opioid drug., 161, cm, 02/23/23 7:34:00 EDT... Start Date: 06/05/23 Status: Ordered metFORMIN 500 mg oral tablet, extended release 2 tablet = 1,000 mg, By Mouth, 2 times a day, # 120 tablet, 11 Refills, Maintenance, 08/10/23 14:13:00 EST, [facility] #[id number], Partial fill upon patient request if the prescription is for aschedule II opioid drug., 161, cm, 02/23/23 7:34:00... Start Date: 08/10/23 Stop Date: 08/04/24 Status: Ordered oxybutynin 5 mg oral tablet 1 tablet = 5 mg, By Mouth, Daily, # 14 tablet, 0 Refills, Maintenance, 11/26/22 10:32:00 EDT, Tablet, [facility] #[id number], Partial fill upon patient request if the prescription is for a schedule II opioid drug., 161, cm, 11/26/22 9:16:00 EDT,... Start Date: 11/26/22 Status: Ordered Pen [place], 31 G x 5 mm BD Ultra Fine III See Instructions, # 100 each, Refills 3, Tot. Refills 3, Maintenance, use daily with victoza, 08/22/23 7:18:00 EST, Supply, 161, cm, 02/23/23 7:34:00 EDT, Height, 68.3, kg, 11/26/22 9:16:00 EDT, Dry Weight Start Date: 08/22/23 Status: Ordered Pen [place], 31 G x 5 mm BD Ultra [...] mL, 11 Refills, Maintenance, 08/01/23 11:12:00 EST, [facility] #[id number], please dispense 2 1.5 mL pens as I believeeach pen would last 20 days, 161, cm, 02/23/23 7:34... Start Date: 08/01/23 Status: Ordered Victoza 18 mg/3 mL subcutaneous solution = 1.8 mg, Subcutaneous Injection, Daily, # 27 mL, 3 Refills, Maintenance, 08/22/23 7:18:00 EST, [facility] #[id number], Partial fill upon patient request if the [...] Active 1no current therapist or psych 2Deidre [place], psych 3intermittent 4smokes occasionally Social History Social History Type Response Smoking Status Former smoker; Other : quit june 2010; entered on: 01/08/15 Sex Patient Care team information Care Team Personnel Name: Reji PAZ , Antwon Capps Position: Reference Physician Member Role: PCP Address: Address: [address] [place] [address]- Name: Mirza RUSH, Twila Salazar Position: [facility] ARCHITECT NAVAL MD Member Role: Lifetime ARCHITECT NAVAL Physician Address: Address: [address] [place] [address] [facility] [place] [address]- Care Team Related Persons Name: NAOMIE PADILLA Address: home [address] [place] [address] Name: RUPERTO LOPEZ Address: home [address] [place] [address]
--- OUTSIDE RECORDS SUMMARY | 2024-02-26 09:42 | XMS_ITS | Continuity of Care Document ---
Author Organization [facility]olo gy and Diabetes Address [address] [place] [address]- Care Team Providers Care Investment Strategist Name Role Phone Reji PAZ, Antwon Capps Primary Care Physician [phone] [facility]s): 08/10/23 - 09/09/23 [facility]ology [facility] Diabetes [address] [place] [id number] Allergies, Adverse Reactions, Alerts Substance [...] mL, 3 Refills, Maintenance, 01/26/23 16:03:00 EDT, [facility] #[id number], 161, cm, 11/26/22 9:16:00 EDT, Height, 68.3, kg, 11/26/22 9:16:00 EDT, Dry Weight Start Date: 01/26/23 Status: Ordered Lantus Solostar Pen 100 units/mL subcutaneous solution = 15 units, Subcutaneous Injection, Daily at bedtime, # 10 mL, 5 Refills, Maintenance, 10/25/22 14:51:00 EDT, Solution, [facility] #[id number], Partial fill upon patient request if the prescription is for a schedule II opioid drug., 160, cm, 09/29... Start Date: 10/25/22 Status: Ordered levothyroxine 0.05 mg oral tablet 1 tablet = 50 mcg, By Mouth, Daily, # 30 tablet, 11 Refills, Maintenance, 08/28/23 20:59:00 EST, Tablet, [facility] #[id number], Partial fill upon patient request if the prescription is for a schedule II opioid drug., 161, cm, 02/23/23 7:34:00 ED... Start Date: 08/28/23 Status: Ordered metFORMIN 500 mg oral tablet, extended release 2 tablet = 1,000 mg, By Mouth, 2 times a day, # 120 tablet, 11 Refills, Maintenance, 08/10/23 14:13:00 EST, [facility] #[id number], Partial fill upon patient request if the prescription is for aschedule II opioid drug., 161, cm, 02/23/23 7:34:00... Start Date: 08/10/23 Stop Date: 08/04/24 Status: Ordered oxybutynin 5 mg oral tablet 1 tablet = 5 mg, By Mouth, Daily, # 14 tablet, 0 Refills, Maintenance, 11/26/22 10:32:00 EDT, Tablet, [facility] #[id number], Partial fill upon patient request if the prescription is for a schedule II opioid drug., 161, cm, 11/26/22 9:16:00 EDT,... Start Date: 11/26/22 Status: Ordered Pen [place], 31 G x 5 mm BD Ultra Fine III See Instructions, # 100 each, Refills 3, Tot. Refills 3, Maintenance, use daily with victoza, 08/22/23 7:18:00 EST, Supply, 161, cm, 02/23/23 7:34:00 EDT, Height, 68.3, kg, 11/26/22 9:16:00 EDT, Dry Weight Start Date: 08/22/23 Status: Ordered Pen [place], 31 G x 5 mm BD Ultra [...] mL, 11 Refills, Maintenance, 08/01/23 11:12:00 EST, [facility] #[id number], please dispense 2 1.5 mL pens as I believeeach pen would last 20 days, 161, cm, 02/23/23 7:34... Start Date: 08/01/23 Status: Ordered Victoza 18 mg/3 mL subcutaneous solution = 1.8 mg, Subcutaneous Injection, Daily, # 27 mL, 3 Refills, Maintenance, 08/22/23 7:18:00 EST, Solution, [facility] #[id number], Partial fill upon patient request if the [...] Active 1no current therapist or psych 2Deidre [place], psych 3intermittent 4smokes occasionally Social History Social History Type Response Smoking Status Former smoker; Other : quit june 2010; entered on: 01/08/15 Sex Patient Care team information Care Team Personnel Name: Reji PAZ , Antwon Capps Position: Reference Physician Member Role: PCP Address: Address: [address] [place] [address]- Name: Mirza RUSH, Twila Salazar Position: [facility] MANAGER FOOD BEVERAGE MD Member Role: Lifetime MANAGER FOOD BEVERAGE Physician Address: Address: [address] [place] [address]'s [facility] [place] [address]- Care Team Related Persons Name: NAOMIE PADILLA Address: home [address] [place] [address] Name: RUPERTO LOPEZ Address: home [address] [place] [address]
--- OUTSIDE RECORDS SUMMARY | 2024-02-26 09:42 | XMS_ITS | Continuity of Care Document ---
Author Organization [facility] Endocrinolo gy and Diabetes Address [address] [place] [address]- Care Team Providers Care Curator Of Collections Name Role Phone Reji PAZ, Antwon Capps Primary Care Physician [phone] [facility] Date(s): 02/15/22 - 03/17/22 [facility] Endocr[facility]ology [facility] Diabetes [address] [place] [address] Allergies, Adverse Reactions, [...] ADMINISTERED BY [facility] Medications Advair Diskus 100 mcg-50 mcg inhalation powder 1, puffs, Inhalation, 2 times a day, OV needed for further refills., # 60 each, Refills 0, Tot. Refills 0, Maintenance, 04/20/16 16:46:50, Route to Pharmacy Electronically, [id number], [facility] [id number] Start Date: 04/20/16 Stop Date: 05/20/16 Status: Ordered Advair Diskus 100 mcg-50 mcg inhalation powder 1, puffs, Inhalation, 2 times a day, # 60 each, Refills 0, Tot. Refills 0, Maintenance, 07/14/16 12:50:54, Route to Pharmacy Electronically, [id number], [id number] Start Date: 07/14/16 Stop Date: 08/13/16 Status: [...] 0 Refills, Soft Stop, 02/11/22 2:10:00 EDT, [facility] #[id number], Partial fill upon patient request if the prescription is for a schedule II opioiddrug., 161, cm, 02/10/22 23:44:00 EDT, Height, 67.7... Start Date: 02/11/22 Status: Ordered Freestyle Lite Lancets See Instructions, # 120 each, Refills 6, Tot. Refills 6, Maintenance, Use Freestyle lite lancets [facility] blood glucose 4x a day, [...] 3 Refills, Maintenance, 01/17/22 12:46:00 EDT, Solution, [facility] #[id number], Partial fill upon patient request if the prescription is for a schedule II opioid drug., 16... Start Date: 01/17/22 Status: Ordered metFORMIN 500 mg oral tablet 1 tablet = 500 mg, By Mouth, 2 times a day, # 60 tablet, 11 Refills, Maintenance, 10/01/20 16:53:00EST, [facility] #[id number], Partial fill upon patient request if the prescription is for a schedule II opioid drug., 158, cm, 02/09/19 12:52:00 E... Start Date: 10/01/20 Status: Ordered metFORMIN 500 mg oral tablet, extended release 1 tablet = 500 mg, By Mouth, 2 times a day, # 180 tablet, 3 Refills, Maintenance, 01/01/21 10:11:00EDT, ER Tablet, [facility] #[id number], Partial fill upon patient request if the prescription is for a schedule II opioid drug., 158, cm, 02/09/19... Start Date: 01/01/21 Status: Ordered Omnipod 5 five pack Omnipod 5 five pack, See Instructions, # 6 each, Refills 3, Tot. Refills 3, Maintenance, [facility] [address]-17 change every 3 days E10.9 90 day, [...] mL, 11 Refills, Maintenance, 08/18/21 12:29:00 EST, [facility] #[id number], Partial fill upon patient request if the [...]
--- OUTSIDE RECORDS SUMMARY | 2024-02-26 09:42 | XMS_ITS | Continuity of Care Document ---
Author Organization [facility] Primary Car e [place] Address [address] [place] [address]- Care Team Providers Care Dental Director Name Role Phone Reji PAZ, Antwon Capps Primary Care Physician Encounter [facility] Date(s): 10/12/21 - 11/11/21 [facility] [address] [place] [address]- Allergies, Adverse Reactions, Alerts Substance Reaction Severity [...] Note: ADMINISTERED BY [facility] Medications Advair Diskus 100 mcg-50 mcg inhalation powder 1, puffs, Inhalation, 2 times a day, OV needed for further refills., # 60 each, Refills 0, Tot. Refills 0, Maintenance, 04/20/16 16:46:50, Route to Pharmacy Electronically, [id number], [facility] [id number] Start Date: 04/20/16 Stop Date: 05/20/16 Status: Ordered Advair Diskus 100 mcg-50 mcg inhalation powder 1, puffs, Inhalation, 2 times a day, # 60 each, Refills 0, Tot. Refills 0, Maintenance, 07/14/16 12:50:54, Route to Pharmacy Electronically, [id number] Start Date: 07/14/16 Stop Date: 08/13/16 Status: [...] Maintenance, Use Freestyle lite lancets [facility] blood glucose 4x a day, E10.65, [...] 60 tablet, 11 Refills, Maintenance, 10/01/20 16:53:00EST, [facility] #[id number], Partial fill upon patient request if the prescription is for a schedule II opioid drug., 158, cm, 02/09/19 12:52:00 E... Start Date: 10/01/20 Status: Ordered metFORMIN 500 mg oral tablet, extended release 1 tablet = 500 mg, By Mouth, 2 times a day, # 180 tablet, 3 Refills, Maintenance, 01/01/21 10:11:00EDT, ER Tablet, [facility] #[id number], Partial fill upon patient request if the prescription is for a schedule II opioid drug., 158, cm, 02/09/19... Start Date: 01/01/21 Status: Ordered Tresiba FlexTouch 100 units/mL subcutaneous solution See Instructions, TAKE TRESIBA 15 UNITS SQ INJECTION DAILY E 10.9, # 15 mL, 11 Refills, Maintenance, 08/18/21 12:29:00 EST, [facility] #[id number], Partial fill upon patient request if the [...]
--- OUTSIDE RECORDS SUMMARY | 2024-02-26 09:42 | XMS_ITS | Continuity of Care Document ---
Author Organization [facility] Endocrinolo gy and Diabetes Address [address] [place] [address]- Care Team Providers Care Barrel Lathe Operator Outside Name Role Phone Reji PAZ, Antwon Capps Primary Care Physician [facility]s): 11/09/22 - 12/09/22 [facility]ology and Diabetes [address] [place] [address] Allergies, Adverse Reactions, [...] [facility] Medications Baqsimi intranasal spray Baqsimi intranasal spray, [...] 3 Refills, Maintenance, 12/08/22 14:41:00 EDT, Solution, [facility] #[id number], Partial fill upon patient request if the prescription is for a schedule II opioid drug., 16... Start Date: 12/08/22 Status: Ordered Lantus Solostar Pen 100 units/mL subcutaneous solution = 15 units, Subcutaneous Injection, Daily at bedtime, # 10 mL, 5 Refills, Maintenance, 10/25/22 14:51:00 EDT, Solution, [facility] #[id number], Partial fill upon patient request if the prescription is for a schedule II opioid drug., 160, cm, 09/29... Start Date: 10/25/22 Status: Ordered levothyroxine 0.025 mg oral tablet 1 tablet = 25 mcg, By Mouth, Daily, # 90 tablet, 3 Refills, Maintenance, 04/13/22 15:19:00 EDT, Tablet, [facility] #[id number], Partial fill upon patient request if the prescription is for a schedule II opioid drug., 161, cm, 02/10/22 23:44:00 ED... Start Date: 04/13/22 Status: Ordered Omnipod 5 five pack Omnipod 5 five pack, See Instructions, # 6 each, Refills 3, Tot. Refills 3, Maintenance, [facility] [id number] change every 3 days E10.9 90 day, 01/17/22 13:07:00 EDT, Supply, 160, cm, 03/16/21 17:17:00 EDT, Height, 63.1, kg, 03/16/21 13:07:00 EDT, Dry... Start Date: 01/17/22 Status: Ordered oxybutynin 5 mg oral tablet 1 tablet = 5 mg, By Mouth, Daily, # 14 tablet, 0 Refills, Maintenance, 11/26/22 10:32:00 EDT, Tablet, [facility] #[id number], Partial fill upon patient request if the prescription is for a schedule II opioid drug., 161, cm, 11/26/22 9:16:00 EDT,... Start Date: 11/26/22 Status: Ordered Ozempic 2 mg/1.5 mL (0.25 mg or 0.5 mg dose) subcutaneous solution = 0.25 mg, Subcutaneous Infusion, Every week, take once per week e10.65, # 3 mL, 5 Refills, Maintenance, 11/09/22 12:17:00 EDT, [facility] #[id number], Partial fill upon patient request if the [...] Active 1no current therapist or psych 2Deidre [place], psych 3intermittent 4smokes occasionally Social History Social History Type Response Smoking Status Former smoker; Other : quit june 2010; entered on: 01/08/15 Sex Patient Care team information Care Team Personnel Name: Antwon Mendoza NP Position: Reference Physician Member Role: PCP Address: Address: [address] [place] [address]- Name: Twila Blue MD Position: [facility] [employer] LAYUP LINE CORE FEEDER MD Member Role: Lifetime [employer] LAYUP LINE CORE FEEDER Physician Address: Address: [address] [place] [address]'s [facility] [place] [address]- Care Team Related Persons Name: NAOMIE PADILLA Address: home [address] [place] [address] Name: RUPERTO LOPEZ Address: home [address] [place] [address]
--- OUTSIDE RECORDS SUMMARY | 2024-02-26 09:42 | XMS_ITS | Continuity of Care Document ---
Author Organization [facility] Endocrinolo gy and Diabetes Address [address] [place] [address]- Care Team Providers Care Slubber Frame Changer Name Role Phone Reji PAZ, Antwon Capps Primary Care Physician [facility] 07[facility]23 - 08/19/23 [facility] Endocrinology and Diabetes [address] [place] [address] Allergies, Adverse Reactions, Alerts [...] Refills 6, Maintenance, Use Freestyle lite lancets [facility] blood glucose 4x a day, [...] mL, 3 Refills, Maintenance, 01/26/23 16:03:00 EDT, [facility] #[id number], 161, cm, 11/26/22 9:16:00 EDT, Height, 68.3, kg, 11/26/22 9:16:00 EDT, Dry Weight Start Date: 01/26/23 Status: Ordered Lantus Solostar Pen 100 units/mL subcutaneous solution = 15 units, Subcutaneous Injection, Daily at bedtime, # 10 mL, 5 Refills, Maintenance, 10/25/22 14:51:00 EDT, Solution, [facility] #[id number], Partial fill upon patient request if the prescription is for a schedule II opioid drug., 160, cm, 09/29... Start Date: 10/25/22 Status: Ordered levothyroxine 0.025 mg oral tablet 1 tablet = 25 mcg, By Mouth, Daily, # 90 tablet, 3 Refills, Maintenance, 06/05/23 13:11:00 EST, Tablet, [facility] #[id number], Partial fill upon patient request if the prescription is for a schedule II opioid drug., 161, cm, 02/23/23 7:34:00 EDT... Start Date: 06/05/23 Status: Ordered metFORMIN 500 mg oral tablet, extended release 2 tablet = 1,000 mg, By Mouth, 2 times a day, # 120 tablet, 11 Refills, Maintenance, 08/10/23 14:13:00 EST, [facility] #[id number], Partial fill upon patient request if the prescription is for aschedule II opioid drug., 161, cm, 02/23/23 7:34:00... Start Date: 08/10/23 Stop Date: 08/04/24 Status: Ordered oxybutynin 5 mg oral tablet 1 tablet = 5 mg, By Mouth, Daily, # 14 tablet, 0 Refills, Maintenance, 11/26/22 10:32:00 EDT, Tablet, [facility] #[id number], Partial fill upon patient request if the prescription is for a schedule II opioid drug., 161, cm, 11/26/22 9:16:00 EDT,... Start Date: 11/26/22 Status: Ordered Pen [place], 31 G x 5 mm BD Ultra [...] 11 Refills, Maintenance, 08/01/23 11:12:00 EST, Solution, [facility] #[id number], please dispense 2 1.5 mL pens as I believeeach pen would last 20 days, 161, cm, 02/23/23 7:34... Start Date: 08/01/23 Status: Ordered Zyrtec 10 [...] Active 1no current therapist or psych 2Deidre [place], psych 3intermittent 4smokes occasionally Social History Social History Type Response Smoking Status Former smoker; Other : quit june 2010; entered on: 01/08/15 Sex Patient Care team information Care Team Personnel Name: Antwon Mendoza NP Position: Reference Physician Member Role: PCP Address: Address: [address] [place] [address]- Name: Twila Blue MD Position: S STYLIST ASSISTANT MD Member Role: Lifetime STYLIST ASSISTANT Physician Address: Address: [address] [place], [place] [address]s [facility] [place] [address]- Care Team Related Persons Name: NAOMIE PADILLA Address: home [address] [place] [address] Name: RUPERTO LOPEZ Address: home [address] [facility] [place] [facility] [place] [address]
--- OUTSIDE RECORDS SUMMARY | 2024-02-26 09:42 | XMS_ITS | Continuity of Care Document ---
Author Organization [facility] Endocrinolo gy and Diabetes Address [address] [place] [address]- Care Team Providers Care Food Service Worker Name Role Phone Reji PAZ, Antwon Capps Primary Care Physician [facility]s): 02/18/22 - 03/20/22 [facility] Endocrinology and Diabetes [address] [place] [address] Allergies, Adverse Reactions, Alerts [...] Note: ADMINISTERED BY [facility] Medications Advair Diskus 100 mcg-50 mcg inhalation powder 1, puffs, Inhalation, 2 times a day, OV needed for further refills., # 60 each, Refills 0, Tot. Refills 0, Maintenance, 04/20/16 16:46:50, Route to Pharmacy Electronically, [id number], [facility] [id number] Start Date: 04/20/16 Stop Date: 05/20/16 Status: Ordered Advair Diskus 100 mcg-50 mcg inhalation powder 1, puffs, Inhalation, 2 times a day, # 60 each, Refills 0, Tot. Refills 0, Maintenance, 07/14/16 12:50:54, Route to Pharmacy Electronically, [id number], [id number] Start Date: 07/14/16 Stop Date: 08/13/16 Status: [...] 0 Refills, Soft Stop, 02/11/22 2:10:00 EDT, [facility] #[id number], Partial fill upon patient request if the prescription is for a schedule II opioiddrug., 161, cm, 02/10/22 23:44:00 EDT, Height, 67.7... Start Date: 02/11/22 Status: Ordered Freestyle Lite Lancets See Instructions, # 120 each, Refills 6, Tot. Refills 6, Maintenance, Use Freestyle lite lancets [facility] blood glucose 4x a day, [...] 3 Refills, Maintenance, 01/17/22 12:46:00 EDT, Solution, [facility] #[id number], Partial fill upon patient request if the prescription is for a schedule II opioid drug., 16... Start Date: 01/17/22 Status: Ordered metFORMIN 500 mg oral tablet 1 tablet = 500 mg, By Mouth, 2 times a day, # 60 tablet, 11 Refills, Maintenance, 10/01/20 16:53:00EST, [facility] #[id number], Partial fill upon patient request if the prescription is for a schedule II opioid drug., 158, cm, 02/09/19 12:52:00 E... Start Date: 10/01/20 Status: Ordered metFORMIN 500 mg oral tablet, extended release 1 tablet = 500 mg, By Mouth, 2 times a day, # 180 tablet, 3 Refills, Maintenance, 01/01/21 10:11:00EDT, ER Tablet, [facility] #[id number], Partial fill upon patient request if the prescription is for a schedule II opioid drug., 158, cm, 02/09/19... Start Date: 01/01/21 Status: Ordered Omnipod 5 five pack Omnipod 5 five pack, See Instructions, # 6 each, Refills 3, Tot. Refills 3, Maintenance, [facility] [id number] change every 3 days E10.9 90 day, [...] mL, 11 Refills, Maintenance, 08/18/21 12:29:00 EST, [facility] #[id number], Partial fill upon patient request if the [...]
--- OUTSIDE RECORDS SUMMARY | 2024-02-26 09:42 | XMS_ITS | Continuity of Care Document ---
Author Organization [facility] Address [address] [place] [address]- Care Team Providers Care Foreign Language Instructor Name Role Phone Reji PAZ, Antwon aCpps Primary Care Physician [phone] [facility]23 - 04/29/23 [facility] [address] [place] [id number] Allergies, Adverse Reactions, Alerts Substance Reaction [...] Refills 6, Maintenance, Use Freestyle lite lancets [facility] blood glucose 4x a day, E10.65, [...] mL, 3 Refills, Maintenance, 01/26/23 16:03:00 EDT, [facility] #[id number], 161, cm, 11/26/22 9:16:00 EDT, Height, 68.3, kg, 11/26/22 9:16:00 EDT, Dry Weight Start Date: 01/26/23 Status: Ordered Lantus Solostar Pen 100 units/mL subcutaneous solution = 15 units, Subcutaneous Injection, Daily at bedtime, # 10 mL, 5 Refills, Maintenance, 10/25/22 14:51:00 EDT, Solution, [facility] #[id number], Partial fill upon patient request if the prescription is for a schedule II opioid drug., 160, cm, 09/29... Start Date: 10/25/22 Status: Ordered levothyroxine 0.025 mg oral tablet 1 tablet = 25 mcg, By Mouth, Daily, # 90 tablet, 3 Refills, Maintenance, 04/13/22 15:19:00 EDT, Tablet, [facility] #[id number], Partial fill upon patient request if the prescription is for a schedule II opioid drug., 161, cm, 02/10/22 23:44:00 ED... Start Date: 04/13/22 Status: Ordered Omnipod 5 five pack Omnipod 5 five pack, See Instructions, # 6 each, Refills 3, Tot. Refills 3, Maintenance, [facility] [id number] change every 3 days E10.9 90 day, 01/17/22 13:07:00 EDT, Supply, 160, cm, 03/16/21 17:17:00 EDT, Height, 63.1, kg, 03/16/21 13:07:00 EDT, Dry... Start Date: 01/17/22 Status: Ordered oxybutynin 5 mg oral tablet 1 tablet = 5 mg, By Mouth, Daily, # 14 tablet, 0 Refills, Maintenance, 11/26/22 10:32:00 EDT, Tablet, [facility] #[id number], Partial fill upon patient request if the prescription is for a schedule II opioid drug., 161, cm, 11/26/22 9:16:00 EDT,... Start Date: 11/26/22 Status: Ordered Ozempic 2 mg/1.5 mL (0.25 mg or 0.5 mg dose) subcutaneous solution = 0.5 mg, Subcutaneous Infusion, Every week, rotate injection sites e11.9, # 1.5 mL, 3 Refills, Maintenance, 04/11/23 9:17:00 EDT, [facility] #[id number], Partial fill upon patient request if the [...] Active 1no current therapist or psych 2Deidre [place], psych 3intermittent 4smokes occasionally Social History Social History Type Response Smoking Status Former smoker; Other : quit june 2010; entered on: 01/08/15 Sex Patient Care team information Care Team Personnel Name: Antwon Mendoza NP Position: Reference Physician Member Role: PCP Address: Address: [address] [place] [address]- Name: Mirza RUSH, Twila Salazar Position: [facility] DESTINATION IMAGINATION COORDINATOR MD Member Role: Lifetime DESTINATION IMAGINATION COORDINATOR Physician Address: Address: [address] [place] [address]'s Health [place] [address]- Care Team Related Persons Name: NAOMIE PADILLA Address: home [address] [place] [address] Name: RUPERTO LOPEZ Address: home [address] [place] [address]
--- OUTSIDE RECORDS SUMMARY | 2024-02-26 09:42 | XMS_ITS | Continuity of Care Document ---
Author Organization [facility] Address [address] [place] [address]- Care Team Providers Care Hand Expansion Envelope Maker Name Role Phone Reji PAZ, Antwon Capps Primary Care Physician [facility] - 06/07/23 [facility] [address] [place] [id number] Allergies, Adverse Reactions, Alerts Substance Reaction [...] ADMINISTERED BY [facility] Medications Baqsimi intranasal spray Baqsimi [...] mL, 3 Refills, Maintenance, 01/26/23 16:03:00 EDT, [facility] #[id number], 161, cm, 11/26/22 9:16:00 EDT, Height, 68.3, kg, 11/26/22 9:16:00 EDT, Dry Weight Start Date: 01/26/23 Status: Ordered Lantus Solostar Pen 100 units/mL subcutaneous solution = 15 units, Subcutaneous Injection, Daily at bedtime, # 10 mL, 5 Refills, Maintenance, 10/25/22 14:51:00 EDT, Solution, [facility] #[id number], Partial fill upon patient request if the prescription is for a schedule II opioid drug., 160, cm, 09/29... Start Date: 10/25/22 Status: Ordered levothyroxine 0.025 mg oral tablet 1 tablet = 25 mcg, By Mouth, Daily, # 90 tablet, 3 Refills, Maintenance, 06/05/23 13:11:00 EST, Tablet, [facility] #[id number], Partial fill upon patient request if the prescription is for a schedule II opioid drug., 161, cm, 02/23/23 7:34:00 EDT... Start Date: 06/05/23 Status: Ordered Omnipod 5 five pack Omnipod 5 five pack, See Instructions, # 6 each, Refills 3, Tot. Refills 3, Maintenance, [facility] [address]-12 change every 3 days E10.9 90 day, 01/17/22 13:07:00 EDT, Supply, 160, cm, 03/16/21 17:17:00 EDT, Height, 63.1, kg, 03/16/21 13:07:00 EDT, Dry... Start Date: 01/17/22 Status: Ordered oxybutynin 5 mg oral tablet 1 tablet = 5 mg, By Mouth, Daily, # 14 tablet, 0 Refills, Maintenance, 11/26/22 10:32:00 EDT, [facility] #[id number], Partial fill upon patient request if the prescription is for a schedule II opioid drug., 161, cm, 11/26/22 9:16:00 EDT,... Start Date: 11/26/22 Status: Ordered Ozempic 2 mg/1.5 mL (0.25 mg or 0.5 mg dose) subcutaneous solution = 0.5 mg, Subcutaneous Infusion, Every week, rotate injection sites e11.9, # 1.5 mL, 3 Refills, Maintenance, 04/11/23 9:17:00 EDT, [facility] #[id number], Partial fill upon patient request if the [...] Active 1no current therapist or psych 2Deidre [place], psych 3intermittent 4smokes occasionally Social History Social History Type Response Smoking Status Former smoker; Other : quit june 2010; entered on: 01/08/15 Sex Patient Care team information Care Team Personnel Name: Antwon Mendoza NP Position: Reference Physician Member Role: PCP Address: Address: [address] [place] [address]- Name: wTila Blue MD Position: [facility] REVIEW ANALYST MD Member Role: Lifetime REVIEW ANALYST Physician Address: Address: [address] [place] [address]'s [facility] [place] [address]- Care Team Related Persons Name: NAOMIE PADILLA Address: home [address] [place] [address] Name: RUPERTO LOPEZ Address: home [address] [place] [address]
--- OUTSIDE RECORDS SUMMARY | 2024-02-26 09:42 | XMS_ITS | Continuity of Care Document ---
Author Organization [facility] Diabetes Address [address] [place] [address]- Care Team Providers Care Efficiency Engineer Name Role Phone Reji PAZ, Antwon Capps Primary Care Physician [facility] 03[facility]24[facility]23 - 04/23/23 [facility] Diabetes [address] [place] [id number] Allergies, Adverse Reactions, Alerts [...] Note: VIM 06/17/08 3Admin Note: ADMINISTERED BY [facility] Medications Baqsimi intranasal spray [...] Refills 6, Maintenance, Use Freestyle lite lancets [facility] blood glucose 4x a day, [...] mL, 3 Refills, Maintenance, 01/26/23 16:03:00 EDT, [facility] #[id number], 161, cm, 11/26/22 9:16:00 EDT, Height, 68.3, kg, 11/26/22 9:16:00 EDT, Dry Weight Start Date: 01/26/23 Status: Ordered Lantus Solostar Pen 100 units/mL subcutaneous solution = 15 units, Subcutaneous Injection, Daily at bedtime, # 10 mL, 5 Refills, Maintenance, 10/25/22 14:51:00 EDT, Solution, [facility] #[id number], Partial fill upon patient request if the prescription is for a schedule II opioid drug., 160, cm, 09/29... Start Date: 10/25/22 Status: Ordered levothyroxine 0.025 mg oral tablet 1 tablet = 25 mcg, By Mouth, Daily, # 90 tablet, 3 Refills, Maintenance, 04/13/22 15:19:00 EDT, Tablet, [facility] #[id number], Partial fill upon patient request if the prescription is for a schedule II opioid drug., 161, cm, 02/10/22 23:44:00 ED... Start Date: 04/13/22 Status: Ordered Omnipod 5 five pack Omnipod 5 five pack, See Instructions, # 6 each, Refills 3, Tot. Refills 3, Maintenance, [facility] [id number] change every 3 days E10.9 90 day, 01/17/22 13:07:00 EDT, Supply, 160, cm, 03/16/21 17:17:00 EDT, Height, 63.1, kg, 03/16/21 13:07:00 EDT, Dry... Start Date: 01/17/22 Status: Ordered oxybutynin 5 mg oral tablet 1 tablet = 5 mg, By Mouth, Daily, # 14 tablet, 0 Refills, Maintenance, 11/26/22 10:32:00 EDT, Tablet, [facility] #[id number], Partial fill upon patient request if the prescription is for a schedule II opioid drug., 161, cm, 11/26/22 9:16:00 EDT,... Start Date: 11/26/22 Status: Ordered Ozempic 2 mg/1.5 mL (0.25 mg or 0.5 mg dose) subcutaneous solution = 0.5 mg, Subcutaneous Infusion, Every week, rotate injection sites e11.9, # 1.5 mL, 3 Refills, Maintenance, 04/11/23 9:17:00 EDT, [facility] #[id number], Partial fill upon patient request if the [...] Active 1no current therapist or psych 2Deidre [place], psych 3intermittent 4smokes occasionally Social History Social History Type Response Smoking Status Former smoker; Other : quit june 2010; entered on: 01/08/15 Sex Patient Care team information Care Team Personnel Name: Antwon Mendoza NP Position: Reference Physician Member Role: PCP Address: Address: [address] [place] [address]- Name: Mirza RUSH, Twila Salazar Position: [facility] SAWYER HELPER MD Member Role: Lifetime SAWYER HELPER Physician Address: Address: [address] [place] [address]'s Health [place] [address]- Care Team Related Persons Name: NAOMIE PADILLA Address: home [address] [place] [address] Name: RUPERTO LOPEZ Address: home [address] [place] [address]
--- OUTSIDE RECORDS SUMMARY | 2024-02-26 09:42 | XMS_ITS | Continuity of Care Document ---
Author Organization [facility] Address [address] [place] [address]- Care Team Providers Care Bindery Assistant Name Role Phone Reji PAZ, Antwon Capps Primary Care Physician [facility]): 04/26/22 - 05/26/22 [facility] [address] [place] [address] Allergies, Adverse Reactions, Alerts Substance [...] 06/17/08 3Admin Note: ADMINISTERED BY [facility] Medications Advair Diskus 100 mcg-50 mcg inhalation powder 1, puffs, Inhalation, 2 times a day, OV needed for further refills., # 60 each, Refills 0, Tot. Refills 0, Maintenance, 04/20/16 16:46:50, Route to Pharmacy Electronically, [id number], [facility] [id number] Start Date: 04/20/16 Stop Date: 05/20/16 Status: Ordered Advair Diskus 100 mcg-50 mcg inhalation powder 1, puffs, Inhalation, 2 times a day, # 60 each, Refills 0, Tot. Refills 0, Maintenance, 07/14/16 12:50:54, Route to Pharmacy Electronically, [id number], [id number] Start Date: 07/14/16 Stop Date: 08/13/16 Status: [...] :33:00 EDT, Aerosol, Route to Pharmacy Electronically, NCPDP_[id number], [facility] #[id number], 160, cm, 04/16/22 23:50:00 EDT, Height, 67.9, [...] Refills 6, Maintenance, Use Freestyle lite lancets [facility] blood glucose 4x a day, [...] Cartridge 100 units/mL subcutaneous injection See Instructions, [facility]: [id number] E 10.9 90 day use up to 40 units daily with INPEN, # 36 each, 3 Refills, Maintenance, 09/17/21 13:47:00 EST, Solution, [facility] #[id number], Partial fill upon patient request if the prescription is for a sche... Start Date: 09/17/21 Status: Ordered insulin lispro 100 u/ml subcutaneous injection See Instructions, use up to 50 units daily in pump E10.9 90 day, # 50 mL, 3 Refills, Maintenance, 01/17/22 12:46:00 EDT, Solution, [facility] #[id number], Partial fill upon patient request if the prescription is for a schedule II opioid drug., 16... Start Date: 01/17/22 Status: Ordered levothyroxine 0.025 mg oral tablet 1 tablet = 25 mcg, By Mouth, Daily, # 90 tablet, 3 Refills, Maintenance, 04/13/22 15:19:00 EDT, Tablet, [facility] #[id number], Partial fill upon patient request if the prescription is for a schedule II opioid drug., 161, cm, 02/10/22 23:44:00 ED... Start Date: 04/13/22 Status: Ordered Lidoderm 5% film 1 patch, Topically, Daily, PRN Pain , Mild, # 15 patch, 0 Refills, Maintenance, 05/03/22 11:22:00 EDT, [facility] #[id number], Partial fill upon patient request if the prescription is for a schedule II opioid drug., 1 patch Topically Daily,PRN:Pa... Start Date: 05/03/22 Status: Ordered metFORMIN 1000 mg oral tablet 1 tablet = 1,000 mg, By Mouth, 2 times a day, with food, # 180 tablet, 3 Refills, Maintenance, 10/11/21 10:30:00 EDT, Tablet, [facility] #[id number], Partial fill upon patient request if the prescription is for a schedule II opioid drug., 160, cm... Start Date: 10/11/21 Status: Ordered Omnipod 5 five pack Omnipod 5 five pack, See Instructions, # 6 each, Refills 3, Tot. Refills 3, Maintenance, [facility] [id number] change every 3 days E10.9 90 day, [...] Reji PAZ , Antwon Capps Address: Address: [address] [place] [address]
--- OUTSIDE RECORDS SUMMARY | 2024-02-26 09:42 | XMS_ITS | Continuity of Care Document ---
Author Organization [facility] End[facility]inolo gy [facility] Diabetes Address [address] [place] [address]- Care Team Providers Care Lace Roller Operator Name Role Phone Reji PAZ, Antwon Capps Primary Care Physician [phone] [facility] 12/08/22 - 01/07/23 [facility]ology [facility] Diabetes [address] [place] [id number] Allergies, Adverse [...] VIM 06/17/08 3Admin Note: ADMINISTERED BY [facility] Medications Baqsimi intranasal spray Baqsimi intranasal [...] Refills 6, Maintenance, Use Freestyle lite lancets [facility] blood glucose 4x a day, E10.65, 03/26/21 [...] 3 Refills, Maintenance, 12/08/22 14:41:00 EDT, Solution, [facility] #[id number], Partial fill upon patient request if the prescription is for a schedule II opioid drug., 16... Start Date: 12/08/22 Status: Ordered Lantus Solostar Pen 100 units/mL subcutaneous solution = 15 units, Subcutaneous Injection, Daily at bedtime, # 10 mL, 5 Refills, Maintenance, 10/25/22 14:51:00 EDT, Solution, [facility] #[id number], Partial fill upon patient request if the prescription is for a schedule II opioid drug., 160, cm, 09/29... Start Date: 10/25/22 Status: Ordered levothyroxine 0.025 mg oral tablet 1 tablet = 25 mcg, By Mouth, Daily, # 90 tablet, 3 Refills, Maintenance, 04/13/22 15:19:00 EDT, Tablet, [facility] #[id number], Partial fill upon patient request if the prescription is for a schedule II opioid drug., 161, cm, 02/10/22 23:44:00 ED... Start Date: 04/13/22 Status: Ordered Omnipod 5 five pack Omnipod 5 five pack, See Instructions, # 6 each, Refills 3, Tot. Refills 3, Maintenance, [facility] 2[facility] [id number] change every 3 days E10.9 90 day, 01/17/22 13:07:00 EDT, Supply, 160, cm, 03/16/21 17:17:00 EDT, Height, 63.1, kg, 03/16/21 13:07:00 EDT, Dry... Start Date: 01/17/22 Status: Ordered oxybutynin 5 mg oral tablet 1 tablet = 5 mg, By Mouth, Daily, # 14 tablet, 0 Refills, Maintenance, 11/26/22 10:32:00 EDT, Tablet, [facility] #[id number], Partial fill upon patient request if the prescription is for a schedule II opioid drug., 161, cm, 11/26/22 9:16:00 EDT,... Start Date: 11/26/22 Status: Ordered Ozempic 2 mg/1.5 mL (0.25 mg or 0.5 mg dose) subcutaneous solution = 0.25 mg, Subcutaneous Infusion, Every week, take once per week e10.65, # 3 mL, 5 Refills, Maintenance, 11/09/22 12:17:00 EDT, [facility] #[id number], Partial fill upon patient request if the [...] Active 1no current therapist or psych 2Deidre [place], psych 3intermittent 4smokes occasionally Social History Social History Type Response Smoking Status Former smoker; Other : quit june 2010; entered on: 01/08/15 Sex Patient Care team information Care Team Personnel Name: Antwon Mendoza NP Position: Reference Physician Member Role: PCP Address: Address: [address] [place] [address]- Name: Twila Blue MD Position: [facility] RIPRAP PLACING SUPERVISOR MD Member Role: Lifetime RIPRAP PLACING SUPERVISOR Physician Address: Address: [address] [place] [address]'s Health [place] [address]- Care Team Related Persons Name: NAOMIE PADILLA Address: home [address] [place] [address] Name: RUPERTO LOPEZ Address: home [address] [place] [address]
--- OUTSIDE RECORDS SUMMARY | 2024-02-26 09:42 | XMS_ITS | Continuity of Care Document ---
Author Organization [facility] Address [address] [place] [address]- Care Team Providers Care Water System Operator Name Role Phone Reji PAZ, Antwon Capps Primary Care Physician [phone] [facility]): 02[facility]23[facility]23 - 03/25/23 [facility] Diabetes [address] [place] [address] Attending Physician: AdmMissael keene Admitting Physician: Admtr, Ar8 Referring Physician: Admtr, [...] Note: VIM 06/17/08 3Admin Note: ADMINISTERED BY [facility] Medications Baqsimi intranasal spray Baqsimi intranasal [...] Refills 6, Maintenance, Use Freestyle lite lancets [facility] blood glucose 4x a day, [...] mL, 3 Refills, Maintenance, 01/26/23 16:03:00 EDT, [facility] #[id number], 161, cm, 11/26/22 9:16:00 EDT, Height, 68.3, kg, 11/26/22 9:16:00 EDT, Dry Weight Start Date: 01/26/23 Status: Ordered Lantus Solostar Pen 100 units/mL subcutaneous solution = 15 units, Subcutaneous Injection, Daily at bedtime, # 10 mL, 5 Refills, Maintenance, 10/25/22 14:51:00 EDT, Solution, [facility] #[id number], Partial fill upon patient request if the prescription is for a schedule II opioid drug., 160, cm, 09/29... Start Date: 10/25/22 Status: Ordered levothyroxine 0.025 mg oral tablet 1 tablet = 25 mcg, By Mouth, Daily, # 90 tablet, 3 Refills, Maintenance, 04/13/22 15:19:00 EDT, Tablet, [facility] #[id number], Partial fill upon patient request if the prescription is for a schedule II opioid drug., 161, cm, 02/10/22 23:44:00 ED... Start Date: 04/13/22 Status: Ordered Omnipod 5 five pack Omnipod 5 five pack, See Instructions, # 6 each, Refills 3, Tot. Refills 3, Maintenance, [facility] [address]-86 change every 3 days E10.9 90 day, 01/17/22 13:07:00 EDT, Supply, 160, cm, 03/16/21 17:17:00 EDT, Height, 63.1, kg, 03/16/21 13:07:00 EDT, Dry... Start Date: 01/17/22 Status: Ordered oxybutynin 5 mg oral tablet 1 tablet = 5 mg, By Mouth, Daily, # 14 tablet, 0 Refills, Maintenance, 11/26/22 10:32:00 EDT, Tablet, [facility] #[id number], Partial fill upon patient request if the prescription is for a schedule II opioid drug., 161, cm, 11/26/22 9:16:00 EDT,... Start Date: 11/26/22 Status: Ordered Zyrtec 10 mg oral tablet [...] 01/08/15 Sex Laboratory * Event Display: Non BH Lab Results Authored Date: Patient Care team information Care Team Personnel Name: Antwon Mendoza NP Position: Reference Physician Member Role: PCP Address: Address: [address] [place] [address]- Name: Mirza RUSH, Twila Salazar Position: [facility] BIOMEDICAL PHOTOGRAPHER MD Member Role: Lifetime BIOMEDICAL PHOTOGRAPHER Physician Address: Address: [address] [place] [address] Women[employer] [place] [address]- Care Team Related Persons Name: NAOMIE PADILLA Address: home [address] [place] [address] Name: RUPERTO LOPEZ Address: home [address] [place] [address]
--- OUTSIDE RECORDS SUMMARY | 2024-02-26 09:43 | XMS_ITS | Continuity of Care Document ---
Author Organization [facility] Diabetes Address [address] [place] [address]- Care Team Providers Care Fruit Harvest Machine Operator Name Role Phone Reji PAZ, Antwon Capps Primary Care Physician [facility]): 02[facility]10[facility]22 - 03/12/22 [facility] [address] [place] [id number] Allergies, Adverse Reactions, Alerts [...] Maintenance, 04/20/16 16:46:50, Route to Pharmacy Electronically, [id number], [facility] [id number] Start Date: 04/20/16 Stop Date: 05/20/16 Status: Ordered Advair Diskus 100 mcg-50 mcg inhalation powder 1, puffs, Inhalation, 2 times a day, # 60 each, Refills 0, Tot. Refills 0, Maintenance, 07/14/16 12:50:54, Route to Pharmacy Electronically, [id number], [id number] Start Date: 07/14/16 Stop Date: 08/13/16 Status: [...] 0 Refills, Soft Stop, 02/11/22 2:10:00 EDT, [facility] #[id number], Partial fill upon patient request if the prescription is for a schedule II opioiddrug., 161, cm, 02/10/22 23:44:00 EDT, Height, 67.7... Start Date: 02/11/22 Status: Ordered Freestyle Lite Lancets See Instructions, # 120 each, Refills 6, Tot. Refills 6, Maintenance, Use Freestyle lite lancets [facility] blood glucose 4x a day, [...] 3 Refills, Maintenance, 01/17/22 12:46:00 EDT, Solution, [facility] #[id number], Partial fill upon patient request if the prescription is for a schedule II opioid drug., 16... Start Date: 01/17/22 Status: Ordered metFORMIN 500 mg oral tablet 1 tablet = 500 mg, By Mouth, 2 times a day, # 60 tablet, 11 Refills, Maintenance, 10/01/20 16:53:00EST, [facility] #[id number], Partial fill upon patient request if the prescription is for a schedule II opioid drug., 158, cm, 02/09/19 12:52:00 E... Start Date: 10/01/20 Status: Ordered metFORMIN 500 mg oral tablet, extended release 1 tablet = 500 mg, By Mouth, 2 times a day, # 180 tablet, 3 Refills, Maintenance, 01/01/21 10:11:00EDT, ER Tablet, [facility] #[id number], Partial fill upon patient request if the prescription is for a schedule II opioid drug., 158, cm, 02/09/19... Start Date: 01/01/21 Status: Ordered Omnipod 5 five pack Omnipod 5 five pack, See Instructions, # 6 each, Refills 3, Tot. Refills 3, Maintenance, [facility] [id number] change every 3 days E10.9 90 day, [...] mL, 11 Refills, Maintenance, 08/18/21 12:29:00 EST, [facility] #78395, Partial fill upon patient request if the [...]
--- OUTSIDE RECORDS SUMMARY | 2024-02-26 09:43 | XMS_ITS | Continuity of Care Document ---
Author Organization [facility] Address [address] [place] [address]- Care Team Providers Care Director New Product Name Role Phone Reji PAZ, Antwon Capps Primary Care Physician [phone] [facility]counter [facility] Date(s): 08/21/23 - 09/20/23 [facility] [address] [place] [id number] Allergies, Adverse Reactions, Alerts [...] VIM 06/17/08 3Admin Note: ADMINISTERED BY [facility] Medications Baqsimi intranasal spray Baqsimi intranasal [...] mL, 3 Refills, Maintenance, 01/26/23 16:03:00 EDT, [facility] #[id number], 161, cm, 11/26/22 9:16:00 EDT, Height, 68.3, kg, 11/26/22 9:16:00 EDT, Dry Weight Start Date: 01/26/23 Status: Ordered Lantus Solostar Pen 100 units/mL subcutaneous solution = 15 units, Subcutaneous Injection, Daily at bedtime, # 10 mL, 5 Refills, Maintenance, 10/25/22 14:51:00 EDT, Solution, [facility] #[id number], Partial fill upon patient request if the prescription is for a schedule II opioid drug., 160, cm, 09/29... Start Date: 10/25/22 Status: Ordered levothyroxine 0.05 mg oral tablet 1 tablet = 50 mcg, By Mouth, Daily, # 30 tablet, 11 Refills, Maintenance, 08/28/23 20:59:00 EST, Tablet, [facility] #[id number], Partial fill upon patient request if the prescription is for a schedule II opioid drug., 161, cm, 02/23/23 7:34:00 ED... Start Date: 08/28/23 Status: Ordered metFORMIN 500 mg oral tablet, extended release 2 tablet = 1,000 mg, By Mouth, 2 times a day, # 120 tablet, 11 Refills, Maintenance, 08/10/23 14:13:00 EST, [facility] #[id number], Partial fill upon patient request if the prescription is for aschedule II opioid drug., 161, cm, 02/23/23 7:34:00... Start Date: 08/10/23 Stop Date: 08/04/24 Status: Ordered oxybutynin 5 mg oral tablet 1 tablet = 5 mg, By Mouth, Daily, # 14 tablet, 0 Refills, Maintenance, 11/26/22 10:32:00 EDT, Tablet, [facility] #[id number], Partial fill upon patient request if the prescription is for a schedule II opioid drug., 161, cm, 11/26/22 9:16:00 EDT,... Start Date: 11/26/22 Status: Ordered Pen [place], 31 G x 5 mm BD Ultra Fine III See Instructions, # 100 each, Refills 3, Tot. Refills 3, Maintenance, use daily with victoza, 08/22/23 7:18:00 EST, Supply, 161, cm, 02/23/23 7:34:00 EDT, Height, 68.3, kg, 11/26/22 9:16:00 EDT, Dry Weight Start Date: 08/22/23 Status: Ordered Pen [place], 31 G x 5 mm BD Ultra [...] mL, 11 Refills, Maintenance, 08/01/23 11:12:00 EST, [facility] #[id number], please dispense 2 1.5 mL pens as I believeeach pen would last 20 days, 161, cm, 02/23/23 7:34... Start Date: 08/01/23 Status: Ordered Victoza 18 mg/3 mL subcutaneous solution = 1.8 mg, Subcutaneous Injection, Daily, # 27 mL, 3 Refills, Maintenance, 08/22/23 7:18:00 EST, [facility] #[id number], Partial fill upon patient request if the [...] Active 1no current therapist or psych 2Deidre [place], psych 3intermittent 4smokes occasionally Social History Social History Type Response Smoking Status Former smoker; Other : quit june 2010; entered on: 01/08/15 Sex Patient Care team information Care Team Personnel Name: Reji PAZ , Antwon Capps Position: Reference Physician Member Role: PCP Address: Address: [address] [place] [address]- Name: Mirza RUSH, Twila Salazar Position: [facility] TRANSPLANT NURSE PRACTITIONER MD Member Role: [employer]etime TRANSPLANT NURSE PRACTITIONER Physician Address: Address: [address] [place] [address] [employer] [place] [address]- Care Team Related Persons Name: NAOMIE PADILLA Address: home [address] [place] [address] Name: RUPERTO LOPEZ Address: home [address] [place] [address]
--- OUTSIDE RECORDS SUMMARY | 2024-02-26 09:43 | XMS_ITS | Continuity of Care Document ---
Author Organization [facility] Address [address] [place] [address]- Care Team Providers Care Veneer Clipper Name Role Phone Reji PAZ, Antwon Capps Primary Care Physician [facility] Date(s): 10/18/23 - 11/17/23 [facility] [address] [place] [id number] Allergies, Adverse Reactions, Alerts Substance [...] Note: VIM 06/17/08 3Admin Note: ADMINISTERED BY [facility] Medications Baqsimi intranasal spray Baqsimi intranasal spray, [...] 3 Refills, Soft Stop, 11/16/23 15:32:00 EDT, [facility] #[id number], Partial fill upon patient request if the prescription is for a schedule II opioid dr... Start Date: 11/16/23 Status: Ordered Humalog 100 u/ml subcutaneous injection See Instructions, USE UPTO 50 UNITS DAILY VIA PUMP, # 50 mL, 3 Refills, Maintenance, 01/26/23 16:03:00 EDT, [facility] #[id number], 161, cm, 11/26/22 9:16:00 EDT, Height, 68.3, kg, 11/26/22 9:16:00 EDT, Dry Weight Start Date: 01/26/23 Status: Ordered Lantus Solostar Pen 100 units/mL subcutaneous solution = 15 units, Subcutaneous Injection, Daily at bedtime, # 10 mL, 5 Refills, Maintenance, 10/25/22 14:51:00 EDT, Solution, [facility] #[id number], Partial fill upon patient request if the prescription is for a schedule II opioid drug., 160, cm, 09/29... Start Date: 10/25/22 Status: Ordered levothyroxine 0.05 mg oral tablet 1 tablet = 50 mcg, By Mouth, Daily, # 30 tablet, 11 Refills, Maintenance, 08/28/23 20:59:00 EST, Tablet, [facility] #[id number], Partial fill upon patient request if the prescription is for a schedule II opioid drug., 161, cm, 02/23/23 7:34:00 ED... Start Date: 08/28/23 Status: Ordered metFORMIN 500 mg oral tablet, extended release 2 tablet = 1,000 mg, By Mouth, 2 times a day, # 120 tablet, 11 Refills, Maintenance, 08/10/23 14:13:00 EST, [facility] #[id number], Partial fill upon patient request if the prescription is for aschedule II opioid drug., 161, cm, 02/23/23 7:34:00... Start Date: 08/10/23 Stop Date: 08/04/24 Status: Ordered oxybutynin 5 mg oral tablet 1 tablet = 5 mg, By Mouth, Daily, # 14 tablet, 0 Refills, Maintenance, 11/26/22 10:32:00 EDT, Tablet, [facility] #[id number], Partial fill upon patient request if the prescription is for a schedule II opioid drug., 161, cm, 11/26/22 9:16:00 EDT,... Start Date: 11/26/22 Status: Ordered Pen [place], 31 G x 5 mm BD Ultra Fine III See Instructions, # 100 each, Refills 3, Tot. Refills 3, Maintenance, use daily with victoza, 08/22/23 7:18:00 EST, Supply, 161, cm, 02/23/23 7:34:00 EDT, Height, 68.3, kg, 11/26/22 9:16:00 EDT, Dry Weight Start Date: 08/22/23 Status: Ordered Pen [place], 31 G x 5 mm BD Ultra [...] 11 Refills, Maintenance, 08/01/23 11:12:00 EST, Solution, [facility] #[id number], please dispense 2 1.5 mL pens as I believeeach pen would last 20 days, 161, cm, 02/23/23 7:34... Start Date: 08/01/23 Status: Ordered Victoza 18 mg/3 mL subcutaneous solution = 1.8 mg, Subcutaneous Injection, Daily, # 27 mL, 3 Refills, Maintenance, 08/22/23 7:18:00 EST, Solution, [facility] #[id number], Partial fill upon patient request if the [...] 1no current therapist or psych 2Deidre [place], psych 3intermittent 4smokes occasionally Social History Social History Type Response Smoking Status Former smoker; Other : quit june 2010; entered on: 01/08/15 Sex Patient Care team information Care Team Personnel Name: Antwon Mendoza NP Position: Reference Physician Member Role: PCP Address: Address: [address] [place] [address]- Name: Mirza RUSH, Twila Salazar Position: [facility] BINDER CUTTER HAND MD Member Role: Lifetime BINDER CUTTER HAND Physician Address: Address: [address] [place] [address] [facility] [address]- Care Team Related Persons Name: NAOMIE PADILLA Address: home [address] [place] [address] Name: RUPERTO LOPEZ Address: home [address] [place] [address]
--- OUTSIDE RECORDS SUMMARY | 2024-02-26 09:43 | XMS_ITS | Continuity of Care Document ---
Author Organization [facility] Address [address] [place] [address]- Care Team Providers Care Brick Pointer Name Role Phone Reji PAZ, Antwon Capps Primary Care Physician [facility] Date(s): 11/04/22 - 12/04/22 [facility] [address] [place] [address] Allergies, Adverse Reactions, Alerts [...] Refills 6, Maintenance, Use Freestyle lite lancets [facility] glucose 4x a day, E10.65, [...] 3 Refills, Maintenance, 01/17/22 12:46:00 EDT, Solution, [facility] #[id number], Partial fill upon patient request if the prescription is for a schedule II opioid drug., 16... Start Date: 01/17/22 Status: Ordered Lantus Solostar Pen 100 units/mL subcutaneous solution = 15 units, Subcutaneous Injection, Daily at bedtime, # 10 mL, 5 Refills, Maintenance, 10/25/22 14:51:00 EDT, Solution, [facility] #[id number], Partial fill upon patient request if the prescription is for a schedule II opioid drug., 160, cm, 09/29... Start Date: 10/25/22 Status: Ordered levothyroxine 0.025 mg oral tablet 1 tablet = 25 mcg, By Mouth, Daily, # 90 tablet, 3 Refills, Maintenance, 04/13/22 15:19:00 EDT, Tablet, [facility] #[id number], Partial fill upon patient request if the prescription is for a schedule II opioid drug., 161, cm, 02/10/22 23:44:00 ED... Start Date: 04/13/22 Status: Ordered Omnipod 5 five pack Omnipod 5 five pack, See Instructions, # 6 each, Refills 3, Tot. Refills 3, Maintenance, [facility] [id number] change every 3 days E10.9 90 day, 01/17/22 13:07:00 EDT, Supply, 160, cm, 03/16/21 17:17:00 EDT, Height, 63.1, kg, 03/16/21 13:07:00 EDT, Dry... Start Date: 01/17/22 Status: Ordered oxybutynin 5 mg oral tablet 1 tablet = 5 mg, By Mouth, Daily, # 14 tablet, 0 Refills, Maintenance, 11/26/22 10:32:00 EDT, Tablet, [facility] #[id number], Partial fill upon patient request if the prescription is for a schedule II opioid drug., 161, cm, 11/26/22 9:16:00 EDT,... Start Date: 11/26/22 Status: Ordered Ozempic 2 mg/1.5 mL (0.25 mg or 0.5 mg dose) subcutaneous solution = 0.25 mg, Subcutaneous Infusion, Every week, take once per week e10.65, # 3 mL, 5 Refills, Maintenance, 11/09/22 12:17:00 EDT, [facility] #[id number], Partial fill upon patient request if the [...] Active 1no current therapist or psych 2Deidre [place], psych 3intermittent 4smokes occasionally Social History Social History Type Response Smoking Status Former smoker; Other : quit june 2010; entered on: 01/08/15 Sex Patient Care team information Care Team Personnel Name: Antwon Mendoza NP Position: Reference Physician Member Role: PCP Address: Address: [address] [place] [address]- Name: Twila Blue MD Position: [facility] DEPUTY DIRECTOR MD Member Role: [employer] DEPUTY DIRECTOR Physician Address: Address: [address] [place] [address] [place] [address]- Care Team Related Persons Name: NAOMIE PADILLA Address: home [address] [place] [address] Name: RUPERTO LOPEZ Address: home [address] [place] [address]
--- OUTSIDE RECORDS SUMMARY | 2024-02-26 09:43 | XMS_ITS ---
Author Organization [facility] Address [address] [place] [address] Care Team Providers Care Pipe Setter Name Role Phone [facility] Unavailable [phone] REASON FOR VISIT RL TO [facility] Social History Tobacco Use: Social History Observation Description Date Details (start date - stop date) Never Smoker NA - NA Tobacco Use/Smoking Question Answer Notes Are you a nonsmoker Vital Signs Height 63 in 07/09/2023 Weight 137 lbs 07/09/2023 BMI 24.27 kg/m2 07/09/2023 Patient Reported Normal Bloo d PresurePatient Reported Normal Temperature Encounters Encounter Location Date Provider Diagnosis [facility] [address] [place] [address] 07/09/2023 [facility] Plan Of Treatment No Information Progress Notes * Sujata LOPEZSadeOB:1980 (43 yo F)Acc No.[id number]:07/09/2023 Patient:?Michelle LOPEZ Provider:?[facility] :1980???Age:42 Y???Sex:Female D ate:07/09/2023 Phone: Address:[address] [phone] Subjective: * Chief Complaints: * ???1. RL TO [facility]. * HPI: ???TeleHealth Complaint History:? 42 year-old female, not , presents with vaginal burning for a duration of 9 days. Medical History: Diabetes mellitus. Medications: Insulin 25 units daily Daily. Habits: No high risk sexual behavior. * ROS:?The patient is also suffering from vaginal irritation (severity severe), vaginal discharge, vaginal discomfort, itching and itching of area of skin. The patient denies the following: unusual vaginal odor, abnormal vaginal bleeding, vaginal dryness, pelvic pain, rash, scaly skin and pain when passing urine. * Medical History:?Type 1 4 ye ars ago Active. * Social History:?Tobacco Use:?Tobacco Use/Smoking?Are you a?nonsmoker ???Drugs/Alcohol:?Do you drink alcohol?: No. Objective: * Vitals:?Ht: 63 in, Wt:137lbs , BMI:24.27Index. Patient Reported Normal Blood Presure Patient Reported Normal Temperature. Assessment: * Assessment: AI TRIAGE SUGGESTED ASSESSME NTS: B37.3 - Candidiasis of vulva and vagina N76.0 - Acute vaginitis B96.89 - Other specified bacterial agents as the cause of diseases classified elsewhere A59.9 - Trichomoniasis, unspecified --- ---AI TRIAGE CLINICAL REASONING: Based on the patient's symptoms and medical history, the following differential diagnoses are considered: 1. Vulvovaginal candidiasis: The patient's symptoms of vaginal burning, irritation, discharge, and itching are consistent with a possible yeast infection. 2. Bacterial vaginosis: Although the patient denies any unusual vaginal odor, bacterial vaginosis cannot be completely ruled out at this time. 3. Trichomoniasis: The patient's symptoms of vaginal burning, irritation, discharge, and itching could also be indicative of trichomoniasis. 4. Genital herpes: Although the patient denies any rash or pain when passing urine, genital herpes cannot be completely ruled out at this time. 5. Atrophic vaginitis: The patient's symptoms could also be attributed to atrophic vaginitis, but this is less likely given her age and lack of menopausal symptoms. 6. Contact dermatitis: The patient's symptoms could potentially be caused by an allergic reaction or irritation from a product or material. Further evaluation, including a thorough physical examination and laboratory tests, is needed to confirm the diagnosis and determine the appropriate treatment plan. Plan: * Treatment: * Billing Information: * Visit Code:? * Procedure Codes:? * Electronic signature of [facility] on 02/26/2024 at 09:42 AM EDT Sign off status: Pending * Provider:?[facility] Date:?1 09/09/2022 Generated for Mark ansari/Galina/Keily on:?02/26/2024 09:42 AM EDT
--- OUTSIDE RECORDS SUMMARY | 2024-02-26 09:43 | XMS_ITS | Continuity of Care Document ---
Author Organization [facility] Address [address] [place] [address]- Care Team Providers Care International Coordinator Name Role Phone Heri RUSH, Kylee Byrne Primary Care Physician Encounter [facility] Date(s): 10/01/20 - 01/29/21 [facility] [address] [place] [id number] Attending Physician: Wilma Ko MD Referring Physician: Kylee Liriano MD Allergies, Adverse Reactions, Alerts Substance Reaction [...] 06/17/08 3Admin Note: ADMINISTERED BY [facility] Medications Advair Diskus 100 mcg-50 mcg inhalation powder 1, puffs, Inhalation, 2 times a day, OV needed for further refills., # 60 each, Refills 0, Tot. Refills 0, Maintenance, 04/20/16 16:46:50, Route to Pharmacy Electronically, [id number], [facility] [id number] Start Date: 04/20/16 Stop Date: 05/20/16 Status: Ordered Advair Diskus 100 mcg-50 mcg inhalation powder 1, puffs, Inhalation, 2 times a day, # 60 each, Refills 0, Tot. Refills 0, Maintenance, 07/14/16 12:50:54, Route to Pharmacy Electronically, [id number], [id number] Start Date: 07/14/16 Stop Date: 08/13/16 Status: [...] 3 Refills, Maintenance, 09/03/20 14:40:00 EST, Solution, [facility] #[id number], Partial fill upon patient request if the prescription is for a schedule II opioid drug., 1... Start Date: 09/03/20 Status: Ordered metFORMIN 500 mg oral tablet 1 tablet = 500 mg, By Mouth, 2 times a day, # 60 tablet, 11 Refills, Maintenance, 10/01/20 16:53:00EST, [facility] #[id number], Partial fill upon patient request if the prescription is for a schedule II opioid drug., 158, cm, 02/09/19 12:52:00 E... Start Date: 10/01/20 Status: Ordered metFORMIN 500 mg oral tablet, extended release 1 tablet = 500 mg, By Mouth, 2 times a day, # 180 tablet, 3 Refills, Maintenance, 01/01/21 10:11:00EDT, ER Tablet, [facility] #[id number], Partial fill upon patient request if the prescription is for a schedule II opioid drug., 158, cm, 02/09/19... Start Date: 01/01/21 Status: Ordered Tresiba FlexTouch 200 units/mL subcutaneous solution = 12 units, Subcutaneous Injection, Daily, rotate injection sites, # 3 mL, 11 Refills, Maintenance,01/25/21 15:39:00 EDT, Solution, [facility] #[id number], Partial fill upon patient request if the [...]
--- OUTSIDE RECORDS SUMMARY | 2024-02-26 09:43 | XMS_ITS | Continuity of Care Document ---
Author Organization [facility] Address [address] [place] [address]- Care Team Providers Care Customer Service Professional Name Role Phone Heri RUSH, Kylee Byrne Primary Care Physician [facility] Date[facility]s): 01/25/21 - 02/24/21 [facility] [address] [place] [address] Allergies, Adverse Reactions, Alerts Substance [...] Maintenance, 04/20/16 16:46:50, Route to Pharmacy Electronically, [id number], [facility] [id number] Start Date: 04/20/16 Stop Date: 05/20/16 Status: Ordered Advair Diskus 100 mcg-50 mcg inhalation powder 1, puffs, Inhalation, 2 times a day, # 60 each, Refills 0, Tot. Refills 0, Maintenance, 07/14/16 12:50:54, Route to Pharmacy Electronically, [id number], [id number] Start Date: 07/14/16 Stop Date: 08/13/16 Status: [...] 3 Refills, Maintenance, 09/03/20 14:40:00 EST, Solution, [facility] #[id number], Partial fill upon patient request if the [...] 60 tablet, 11 Refills, Maintenance, 10/01/20 16:53:00EST, [facility] #[id number], Partial fill upon patient request if the prescription is for a schedule II opioid drug., 158, cm, 02/09/19 12:52:00 E... Start Date: 10/01/20 Status: Ordered metFORMIN 500 mg oral tablet, extended release 1 tablet = 500 mg, By Mouth, 2 times a day, # 180 tablet, 3 Refills, Maintenance, 01/01/21 10:11:00EDT, ER Tablet, [facility] #[id number], Partial fill upon patient request if the prescription is for a schedule II opioid drug., 158, cm, 02/09/19... Start Date: 01/01/21 Status: Ordered Tresiba FlexTouch 200 units/mL subcutaneous solution = 12 units, Subcutaneous Injection, Daily, rotate injection sites, # 3 mL, 11 Refills, Maintenance,01/25/21 15:39:00 EDT, Solution, [facility] #[id number], Partial fill upon patient request if the [...]
--- OUTSIDE RECORDS SUMMARY | 2024-02-26 09:43 | XMS_ITS | Patient Health Record ---
Author Organization [facility] Address [address] [place] [address] Care Team Providers Care Insurance Verification Rep Name Role Phone [facility] Unavailable [phone] Reason For Referral No Information Social History Tobacco Use: Social History Observation Description Date Details (start date - stop date) Never Smoker NA - NA Tobacco Use/Smoking Question Answer Notes Are you a nonsmoker Plan Of Treatment No Information Medical (General) History Medical History History ICD Code Type 1 4 years ago Active
--- OUTSIDE RECORDS SUMMARY | 2024-02-26 09:43 | XMS_ITS | Continuity of Care Document ---
Author Organization [facility] Address [address] [place] [address]- Care Team Providers Care Special Weapons Unit Officer Name Role Phone Reji PAZ, Antwon Capps Primary Care Physician [facility]counter [facility] Date(s): 05/05/23 - 06/04/23 [facility] [address] [place] [email or web address] Allergies, Adverse Reactions, Alerts Substance Reaction Severity [...] mL, 3 Refills, Maintenance, 01/26/23 16:03:00 EDT, [facility] #[id number], 161, cm, 11/26/22 9:16:00 EDT, Height, 68.3, kg, 11/26/22 9:16:00 EDT, Dry Weight Start Date: 01/26/23 Status: Ordered Lantus Solostar Pen 100 units/mL subcutaneous solution = 15 units, Subcutaneous Injection, Daily at bedtime, # 10 mL, 5 Refills, Maintenance, 10/25/22 14:51:00 EDT, Solution, [facility] #[id number], Partial fill upon patient request if the prescription is for a schedule II opioid drug., 160, cm, 09/29... Start Date: 10/25/22 Status: Ordered levothyroxine 0.025 mg oral tablet 1 tablet = 25 mcg, By Mouth, Daily, # 90 tablet, 3 Refills, Maintenance, 04/13/22 15:19:00 EDT, Tablet, [facility] #[id number], Partial fill upon patient request if the prescription is for a schedule II opioid drug., 161, cm, 02/10/22 23:44:00 ED... Start Date: 04/13/22 Status: Ordered Omnipod 5 five pack Omnipod 5 five pack, See Instructions, # 6 each, Refills 3, Tot. Refills 3, Maintenance, [facility] [id number] change every 3 days E10.9 90 day, 01/17/22 13:07:00 EDT, Supply, 160, cm, 03/16/21 17:17:00 EDT, Height, 63.1, kg, 03/16/21 13:07:00 EDT, Dry... Start Date: 01/17/22 Status: Ordered oxybutynin 5 mg oral tablet 1 tablet = 5 mg, By Mouth, Daily, # 14 tablet, 0 Refills, Maintenance, 11/26/22 10:32:00 EDT, Tablet, [facility] #[id number], Partial fill upon patient request if the prescription is for a schedule II opioid drug., 161, cm, 11/26/22 9:16:00 EDT,... Start Date: 11/26/22 Status: Ordered Ozempic 2 mg/1.5 mL (0.25 mg or 0.5 mg dose) subcutaneous solution = 0.5 mg, Subcutaneous Infusion, Every week, rotate injection sites e11.9, # 1.5 mL, 3 Refills, Maintenance, 04/11/23 9:17:00 EDT, [facility] #[id number], Partial fill upon patient request if the [...] Active 1no current therapist or psych 2Deidre [place], psych 3intermittent 4smokes occasionally Social History Social History Type Response Smoking Status Former smoker; Other : quit june 2010; entered on: 01/08/15 Sex Patient Care team information Care Team Personnel Name: Antwon Mendoza NP Position: Reference Physician Member Role: PCP Address: Address: [address] [place] [address]- Name: Twila Blue MD Position: [facility] ARCHITECT NAVAL MD Member Role: [employer]etime ARCHITECT NAVAL Physician Address: Address: [address] [place] [address]'s [facility] [place] [address]- Care Team Related Persons Name: NAOMIE PADILLA Address: home [address] [place] [address] Name: RUPERTO LOPEZ Address: home [address] [place] [address]
--- NOTE | 2024-02-26 10:28 | MHC.OFFWIV ---
Intake Vital Signs 02/26/24 10:30 Height 5 ft 3 in Weight 160 lb BMI 28.3 BP 108/60 Blood Pressure Location Lt brachial Position Sitting Pulse 71 Pulse Source Pulse Oximeter Temp 98.7 F Temp Source Oral Pulse Oximetry (%) 98 Oxygen Delivery Method Room Air Intake Visit Reasons: left side stomach pain Intake Note: pt c/o LT side abdominal pain. Started over a month ago Patient Tobacco Use Status: Former Tobacco user Allergies azithromycin Allergy (Unknown, Verified 02/26/24 10:28) palpitations levofloxacin Allergy (Unknown, Verified 02/26/24 10:28) Hives Sulfa (Sulfonamide Antibiotics) Allergy (Unknown, Verified 02/26/24 10:28) Unknown ciprofloxacin [From Cipro] Adverse Reaction (Mild, Verified 02/26/24 10:28) Rash bactrium Adverse Reaction (Mild, Uncoded 02/26/24 10:28) Rash Medication List - Last Reconciled 02/26/24 by Shama Ohara NP albuterol sulfate 90 mcg/actuation 1 puff inhalation QID PRN atorvastatin 20 mg PO DAILY 90 days blood sugar diagnostic (FreeStyle Lite Strips) As directed blood-glucose meter As directed bupropion HCl XL (Wellbutrin XL) 150 mg PO QAM cetirizine 20 mg (2 x 10 mg) PO DAILY duloxetine 60 mg PO DAILY duloxetine 20 mg PO DAILY estradiol (Estring) 1 vag ring vaginal [id number] fluticasone propion-salmeterol 250-50 mcg/dose 1 ea inhalation BID gabapentin 300 mg PO BEDTIME 30 days hydroxyzine HCl 25 mg PO BID PRN 30 days insulin lispro (Humalog U-100 Insulin) 0 - 50 units subcut DAILY ipratropium bromide 2 sprays intranasal TID levothyroxine 50 mcg PO DAILY metformin 1,000 mg PO BID metoprolol tartrate 25 mg PO BID montelukast 10 mg PO DAILY norethindrone (contraceptive) 0.35 mg PO DAILY oxybutynin chloride 5 mg PO Q8H PRN 30 days prasterone (dhea) (Intrarosa) 6.5 mg vaginal DAILY Do you need a note to return to daycare/school/sports/work: Yes HPI left side stomach pain HPI Details This note is constructed using voice recognition software. While every effort has been made to ensure accuracy, kitchen steward errors may have been included. The patient is a 43 year old female who presents to the clinic today with a month of left-sided abdominal pain. She describes his pain to be very sharp in nature, there constantly and worse after meals. She also describes this to involve a bloating sensation. She also reports she has a sensation of feeling full and that her food is not digesting quite as rapidly as it used to. She notes constipation in a setting that she would normally moves her bowels every day, she is still moving her bowels every day but they are not moving the way they used to. She has tried omeprazole, famotidine, Tums in the past and they do not seem to work. She had upper endoscopy 3 years ago, without any findings. She has also had a colonoscopy. [facility] Medical History PVC (premature ventricular contraction) Lichen sclerosus of vulva Facial cellulitis Diabetes type 1, controlled Family History Father Heart disease Mother No problems noted. Family/Other Thyroid disease Social History Housing: House Alcohol intake: former Patient Tobacco Use Status: Former Tobacco user Years Smoked: 6 years ago e-Cigarette/Vaping Use: Former Use Second Hand Smoke Exposure: No service: No Current occupational status: employed Current occupation: [employer] Current occupational exposures/hazards: No Cognitive needs: No Hearing needs: No Vision needs: No Review of Systems Const All systems reviewed & are unremarkable except as noted in HPI and below Physical Exam Vital Signs: Last Vital Signs Temp 98.7 F 02/26/24 10:30 Pulse 71 02/26/24 10:30 BP 108/60 02/26/24 10:30 Pulse Ox 98 02/26/24 10:30 Oxygen Delivery Method Room Air 02/26/24 10:30 BMI result Body Mass Index 28.3 Const General: cooperative, healthy appearing, comfortable, no acute distress and alert Orientation/consciousness: patient oriented x3 Limitations: no limitations Neck Neck: Yes normal visual inspection, Yes full ROM and Yes no lymphadenopathy Resp Effort & Inspection: normal respiratory effort and able to speak in complete sentences Auscultation: clear to auscultation bilaterally Cardio Jugular venous distension: no JVD Palpation: normal PMI Rate: regular rate Heart sounds: S1 normal heart sound present, S2 normal heart sound present, no click, no gallops, no murmurs and no rubs GI Inspection: Yes normal to inspection Palpation (GI): Soft to palpation, Tenderness to palpation present (GI) in the LUQ; not in the epigastrum and No hepatosplenomegaly present Percussion: Yes normal to percussion Auscultation: no high pitched sounds and Hypoactive bowel sounds present Skin General skin exam: no rashes or lesions noted, elasticity normal and turgor normal Neuro General: patient oriented x3 Psych Appearance: grossly normal Mental Status: mental status grossly normal Speech and movement: Normal speech and movement present Affect: normal affect Assessment & Plan Assessment & Plan (1) Abdominal pain: Code(s): R10.9 - Unspecified abdominal pain Qualifiers: Abdominal location: left upper quadrant Qualified Code(s): R10.12 - Left upper quadrant pain Plan: Advised patient to continue with omeprazole, she has currently run out at home, prescription sent to requested pharmacy. Additionally advised patient to follow up with PCP for additional testing which may be pertinent to her symptoms. She may benefit from H pylori testing should the symptoms persist versus referral to GI for repeat endoscopy. Plan See above for full details and plan. Medications: New omeprazole 20 mg PO DAILY 30 days 30 caps 0RF Coding Level of Care Code Est Pt Level 3 (78888) Diagnoses Left upper quadrant abdominal pain R10.12 Abdominal location: left upper quadrant
[2024-02-26 10:30] VITALS: BP 108/60; PULSE 71; TEMP 37.1; O2SAT 98; BMI 28.3
== END 2024-02-26 11:07 | disposition home or self-care (01) ==
PROVIDERS: PCP Nurse Practitioner Family; Visit Provider Registered Nurse
DX: R10.12 Left upper quadrant pain (principal)
CPT/HCPCS: 99213

== ENCOUNTER 2024-02-27 07:30 | Outpatient (REF) | payer OTHER, SELFPAY ==
[2024-02-27 10:31] LABS: Appearance Urine Cloudy; Color Urine Yellow; Glucose Urine UA Negative (Negative); Leukocyte Esterase Urine Large (3+) (Negative); Nitrite Urine Negative (Negative); PH 6.5 (5.0-9.0); Specific Gravity - Urine 1.025 (1.005-1.025); UMIC TRIGGER UACC YES; Urine Blood Trace (Negative); Urine Ketones Negative (Negative); Urine Protein Negative (Neg-Trace)
[2024-02-27 10:37] LABS: Bacteria Urine 3+ (None Seen); Squamous Epithelial Cell Urine >20 /HPF (0-2); UACC Culture Trigger YES
== END 2024-02-27 07:31 | disposition home or self-care (01) ==
LOC: HO.HMGCLNP 07:30
PROVIDERS: PCP Nurse Practitioner Family; Visit Provider Nurse Practitioner Family
DX: R68.81 Early satiety (principal)
CPT/HCPCS: 81001; 87086; 87338

== ENCOUNTER 2024-02-28 07:43 | Outpatient (REF) | payer OTHER, SELFPAY ==
[2024-02-28 10:27] LABS: Appearance Urine Clear; Color Urine Yellow; Glucose Urine UA Negative (Negative); Leukocyte Esterase Urine Negative (Negative); Nitrite Urine Negative (Negative); PH 7.5 (5.0-9.0); Specific Gravity - Urine 1.015 (1.005-1.025); Urine Blood Negative (Negative); Urine Ketones Negative (Negative); Urine Protein Negative (Neg-Trace)
[2024-02-28 10:31] LABS: MANUAL DIFF FLAG NO
[2024-02-28 10:37] LABS: Basophils Absolute Auto 0.1 X10*3/uL (0.0-0.2); Basophils Percent Auto 1.5 % (0-2); Eosinophils Absolute Auto 0.7 X10*3/uL (0.0-0.4); Eosinophils Percent Auto 11.6 % (0-4); Hematocrit 38.4 % (37.0-47.0); Hemoglobin 12.4 g/dl (12.0-16.0); Imm Gran Abs Auto 0.01 X10*3/uL (0.00-0.03); Imm Gran Pct Auto 0.2 % (0.0-0.4); Lymphocytes Absolute Auto 2.5 X10*3/uL (1.2-4.9); Lymphocytes Percent Auto 42.2 % (20-40); Mean Corpuscular HGB Conc 32.3 g/dl (31.0-35.0); Mean Corpuscular Hemoglobin 28.8 pg (27.0-33.0); Mean Corpuscular Volume 89.3 fL (80.0-98.0); Mean Platelet Volume 9.8 fL (9.4-12.3); Monocytes Absolute Auto 0.6 X10*3/uL (0.1-1.2); Monocytes Percent Auto 9.7 % (2-11); Neutrophils Percent Auto 34.8 % (45-73); Platelet Count 399 X10*3/uL (160-400); Red Cell Distribution Width 13.9 % (11.0-16.0); White Blood Count 5.9 X10*3/uL (4.8-10.8)
[2024-02-28 11:02] LABS: Alanine Aminotransferase 27 U/L (0-31); Albumin Level 4.2 g/dL (3.5-5.0); Alkaline Phosphatase 30 U/L (39-117); Anion Gap 13 (12-20); Aspartate Amino Transferase 22 U/L (5-31); Bilirubin Total 0.2 mg/dL (0.0-1.0); Blood Urea Nitrogen 16 mg/dL (9-16); Calcium 9.5 mg/dL (8.4-10.2); Carbon Dioxide 24 mmol/L (22-29); Chloride 104 mmol/L (96-108); Cholesterol 138 mg/dL (<200); Estimated Glomerular Filt Rate > 60; Glucose Fasting 166 mg/dL (60-99); HDL Cholesterol 47 mg/dL (>40); LDL Cholesterol Calculated 83 mg/dL (<100); Sodium 137 mmol/L (135-145); Total Protein 6.9 g/dL (6.5-8.0); Triglycerides 42 mg/dL (<150)
[2024-02-28 11:08] LABS: TSH reflex Free T4 3.54 uIU/mL (0.32-4.0)
== END 2024-02-28 07:44 | disposition home or self-care (01) ==
LOC: HO.HMGCLDS 07:43
PROVIDERS: PCP Nurse Practitioner Family; Visit Provider Nurse Practitioner Family
DX: Z00.00 Encounter for general adult medical examination without abnormal findings (principal)
CPT/HCPCS: 36415; 80053; 80061; 81003; 84443; 85025

== ENCOUNTER 2024-03-04 07:42 | Outpatient (REF) | payer OTHER, SELFPAY ==
[2024-03-04 10:35] LABS: Magnesium 1.8 mg/dL (1.6-2.6)
[2024-03-04 11:13] LABS: Folate 3.7 ng/mL (> or = 4.0); Vitamin B12 633 pg/mL (200-900)
[2024-03-05 08:38] LABS: Ceruloplasmin 24 mg/dL (14-48)
[2024-03-08 17:13] LABS: Zinc 82 mcg/dL (60-130)
== END 2024-03-04 07:43 | disposition home or self-care (01) ==
LOC: HO.HMGCLDS 07:42
PROVIDERS: PCP Nurse Practitioner Family; Visit Provider Nurse Practitioner Family
DX: R74.8 Abnormal levels of other serum enzymes (principal)
CPT/HCPCS: 36415; 82390; 82607; 82746; 83735; 84630

== ENCOUNTER 2024-03-07 08:56 | Outpatient (REF) | payer OTHER, SELFPAY ==
[2024-03-07 09:20] LABS: MANUAL DIFF FLAG NO
[2024-03-07 09:37] LABS: Basophils Absolute Auto 0.1 X10*3/uL (0.0-0.2); Basophils Percent Auto 1.6 % (0-2); Eosinophils Absolute Auto 1.1 X10*3/uL (0.0-0.4); Eosinophils Percent Auto 16.4 % (0-4); Hematocrit 39.9 % (37.0-47.0); Hemoglobin 13.2 g/dl (12.0-16.0); Imm Gran Abs Auto 0.01 X10*3/uL (0.00-0.03); Imm Gran Pct Auto 0.2 % (0.0-0.4); Lymphocytes Absolute Auto 2.6 X10*3/uL (1.2-4.9); Lymphocytes Percent Auto 40.3 % (20-40); Mean Corpuscular HGB Conc 33.1 g/dl (31.0-35.0); Mean Corpuscular Hemoglobin 29.1 pg (27.0-33.0); Mean Corpuscular Volume 87.9 fL (80.0-98.0); Mean Platelet Volume 9.1 fL (9.4-12.3); Monocytes Absolute Auto 0.5 X10*3/uL (0.1-1.2); Monocytes Percent Auto 8.1 % (2-11); Neutrophils Absolute Auto 2.2 x10*3/uL (2.0-8.3); Neutrophils Percent Auto 33.4 % (45-73); Platelet Count 401 X10*3/uL (160-400); Red Blood Count 4.54 X10*6/uL (4.20-5.50); Red Cell Distribution Width 13.6 % (11.0-16.0); White Blood Count 6.4 X10*3/uL (4.8-10.8)
[2024-03-07 10:06] LABS: Alanine Aminotransferase 19 U/L (0-31); Albumin Level 4.4 g/dL (3.5-5.0); Alkaline Phosphatase 30 U/L (39-117); Amylase 50 U/L (28-100); Anion Gap 13 (12-20); Aspartate Amino Transferase 16 U/L (5-31); Bilirubin Total 0.4 mg/dL (0.0-1.0); Blood Urea Nitrogen 17 mg/dL (9-16); Calcium 9.3 mg/dL (8.4-10.2); Carbon Dioxide 27 mmol/L (22-29); Chloride 105 mmol/L (96-108); Estimated Glomerular Filt Rate > 60; Glucose Random 147 mg/dL (60-115); Lipase 16 U/L (8-78); Potassium 4.6 mmol/L (3.3-5.1); Sodium 140 mmol/L (135-145); Total Protein 7.1 g/dL (6.5-8.0)
[2024-03-07 10:34] LABS: HBS Num1 37.02 mIU/mL (0-7.99); HBc Num1 0.11 S/CO (0.00-0.79); HBsAGNum1 0.36 S/CO (0.00-0.99); Hepatitis A Antibody IgM 0.13 Index (0-0.79); Hepatitis B Core Antibody Nonreactive (Nonreactive); Hepatitis B Surface Antigen Negative (Negative); ~HepC Num1 0.12 S/CO (0.00-0.79); ~Hepatitis A Antibody IgM Nonreactive (Nonreactive); ~Hepatitis B Surface Antibody REACTIVE (Nonreactive); ~Hepatitis C Antibody Nonreactive (Nonreactive)
[2024-03-12 13:03] LABS: Mitochondrial Antibodies NEGATIVE (NEGATIVE)
[2024-03-14 12:28] LABS: Smooth Muscle Antibody <20 U (<20)
== END 2024-03-07 08:57 | disposition home or self-care (01) ==
LOC: HO.LAB 08:56
PROVIDERS: PCP Nurse Practitioner Family; Visit Provider Nurse Practitioner Family
DX: R10.13 Epigastric pain (principal); R68.81 Early satiety
CPT/HCPCS: 36415; 80053; 82150; 83690; 85025; 86015; 86381; 86704; 86706; 86709; 86803; 87340

== ENCOUNTER 2024-03-11 10:45 | Outpatient (AMB) | payer OTHER, SELFPAY ==
--- NOTE | 2024-03-11 10:51 | MHC.OFFVIS ---
Vital Signs 03/11/24 11:01 Height 5 ft 3 in Weight 161 lb 6.054 oz BMI 28.6 BP 112/62 Blood Pressure Location Lt brachial Position Sitting Pulse 77 Pulse Source Pulse Oximeter Pulse Oximetry (%) 96 Oxygen Delivery Method Room Air Intake Visit Reasons: Abnormal Lab result Intake Note: Patient presents for Abnormal lab results. Everyday feeling joint pain in my hips, knees, elbows and shoulders. I been feeling these symptoms for at least 1-2 years. Not taking any medication for it. Allergies azithromycin Allergy (Unknown, Verified 03/11/24 10:57) palpitations levofloxacin Allergy (Unknown, Verified 03/11/24 10:57) Hives Sulfa (Sulfonamide Antibiotics) Allergy (Unknown, Verified 03/11/24 10:57) Unknown ciprofloxacin [From Cipro] Adverse Reaction (Mild, Verified 03/11/24 10:57) Rash bactrium Adverse Reaction (Mild, Uncoded 02/26/24 10:28) Rash Medication List - Last Reconciled 03/11/24 by Angus Barnes MD albuterol sulfate 90 mcg/actuation 1 puff inhalation QID PRN atorvastatin 20 mg PO DAILY 90 days blood sugar diagnostic (FreeStyle Lite Strips) As directed blood-glucose meter As directed cetirizine 20 mg (2 x 10 mg) PO DAILY fluticasone propion-salmeterol 250-50 mcg/dose 1 ea inhalation BID insulin lispro (Humalog U-100 Insulin) 0 - 50 units subcut DAILY levothyroxine 50 mcg PO DAILY metformin 1,000 mg PO BID metoprolol tartrate 25 mg PO BID norethindrone (contraceptive) 0.35 mg PO DAILY omeprazole 20 mg PO DAILY 30 days HPI Comments Details: This is a 43-year-old female presents for evaluation of bilateral hip pain and stiffness. The condition started 1-2 years ago. She has pain on the outside of both hip as well as anteriorly. As well as stiffness. When she wakes up in the morning she has difficulty walking up straight, it takes her 10 minutes to straighten up, 30 minutes until her symptoms improve. Symptoms are worsened with activity. She does not take any medications for it. She stretches every day but she has done so for many years before the onset of her current symptoms. She denies any joint pain or swelling. Denies any rashes. She denies any history suggestive of uveitis or colitis. She had an endoscopy in the past and it showed hemorrhoids. She is unaware of any family history of an autoimmune rheumatic disease. Denies any history of DVT/PE [facility] Medical History PVC (premature ventricular contraction) Lichen sclerosus of vulva Facial cellulitis Diabetes type 1, controlled Family History Father Heart disease Mother No problems noted. Family/Other Thyroid disease Sister Jose Cruz thyroiditis Social History Housing: House Alcohol intake: former Patient Tobacco Use Status: Former Tobacco user Years Smoked: 6 years ago e-Cigarette/Vaping Use: Former Use Second Hand Smoke Exposure: No service: No Current occupational status: employed Current occupation: [employer] Current occupational exposures/hazards: No Cognitive needs: No Hearing needs: No Vision needs: No Female Reproductive History Menstrual Total pregnancies: 1 Number of Living Children: 0 Ab induced: 1 Ab spontaneous: 0 Review of Systems [facility] Reports arthralgias, Denies joint swelling and Reports stiffness Skin/Breast Denies rash Physical Exam Vital Signs: Last Vital Signs Pulse 77 03/11/24 11:01 BP 112/62 03/11/24 11:01 Pulse Ox 96 03/11/24 11:01 Oxygen Delivery Method Room Air 03/11/24 11:01 BMI result Body Mass Index 28.6 Const General: cooperative, healthy appearing and comfortable Nutritional Appearance: overweight Orientation/consciousness: patient oriented x3 Limitations: no limitations HEENT Head: Yes normocephalic and Yes atraumatic Mouth: moist mucous membranes Resp Effort & Inspection: normal respiratory effort and able to speak in complete sentences Auscultation: clear to auscultation bilaterally Skin General skin exam: no rashes or lesions noted Neuro General: patient oriented x3 Extrem Other: No active synovitis both hands, wrists Normal range of motion of shoulders Normal range of motion of elbows without pain Mild tenderness at the common extensor origin at the left elbow Negative empty can test, Speed's test and infraspinatus test bilaterally Negative straight leg raise test bilaterally Negative Fabere test bilaterally Emily test 10-15 cm Assessment & Plan Assessment & Plan (1) AMELIA positive: Code(s): R76.8 - Other specified abnormal immunological findings in serum Category: Medical Plan: This is a 43-year-old female who presents for evaluation of a positive AMELIA in the setting of multiple joint pain and stiffness. Upon evaluation I do not see any evidence suggestive of an autoimmune rheumatic disease. Patient reassured. Discussed symptoms and signs that are suggestive of an autoimmune rheumatic disease. Advised patient to return as needed Plan I spent 30 minutes reviewing patient's chart, evaluating patient, counseling patient and documenting in the chart Coding Level of Care Code New Pt Level 3 (98102) Diagnoses AMELIA positive R76.8
[2024-03-11 11:01] VITALS: BP 112/62; PULSE 77; O2SAT 96; BMI 28.6
== END 2024-03-11 11:25 | disposition home or self-care (01) ==
PROVIDERS: PCP Nurse Practitioner Family; Visit Provider Student in an Organized Health Care Education/Training Program
DX: R76.8 Other specified abnormal immunological findings in serum (principal)
CPT/HCPCS: 99203

== ENCOUNTER → 2024-03-11 10:45 | Outpatient (BNVA) | payer OTHER, SELFPAY | PROVIDERS: PCP Nurse Practitioner Family; Visit Provider Student in an Organized Health Care Education/Training Program ==

== ENCOUNTER 2025-01-07 09:01 | Outpatient (AMB) | payer OTHER, SELFPAY ==
--- NOTE | 2025-01-07 09:06 | MHC.PC.OV ---
Vital Signs 01/07/25 09:08 Height 5 ft 3 in Weight 145 lb BMI 25.7 BP 112/60 Blood Pressure Location Lt brachial Position Sitting Pulse 90 Pulse Source Pulse Oximeter Pulse Oximetry (%) 98 Oxygen Delivery Method Room Air Intake Visit Reasons: PE Internal Control Manager Required: No Accompanied by: Self / Same As Patient Allergies azithromycin Allergy (Unknown, Verified 01/07/25 10:01) palpitations levofloxacin Allergy (Unknown, Verified 01/07/25 10:01) Hives Sulfa (Sulfonamide Antibiotics) Allergy (Unknown, Verified 01/07/25 10:01) Unknown ciprofloxacin [From Cipro] Adverse Reaction (Mild, Verified 01/07/25 10:01) Rash bactrium Adverse Reaction (Mild, Uncoded 01/07/25 10:01) Rash Medication List - Last Reconciled 01/07/25 by Antwon Mendoza, [facility]- albuterol sulfate 90 mcg/actuation 1 puff inhalation QID PRN atorvastatin 20 mg PO DAILY 90 days blood sugar diagnostic (FreeStyle Lite Strips) As directed blood-glucose meter As directed cetirizine 20 mg (2 x 10 mg) PO DAILY fluticasone propion-salmeterol 250-50 mcg/dose 1 ea inhalation BID fluticasone propionate 50 mcg/actuation 2 sprays intranasal BID 90 days insulin lispro (Humalog U-100 Insulin) 0 - 50 units subcut DAILY levothyroxine 50 mcg PO DAILY metformin ER 1,000 mg PO BID metoprolol tartrate 50 mg PO BID tirzepatide (weight loss) (Zepbound) 2.5 mg subcut QWEEK Tobacco use date assessed: 01/07/25 Dental Screening Dental Screen Date: 01/07/25 Did you have a dental visit in the last 12 months?: Yes Did you have a dental problem in the last 6 months where you did not have access to dental care?: No Was dental information given to patient?: Patient has dentist HPI PE HPI Details History of Present Illness The patient is a 44-year-old female presenting with an annual physical examination. She has Type 2 Diabetes Mellitus and is followed by an milk house worker. Her diabetes management details, including current medications or control status, are not provided. She maintains regular follow-up care with a real estate leasing agent and confirms that her Pap smears are up to date. She is also followed by a applications administrator. She reports that her mammogram is up to date with the next due in January, reflecting adherence to breast cancer screening protocols. She denies any acute symptoms such as fever, chills, blurred vision, chest pain, shortness of breath, gastrointestinal disturbances, or psychiatric issues at present. The physical exam was benign, and laboratory tests are pending for a more comprehensive health evaluation. NOTE: on a glp-1, will get a lipase Health Maintenance - Pap smears are current. - Mammogram is up to date, with the next one scheduled for January. - Managed by milk house worker for Type 2 Diabetes Mellitus. - Under care of a applications administrator. Social History Review of Systems - General: Denies fever, chills. - Eyes: Denies blurred vision. - Cardiovascular: Denies chest pain, shortness of breath. - Gastrointestinal: Denies blood in stool, constipation, diarrhea. - Psychiatric: Denies suicidal ideation, homicidal ideation. Physical Exam General: Cooperative, healthy appearing, comfortable, no acute distress and well developed Orientation: Patient oriented x3 Limitations: No limitations Head: Normal to inspection Ears: Hearing grossly normal bilaterally Nose: Normal external nose present Face and sinus: Normal facial exam Eyes: Appearance normal, both eyes and all related structures Neck: Normal visual inspection and Yes full ROM Respiratory: Normal respiratory effort and able to speak in complete sentences. Clear to auscultation bilaterally Cardiovascular: Regular rate and rhythm. Normal S1 and S2 GI: Normal to inspection. Soft to palpation and nontender Skin: No rashes or lesions noted Neuro: Patient oriented x3 Extremities: Normal to inspection Results Plan The patient will continue under the management of her milk house worker for Type 2 Diabetes Mellitus, with attention paid to maintaining glycemic control. She is advised to adhere to regular screening protocols, including Pap smears and mammograms, with the next mammogram scheduled for January. We await the results of laboratory evaluations to guide any further interventions. Cooperation with her applications administrator is advised. No acute issues have arisen that require immediate intervention, and the patient's health status appears stable. Discussion Notes I discussed with the patient the importance of maintaining her diabetes management with her milk house worker and the need to adhere to scheduled screenings, such as her upcoming mammogram and regular Pap smears. We reviewed her current status, noting no acute concerns today, and will follow up on laboratory results for a comprehensive health status update. The importance of coordination with her applications administrator was highlighted to ensure all health aspects are effectively managed. No changes to her current health regimen were needed based on today?s findings. Patient Instructions - Continue management for diabetes with your milk house worker. - Keep your next mammogram appointment in January. - Stay updated with Pap smears and other routine screenings. - Follow up with your applications administrator as needed. - Monitor for any new symptoms and report them promptly. [facility] Medical History Perineal pain in female Palpitations Hyperlipidemia PVC (premature ventricular contraction) Lichen sclerosus of vulva Facial cellulitis Diabetes type 1, controlled Surgical History No pertinent past surgical history Family History Father Heart disease Mother No problems noted. Family/Other Thyroid disease Sister Jose Cruz thyroiditis Social History Housing: House Alcohol intake: former Patient Tobacco Use Status: Former Tobacco user Years Smoked: 6 years ago e-Cigarette/Vaping Use: Former Use Second Hand Smoke Exposure: No service: No Current occupational status: employed Current occupation: [employer] Current occupational exposures/hazards: No Cognitive needs: No Hearing needs: No Vision needs: Yes Questionnaire PHQ-9 Over the last 2 weeks, how often have you been bothered by any of the following problems? 1. Little interest or pleasure in doing things: not at all 2. Feeling down, depressed, or hopeless: not at all 3. Trouble falling or staying asleep, or sleeping too much: not at all 4. Feeling tired or having little energy: not at all 5. Poor appetite or overeating: not at all 6. Feeling bad about yourself - or that you are a failure or have let yourself or your family down: not at all 7. Trouble concentrating on things, such as reading the newspaper or watching television: not at all 8. Moving or speaking so slowly that other people could have noticed. Or the opposite - being so fidgety or restless that you have been moving around a lot more than usual: not at all 9. Thoughts that you would be better off or of hurting yourself in some way: not at all Total score: 0 Depression Screening Interpretation: Negative Depression Screening Done: Yes 98348 - PHQ-9 Billing: Yes Source: Developed by Drs. Luis Fuller, Corrie Pacheco, Fab Miller and colleagues, with an educational darlin from [employer]. Thrive Questionnaire Date Thrive assessed: 01/07/25 I am a: Patient What is your living situation today?: I have a steady place to live Within the past 12 months, did the food you bought not last and you didn't have the money to get more?: Never true Within the past 12 months, did you worry whether your food would run out before you got money to buy more?: Never true Do you have trouble paying for medicines?: No Do you have trouble getting transportation to medical appointments?: No Do you have trouble paying your heating and electricity bill?: No Do you have trouble taking care of your child, family member or friend?: No Do you have trouble with day-to-day activities such as bathing, preparing meals, shopping, managing finances, etc.?: No Are you currently unemployed and looking for a job?: No Are you interested in more education?: No Please select the resources that you would like help with: None Currently or been in a relationship where the following occur: No concerns reported THRIVE Score: 0 AUDIT C Alcohol Use Questionnaire (AUDIT-C) 1. How often do you have a drink containing alcohol?: Never 3. How often do you have six or more drinks on one occasion?: Never Total Score: 0 Score Reviewed/Action Taken: Yes KATHYA-7 AMB Questionnaire KATHYA-7 Date KATHYA - 7 assessed: 01/07/25 Feeling nervous, anxious, or on edge: 0 = Not at all Not being able to stop or control worryin = Not at all Worrying too much about different things: 0 = Not at all Trouble relaxin = Not at all Being so restless that it is hard to sit still: 0 = Not at all Becoming easily annoyed or irritable: 0 = Not at all Feeling afraid as if something awful might happen: 0 = Not at all Total KATHYA-7 score (0-4 normal; 5-9 mild; 10-14 moderate; 15-21 severe): 0 Source: Developed by Drs. Luis Fuller, Corrie Pacheco, Fab Miller and colleagues, with an educational darlin from [employer]. KATHYA-7 Assessment Billing KATHYA-7 Assessment Tool: KATHYA-7 Assessment 56016 Physical exam (Primary Care) Vital Signs: Last Vital Signs Pulse 90 01/07/25 09:08 BP 112/60 01/07/25 09:08 Pulse Ox 98 01/07/25 09:08 Oxygen Delivery Method Room Air 01/07/25 09:08 BMI result Body Mass Index 25.7 Tobacco/Smoking Status: Tobacco use Status Tobacco use date assessed 01/07/25 01/07/25 09:14 Patient Tobacco Use Status Former Tobacco user 01/07/25 09:14 e-Cigarette/Vaping Use Former Use 01/07/25 09:14 PHQ-9: PHQ-9 Score PHQ-9: Total score 0 01/07/25 09:14 Depression Screening Interpretation: Negative Thrive Assessment: Date of Thrive Assessment Date Thrive assessed 01/07/25 01/07/25 09:14 Currently or been in a relationship where the following occur: No concerns reported Coding Level of Care Code Est Pt Prev Care 40-64y(56362) Diagnoses Physical exam Z. Additional Codes KATHYA-7 Assessment Billing - KATHYA-7 Assessment Tool: KATHYA-7 Assessment 42998 ([id number]) PHQ-9 - 78603 - PHQ-9 Billing: Yes ([id number]) Assessment & Plan Assessment & Plan (1) Physical exam: Code(s): Z00. - Encounter for general adult medical examination without abnormal findings Category: Medical Plan . Orders: Orders Complete Blood Count Auto Diff Today Z00.00 - Encounter for general adult medical examination without abnormal findings TSH reflex Free T4 Today Z00.00 - Encounter for general adult medical examination without abnormal findings UA CC w/rflx Micro + Cult Today Z00.00 - Encounter for general adult medical examination without abnormal findings Comprehensive Olive. Panel Fast Today Z00.00 - Encounter for general adult medical examination without abnormal findings Lipid Panel Today Z00.00 - Encounter for general adult medical examination without abnormal findings Lipase Today Z00.00 - Encounter for general adult medical examination without abnormal findings
[2025-01-07 09:08] VITALS: BP 112/60; PULSE 90; O2SAT 98; BMI 25.7
--- OUTSIDE RECORDS SUMMARY | 2025-01-07 09:40 | XMS_ITS | Clinical Summary ---
Author Organization [address] [place] [address] [place] [phone] Phone Care Team Providers Care Photogrammetrist Name Role Phone nAtwon Mendoza NP Primary Care Provider Allergies Active Allergy Reactions Criticality Noted Date Comments Azithromycin 08/26/2019 Heart Palpitations Ciprofloxacin-Hydrocortiso ne Rash 08/25/2017 Hives on course and does not recall when Other 08/04/2016 Bactrim [Na Benzoate-sulfamethoxazole- trimethoprim Hives at age 13 or 14 Penicillins 08/26/2019 Medications cetirizine (ZyrTEC) 10 mg tablet Take 1 tablet (10 mg total) by mouth 1 (one) time each day. Active atorvastatin (LIPITOR) 20 mg tablet Take 1 tablet (20 mg total) by mouth at bedtime. Active levothyroxine (SYNTHROID, LEVOTHROID) 50 mcg tablet Take 1 tablet (50 mcg total) by mouth 1 (one) time each day before breakfast. Active blood-glucose meter,continuo us (Dexcom G6 Repair Welder) misc 1 Device by Does not apply route daily. Active fluticasone propionate (FLONASE) 50 mcg/actuation nasal spray 2 Sprays by Nasal route daily. Active insulin lispro (HumaLOG KwikPen Insulin) 100 unit/mL injection pen Inject three times a day with meals per scale: if BS 100-150: 1 units; 151-200: 2 units; 201-250: 3 units; 251-300: 4 units; 301-350: 5 units; 351-400: 6 units Active metFORMIN (GLUCOPHAGE) 1,000 mg tablet Take 1 Tablet by mouth 2 times daily (with meals). Active insulin lispro (HumaLOG) 100 UNIT/ML patient supplied pump 1 EA by continuous sub-Q infusn (via wearable injector) route continuously. Active metoprolol tartrate (LOPRESSOR) 50 mg tablet Take 1.5 tablets (75 mg total) by mouth 2 (two) times a day. 90 each 11 12/28/19 25 026 Active propranolol LA (INDERAL LA) 60 mg 24 hr capsule Take 1 capsule (60 mg total) by mouth 1 (one) time each day. Do not crush, chew, or split. 30 capsule 5 10/09/19 25 025 Discontinued metoprolol tartrate (LOPRESSOR) 50 mg tablet Take 1 tablet (50 mg total) by mouth 2 (two) times a day. 180 each 1 12/10/19 25 025 Discontinued(Do se adjustment) Active Problems Problem Noted Date Diagnosed Date Seasonal allergies 09/20/2024 Hyperlipidemia 12/13/2023 Overview (09/20/2024): Last Assessment & Plan: Agree with atorvastatin 20 mg for primary prevention especially in the setting of type 1 diabetes. Assessment & Plan (10/01/2024 8:21 AM EST): Educated the patient on a heart healthy diet. Most recent LDL cholesterol was at 105. Ideally would like this under 100, closer to 70. Can redraw lipid panel in 6 months and titrate up atorvastatin if needed. Dysautonomia (CMS/HCC V24, CMS/HCC V28) 12/13/19 24 Overview (09/20/2024): - See recent Holter monitor under PVC section - During cardiology visit in November 2023-she describes symptoms of postural severe racing heart sensation associated at times with lightheadedness and shortness of breath - Around that time or several months prior she was diagnosed with new onset type 1 diabetes as well as hypothyroidism Last Assessment & Plan: Given multiple autoimmune phenomenon going on here, I have to wonder if this is playing a role in causing dysautonomic symptoms. Postural vital signs were negative for anything specific such as vasovagal phenomenon or POTS but she is also currently on metoprolol which could blunt results. Her symptoms do sound autonomic in nature. I have reached out to her damascener to see if she has any thoughts. Consider rheumatologic referral for further workup of autoimmune phenomenon. There is nothing obvious on exam or history to suggest diagnoses such as lupus or rheumatoid arthritis. We reviewed continuing her exercise routine as she is doing but try to focus more on core and leg strengthening exercises. Also recommended slow postural changes, consideration of compression socks or stockings especially when she knows she is going to be on her feet for a long time, increasing salt intake-ideally 3 to 4 g a day and a healthy form. My hope is that with these interventions the symptoms will improve. High-tone pelvic floor dysfunction 05/13/2023 Overview (09/20/2024): Last Assessment & Plan: While awaiting her visit with Dr. Mar, I encouraged her to schedule PT to follow. This may take several weeks to get in and thus, I placed the referral today. She was informed that she should hear back in 1-2 weeks with an appointment date. If not, she should call back to our office and inquire on getting this arranged. She voiced understanding and agreed. 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 Could be related to her diabetes. In any case, I suggsted we consider switching to Aygestin to use continuesly to suppress menses which seem to make sx worse. I also recommended we consider a topical steroid in [place] as she feels it is an inflammatory process. I will discuss with WIP. I explained that testosterone topically has not been shown in studies to be beneficial for vulvodynia, but she was very interested in trying anything. I offered to discuss with colleagues and WIP to see what we can do, but she will need to choose one or there other topical so we will know what is helping. She agreed and desires the T/E combination. I also suggested that she see Dr. Mar again to see if there is a different block or stimulator that can help. She was in agreement. Yeast vaginitis 02/28/2023 Overview (09/20/2024): Last Assessment & Plan: Will treat presumptively for yeast and send culture to ensure usual type yeast. I explained that there is no evidence of dangerous interaction between Macrobid and fluconazole. I confirmed this with the hospital pharmacist. She will take both to treat her UTI and yeast vaginitis, respectively. Vaginal pain 02/08/2023 Overview (09/20/2024): Last Assessment & Plan: I counseled Michelle that the cause of her vaginal pain is not clear at this time. I agree that her exam is not consistent with lichen sclerosus. I would like to see the re-read of her biopsy when it is available. Her pH is normal as is exam, suggesting against DIV, lichen planus, and atrophy as cause of her symptoms. I explained that, particularly in light of her diabetes, it is possible that she has had non- albicans yeast, which does not respond to usual azoles. I have sent a culture for both speciation and sensitivity, although I explained that albicans resistance to usual medications is uncommon. I do not see any evidence of an infection or reaction to newer diabetes medications. We will discuss results when available and treat prn. In the meantime, I strongly encouraged her to follow VSC guidelines, which she is essentially already doing, but to add soda soaks and seal with coconut oil or Vaseline BID. Hold all other topical meds at this time. She voiced understanding and agreed. PVC (premature ventricular contraction) 09/10/19 Overview (09/20/2024): - Also follows with electrophysiology-has had an overall low burden even when she was very symptomatic so ablation was likely not going to be an option for her - Has been intolerant to acebutolol, flecainide, verapamil, Inderal but recently has been able to tolerate metoprolol succinate - Holter monitor most recently in November 2023 showing sinus rhythm, no APCs, 1 PVC, no pauses, symptoms of palpitations, shortness of breath, and exercise correlated to sinus rhythm and sinus tachycardia up to 129 bpm Last Assessment & Plan: Symptoms under good control on current dose of Toprol XL 37.5 twice daily- continue this. Assessment & Plan (10/01/2024 8:21 AM EST): 0% burden on recent Holter monitor. Continue on current medication regimen. 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 Asthma 01/18/2018 Internal hemorrhoid 05/01/2017 Overview (09/20/2024): Cnsp 05/01/2017 Panic disorder 12/29/2016 Anxiety 12/29/2016 Encounters Date Type Department Care Team Description 12/19/2024 Telephone [facility] [address] [facility] [address] [place] [address] Jennie Adams MD Reschedule from Last 3 Months Immunizations Name Administration Dates Next Due Hepatitis B (Fjofnhn-Q-Sskgd , Recombivax HB-Adult) 19yo and older 01/21/2016 Influenza Quadravalent, MDCK , 0.5ml, preservative free (Flucelvax) 6mo and older 08/01/2018 MMR, measles mumps and rubel la Live (Priorix; M-M-R II) 12mo and older 01/21/2016 Surgical History Surgery Date Site/Laterality Comments VAGINOSCOPY 2016 PROCEDURE: CA COLPOSCOPY CERVIX BX CERVIX & ENDOCRV CURRETAGE; COMMENT: negative COLONOSCOPY 05/01/2017 PROCEDURE: HISTORICAL COLONOSCOPY; COMMENT: hemorrhoids Medical History Medical History Date Comments Abnormal Pap smear of cervix DX: Abnormal Pap smear of cervix Anxiety 12/29/2016 DX:Anxiety Panic disorder 12/29/2016 DX:Panic disorde r Seasonal allergies DX:Seasonal a llergies; COMMENT: s/p allergy testing, also with frontal headaches secondary to allergies Internal hemorrhoid 05/01/2017 DX:Internal hemorrhoid; COMMENT: Cnsp 05/01/2017 Acne vulgaris 06/26/2019 DX:Acne vulgaris Chronic rhinitis 05/21/2018 DX:Chronic rhin itis 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 Per pt stable and related to her menses. Chronic sinusitis 08/26/2019 DX:Chronic sin usitis; COMMENT: 2018 x 2, 2018, 2016 x 2 Recurrent UTI 08/26/2019 DX:Recurrent UTI ; COMMENT: 2019, & 2018 Asthma 01/18/2018 DX:Asthma History of cellulitis 05/05/2020 DX:History of cellulitis; COMMENT: Facial, 07/25/2017 Migraines 05/05/2020 DX:Migraines; CO MMENT: occular Esophageal reflux DX:Esophageal reflux Diabetes mellitus type 2, co ntrolled, with complications (CMS/HCC V24, CMS/HCC V28) DX:Diabetes mellitus type 2, controlled, with complications ([facility]) Hyperlipidemia 12/13/2023 DX:Hyperlipidemi a Early satiety DX:Early satiety Epigastric pain DX:Epigastric pa in Family History Medical History Relation Name Comments CABG Father Coronary artery disease Father Heart attack Father Diabetes Maternal Grandmother Other cancer Mother Hypertension Breast cancer Neg Hx Colon cancer Neg Hx Ovarian cancer Neg Hx Pancreatic cancer Neg Hx Uterine cancer Neg Hx Relation Name Status Comments Father Maternal Grandmother Mother Alive Social History Tobacco Use Types Packs/Day Years Used Date Smoking Tobacco: Former Cigarettes 0.3 14.4 0 1999 - 02/10/2014 Smokeless Tobacco: Never Alcohol Use Standard Drinks/Week Comments No 0 (1 standard drink = 0.6 oz pur e alcohol) Comments Unknown Sex and Gender Information Value Date Recorded Sex Assigned at Not on file Legal Sex Female 5:36 PM EST Gender Identity Not on file Sexual Orientation Not on file Obstetrics History Last Filed Vital Signs Vital Sign Reading Time Taken Comments Blood Pressure 118/72 10/01/2024 7:44 AM EST Pulse 86 10/01/2024 7:44 AM EST Temperature - - Respiratory Rate - - Oxygen Saturation 97% 10/01/2024 7:44 AM EST Inhaled Oxygen Concentration - - Weight 74.8 kg (164 lb 12.8 oz) 10/01/2024 7:44 AM EST Height 160 cm (5' 3 ) 10/01/2024 7:44 AM EST Body Mass Index 29.19 10/01/2024 7:44 AM EST Plan of Treatment Upcoming Encounters Date Type Department Care Team (Late st Contact Info) Description 04/25/2025 10:50 AM EDT Office Visit [facility] - [facility] [address] [facility] [address] [place] [address] Jennie Adams MD [address] [place] [address] Health Maintenance Due Date Last Done Comments Breast Cancer Screening 1982 Diabetes: Annual Foot Exam 1992 Diabetes: Annual Retina Eye Exam 1992 Cervical Cancer Screening: Pap Smear 2003 Pneumococcal Vaccine: Pediatrics (0 to 5 Years) and At-Risk Patients (6 to 64 Years) (2 of 2 - PCV) 01/09/2016 01/08/2015 Hepatitis B Vaccines (2 of 3 - 19+ 3-dose series) 02/18/2016 01/21/2016 DTaP,Tdap,and Td Vaccines (2 - Td or Tdap) 04/06/2021 04/06/2011 Depression Screening 07/05/2022 HIV Screening 07/05/2022 Social Influencers of Health Screening 07/05/2022 Diabetes: Annual Urine Albumin-Creatinine Ratio (uACR) 07/13/2022 12/17/2019 Diabetes: Blood Sugar Control Test (HGBA1C) 07/13/2022 11/30/2020 COVID-19 Vaccine ( season) 2024 09/29/2020, 09/08/2020 Diabetes: Annual GFR (Glomerular Filtration Rate) 05/26/2024 05/26/2023 Influenza Vaccine (Season Ended) 2025 06/04/2022, 08/01/2018, 05/28/2013, Additional history exists Cholesterol Screening (Lipid Panel) 03/18/2029 03/18/2024, 03/18/2024 MMR Vaccines Aged Out 01/21/2016 No longer eligi ble based on patient's age to complete this topic Hepatitis C Screening Completed 07/26/2018 HIB Vaccines Aged Out No longer eligi ble based on patient's age to complete this topic HPV Vaccines Aged Out No longer eligi ble based on patient's age to complete this topic Hepatitis A Vaccines Aged Out No long er eligible based on patient's age to complete this topic IPV Vaccines Aged Out No longer eligi ble based on patient's age to complete this topic Meningococcal ACWY Vaccine Aged Out N o longer eligible based on patient's age to complete this topic Meningococcal B Vaccine Aged Out No l onger eligible based on patient's age to complete this topic RSV Immunization Patients Under 20 months Aged Out No longer eligible based on patient's age to complete this topic Varicella Vaccines Aged Out No longer eligible based on patient's age to complete this topic Procedures Procedure Name Priority Date/Time Associated Diagnosis Comments LIPID PANEL Routine 03/18/2024 ANNUAL BMP BLOOD TEST Routine 05/26/2023 HEMOGLOBIN A1C Routine 11/30/2020 URINE ALBUMIN CREATININE RATIO Routine 12/17/2019 HEPATITIS C SCREENING Routine 07/26/2018 from Last 3 Months or Most Recently Relevant to Health Maintenance Results * (ABNORMAL) Lipid panel (03/18/2024) Pathologist [facility] LDL/HDL Ratio 4 0 - 4 Triglycerides 72 0 - 150 mg/dL Cholesterol 163 0 - 200 mg/dL HDL 44 >=40 mg/dL LDL Cholesterol 105(A) 0 - 100 mg/dL Blood Venous blood specimen / Unknown Historical Provider LAB BLOOD ORDERABLES Gillian l Result * Annual BMP Blood Test (05/26/2023) Pathologist [facility] Annual BMP Blood Test abstracted Historical Provider HEALTH MAINTENANCE Final Result * (ABNORMAL) Hemoglobin A1c (11/30/2020) [facility] Hemoglobin A1C 6.7(A) <=6.5 % Blood Venous blood specimen / Unknown Result [facility] Provider LAB BLOOD ORDERABLES Gillian l Result * Urine Albumin Creatinine Ratio (12/17/2019) Pathologist [facility] Urine Albumin Creatinine Ratio abstracted Result [facility] Provider HEALTH MAINTENANCE Final Result * Hepatitis C Screening (07/26/2018) [facility] Hepatitis C Screening abstracted Result [facility] Provider HEALTH MAINTENANCE Final Result from Last 3 Months or Most Recently Relevant to Health Maintenance [place] [phone] [facility] Care Teams Photogrammetrist Relationship Specialty Start Date End Date Antwon Mendoza NP [address] [facility] [place] PCP - General 07/06/23
== END 2025-01-07 10:15 | disposition home or self-care (01) ==
LOC: HO.HMCC 09:02
PROVIDERS: PCP Nurse Practitioner Family; Visit Provider Nurse Practitioner Family
DX: Z00.00 Encounter for general adult medical examination without abnormal findings (principal)

== ENCOUNTER 2025-01-07 09:01 | Outpatient (REF) | payer OTHER, SELFPAY ==
[2025-01-07 13:23] LABS: Appearance Urine Clear; Color Urine Yellow; Glucose Urine UA Negative (Negative); Leukocyte Esterase Urine Trace (Negative); Nitrite Urine Negative (Negative); PH 5.5 (5.0-9.0); UMIC TRIGGER UACC YES; Urine Blood Large (3+) (Negative); Urine Ketones Negative (Negative); Urine Protein Negative (Neg-Trace)
[2025-01-07 13:26] LABS: MANUAL DIFF FLAG NO
[2025-01-07 13:28] LABS: Bacteria Urine None Seen (None Seen); Hyaline Casts Urine 0-2 /LPF (0-2); WBC Urine 0-5 /HPF (0-5)
[2025-01-07 13:36] LABS: Basophils Absolute Auto 0.1 X10*3/uL (0.0-0.2); Basophils Percent Auto 0.9 % (0-2); Eosinophils Absolute Auto 0.1 X10*3/uL (0.0-0.4); Hematocrit 39.6 % (37.0-47.0); Imm Gran Abs Auto 0.01 X10*3/uL (0.00-0.03); Imm Gran Pct Auto 0.2 % (0.0-0.4); Lymphocytes Absolute Auto 2.4 X10*3/uL (1.2-4.9); Lymphocytes Percent Auto 36.2 % (20-40); Mean Corpuscular HGB Conc 32.8 g/dl (31.0-35.0); Mean Corpuscular Hemoglobin 28.6 pg (27.0-33.0); Mean Platelet Volume 9.6 fL (9.4-12.3); Monocytes Absolute Auto 0.5 X10*3/uL (0.1-1.2); Monocytes Percent Auto 8.1 % (2-11); Neutrophils Absolute Auto 3.5 x10*3/uL (2.0-8.3); Neutrophils Percent Auto 52.6 % (45-73); Platelet Count 400 X10*3/uL (160-400); Red Blood Count 4.55 X10*6/uL (4.20-5.50); White Blood Count 6.7 X10*3/uL (4.8-10.8)
[2025-01-07 13:56] LABS: Alanine Aminotransferase 19 U/L (0-31); Albumin Level 4.9 g/dL (3.5-5.0); Alkaline Phosphatase 37 U/L (39-117); Anion Gap 13 (12-20); Aspartate Amino Transferase 20 U/L (5-31); Bilirubin Total 0.5 mg/dL (0.0-1.0); Blood Urea Nitrogen 8 mg/dL (9-16); Calcium 9.4 mg/dL (8.4-10.2); Carbon Dioxide 25 mmol/L (22-29); Chloride 106 mmol/L (96-108); Cholesterol 118 mg/dL (<200); Estimated Glomerular Filt Rate > 60; Glucose Fasting 148 mg/dL (60-99); HDL Cholesterol 41 mg/dL (>40); LDL Cholesterol Calculated 64 mg/dL (<100); Lipase 12 U/L (8-78); Potassium 4.2 mmol/L (3.3-5.1); Sodium 140 mmol/L (135-145); Total Protein 7.3 g/dL (6.5-8.0); Triglycerides 65 mg/dL (<150)
[2025-01-07 14:17] LABS: TSH reflex Free T4 1.65 uIU/mL (0.32-4.0)
== END 2025-01-07 09:02 | disposition home or self-care (01) ==
LOC: HO.HMGCLDS 09:01
PROVIDERS: PCP Nurse Practitioner Family; Visit Provider Nurse Practitioner Family
DX: Z00.00 Encounter for general adult medical examination without abnormal findings (principal); E10.9 Type 1 diabetes mellitus without complications
CPT/HCPCS: 36415; 80053; 80061; 81001; 83690; 84443; 85025; 96127

== ENCOUNTER 2025-01-13 07:53 | Outpatient (AMB) | payer OTHER, SELFPAY ==
--- OUTSIDE RECORDS SUMMARY | 2025-01-13 07:57 | XMS_ITS | Clinical Summary ---
Author Organization [address] [place] [address] [place] [phone] Phone Care Team Providers Care Plant Science Professor Name Role Phone Antwon Mendoza NP Primary Care Provider Allergies Active [...] breakfast. Active blood-glucose meter,continuo us (Dexcom G6 Primer Boxer) misc 1 Device by Does not apply [...] (two) times a day. 90 each 11 5 12/28/19 26 Active metoprolol tartrate (LOPRESSOR) 50 mg tablet Take 1 tablet (50 mg total) by mouth 2 (two) times a day. 180 each 5 12/28/19 25 Discontinu ed(Dose adjustment ) Active Problems Problem Noted Date Diagnosed Date [...] nature. I have reached out to her cook chef to see if she has any thoughts. 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 Asthma 01/18/2018 Internal hemorrhoid 05/01/2017 Overview (09/20/2024): Cnsp 05/01/2017 Panic disorder 12/29/2016 Anxiety 12/29/2016 Encounters Date Type Department Care Team Description 12/19/2024 Telephone [facility] - [facility] [address] [facility] [address] [place] [address] Jennie Adams MD Reschedule from Last 3 Months Immunizations Name Administration Dates Next Due Hepatitis B (Vdinqpj-L-Wurwy , Recombivax HB-Adult) 19yo and older 01/21/2016 Influenza Quadravalent, MDCK , 0.5ml, preservative free (Flucelvax) 6mo and older 08/01/2018 MMR, measles mumps and rubel la Live (Priorix; M-M-R II) 12mo and older 01/21/2016 Surgical History Surgery Date Site/Laterality Comments VAGINOSCOPY 2016 PROCEDURE: [place] COLPOSCOPY CERVIX BX CERVIX & ENDOCRV CURRETAGE; [...] Chronic sinusitis 08/26/2019 DX:Chronic sin usitis; COMMENT: 2019 x 2, 2018, 2017 x 2 Recurrent UTI 08/26/2019 DX:Recurrent UTI ; COMMENT: 2019, & 2018 Asthma 01/18/2018 DX:Asthma History of cellulitis 05/05/2020 DX:History of cellulitis; COMMENT: Facial, 07/25/2017 Migraines 05/05/2020 DX:Migraines; CO MMENT: occular Esophageal reflux DX:Esophageal reflux Diabetes mellitus type 2, co ntrolled, with complications (CMS/HCC V24, CMS/HCC V28) DX:Diabetes mellitus type 2, controlled, with complications (HCC) Hyperlipidemia 12/13/2023 DX:Hyperlipidemi a Early satiety DX:Early [...] Description 04/25/2025 10:50 AM EDT Office Visit [facility] - [facility] [address] [facility] [address] [place] [address] Jennie Adams MD [address] [place] [address] Health Maintenance Due Date Last Done Comments [...] Results * (ABNORMAL) Lipid panel (03/18/2024) Pathologist [facility] LDL/HDL Ratio 4 0 - 4 Triglycerides 72 0 - 150 mg/dL Cholesterol 163 0 - 200 mg/dL HDL 44 >=40 mg/dL LDL Cholesterol 105(A) 0 - 100 mg/dL Blood Venous blood specimen / Unknown us Historical Provider LAB BLOOD ORDERABLES Gillian l Result * Annual BMP Blood Test (05/26/2023) [facility] Annual BMP Blood Test abstracted us Historical Provider HEALTH MAINTENANCE Final Result * (ABNORMAL) Hemoglobin A1c (11/30/2020) Pathologist [facility] Hemoglobin A1C 6.7(A) <=6.5 % Blood Venous blood specimen / Unknown Historical Provider LAB BLOOD ORDERABLES Gillian l Result * Urine Albumin Creatinine Ratio (12/17/2019) Urine Albumin Creatinine Ratio abstracted Historical Provider HEALTH MAINTENANCE Final Result * Hepatitis C Screening (07/26/2018) Hepatitis C Screening abstracted Historical Provider HEALTH MAINTENANCE Final Result from Last 3 Months or Most Recently Relevant to Health Maintenance Insurance [facility] Care Teams Plant Science Professor Relationship Specialty Start Date End Date Antwon Mendoza NP [address] [facility] [place] PCP - General 07/06/23
--- NOTE | 2025-01-13 07:58 | A.OFFVIS_ITS ---
Vital Signs 01/13/25 08:00 Height 5 ft 3 in Weight 143 lb BMI 25.3 Pulse 94 Pulse Source Pulse Oximeter Pulse Oximetry (%) 97 Oxygen Delivery Method Room Air Intake Visit Reasons: Follow up Intake Note: Patient experiencing forgetfulness mid sentence, dizziness, tired all the time cant keep eyes open. weakness legs and arms. Allergies azithromycin Allergy (Unknown, Verified 01/13/25 08:03) palpitations levofloxacin Allergy (Unknown, Verified 01/13/25 08:03) Hives Sulfa (Sulfonamide Antibiotics) Allergy (Unknown, Verified 01/13/25 08:03) Unknown ciprofloxacin [From Cipro] Adverse Reaction (Mild, Verified 01/13/25 08:03) Rash bactrium Adverse Reaction (Mild, Uncoded 01/13/25 08:03) Rash Medication List - Last Reconciled 01/13/25 by Cyndi Dawn MD albuterol sulfate 90 mcg/actuation 1 puff inhalation QID PRN atorvastatin 20 mg PO DAILY 90 days blood sugar diagnostic (FreeStyle Lite Strips) As directed blood-glucose meter As directed cetirizine 20 mg (2 x 10 mg) PO DAILY fluticasone propion-salmeterol 250-50 mcg/dose 1 ea inhalation BID fluticasone propionate 50 mcg/actuation 2 sprays intranasal BID 90 days insulin lispro (Humalog U-100 Insulin) 0 - 50 units subcut DAILY levothyroxine 50 mcg PO DAILY metformin ER 1,000 mg PO BID metoprolol tartrate 50 mg PO BID tirzepatide (weight loss) (Zepbound) 2.5 mg subcut QWEEK HPI Comments Details: 44y/o female comes for evaluation of cognitive issues, discomfort in LE and some in UE at night -feels like all her muscles are tensing and twitching at rest only at night, daily headaches - pressure in her forehead, dizziness. Cognitive issues- started 2 mths ago and has been worsening- forgets in mid sentence while talking , forgets conversations,absent minded, misplacing things.It usually happens when she is stressed No head injury , no depression , no anxiety , sleep is good. no h/o ADD or learning disability. LE > UE discomfort- describes as abnormal sensations, feels her legs are restless, feels the need to stretch her legs . starts at 8 pm. Occasional she has trouble falling asleep. .No leg spasms that wake her up. Headaches- 2 years ago was seen for migraines. Now has daily frontal parietal headaches -sometimes extends to upper jaw- dull pressure , does not need meds.It is usually in the mornings . she has neck stiffness and pain . No nausea, vomiting light or noise sensitivity. No blurred vision. she also describes a electric shock like sensation in her head lasting 2 seconds every 2 days . [facility] Medical History (Updated 01/13/25 @ 08:47 by Cyndi Dawn MD) Chronic headaches Word finding difficulty Restless legs syndrome (RLS) Perineal pain in female Palpitations Hyperlipidemia PVC (premature ventricular contraction) Lichen sclerosus of vulva Facial cellulitis Diabetes type 1, controlled Surgical History No pertinent past surgical history Family History Father Heart disease Mother No problems noted. Family/Other Thyroid disease Sister Jose Cruz thyroiditis Social History Housing: House Alcohol intake: former Patient Tobacco Use Status: Former Tobacco user Years Smoked: 6 years ago e-Cigarette/Vaping Use: Former Use Second Hand Smoke Exposure: No service: No Current occupational status: employed Current occupation: [employer] Current occupational exposures/hazards: No Cognitive needs: No Hearing needs: No Vision needs: Yes Physical Exam Vital Signs: Last Vital Signs Pulse 94 01/13/25 08:00 Pulse Ox 97 01/13/25 08:00 Oxygen Delivery Method Room Air 01/13/25 08:00 BMI result Body Mass Index 25.3 Const General: cooperative, healthy appearing, comfortable and no acute distress Nutritional Appearance: average body habitus Orientation/consciousness: patient oriented x3 Eyes Pupils: Equal, round and reactive pupils present Neuro General: patient oriented x3, gait normal, tone normal, moves all extremities and no focal motor deficits Cranial nerves: Yes Facial sensation intact/muscles of mastication intact, Yes Equal, round and reactive pupils present, Yes Bilaterally intact EOM present, Yes Nystagmus not present, Yes Normal facial strength present, Yes Midline tongue present, Yes Symmetric palate elevation present, Yes Ability to bilaterally rotate head present and Yes Ability to bilaterally elevate shoulders present Cognition (Neuro): normal cognition Gait exam (Neuro): Normal gait present Motor exam (neuro): 5/5 motor strength present throughout and Normal motor muscle tone present throughout Deep tendon reflexes (DTR's): Right triceps reflex intensity grade: 1+, Left triceps reflex intensity grade: 1+, Rt Biceps (C5, C6): 1+, Left biceps reflex intensity grade: 1+, Right brachioradialis reflex intensity grade: 1+, Left brachioradialis reflex intensity grade: 1+, Right patellar reflex intensity grade: 2+ and Left patellar reflex intensity grade: 2+ Coordination: [id number] test normal Orientation What is the (year) (season) (date) (day) (month)?: year, season, date, day and month Where are we (state) (county) (town or city) (hospital) (floor)?: state, county, town or city, hospital/clinic and floor Registration Name of 3 unrelated objects clearly and slowly, then ask patient to repeat all 3 of them. (1st repeat determines score. Make sure they can repeat all three): object 1, object 2 and object 3 Attention & Calculation (CHOOSE ONE) Ask pt to begin with 100 & count backward by 7. Stop after 5 repeats. If pt cannot ask them to spell the word WORLD backward.: 93, 86, 79, 72 and 65 Recall Ask patient to repeat the 3 items from question #3.: object 1, object 2 and object 3 Language Show patient a wristwatch & ask what it is. Repeat for pencil.: watch and pencil Ask the patient to repeat the phrase 'No ifs, ands, or buts' after you.: correct Ask the patient to 'take a piece of paper with their right hand' 'fold paper in half' 'place paper on floor': take paper in right hand, fold paper in half and place paper on floor Print the sentence 'CLOSE YOUR EYES' on a piece. If patient actually closes eyes then score.: followed written direction Give patient a blank piece of paper & ask to write a sentence. Score if it contains a noun & verb.: sentence contains subject and verb Ask patient to copy figure of intersecting pentagons exactly. Score if all 10 angles & 2 intersects are included.: all 10 angles present & 2 are intersected Score Score: 30 Assessment & Plan Assessment & Plan (1) Word finding difficulty: Comment: ? related to stress , anxiety ? Code(s): R47.89 - Other speech disturbances Category: Medical (2) Restless legs syndrome (RLS): Code(s): G2 - Restless legs syndrome Category: Medical (3) Chronic headaches: Comment: daily dull pain- ? Tension headaches Code(s): R51.9 - Headache, unspecified; G89.29 - Other chronic pain Category: Medical Plan I will trial her on gabapentin 100mg qhs for restless legs syndrome Check Vit D B 12 AMELIA ferritin levels reviewed other labs and MRI brain for 2021 Will refer to [facility] for cognitive assessment Orders: Orders Ferritin Today - Restless legs syndrome Erythrocyte Sedimentation Rate Today - Restless legs syndrome Vitamin D 25-OH (D2 and D3) Today - Restless legs syndrome AMELIA Reflex Titer and Pattern Today - Restless legs syndrome Vitamin B12 and Folate Today - Restless legs syndrome Referrals Speech and Hearing Referral R47.89 - Other speech disturbances Medications: New gabapentin 1-3 caps at bedtime 100 mg PO BEDTIME 90 caps 1RF Coding Level of Care Code New Pt Level 4 (71454) Complex EM visit Add On G2211 Diagnoses Word finding difficulty R47.89 Restless legs syndrome (RLS) G2. Chronic headaches R51.9; G89.29
[2025-01-13 08:00] VITALS: PULSE 94; O2SAT 97; BMI 25.3
== END 2025-01-13 08:55 | disposition home or self-care (01) ==
LOC: HO.HSMS 07:53
PROVIDERS: PCP Nurse Practitioner Family; Visit Provider Psychiatry & Neurology Neurology
DX: R47.89 Other speech disturbances (principal); G25.81 Restless legs syndrome; R51.9 Headache, unspecified; G89.29 Other chronic pain
CPT/HCPCS: 99204; G2211

== ENCOUNTER 2025-02-27 06:56 | Outpatient (AMB) | payer OTHER, SELFPAY ==
--- NOTE | 2025-02-27 07:33 | A.OFFPC_ITS ---
Intake Visit Reasons: Discuss FMLA, pt bringing paperwork Allergies azithromycin Allergy (Unknown, Verified 01/13/25 08:03) palpitations levofloxacin Allergy (Unknown, Verified 01/13/25 08:03) Hives Sulfa (Sulfonamide Antibiotics) Allergy (Unknown, Verified 01/13/25 08:03) Unknown ciprofloxacin (From Cipro) Adverse Reaction (Mild, Verified 01/13/25 08:03) Rash bactrium Adverse Reaction (Mild, Uncoded 01/13/25 08:03) Rash Tobacco use date assessed: 01/07/25 Dental Screening Dental Screen Date: 01/07/25 HPI Discuss FMLA, pt bringing paperwork HPI Details History of Present Illness The patient is a 44-year-old female presenting for FMLA paperwork related to a chronic vulvar disorder. The vulvar disorder began in approximately 2019 and has been causing significant discomfort and severe pain. She has consulted multiple specialists, including gynecologists and pain management experts, and continues to receive care from pain management. She has also seen a specialist with an anesthesiology background who is experienced with nerve blocks, although these have not provided relief to date. In January, she underwent a surgical procedure in [place], described as a perineal- plasty, but details of the procedure are unavailable currently. She has follow- up appointments scheduled with her pain management provider and the specialist dealing with nerve-related issues. Review of Systems - Genitourinary: Reports significant dis comfort and severe pain related to vulvar disorder. Plan The patient will continue to follow up with her pain management provider and the specialist dealing with nerve-related issues. The FMLA paperwork will be completed to support her ongoing management of the chronic vulvar disorder. Discussion Notes I discussed with the patient the completion of her FMLA paperwork to assist with her chronic vulvar disorder management. We reviewed her ongoing treatment with pain management and the specialist for nerve-related issues, and I expressed hope for relief from future procedures/treatments. Patient Instructions - Continue follow-up appointments with p marilee management and commercial sales specialist. - Ensure FMLA paperwork is submitted for chronic condition management. [facility] Medical History (Updated 02/27/25 @ 07:42 by Antwon Mendoza, [facility]-) Perineal discomfort in female Chronic headaches Word finding difficulty Restless legs syndrome (RLS) Perineal pain in female Palpitations Hyperlipidemia PVC (premature ventricular contraction) Lichen sclerosus of vulva Facial cellulitis Diabetes type 1, controlled Surgical History No pertinent past surgical history Family History Father Heart disease Mother No problems noted. Family/Other Thyroid disease Sister Jose Cruz thyroiditis Social History Housing: House Alcohol intake: former Patient Tobacco Use Status: Former Tobacco user Years Smoked: 6 years ago e-Cigarette/Vaping Use: Former Use Second Hand Smoke Exposure: No service: No Current occupational status: employed Current occupation: [employer] Current occupational exposures/hazards: No Cognitive needs: No Hearing needs: No Vision needs: Yes Questionnaire Thrive Questionnaire Date Thrive assessed: 01/04/25 I am a: Patient What is your living situation today?: I have a steady place to live Within the past 12 months, did the food you bought not last and you didn't have the money to get more?: Never true Within the past 12 months, did you worry whether your food would run out before you got money to buy more?: Never true Do you have trouble paying for medicines?: No Do you have trouble getting transportation to medical appointments?: No Do you have trouble paying your heating and electricity bill?: No Do you have trouble taking care of your child, family member or friend?: No Do you have trouble with day-to-day activities such as bathing, preparing meals, shopping, managing finances, etc.?: No Are you currently unemployed and looking for a job?: No Are you interested in more education?: No Please select the resources that you would like help with: None Currently or been in a relationship where the following occur: No concerns reported THRIVE Score: 0 KTAHYA-7 AMB Questionnaire KATHYA-7 Date KATHYA - 7 assessed: 01/07/25 Source: Developed by Drs. Luis Fuller, Corrie Pacheco, Fab Miller and colleagues, with an educational darlin from [employer]. Physical exam (Primary Care) Tobacco/Smoking Status: Tobacco use Status Tobacco use date assessed 01/07/25 01/07/25 09:14 Patient Tobacco Use Status Former Tobacco user 01/07/25 09:14 e-Cigarette/Vaping Use Former Use 01/07/25 09:14 Thrive Assessment: Date of Thrive Assessment Date Thrive assessed 01/04/25 01/13/25 07:53 Currently or been in a relationship where the following occur: No concerns reported Telehealth Telehealth Telehealth Platform: [employer] Location of provider rendering services: practice address Location of patient: address on file Patient Identification confirmed using: Name, : Yes Telehealth method: video Patient verbally consented to treatment: Yes Patient verbally consented to billing insurance company: Yes Patient informed of any privacy concerns related to visit: Yes Minutes spent on Phone/Video with Pt.: 15 Coding Level of Care Code Tele Est Pt Level 3 (44973) Diagnoses Perineal pain in female R10.2 Perineal discomfort in female N94.9 Suprapubic pressure R10.2 Assessment & Plan Assessment & Plan (1) Perineal pain in female: Code(s): R10.2 - Pelvic and perineal pain Category: Medical (2) Perineal discomfort in female: Code(s): N94.9 - Unspecified condition associated with female genital organs and menstrual cycle Category: Medical (3) Suprapubic pressure: Code(s): R10.2 - Pelvic and perineal pain Category: Medical Plan .
== END 2025-02-27 08:31 | disposition home or self-care (01) ==
LOC: HO.HMCC 06:56
PROVIDERS: PCP Nurse Practitioner Family; Visit Provider Nurse Practitioner Family
DX: R10.2 Pelvic and perineal pain (principal); N94.9 Unspecified condition associated with female genital organs and menstrual cycle

== ENCOUNTER 2025-03-28 09:22 | Outpatient (REF) | payer OTHER, SELFPAY ==
--- NOTE | ~2025-03-28 | MM_ITS ---
EXAMINATION: MM SCREENING DIGITAL BREAST TOMOSYNTHESIS, BILATERAL CLINICAL INFORMATION: Screening. Asymptomatic. COMPARISON: Mammography: Comparison is made with available priors TECHNIQUE: Digital breast mammography with tomosynthesis is performed in both the craniocaudal and mediolateral oblique views along with computer-aided detection (CAD). FINDINGS: The breasts are heterogeneously dense, which may obscure small masses (ACR BI-RADS breast composition Category c). There are no significant masses, abnormal calcifications, or other abnormalities. MM/MM tomosynthesis screening BI IMPRESSION: No mammographic evidence of malignancy. ASSESSMENT: BI-RADS BI-RADS 1 - Negative RECOMMENDATION: Routine annual mammography screening. 1 year F/U This examination should not preclude the clinical evaluation of a suspicious palpable abnormality. This patient's information was entered into a reminder system with a target due date for their next mammogram. Electronically signed by: Phylicia Canada DO 04/01/2025 12:49 PM EDT
--- OUTSIDE RECORDS SUMMARY | 2025-03-28 10:13 | XMS_ITS | Clinical Summary ---
Author Organization [facility] Address [address] [place] [address] Care Team Providers Care High Pressure Boiler Operator Name Role Phone Antwon Mendoza Primary Care Provider [phone] Allergies Active Allergy Reactions Criticality Noted Date Comments Ciprofloxacin Hives 08/07/2023 Sulfamethoxazole-Trimethoprim Hives 2023 Medications Medication Sig Dispensed Refills Start Date End Date Status atorvastatin (LIPITOR) tablet 20 mg 0 Active insulin lispro (HumaLOG) injection 100 units/mL 0 Active levothyroxine (SYNTHROID) tablet 25 mcg 0 Active metoprolol tartrate (LOPRESSOR) 25 MG tablet 0 10/05/2020 Active norethindrone (MICRONOR) 0.35 MG tablet 0 Active DULoxetine (CYMBALTA) DR capsule 20 mg Take 1 capsule (20 mg total) by mouth daily. 30 capsule 0 10/23/2023 Active Active Problems Problem Noted Date Diagnosed Date Type 1 diabetes 12/06/2019 08/07/2023 Hypothyroid 04/07/2017 08/07/2023 Family History Medical History Relation Name Comments Heart disease Father Relation Name Status Comments Father Social History Tobacco Use Types Packs/Day Years Used Date Smoking Tobacco: Former Cigarettes Q uit: 2014 Smokeless Tobacco: Never Sex and Gender Information Value Date Recorded Sex Assigned at Not on file Gender Identity Female 07/07/2023 2:21 PM EST Sexual Orientation Not on file Job Start Date Occupation Industry Not on file Not on file Not on file Last Filed Vital Signs Vital Sign Reading Time Taken Comments Blood Pressure 110/71 01/30/2024 11:00 AM EDT Pulse 85 01/30/2024 11:00 AM EDT Temperature 37 C (98.6 F) 01/30/2024 11:00 AM EDT Respiratory Rate - - Oxygen Saturation 98% 01/30/2024 11:00 AM EDT Inhaled Oxygen Concentration - - Weight 63.5 kg (140 lb) 08/08/2023 7:39 AM EST Height 157.5 cm (5' 2 ) 08/08/2023 7:39 AM EST Body Mass Index 25.61 08/08/2023 7:39 AM EST Plan of Treatment Health Maintenance Due Date Last Done Comments Hepatitis C Screening 1982 COVID-19 Vaccine (#1) 02/27/1983 Depression Screening 1994 Preventative Health Evaluation 2000 DTap / Tdap / Td (1 - Tdap) 2001 Cervical Cancer Screening (Pap Smear) 2003 Pneumococcal Vaccine (2 of 2 - PCV) 01/09/2016 01/08/2015 Hepatitis B Vaccines (2 of 3 - 19+ 3-dose series) 02/18/2016 01/21/2016 Influenza Vaccine (#1) 2025 9, 05/28/2013 RSV Ped < 20 months Aged Out No longe r eligible based on patient's age to complete this topic Insurance Payer Benefit Plan / Group Subscriber ID Effective Dates Phone Address [facility] [id number] 2013-Present [address] [address] [facility] [id number] 2022-Present [address] [address] [facility] Care Teams High Pressure Boiler Operator Relationship Specialty Start Date End Date Antwon Mendoza [address] [facility] [place]EL Menjivar [address] PCP - General Family Medicine 07/06/23
--- OUTSIDE RECORDS SUMMARY | 2025-03-28 10:13 | XMS_ITS | Clinical Summary ---
Author Organization [facility] Address [address] [place] [id number] Phone Care Team Providers Care Ingredient Specialist Name Role Phone Antwon Mendoza NP Primary Care Provider + Allergies Active Allergy Reactions Criticality Noted Date Comments Azithromycin Unknown Medium 08/26/2019 Heart Palpitations Ciprofloxacin Angina,Hives,Rash High 08/07/2023 Other Reaction(s): Chest pain at rest Levofloxacin Headaches 11/14/2024 Neomycin Rash Low 05/23/2024 Penicillins 08/26/2019 Sulfamethoxazole-Trimet hoprim Hives,Rash Low 08/07/2023 Other Reaction(s): Not available Medications albuterol 90 mcg/actuation inhaler INHALE 1 PUFF FOUR TIMES DAILY NEEDED FOR SHORTNESS OF BREATH OR WHEEZING 023 Active atorvastatin (LIPITOR) 20 MG tablet 020 Active cetirizine (ZYRTEC) 10 MG tablet Take 20 mg by mouth daily. 023 Active cyclobenzaprine (FLEXERIL) 5 MG tablet TAKE 1 TABLET BY MOUTH AT BEDTIME FOR 10 DAYS 024 Active DULoxetine (CYMBALTA) 20 MG capsule Take 40 mg by mouth. 024 Active ESTRING 2 mg (7.5 mcg /24 hour) vaginal ring INSERT 1 RING VAGINALLY EVERY 3 MONTHS 024 Active FLUoxetine (PROZAC) 20 MG capsule 024 Active fluticasone propion-salmete roL (ADVAIR DISKUS) 250-50 mcg/dose DISKUS Inhale into the lungs 2 (two) times a day. Active HUMALOG U-100 INSULIN 100 unit/mL injection vial INJECT UP TO 50 UNITS UNDER THE SKIN DAILY IN PUMP Active insulin pump cart,auto,BT-cn tr (OMNIPOD 5 G6 INTRO KIT, GEN 5,) Crtg USE DIRECTED TO INSULIN ADMINISTRATION Active levothyroxine (SYNTHROID, LEVOTHROID) 50 MCG tablet Take 50 mcg by mouth daily. Active SAUL-LANTA 200-200-20 mg/5 mL Susp TAKE 15 ML BY MOUTH 4 TIMES DAILY NEEDED Active metFORMIN (GLUCOPHAGE) 1000 MG tablet Take 1,000 mg by mouth 2 (two) times a day. Active metoclopramide HCl (REGLAN) 5 MG tablet TAKE 1 TABLET BY MOUTH 4 TIMES DAILY BEFORE MEAL/BEDTIME Active metoprolol tartrate (LOPRESSOR) 25 MG tablet Take 37.5 mg by mouth 2 (two) times a day. Active norethindrone (MICRONOR) 0.35 mg tablet Take 1 tablet by mouth daily. Active semaglutide, weight loss, (WEGOVY) 0.5 mg/0.5 mL subcutaneous injection Inject 0.5 mg under the skin. Active oxyCODONE 5 MG immediate release tablet Take 1 tablet (5 mg total) by mouth every 6 (six) hours as needed for pain (specific location in comments) (post-op pain). Partial fill ok 10 tablet Active bacitracin 500 unit/gram ointment Apply topically 2 (two) times a day. 15 g Active estradioL (ESTRACE) 0.01 % (0.1 mg/gram) vaginal cream Apply pea size amount to the area of discomfort of the vulva 3x/week 42.5 g Active lidocaine 5 % topical gel Apply topically 2 (two) times a day. Apply to left labia prn pain 30 g Active lidocaine (XYLOCAINE) 2 % mucosal gel jelly Apply topically as needed (labial pain). 30 mL 2024 Discontinued(E rror) lidocaine 5 % topical gel Apply topically 2 (two) times a day. Apply to left labia prn pain 30 g 025 2024 Discontinued Encounters Date Type Department Care Team Description 03/19/2025 11:15 AM EDT Telemedicine - audio only [facility] [address] [address] Bo Boyce MD, JESSE Pelvic pain in female (Primary Dx); Labial pain 03/19/2025 Orders Only [facility] [address] [place] [phone] July Prasad PA-C 03/13/2025 Orders Only [facility] [address] [place] [phone] July Prasad PA-C 03/05/2025 Telephone [facility] [address] [place] [phone] July Prasad PA-C 02/18/2025 9:45 AM EDT Office Visit [facility] [address] [place] [id number] Bo Boyce MD, JESSE Pelvic pain in female (Primary Dx); Labial pain; Female dyspareunia 01/28/2025 Orders Only [facility] [address] [place] [phone] July Prasad PA-C from Last 3 Months Family History Medical History Relation Comments CV disease Father 2 Hypertension Father 2 CV disease Maternal Grandmother 2 Hypertension Maternal Grandmother 2 CV disease Mother 2 Hypertension Mother 2 Relation Status Comments Father 1 Father 2 Maternal Grandmother 1 Maternal Grandmother 2 Mother 1 Mother 2 Social History Tobacco Use Types Packs/Day Years Used Date Smoking Tobacco: Never Smokeless Tobacco: Never Tobacco Cessation:Counseling Given: Not Answered Alcohol Use Standard Drinks/Week Comments Not Currently 0 (1 standard drink = 0.6 oz pur e alcohol) Education Answer Date Recorded Are you interested in more education? Not on lilly e 05/10/2024 Are you concerned about learning? Not on file 05/10/2024 No 05/10/2024 No 05/10/2024 Digital Access Answer Date Recorded No 05/10/2024 No 05/10/2024 Reliable internet access at home? Not on file 05/10/2024 Device with a working camera? Not on file Comments Unknown Sex and Gender Information Value Date Recorded Sex Assigned at Female 10/20/2023 2:47 PM EDT Legal Sex Female 2:12 PM EDT Gender Identity Female 10/20/2023 2:47 PM EDT Sexual Orientation Straight 10/20/2023 2: 47 PM EDT Last Filed Vital Signs Vital Sign Reading Time Taken Comments Blood Pressure 124/72 12/12/2014 9:38 AM EDT Pulse - - Temperature - - Respiratory Rate - - Oxygen Saturation - - Inhaled Oxygen Concentration - - Weight 59.9 kg (132 lb) 12/12/2014 9:38 AM EDT Height - - Body Mass Index - - Plan of Treatment Upcoming Encounters Date Type Department Care Team ([facility] st Contact Info) Description 04/17/2025 10:00 AM EDT Office Visit [facility] [address] [address] Bo Boyce MD, JESSE 70 [facility] [address] [place] [address] [email or web address] Health Maintenance Due Date Last Done Comments Adult Td,Tdap Booster 1982 CREATININE LEVEL 1982 TSH LEVEL 1982 DEPRESSION SCREENING 1994 HEPATITIS C SCREENING 2000 HIV ONE-TIME SCREENING (18-6 5 YEARS) 2000 PAP SMEAR 2003 MAMMOGRAM 2022 COVID-19 VACCINE (2023-2 5 season) 2024 SMOKING STATUS SCREENING (On ce After 26 Yrs) Completed 11/14/2024 HEPATITIS A VACCINES Aged Out No long er eligible based on patient's age to complete this topic HIB VACCINES Aged Out No longer eligi ble based on patient's age to complete this topic MENINGOCOCCAL VACCINES (ACWY) Aged Out No longer eligible based on patient's age to complete this topic MENINGOCOCCAL VACCINES (B) Aged Out N o longer eligible based on patient's age to complete this topic PNEUMOCOCCAL VACCINES (0-49 years) Aged Out No longer eligible based on patient's age to complete this topic Medical Devices Not on file Insurance O O O O O O O O O [facility] HMO Care Teams Ingredient Specialist Relationship Specialty Start Date End Date Antwon Mendoza NP [address] [place] [address] PCP - General Nurse Practitioner 02/20/24 Additional Source Comments The information contained in this document represents components of the legal health record. It is not the complete legal health record.[facility]
--- OUTSIDE RECORDS SUMMARY | 2025-03-28 10:13 | XMS_ITS | Clinical Summary ---
Author Organization [facility] Address [address] [place] [address] Care Team Providers Care Admitting Counselor Name Role Phone Unavailable Primary Care Provider Unavailabl e Allergies Active Allergy Reactions Criticality Noted Date Comments Azithromycin Unknown/Patient and Family Unable to Define Medium 04/19/2023 Medications HumaLOG 100 UNIT/ML injection INJECT UP TO 50 UNITS UNDER THE SKIN DAILY IN PUMP 3 Active albuterol (PROVENTIL HFA; VENTOLIN HFA) 108 (90 Base) MCG/ACT inhaler INHALE 1 PUFF FOUR TIMES DAILY NEEDED FOR SHORTNESS OF BREATH OR WHEEZING 3 Active cetirizine (ZyrTEC) 10 MG tablet Take 20 mg by mouth daily. 3 Active metFORMIN (GLUCOPHAGE) 1000 MG tablet Take 1,000 mg by mouth 2 (two) times a day with meals. 3 Active levothyroxine (SYNTHROID, LEVOTHROID) 25 MCG tablet Take 25 mcg by mouth daily. 3 Active metoPROLOL TARTRATE (LOPRESSOR) 25 MG tablet Take 37.5 mg by mouth 2 (two) times a day. 3 Active norethindrone (MICRONOR) 0.35 MG tablet Take 1 tablet by mouth daily. 3 Active atorvastatin (LIPITOR) 20 MG tablet Take 20 mg by mouth daily. 3 Active levocetirizine (XYZAL) 5 MG tabletIndication s:Non-seasonal allergic rhinitis due to other allergic trigger,Allergic conjunctivitis, bilateral,Chroni c idiopathic urticaria,Idiopa thic angioedema, initial encounter Take 1 tablet 1-2 times a day as needed 180 tablet 3 3 Active famotidine (PEPCID) 40 MG tabletIndication s:Gastroesophage al reflux disease, unspecified whether esophagitis present,Chronic idiopathic urticaria,Idiopa thic angioedema, initial encounter Take 1 tablet 1-2 times daily 180 tablet 3 3 Active amoxicillin (AMOXIL) 250 MG/5ML suspensionIndica tions:Allergic reaction to penicillin, initial encounter Bring to office for oral challenge. 80 mL 3 Active montelukast (SINGULAIR) 10 MG tabletIndication s:Non-seasonal allergic rhinitis due to other allergic trigger,Allergic conjunctivitis, bilateral,Chroni c idiopathic urticaria,Idiopa thic angioedema, initial encounter Take 1 tablet at bedtime 90 tablet 4 Active Social History Tobacco Use Types Packs/Day Years Used Date Smoking Tobacco: Never Assessed Tobacco Cessation:Counseling Given: Not Answered Alcohol Use Standard Drinks/Week Comments Never 0 (1 standard drink = 0.6 oz pur e alcohol) Comments Unknown Sex and Gender Information Value Date Recorded Sex Assigned at Female 02/20/2023 11:27 AM EDT Legal Sex Female 9:26 AM EDT Gender Identity Female 02/20/2023 11:27 AM EDT Sexual Orientation Choose not to disclose 2022 11:27 AM EDT Last Filed Vital Signs Vital Sign Reading Time Taken Comments Blood Pressure 112/70 04/26/2023 1:41 PM EDT Pulse - - Temperature - - Respiratory Rate - - Oxygen Saturation - - Inhaled Oxygen Concentration - - Weight 63.5 kg (140 lb) 04/26/2023 1:41 PM EDT Height 160 cm (5' 3 ) 04/26/2023 1:41 PM EDT Body Mass Index 24.8 04/26/2023 1:41 PM EDT Plan of Treatment Health Maintenance Due Date Last Done Comments Hepatitis C Virus Screening 1982 HIV Screening 1995 DTaP/Tdap/Td Vaccines (1 - Tdap) 2001 Hepatitis B Vaccines (1 of 3 - 19+ 3-dose series) 2001 Pap Smear (Ages 21-65) 2003 HPV Vaccines (1 - 3-dose SCD M series) 2009 Mammogram 2022 COVID-19 Vaccine (2023-2 5 season) 2024 Influenza Vaccine 02/28/2025 05/28/2013, 05/31/2010 Pneumococcal Vaccine: Pediatric (0-5 Years) and At-Risk Patients (6 to 49 Years) Aged Out No longer eligible b ased on patient's age to complete this topic Insurance [facility]
--- OUTSIDE RECORDS SUMMARY | 2025-03-28 10:13 | XMS_ITS | Clinical Summary ---
Author Organization [facility] [place] [address] Care Team Providers Care Magazine Filler Name Role Phone Antwon Mendoza APRN Primary Care Provider [phone] Social History Tobacco Use Types Packs/Day Years Used Date Smoking Tobacco: Never Assessed Comments Unknown Sex and Gender Information Value Date Recorded Sex Assigned at Not on file Legal Sex Female 9:12 AM EDT Gender Identity Not on file Sexual Orientation Not on file Plan of Treatment Health Maintenance Due Date Last Done Comments HIV screen 2000 Hepatitis C Screening 2000 Hepatitis B vaccine (0-59 yrs) and Risk (1) 2001 Tetanus/Diphtheria/Pertussis Vaccines (1 - Tdap) 08/30 HPV test 2012 PAP Smear 2012 Breast Cancer Share Decision Needed 2022 Breast Cancer screening 2022 Covid-19 Vaccine ( - 2023- season) 2024 Influenza (Flu) vaccine (1 o f 1 - Influenza standard series) 03/31/2025 Insurance Care Teams Magazine Filler Relationship Specialty Start Date End Date Antwon Mendoza APRN [address] [facility] [place] [address] PCP - General Internal Medicine 05/26/23
--- OUTSIDE RECORDS SUMMARY | 2025-03-28 10:13 | XMS_ITS ---
Author Name [facility] Organization Unknown History of Medication Use Medication Directions Dispensed Refills Start Date End Date [facility] Lyrica 50 mg capsule Take 1 capsule twice a day by oral route. 09/11/2024 active Lyrica 75 mg capsule Take 1 capsule 3 times a day by oral route. 08/20/2024 active amoxicillin (AMOXIL) 250 MG/5ML suspension Bring to office for oral challenge. 04/19/2023 active levocetirizine (XYZAL) 5 MG tablet Take 1 tablet 1-2 times a day as needed 04/19/2023 active metFORMIN (GLUCOPHAGE) 1000 MG tablet Take 1,000 mg by mouth 2 (two) times a day with meals. 03/09/2023 active atorvastatin (LIPITOR) 20 MG tablet Take 20 mg by mouth daily. 02/15/2023 active bacitracin 500 unit/gram topical ointment APPLY TOPICALLY TO THE AFFECTED AREA TWICE DAILY completed Lyrica 75 mg capsule active gabapentin 300 mg capsule active Lyrica 50 mg capsule active albuterol sulfate HFA 90 mcg/actuation aerosol inhaler INHALE 1 PUFF BY MOUTH FOUR TIMES DAILY NEEDED FOR SHORTNESS OF BREATH OR WHEEZING active amitriptyline 10 mg tablet TAKE 1 TABLET BY MOUTH EVERY NIGHT AT BEDTIME active amitriptyline 25 mg tablet active amoxicillin 500 mg tablet TAKE 1 TABLET BY MOUTH EVERY 8 HOURS FOR 7 DAYS active amoxicillin 875 mg-potassium clavulanate 125 mg tablet TAKE 1 TABLET BY MOUTH EVERY 12 HOURS FOR 10 DAYS active atorvastatin 20 mg tablet TAKE 1 TABLET BY MOUTH DAILY active bupropion HCl XL 150 mg 24 hr tablet, extended release TAKE 1 TABLET BY MOUTH EVERY MORNING active cephalexin 500 mg capsule TAKE 1 CAPSULE BY MOUTH THREE TIMES DAILY FOR 7 DAYS active cetirizine 10 mg tablet TAKE 2 TABLETS BY MOUTH DAILY active clindamycin 1.2 % (1 % base)-benzoyl peroxide 5 % topical gel APPLY TO ACNE PRONE SKIN DAILY TOLERATED active cyclobenzaprine 5 mg tablet TAKE 1 TABLET BY MOUTH AT BEDTIME FOR 10 DAYS active doxycycline hyclate 100 mg capsule TAKE 1 CAPSULE BY MOUTH TWICE DAILY active doxycycline monohydrate 100 mg capsule TAKE 1 CAPSULE BY MOUTH TWICE DAILY WITH FOOD active duloxetine 20 mg capsule,delayed release TAKE 1 CAPSULE BY MOUTH DAILY active duloxetine 30 mg capsule,delayed release active duloxetine 60 mg capsule,delayed release TAKE 1 CAPSULE BY MOUTH DAILY active Estring 2 mg (7.5 mcg/24 hour) vaginal ring INSERT 1 RING VAGINALLY EVERY 3 MONTHS active fluconazole 150 mg tablet TAKE 1 TABLET BY MOUTH 1 TIME. MAY TAKE 2 ND TABLET IN 72 HOURS IF STILL SYMPTOMATIC active fluconazole 200 mg tablet TAKE 2 TABLETS BY MOUTH EVERY 72 HOURS FOR 3 DOSES active flucytosine 500 mg capsule active fluticasone propionate 50 mcg/actuation nasal spray,suspension SHAKE LIQUID AND USE 2 SPRAYS IN EACH NOSTRIL TWICE DAILY active gabapentin 300 mg capsule TAKE 1 CAPSULE BY MOUTH AT BEDTIME active Sarah-Lanta 200 mg-200 mg-20 mg/5 mL oral suspension TAKE 15 ML BY MOUTH 4 TIMES DAILY NEEDED active Gvoke HypoPen 2-Pack 1 mg/0.2 mL subcutaneous auto-injector INJECT 1 MG SUBCUTANEOUS ONCE. USE FOR HYPOGLYCEMIC EMERGENCY active Gynazole-1 2 % vaginal cream active Humalog Imn KwikPen (U-100) 100 unit/mL subcutaneous half-unit pen active Humalog U-100 Insulin 100 unit/mL subcutaneous solution INJECT UP TO 50 UNITS UNDER THE SKIN DAILY IN PUMP active hydroxyzine HCl 25 mg tablet TAKE 1 TABLET BY MOUTH TWICE DAILY NEEDED FOR ANXIETY active insulin degludec (U-100) 100 unit/mL (3 mL) subcutaneous pen INJECT 18 UNITS SUBCUTANEOUS EVERY DAY WITH PUMP FAILURE active Intrarosa 6.[address] SUPPOSITORY VAGINALLY AT BEDTIME active ipratropium bromide 42 mcg (0.06 %) nasal spray USE 2 SPRAYS IN EACH NOSTRIL THREE TIMES DAILY active itraconazole 100 mg capsule TAKE 2 CAPSULES BY MOUTH DAILY active levothyroxine 25 mcg tablet active levothyroxine 50 mcg tablet TAKE 1 TABLET BY MOUTH DAILY active metformin 1,000 mg tablet TAKE 1 TABLET BY MOUTH TWICE DAILY active metformin ER 500 mg tablet,extended release 24 hr TAKE 2 TABLETS BY MOUTH TWICE DAILY active metformin ER 750 mg tablet,extended release 24 hr TAKE 1 TABLET BY MOUTH TWICE DAILY active methocarbamol 500 mg tablet TAKE 1 TABLET BY MOUTH THREE TIMES DAILY active metoclopramide 5 mg tablet TAKE 1 TABLET BY MOUTH 4 TIMES DAILY BEFORE MEAL/BEDTIME active metoprolol tartrate 25 mg tablet TAKE 1 AND 1/2 TABLETS BY MOUTH TWICE DAILY active montelukast 10 mg tablet TAKE 1 TABLET BY MOUTH AT BEDTIME active mupirocin 2 % topical ointment APPLY TOPICALLY TO THE AFFECTED AREA THREE TIMES DAILY active nitrofurantoin macrocrystal 50 mg capsule TAKE 1 CAPSULE BY MOUTH AT BEDTIME. MUST ADMINISTER WITH FOOD/MEAL active nitrofurantoin monohydrate/macrocry stals 100 mg capsule TAKE 1 CAPSULE BY MOUTH EVERY 12 HOURS FOR 5 DAYS active norethindrone (contraceptive) 0.35 mg tablet TAKE 1 TABLET BY MOUTH DAILY active norethindrone acetate 5 mg tablet TAKE 1 TABLET BY MOUTH DAILY active omeprazole 20 mg capsule,delayed release TAKE 1 CAPSULE BY MOUTH DAILY active oxybutynin chloride 5 mg tablet TAKE 1 TABLET BY MOUTH EVERY 8 HOURS NEEDED FOR BLADDER SPASMS active Ozempic 0.25 mg or 0.5 mg (2 mg/3 mL) subcutaneous pen injector active pantoprazole 40 mg tablet,delayed release TAKE 1 TABLET BY MOUTH ON AN EMPTY STOMACH WAIT 30 MINUTES AND THEN EAT TO ACTIVATE MEDICATION active polyethylene glycol 3350 17 gram oral powder packet MIX AND DRINK 1 PACKET BY MOUTH DAILY active pregabalin 25 mg capsule TAKE 1 CAPSULE BY MOUTH THREE TIMES DAILY active pregabalin 50 mg capsule TAKE 1 CAPSULE BY MOUTH THREE TIMES DAILY active propranolol ER 60 mg capsule,24 hr,extended release activ e SymlinPen 60 1,500 mcg/1.5 mL subcutaneous pen injector ADMINISTER 60 MCG UNDER THE SKIN THREE TIMES DAILY BEFORE MEALS active terconazole 0.4 % vaginal cream INSERT 1 APPLICATORFUL VAGINALLY DAILY AT BEDTIME FOR 7 DAYS active tinidazole 500 mg tablet TAKE 4 TABLETS BY MOUTH DAILY FOR 2 DAYS active triamcinolone acetonide 0.1 % topical cream active Victoza 3-Deonte 0.6 mg/0.1 mL (18 mg/3 mL) subcutaneous pen injector ADMINISTER 1.8 MG UNDER THE SKIN DAILY active Wegovy 0.25 mg/0.5 mL subcutaneous pen injector active Wegovy 0.5 mg/0.5 mL subcutaneous pen injector active Wegovy 1 mg/0.5 mL subcutaneous pen injector active Wixela Inhub 250 mcg-50 mcg/dose powder for inhalation USE 1 INHALATION BY MOUTH TWICE DAILY active Zepbound 2.5 mg/0.5 mL subcutaneous pen injector INJECT 2.5MG SUBCUTANEOUS EVERY WEEK active Zepbound 5 mg/0.5 mL subcutaneous pen injector INJECT 5 MG SUBCUTANEOUS EVERY WEEK active Allergies Allergen Reaction Severity Comment Documented Date Source Statu s AZITHROMYCIN UNKNOWN/PATIENT AND FAMILY UNABLE TO DEFINE 04/19/2023 [facility] active AMOXICILLIN RASH/DERMATITIS [facility] CIPROFLOXACIN [facility] SULFAMETHOXAZOLE-TRIM ETHOPRIM [facility] Problems Problem Status Onset Date Problem Type Date of Resolution Source Chronic pain syndrome active 2024-07-19 [facility] Hypothyroidism active 2024-07-05 [facility] Type 1 diabetes mellitus active 2024-07-05 [facility] Perineal pain active 2024-07-08 ProblemAct [facility] Idiopathic angioedema, initial encounter active EncounterDiagnosisAct [facility] Allergic conjunctivitis, bilateral active EncounterDiagnosisAct [facility] Chronic idiopathic urticaria active EncounterDiagnosisAct [facility] Non-seasonal allergic rhinitis due to other allergic trigger active EncounterDiagnosisAct [facility] Encounters Encounter Type Encounter Reason Primary Diagnosis Location Date Ambulatory [facility] 03/04/2025 Ambulatory [facility] 03/04/2025 Ambulatory [facility] 11/29/2024 Ambulatory [facility] 07/18/2024 Ambulatory [facility] 03/14/2024 Ambulatory [facility] 03/14/2024 Ambulatory no current diagnosis no current diagnosis [facility] 10/12/2023 Ambulatory Adverse effect of penicillins, subsequent encounter Adverse effect of penicillins, subsequent encounter [facility] 04/26/2023 Ambulatory Idiopathic urticaria Idiopathic urticaria [facility] 04/19/2023 Care Team Organization Name Specialty Phone Email Start Date End Da te [facility] Antwon Mendoza Primary Care 09/01/2024 [facility] 10/12/2023 [facility] 10/12/2023 [facility] 04/19/2023 10/16/2024 [facility] 12/17/2022 12/17/2022 [facility] Termed, PROVIDER Primary Care 06/07/202202/28
--- OUTSIDE RECORDS SUMMARY | 2025-03-28 10:13 | XMS_ITS | Clinical Summary ---
Author Organization [address] [place] [address] [place] [id number] Phone Care Team Providers Care Staff Psychologist Name Role Phone Antwon Mendoza NP Primary [...] mouth 1 (one) time each day. Active levothyroxine (SYNTHROID, LEVOTHROID) 50 mcg tablet Take 1 tablet (50 mcg total) by mouth 1 (one) time each day before breakfast. 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 90 tablet 3 5 Active Active Problems Problem Noted Date Diagnosed [...] nature. I have reached out to her prick stitcher to see if she has any thoughts. [...] 05/05/2020 Diabetes mellitus type 1, un complicated ([facility] V24, [facility] V28) 01/07/2020 Chronic sinusitis 08/26/2019 Overview (09/20/2024): 2019 x 2, 2018, 2017 x 2 Recurrent UTI 08/26/2019 Overview (09/20/2024): 2019, & 2018 Dermatographic urticaria 05/21/2018 Asthma 01/18/2018 Internal hemorrhoid 05/01/2017 Overview (09/20/2024): Cnsp 05/01/2017 Panic disorder 12/29/2016 Anxiety 12/29/2016 Encounters Date Type Department Care Team Description 01/27/2025 9:30 AM EDT Clinical Support [facility] [address] [place] [address] Abnormal QT interval present on electrocardiogram (Primary Dx); Palpitations from Last 3 Months Immunizations Name Administration Dates Next Due Hepatitis B (Seazgiw-H-Fpbcn , Recombivax HB-Adult) 19yo and older 01/21/2016 Influenza Quadravalent, MDCK , 0.5ml, preservative free (Flucelvax) 6mo and older 08/01/2018 MMR, measles mumps and rubel la Live (Priorix; M-M-R II) 12mo and older 01/21/2016 Surgical History Surgery Date Site/Laterality Comments VAGINOSCOPY 2015 PROCEDURE: AR COLPOSCOPY CERVIX BX CERVIX & ENDOCRV CURRETAGE; [...] DX:Diabetes mellitus type 2, controlled, with complications ([facility]) Hyperlipidemia 12/13/2023 DX:Hyperlipidemi a Early satiety DX:Early [...] Care Team (Late st Contact Info) Description 04/10/2025 8:45 AM EDT Consult [facility] [address] [place] [phone] [facility] [address] [place], [place] 04/25/2025 10:50 AM EDT Office Visit [facility] [address] [facility] [address] [place] [address] Jennie Marino MD [address] [place] [address] [place] [address] Health Maintenance Due Date Last Done Comments Breast Cancer Screening 1982 Diabetes: Annual Foot Exam 1992 Diabetes: Annual Retina Eye Exam 1992 Cervical Cancer Screening: Pap Smear 2003 Pneumococcal Vaccine: Pediatrics (0 to 5 Years) and At-Risk Patients (6 to 49 Years) (2 of 2 - PCV) 01/09/2016 01/08/2015 Hepatitis B Vaccines (2 of 3 - 19+ 3-dose series) 02/18/2016 01/21/2016 DTaP,Tdap,and Td Vaccines (2 - Td or Tdap) 04/06/2021 04/06/2011 HIV Screening 07/05/2022 Social Influencers of Health Screening 07/05/2022 Diabetes: Annual Urine Albumin-Creatinine Ratio (uACR) 07/13/2022 12/17/2019 Diabetes: Blood Sugar Control Test (HGBA1C) 07/13/2022 11/30/2020 COVID-19 Vaccine ( season) 2024 09/29/2020, 09/08/2020 Diabetes: Annual GFR (Glomerular Filtration Rate) 05/26/2024 05/26/2023 Depression Screening 07/31/2024 Influenza Vaccine (#1) 2025 2, 08/01/2018, 05/28/2013, Additional history exists Cholesterol Screening [...] Procedure Name Priority Date/Time Associated Diagnosis Comments ECG 12-LEAD Routine 01/27/2025 9:51 AM EDT Palpitations LIPID PANEL Routine 03/18/2024 ANNUAL BMP BLOOD TEST Routine 05/26/2023 HEMOGLOBIN A1C Routine 11/30/2020 URINE ALBUMIN CREATININE RATIO Routine 12/17/2019 HEPATITIS C SCREENING Routine 07/26/2018 from Last 3 Months or Most Recently Relevant to Health Maintenance Results * ECG 12 lead (01/27/2025 9:51 AM EDT) Ventricular Rate ECG 82 BPM GEMUSE Atrial Rate 82 BPM GEMUSE P-R Interval 134 ms GEMUSE QRS Duration 80 ms GEMUSE Q-T Interval 392 ms GEMUSE QTc 457 ms GEMUSE P Wave Cresco 40 degrees GEMUSE R [place] 90 degrees GEMUSE T [place] 71 degrees GEMUSE ECG Interpretation Normal sinus rhythm with sinus arrhythmia Rightward axis When compared with ECG of 01-OCT-2024 07:48, No significant change was found Confirmed by JENNIE MARINO ([id number]) on 02/21/2025 11:15:09 AM GEMUSE 01/27/2025 9:51 AM EDT 02/21/2025 11:15 AM EDT Result [facility] Tremaine Blevins NP ECG ORDERABLES Final Result GEMUSE * (ABNORMAL) Lipid panel (03/18/2024) Pathologist [facility] LDL/HDL Ratio 4 0 - 4 Triglycerides 72 0 - 150 mg/dL Cholesterol 163 0 - 200 mg/dL HDL 44 >=40 mg/dL LDL Cholesterol 105(A) 0 - 100 mg/dL Blood Venous blood specimen / Unknown Result [facility] Provider LAB BLOOD ORDERABLES Gillian l Result * Annual BMP Blood Test (05/26/2023) Pathologist [facility] Annual BMP Blood Test abstracted Result [facility] Provider HEALTH MAINTENANCE Final Result * (ABNORMAL) Hemoglobin A1c (11/30/2020) [facility] Hemoglobin A1C 6.7(A) <=6.5 % Blood Venous blood specimen / Unknown Result [facility] Provider LAB BLOOD ORDERABLES Gillian l Result * Urine Albumin Creatinine Ratio (12/17/2019) Pathologist [facility] Urine Albumin Creatinine Ratio abstracted Result [facility] Provider HEALTH MAINTENANCE Final Result * Hepatitis C Screening (07/26/2018) [facility] Hepatitis C Screening abstracted Result [facility] Provider HEALTH MAINTENANCE Final Result from Last 3 Months or Most Recently Relevant to Health Maintenance Insurance [facility] Care Teams Staff Psychologist Relationship Specialty Start Date End Date Antwon Mendoza NP [address] [place], [place] PCP - General 07/06/23
== END 2025-03-28 09:23 | disposition home or self-care (01) ==
LOC: HO.MAMMO 09:22
PROVIDERS: PCP Nurse Practitioner Family; Visit Provider Nurse Practitioner Family
DX: Z12.31 Encounter for screening mammogram for malignant neoplasm of breast (principal)
CPT/HCPCS: 77063; 77067

== ENCOUNTER → 2025-03-28 09:30 | Outpatient (BNV) | payer OTHER, SELFPAY | PROVIDERS: PCP Nurse Practitioner Family; Visit Provider Internal Medicine | DX: Z12.31 Encounter for screening mammogram for malignant neoplasm of breast (principal) | CPT/HCPCS: 77063; 77067 ==

== ENCOUNTER 2025-04-30 06:36 | Outpatient (AMB) | payer OTHER, SELFPAY ==
--- OUTSIDE RECORDS SUMMARY | 2025-04-25 10:50 | XMS_ITS | Encounter Summary ---
Author Organization [facility] Address [address] [place] [address] Care Team Providers Care Polymer Tester Name Role Phone Antione Mendoza NP Primary Care Provider Reason for Visit * Reason Comments Follow-up Medication review, b ack taking metoprolol 75 mg twice day Encounter Details Date Type Department Care Team (Latest Contact Info) Description 04/25/2025 10:50 AM EDT Office Visit [facility] - [address] [facility] [address] [place] [address] Jennie Marino MD [address] [place] [address] [place] [address] Dysautonomia (CMS/HCC V24, CMS/HCC V28) (Primary Dx); Hyperlipidemia, unspecified hyperlipidemia type Social History Tobacco Use Types Packs/Day Years Used Date Smoking Tobacco: Former Cigarettes 0.3 14.4 0 1999 - 02/10/2014 Smokeless Tobacco: Never Tobacco Cessation:Counseling Given: Not Answered Alcohol Use Standard Drinks/Week Comments No 0 (1 standard drink = 0.6 oz pur e alcohol) Housing Instability Answer Date Recorde d Are you worried that in the next 2 months you may not have stable housing? No 04/03/2025 Food Access & Nutrition Answer Date Rec orded Do you have access to a vari ety of food including fruits and vegetables? Yes 04/03/2025 Access to Healthcare Answer Date Record ed Within the last 3 months, ho w many times did you visit the emergency department for your medical care? 0 04/03/2025 Health Literacy Answer Date Recorded How often do you need to hav e someone help you when you read instructions, pamphlets, or other written material from your doctor or pharmacy? Never 04/03/2025 Caregiver: How often do you need to have someone help you when you read instructions, pamphlets, or other written material from your doctor or pharmacy? Not on file 04/03/2025 Financial Risk Answer Date Recorded How hard is it for you to pa y for the very basics like food, housing, medical care, and air conditioning / heating? Very hard 04/03/2025 Transportation Answer Date Recorded Has the lack of transportati on kept you from meetings, work, or from getting things needed for daily living? No Has the lack of transportati on kept you from medical appointments or from getting medications? No 04/03/2025 Social Isolation Answer Date Recorded How often do you feel lonely or isolated from th ose around you? Never 04/03/2025 Food Risk Answer Date Recorded Within the past 12 months we worried whether our food would run out before we got money to buy more. Never true 04/03/2025 Within the past 12 months th e food we bought just didn't last and we didn't have money to get more. Never true 04/03/2025 Dependent Care Answer Date Recorded Do you need help finding or paying for care for your loved ones. For example, child and family counselor or elderly care for an older adult? No 04/03/2025 Education Answer Date Recorded Do you think completing more education or training, like finishing a GED, going to college, or learning a trade, would be helpful for you? No 04/03/2025 Employment and Income Answer Date Recor ded During the last four weeks, have you been actively looking for work? No 04/03/2025 Living Situation Answer Date Recorded What is your living situation? Unrecognized valu e 04/03/2025 Comments Unknown Sex and Gender Information Value Date Recorded Sex Assigned at Not on file Legal Sex Female 5:36 PM EST Gender Identity Not on file Sexual Orientation Not on file documented as of this encounter Last Filed Vital Signs Vital Sign Reading Time Taken Comments Blood Pressure 104/72 04/25/2025 10:42 AM EDT Pulse 86 04/25/2025 10:42 AM EDT Temperature - - Respiratory Rate - - Oxygen Saturation 97% 04/25/2025 10:42 AM EDT Inhaled Oxygen Concentration - - Weight 61.2 kg (135 lb) 04/25/2025 10:42 AM EDT Height 160 cm (5' 3 ) 04/25/2025 10:42 AM EDT Body Mass Index 23.91 04/25/2025 10:42 AM EDT documented in this encounter Ordered Prescriptions Prescription Sig Dispense Quantity Refills Last Filled Start Date End Date sodium chloride 1 gram tablet Take 1 tablet (1 g total) by mouth 3 (three) times a day. Or as much as tolerated 90 each 11 04/25/2025 documented in this encounter Progress Notes * Jennie Marino MD - 04/25/2025 10:50 AM EDT [facility] PCP: ANTIONE MENDOZA NP I have obtained verbal consent from Michelle Whiting prior to the recording. I have advised Michelle Whiting that she may refuse the recording and require the recording to be turned off at any time during this encounter. History of Present Illness She is managing dysautonomia, likely postural orthostatic tachycardia syndrome (POTS), characterized by a significant increase in pulse rate upon postural changes, with heart rates occasionally exceeding 130 beats per minute. Her symptoms began in 2019, following diagnoses of type 1 diabetes mellitus and Jose Cruz's thyroiditis. She reported feeling unwell in July 2019, coinciding with her 's presentation of [id number]-[id number]-weye symptoms. Initially, she was prescribed intermittent beta-jaimee therapy, which was transitioned to propranolol LA at a dosage of 60 mg. However, due to palpitations, her medication was switched to metoprolol on a scheduled basis, which was titrated to 75 mg twice daily (BID) with an additional 25 mg as needed (PRN) 2-3 times per week. This regimen has been the most successful at controlling palpitation symptoms. She does continue to experience postural lightheadedness but denies any syncope. She denies chest pain, dyspnea on exertion, lower extremity edema. From a lifestyle standpoint, she reports drinking adequate amounts of water. She tries to maintain a high sodium intake but admits she is not always perfectly successful. She is willing to try salt tablets to boost her sodium intake. She exercises regularly by walking on her treadmill almost every day. She admits she has not been doing leg and core strengthening exercises is much as she would like. She was diagnosed with type 1 diabetes mellitus in November 2019, with her most recent hemoglobin A1c recorded at 7%. She utilizes a Dexcom insulin pump for glycemic management. Her thyroid is also under good control. She sees Dr. Mendoza at [facility] endocrinology clinic. ACTIVE MEDICATIONS: Current Outpatient Medications Medication Instructions atorvastatin (LIPITOR) 20 mg, oral, Nightly blood-glucose meter,continuous (Dexcom G6 Therapeutic Program Worker) misc 1 Device by Does not apply route daily. cetirizine (ZYRTEC) 10 mg, Daily fluticasone propionate (FLONASE) 50 mcg/actuation nasal spray 2 Sprays by Nasal route daily. insulin lispro (HumaLOG KwikPen Insulin) 100 unit/mL injection pen Inject three times a day with meals per scale: if BS 100-150: 1 units; 151-200: 2 units; 201- 250: 3 units; 251-300: 4 units; 301-350: 5 units; 351-400: 6 units insulin lispro (HumaLOG) 100 UNIT/ML patient supplied pump 1 EA, Continuous levothyroxine (SYNTHROID, LEVOTHROID) 50 mcg, Every morning before breakfast metFORMIN (GLUCOPHAGE) 1,000 mg tablet Take 1 Tablet by mouth 2 times daily (with meals). metoprolol tartrate (LOPRESSOR) 75 mg, oral, 2 times daily sodium chloride 1 g, oral, 3 times daily, Or as much as tolerated PAST MEDICAL HISTORY: Patient Active Problem List Diagnosis Date Noted Date Diagnosed Seasonal allergies 09/20/2024 Hyperlipidemia 12/13/2023 Last Assessment & Plan: Agree with atorvastatin 20 mg for primary prevention especially in the setting of type 1 diabetes. Dysautonomia (CMS/HCC V24, CMS/HCC V28) 12/13/2023 - See recent Holter monitor under PVC section - During cardiology visit in November 2023-she describes symptoms of postural severe racing heart sensation associated at times with lightheadedness and shortness of breath - Around that time or several months prior she was diagnosed with new onset type 1 diabetes as wellas hypothyroidism Last Assessment & Plan: Given multiple [...] nature. I have reached out to her literacy education professor to see if she has any thoughts. Consider rheumatologic referral for further workup of autoimmune phenomenon. There is nothing obvious on exam or history to suggest diagnoses such as lupus or rheumatoid arthritis. We reviewedcontinuing her exercise routine as she is doing [...] will improve. High-tone pelvic floor dysfunction 05/13/2023 Last Assessment & Plan: While awaiting her [...] She voiced understanding and agreed. 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 Could be related to her diabetes. In any case, I suggsted we consider switching to Aygestin to use continuesly to suppress menseswhich seem to make sx worse. I also recommended we consider a topical steroid in [place] as she feels it is an inflammatory process. I will discuss with WIP. I explained that testosterone topicallyhas not been shown in studies to be beneficial for vulvodynia, but she was very interested in trying anything. I offered to discuss with colleagues and WIP to see what we can do, but she will need tochoose one or there other topical so we will know what is helping. She agreed and desires the T/E combination. I also suggested that she see Dr. Mar again to see if there is a different block or stimulator that can help. She was in agreement. Yeast vaginitis 02/28/2023 Last Assessment & Plan: Will treat presumptively for yeast and send culture to ensure usual type yeast. I explained that there is no evidence of dangerous interaction between Macrobid and fluconazole. I confirmed this with the hospital pharmacist. She will take both to treat her UTI and yeast vaginitis, respectively. Vaginal pain 02/08/2023 Last Assessment & Plan: I counseled Michelle [...] of her diabetes, it is possible that venkathas had non-albicans yeast, which does not respond to usual azoles. I have sent a culture for both speciation and sensitivity, although I explained that albicans resistance to usual medications is uncommon. I do not see any evidence of an infection or reaction to newer diabetes medications. We willdiscuss results when available and treat prn. In the meantime, I strongly encouraged her to follow VSC guidelines, which she is essentially already doing, but to add soda soaks and seal with coconut oil or Vaseline BID. Hold all other topical meds at this time. She voiced understanding and agreed. PVC (premature ventricular contraction) 09/10/2020 - Also follows with electrophysiology-has had an [...] Toprol XL 37.5 twice daily- continue this. 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 ALLERGIES: Allergies Allergen Reactions Azithromycin Heart Palpitations Ciprofloxacin-Hydrocortisone Rash Hives on course and does not recall when Other Bactrim [Na Lydaqjau-mqmdcuthgfjvrmxj-cufpnrdwhjpc Hives at age 13 or 14 Penicillins SOCIAL HISTORY: Social History Tobacco Use Smoking status: Former Current packs/day: 0.00 Average packs/day: 0.3 packs/day for 14.4 years (3.6 ttl pk-yrs) Types: Cigarettes Start date: 1999 Quit date: 02/10/2014 Years since quittin.2 Smokeless tobacco: Never Substance Use Topics Alcohol use: No PHYSICAL EXAM: Vitals: 04/25/25 1042 BP: 104/72 Pulse: 86 SpO2: 97% Weight: 61.2 kg (135 lb) Height: 1.6 m (63 ) Physical Exam General Appearance: Healthy appearing young woman, no acute distress. Neck: Neck supple, no JVD Respiratory: Clear bilaterally. Cardiovascular: Borderline tachycardia, regular rhythm, no murmurs or gallops. Extremities: No edema. Neurological: Awake, alert and oriented x 3, Cranial nerves II-XII grossly intact. EKG: Encounter Date: 01/27/25 ECG 12 lead Result Value Ventricular Rate ECG 82 Atrial Rate 82 P-R Interval 134 QRS Duration 80 Q-T Interval 392 QTc 457 P Wave [place] 40 R [place] 90 T [place] 71 ECG Interpretation Normal sinus rhythm with sinus arrhythmia Rightward axis When compared with ECG of 01-OCT-2024 07:48, No significant change was found Confirmed by JENNIE MARINO ([id number]) on 02/21/2025 11:15:09 AM *Note: Due to a large number of results and/or encounters for the requested time period, some results have not been displayed. A complete set of results can be found in Results Review. TESTING: No results found for: GLUCOSE , CALCIUM , NA , K , CO2 , CL , BUN , CREATININE No results found for: WBC , HGB , HCT , MCV , PLT Lab Results Component Value Date CHOL 163 03/18/2024 Lab Results Component Value Date HDL 44 03/18/2024 No results found for: LDLCALC Lab Results Component Value Date TRIG 72 03/18/2024 No results found for: CHOLHDL Results A1c: 7 44 y.o. female who presents for cardiac follow-up of the below mentioned issues. All in all, she isdoing well from a cardiac standpoint and is euvolemic on exam. Please see problem specific recommendations below. Assessment & Plan 1. POTS: Her pharmacologic regimen is working well for her. Today we largely focused on improving behavioral modifications to try to reverse the disease process itself. - Managing with metoprolol 75 mg BID, extra 25 mg PRN 2-3 times/week. This regimen is working for her quite well - Prescribe sodium chloride tablets to increase salt intake. - Continue adequate [id number] fluid ounces a day. - Recommend regular aerobic exercise and core/leg strengthening. - Periodic electrolyte checks, lab work ordered today. 2. Mild Hyperlipidemia: - On low dose atorvastatin due to type 1 diabetes. Follow-up in 6 months. Follow up in about 6 months (around 10/23/2025). Thank you for allowing us to participate in the care of this patient. CC: ANTIONE MENDOZA NP The [facility] team will continue to co-manage this patient following the plan of care as established by my initial visit and as per AHA guidelines for ongoing management and surveillance of the above mentioned issues. This will include medication titration, initiation of appropriate medications and further titration, and diagnostic studies to manage this disease process. This note was dictated using voice recognition software. Please pardon any grammatical or syntax errors. documented in this encounter Plan of Treatment Scheduled Orders Name Type Priority Associated Diagnoses Orde r Schedule Basic metabolic panel Lab Routine Dysautonomia (CMS/HCC V24, CMS/HCC V28) 1 Occurrences starting 04/25/2025 until 04/25/2026 documented as of this encounter Visit Diagnoses Diagnosis Dysautonomia (CMS/HCC V24, CMS/HCC V28)- Primary Unspecified disorder of autonomic nervous system Hyperlipidemia, unspecified hyperlipidemia type documented in this encounter Additional Health Concerns Assessment Noted Time PHQ-9 Depression Total Score: 0 04/03/20 25 9:40 AM EDT documented as of this encounter Care Teams Polymer Tester Relationship Specialty Start Date End Date Antione Mendoza NP [address] [facility] [place] PCP - General 07/06/23 documented as of this encounter
--- OUTSIDE RECORDS SUMMARY | 2025-04-30 06:38 | XMS_ITS | Clinical Summary ---
Author Organization [facility] Address [address] [place] [address] Care Team Providers Care Radiation Oncology Therapist Name Role Phone Antwon Mendoza Primary Care Provider [phone] Allergies Active Allergy Reactions Criticality Noted Date [...] Group Subscriber ID Effective Dates Phone Address [facility] [id number] 2013-Present [address] [address] [facility] [id number] 2022-Present [address] [address] [facility] Care Teams Radiation Oncology Therapist Relationship Specialty Start Date End Date Antwon Mendoza [address] [facility] [place]ar [address] PCP - General Family Medicine 07/06/23
--- OUTSIDE RECORDS SUMMARY | 2025-04-30 06:38 | XMS_ITS | Data Portability ---
Author Organization [place] - [facility], [facility] Address [address] [place] [address] Care Team Providers Care Scallop Shucker Name Role Phone ANTIONE MILLER Primary Care Provider Assessment No assessment recorded. Plan of Treatment Reminders Order Date Submit Date Provider Last Modified By Organization Details Last Modified Time Details Appointments None recorde d. Lab alex wet prep 024 10/12/19 24 [email or web address] In-Office Order, Internal Use Only DO Not Attach Compendium DO Not Attach Compendium, Do Not Delete/merge, [id number] 11:44:12 culture , vaginal , yeast 024 10/12/19 24 [facility], [address] [place], [address] 4 12:14:17 Referral None recorde d. Procedures None recorde d. Surgeries None recorde d. Imaging None recorde d. Medication Orders None recorde d. Patient TargetsNo targets recorded. 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 i suggested a dx lidocaine test as she has had many different treatments once this is performed i will be able to offer treatment's for probable VV a culture was sent follow u scheduled Total Time on date of the encounter: minutes Obtain a patient history and/or review a separately obtained history: _15____ minutes Reviewing patient s lab/radiology/dov t results: __0___ minutes Examining the patient: _10____ minutes Discussing Treatment options with patient/family/car egiver: __15___ minutes Counseling and education of the patient/family/car egiver: minutes Writing/ordering prescriptions for patient: _0____ minutes Ordering diagnostic test(s) and/or procedure: _3____ minutes Updating/documenti ng clinical information in the patient s medical record: __5___ minutes Other : minutes Not available 10/12/2023 12:43:08 Reason for Referral None Reported. Results Created Date Observation Date Name Description Value Unit Range Abnormal Flag Note LastModifiedBy Organization Detail LastModifiedTime 10/12/19 24 10/23/2023 CULTU RE, YEAST , W/DIR ECT FLUOR ESCEN T ALEX culture, yeast, w/direct fluorescent alex SEE NOTE CULTU RE, YEAST , W/DIR ECT FLUOR ESCEN T ALEX Micro Numbe r: [id number] Test Statu s: Final Speci men Sourc e: Vagin a Speci men Quali ty: Adequ ate Smear : No yeast seen Resul t: No yeast isola hamilton Not Available [facility] [address], [place], [address], 10/23/2023 12:14:17 10/12/1910/12/2023 alex wet prep Hyphae Absent Not Available In-Office Order Internal Use Only DO Not Attach Compendium DO Not Attach Compendium, Do Not Delete/merge, 10/12/2023 11:43:35 10/12/1910/12/2023 alex wet prep Clue Cells Absent Not Available In-Offi ce Order Internal Use Only DO Not Attach Compendium DO Not Attach Compendium, Do Not Delete/merge, 10/12/2023 11:43:35 10/12/1910/12/2023 alex wet prep Yeast Absent Not Available In-Office Order Internal Use Only DO Not Attach Compendium DO Not Attach Compendium, Do Not Delete/merge, [id number] 10/12/2023 11:43:35 10/12/19 24 10/12/2023 alex wet prep Other nl moncho Not Available In-Office Order Internal Use Only DO Not Attach Compendium DO Not Attach Compendium, Do Not Delete/merge, [id number] 10/12/2023 11:43:35 Result Notes None recorded. Problems No Known Problems Medical Equipment None Reported. Allergies Allergen ID Allergen Name Allergen Category Reaction Reaction Severity Criticality Documentation Date Start Date Code Code System Note Provider Name and Address Organization Details Recorded Time [id number] Cipro medicatio n Not available Not available Not available 10/12/2023 [address] [facility] 4 11:10:17 [id number] Bactrim medicatio n Not available Not available Not available 10/12/2023 72593 9 [facility] 4 11:10:23 Medications Name Sig Start Date Stop Date Status Note LastModified by Organization Details LastModified Time amphoterici n b 3% cream active Not Available Not Available Not Available flucytosine 17% vaginal cream active Not Available Not Available Not Available freestyle lite test strips strp active Not Available Not Available Not Available Estring 2 mg (7.5 mcg/24 hour) vaginal ring INSERT 1 RING INTO THE VAGINA FOR 90 DAYS THEN REPLACE RING 10/11 completed Not Available Not Available Not Available nitrofurant oin macrocrysta l 50 mg capsule TAKE 1 CAPSULE BY MOUTH AT BEDTIME. MUST ADMINISTE R WITH FOOD/MEAL 10/11 completed Not Available Not Available Not Available cefuroxime axetil 250 mg tablet TAKE 1 TABLET BY MOUTH TWICE DAILY FOR 7 DAYS 10/11 completed Not Available Not Available Not Available atorvastati n 20 mg tablet TAKE 1 TABLET BY MOUTH DAILY active Not Available Not Available No t Available flucytosine 500 mg capsule 10/11 completed Not Available Not Available Not Available Vitamin C 500 mg tablet TAKE 1 TABLET BY MOUTH DAILY active Not Available Not Available No t Available cetirizine 10 mg tablet TAKE 2 TABLETS BY MOUTH ONCE DAILY active Not Available Not Available No t Available fosfomycin tromethamin e 3 gram oral packet MIX AND DRINK 1 PACKET BY MOUTH WEEKLY FOR 4 WEEKS FOR UTI PREVENTIO N 10/11 completed Not Available Not Available Not Available fluconazole 150 mg tablet TAKE 1 TABLET BY MOUTH ONCE A WEEK 10/11 completed Not Available Not Available Not Available fluconazole 200 mg tablet TAKE 2 TABLETS BY MOUTH EVERY 72 HOURS FOR 3 DOSES 10/11 completed Not Available Not Available Not Available clindamycin HCl 150 mg capsule TAKE 1 CAPSULE BY MOUTH EVERY 8 HOURS FOR 7 DAYS active Not Available Not Available No t Available clotrimazol e 1 % vaginal cream INSERT 1 APPLICATO R INTO THE VAGINA ONCE DAILY active Not Available Not Available No t Available metronidazo le 500 mg tablet TAKE 1 TABLET BY MOUTH EVERY 12 HOURS FOR 7 DAYS active Not Available Not Available No t Available tretinoin 0.05 % topical cream APPLY PEA SIZED AMOUNT TO THE ENTIRE FACE AND SMALL AMOUNT TO REACHABLE AREAS ON BACK AT BEDTIME TOLERATED 10/11 completed Not Available Not Available Not Available levothyroxi ne 25 mcg tablet TAKE 1 TABLET BY MOUTH DAILY active Not Available Not Available No t Available amphoterici n B (bulk) powder 10/11 completed Not Available Not Available Not Available methenamine hippurate 1 gram tablet TAKE 1 TABLET BY MOUTH DAILY active Not Available Not Available No t Available amitriptyli ne 25 mg tablet TAKE 1 TABLET BY MOUTH AT BEDTIME active Not Available Not Available No t Available magnesium oxide 400 mg (241.3 mg magnesium) tablet active Not Available Not Available Not Available amoxicillin 250 mg/5 mL oral suspension BRING TO OFFICE FOR ORAL CHALLENGE 10/11 completed Not Available Not Available Not Available Humalog U-100 Insulin 100 unit/mL subcutaneou s solution INJECT UP TO 50 UNITS UNDER THE SKIN DAILY IN PUMP active Not Available Not Available No t Available amitriptyli ne 10 mg tablet TAKE 1 TABLET BY MOUTH EVERY NIGHT AT BEDTIME active Not Available Not Available No t Available doxycycline monohydrate 100 mg capsule TAKE 1 CAPSULE BY MOUTH TWICE DAILY WITH FOOD 10/11 completed Not Available Not Available Not Available levothyroxi ne 50 mcg tablet TAKE 1 TABLET BY MOUTH DAILY active Not Available Not Available No t Available nortriptyli ne 10 mg capsule TAKE 1 CAPSULE BY MOUTH AT BEDTIME active Not Available Not Available No t Available fluoxetine 20 mg tablet TAKE 1 TABLET BY MOUTH DAILY 10/11 completed Not Available Not Available Not Available metformin 1,000 mg tablet TAKE 1 TABLET BY MOUTH TWICE DAILY WITH FOOD active Not Available Not Available No t Available triamcinolo ne acetonide 0.1 % topical ointment APPLY TOPICALLY TWICE DAILY X 7 DAYS 10/11 completed Not Available Not Available Not Available gabapentin 300 mg capsule TAKE 1 CAPSULE BY MOUTH AT BEDTIME 10/11 completed Not Available Not Available Not Available clindamycin 2 % vaginal cream 10/11 completed Not Available Not Available Not Available hydroxyzine HCl 25 mg tablet TAKE 1 TABLET BY MOUTH TWICE DAILY NEEDED FOR ITCHING active Not Available Not Available No t Available gabapentin 100 mg capsule 10/11 completed Not Available Not Available Not Available clobetasol 0.05 % topical ointment APPLY TO TO THE AFFECTED AREA EVERY NIGHT X2 WEEKS THEN EVERY OTHER NIGHT X2 WEEKS THEN 2 TIMES WEEKLY X4 WEEKS THEN 1-2 TIMES WEEKLY NEEDED active Not Available Not Available No t Available estradiol 0.01% (0.1 mg/gram) vaginal cream INSERT 2 GRAMS VAGINALLY EVERY NIGHT AT BEDTIME FOR 14 DAYS 10/11 completed Not Available Not Available Not Available albuterol sulfate HFA 90 mcg/actuati on aerosol inhaler INHALE 1 PUFF BY MOUTH FOUR TIMES DAILY NEEDED FOR SHORTNESS OF BREATH OR WHEEZING active Not Available Not Available No t Available norethindro ne (contracept teresa) 0.35 mg tablet TAKE 1 TABLET BY MOUTH DAILY active Not Available Not Available No t Available oxybutynin chloride 5 mg tablet TAKE 1 TABLET BY MOUTH DAILY 10/11 completed Not Available Not Available Not Available fluticasone propionate 50 mcg/actuati on nasal spray,suspe nsion SHAKE LIQUID AND USE 2 SPRAYS IN EACH NOSTRIL TWICE DAILY active Not Available Not Available No t Available metformin ER 500 mg tablet,exte nded release 24 hr TAKE 2 TABLETS BY MOUTH TWICE DAILY active Not Available Not Available No t Available itraconazol e 100 mg capsule TAKE 2 CAPSULES BY MOUTH DAILY 10/11 completed Not Available Not Available Not Available amoxicillin 875 mg-potassiu m clavulanate 125 mg tablet TAKE 1 TABLET BY MOUTH TWICE DAILY FOR 7 DAYS FOR UTI 10/11 completed Not Available Not Available Not Available metoprolol tartrate 25 mg tablet TAKE 1 AND 1/2 TABLETS BY MOUTH TWICE DAILY active Not Available Not Available No t Available tinidazole 500 mg tablet active Not Available Not Available Not Available nitrofurant oin monohydrate /macrocryst als 100 mg capsule TAKE 1 CAPSULE BY MOUTH EVERY 12 HOURS FOR 3 DAYS active Not Available Not Available No t Available duloxetine 20 mg capsule,del ayed release active Not Available Not Available Not Available duloxetine 30 mg capsule,del ayed release active Not Available Not Available Not Available solifenacin 5 mg tablet TAKE 1 TABLET BY MOUTH DAILY active Not Available Not Available No t Available clindamycin 1.2 % (1 % base)-benzo yl peroxide 5 % topical gel APPLY TO ACNE PRONE SKIN DAILY TOLERATED 10/11 completed Not Available Not Available Not Available FreeStyle Lite Strips USE TEST STRIPS TO CHECK BLOOD SUGAR 8 TIMES A DAY active Not Available Not Available No t Available SymlinPen 60 1,500 mcg/1.5 mL subcutaneou s pen injector ADMINISTE R 60 MCG UNDER THE SKIN THREE TIMES DAILY BEFORE MEALS active Not Available Not Available No t Available estradiol 10 mcg vaginal tablet INSERT 1 TABLET VAGINALLY 2 TIMES A WEEK 10/11 completed Not Available Not Available Not Available Uribel 118 mg-10 mg-40.8 mg-36 mg capsule TAKE 1 CAPSULE BY MOUTH TWICE DAILY WITH PLENTY OF FLUIDS NEEDED FOR BLADDER DISCOMFOR T active Not Available Not Available No t Available lidocaine 5 % topical ointment APPLY TOPICALLY IF NEEDED FOR MILD PAIN DO NOT EXCEED 3 APPLICATI ONS PER DAY active Not Available Not Available No t Available Victoza 3-Deonte 0.6 mg/0.1 mL (18 mg/3 mL) subcutaneou s pen injector ADMINISTE R 1.8 MG UNDER THE SKIN DAILY 10/11 completed Not Available Not Available Not Available Baqsimi 3 mg/actuatio n nasal spray USE DIRECTED NEEDED active Not Available Not Available No t Available Brexafemme 150 mg tablet TAKE 2 TABLETS BY MOUTH EVERY 12 HOURS FOR 1 DAY active Not Available Not Available No t Available Ozempic 0.25 mg or 0.5 mg (2 mg/3 mL) subcutaneou s pen injector INJECT 0.25MG SUBCUTANE OUS ONCE WEEKLY 10/11 completed Not Available Not Available Not Available Vitals Date Recorded Body height Body mass index (BMI) Body weight Systolic And Diastolic Provider Name and Address Organization Details Last Updated DateTime 10/12/2023 160.02 cm 26.6 kg/m2 17492.86 g 112/71 mm[Hg] Libia Vaughan [facility] 10/12/2023 11:09:50 Social History Question Answer Notes LastModified by Organizat Samares Details LastModified Time Tobacco Smoking Status Former Smoker Ericka Johnson MD [address] [place] [address], [address], [place], [address], [facility] 10/12/2023 11:23:48 Drug Use? No [email or web address] Information no t available 10/12/2023 Sex: Unknown Functional Status Question Answer Note LastModified by Organizat [employer] Details LastModified Time What is your level of alcohol consumption? Occasional [email or web address] Information not available 10/12/2023 What is your occupation? [email or web address] Information not available 10/09/2023 What is your exercise level? Occasional [email or web address] Information not available 10/12/2023 Mental Status None recorded. Family History Nothing Reported. Medical History Condition Response Heart Problems Diabetes Y Hyperlipidemia Y Gynecological History Statement/Question Response STIs/STDs N Abnormal Pap Y Current Control Method Oral Contra ceptives Frequency of Cycle (Q days) Sexually Active? N Obstetrics History GPAL:G 1 P 0 0 1 0 Type Value Induced 1 Living 0 Total 1 Past Encounters Encounter ID Performer Location Encounter Start Date Encounter Closed Date Diagnosis/Indication Diagnosis SNOMED-CT Code Diagnosis ICD10 Code Diagnosis IMO Codes Diagnosis Note [id number] Ericka Johnson MD [facility] [address] [place] [id number] 10/12/2023 10:51:23 10/12/2023 12:10:06 Inflammation of vestibule of vulva 20573079 N94.810 Health Concerns Section Related Observation LastModified by Organization Detai ls LastModified Time None Recorded Concern Status LastModified by Organization Details LastModified Time None Recorded Advance Directives Directive None Recorded Payers Insurance Date Sequence Insurance Name Policy Number Policy Casarez Covered Member ID Casarez Member ID Guarantor Name 10/25/2023 1 [facility] ([place]) [id number] Michelle Marvinmayrejacquie [id number] Michelle Galnathanael 10/25/2023 1 [facility] (O) [id number] Michelle Carejacquie [id number] Michelle Cacarmelina Notes Date Note Type Note Provider Name and Address Organization Details Recorded Time 10/12/2023 text/html 43 year old with a 13 month history of discharge and burning at the opening of the vagina some itching some swelling and rednessshe is having daily painshe initially treated herself for a yeast infectionshe saw her obgyn and was negative for infectionsshe has seen a PThas taken multiple doses of diflucan anditraconazole and clindamycinA biopsy was done and showed LSAshe tried clobetasal but ointment's make her much worsepudendal nerve block without any relief Ericka Johnson MD [address] [place] [address], [address], [place], [address], [place] [facility] 10/12/2023 12:43:31 OBGyn Episode No OBEpisode recorded.
--- OUTSIDE RECORDS SUMMARY | 2025-04-30 06:38 | XMS_ITS | Data Portability ---
Author Organization ID - [place] [facility] [employer] [facility], [id number] Address [address] [place] [address] Care Team Providers Care Retail Helper Name Role Phone JUAN J BOWLES Referring Provider ANTIONE MILLER Primary Care Provider Assessment Encounter Date Assessment Date Assessment LastModified by Organization Details LastModified Time 09/11/2024 09/11/2024 -patient with ongoing perineal pain, she did report that with her pudendal nerve block in 07/2023, however, despite being numb in her perineal region after the injection, she still had some pain that was persisted despite the block; discussed about trying ganglion of impar block to see if there is a sympathetic-med iated component of her pain, she will call the office if she would like to proceed -pain symptoms have improved overall on lyrica, will continue adjusting dose to help with pain and minimize side effects--for this month will try lyrica 50mg in AM and afternoon; and 75mg QHS -f/up in 1 month -14minutes was used for chart review, interviewing/ex amining, and counseling the patient during today's visit, and patient denies having any other further questions/areli rns [email or web address] Not available 09/11/2024 12:18:07 10/15/2024 10/15/2024 -patient with ongoing perineal pain, she did report that with her pudendal nerve block in 07/2023, however, despite being numb in her perineal region after the injection, she still had some pain that was persisted despite the block; discussed about trying ganglion of impar block to see if there is a sympathetic-med iated component of her pain, she will call the office if she would like to proceed -pain symptoms have improved overall on gabapentin/lyri ca, however at some point she was feeling palpitations and felt it may have been related to the lyrica, so had switched to gabapentin 300mg TID--has not noticed it come up again, but has been having some slight drowsiness with the gabapentin, however patient would like to continue on the gabapentin for now, and evaluate again next month (was previously on lyrica 50mg TID) -f/up in 1 month -14minutes was used for chart review, interviewing/ex amining, and counseling the patient during today's visit, and patient denies having any other further questions/areli rns [email or web address] Not available 10/15/2024 12:20:57 10/29/2024 10/29/2024 -patient with ongoing perineal pain, she did report that with her pudendal nerve block in 07/2023, however, despite being numb in her perineal region after the injection, she still had some pain that was persisted despite the block; discussed about trying ganglion of impar block to see if there is a sympathetic-med iated component of her pain, she will call the office if she would like to proceed -will transition back from gabapentin to lyrica 50mg TID, will increase as needed/tolerate d -f/up in 1 month -14minutes was used for chart review, interviewing/ex amining, and counseling the patient during today's visit, and patient denies having any other further questions/areli rns [email or web address] Not available 10/29/2024 11:43:04 12/03/2024 12/03/2024 -patient with ongoing perineal pain, she did report that with her pudendal nerve block in 07/2023, however, despite being numb in her perineal region after the injection, she still had some pain that was persisted despite the block; discussed about trying ganglion of impar block to see if there is a sympathetic-med iated component of her pain, she will call the office if she would like to proceed -will continue lyrica 50mg TID, will increase as needed/tolerate d -f/up in 3 months -14minutes was used for chart review, interviewing/ex amining, and counseling the patient during today's visit, and patient denies having any other further questions/areli rns This is a medically necessary visit as the patient would typically be seen in the office, however, due to the COVID-19 pandemic, the patient verbally agreed to a virtual phone visit in place of a physical appointment. The patient was informed that provider would take precautions to ensure privacy of PHI as much as possible. The patient was informed that they can opt out or refuse services at anytime. Visit included: - substantial medical advice - revising treatment plan - prescribing/rev ising medications, if prescribed. - providing self-care/patie nt education information for new and/or chronic health problem [email or web address] Not available 12/03/2024 14:30:05 03/04/2025 03/04/2025 -patient with ongoing perineal pain, she did report that with her pudendal nerve block in 07/2023, however, despite being numb in her perineal region after the injection, she still had some pain that was persisted despite the block; discussed about trying ganglion of impar block to see if there is a sympathetic-med iated component of her pain, she will call the office if she would like to proceed; of note, she did under perineal surgery in 12/2024 to try to help with 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 Lab None recorded. Referral None recorded. Procedures None recorded. Surgeries None recorded. Imaging None recorded. Medication Orders Lyrica 50 mg capsule 2024 025 [facility] #[id number], [address] [place] [address], [id number], 12:21:03 Lyrica 50 mg capsule 2024 025 [facility] #[id number], [address] [place], [place], [id number], 5 14:29:44 Lyrica 50 mg capsule 2024 025 [facility] #[id number], [address], [place], [id number], 5 11:43:43 gabapentin 300 mg capsule 2024 025 [email or web address] [facility] #[id number], [address], [place], [id number], 5 12:06:40 Lyrica 75 mg capsule 2024 025 [facility] #66964, [address], [place], [id number], 5 12:15:42 Lyrica 50 mg capsule 2024 025 [facility] #[id number], [address], [place], [id number], 5 12:15:42 Patient TargetsNo targets recorded. Patient InstructionsNo instructions recorded. Reason for Referral None Reported. Problems Name Problem SNOMED Code Status Onset Date Resolution Date Notes Provider Name and Address Organization Details Recorded Time Hypothyroidism 80751643 Active 2023 Manasa carbajal [facility] 4 16:10:39 Type 1 diabetes mellitus 90324080 Active 2023 Manasa carbajal [facility] 4 16:10:52 Perineal pain 250201219 Active 2023 MD raven Sanchez, [facility] 4 13:51:05 Chronic pain syndrome 058908888 [facility] Problem Notes None recorded. Procedures Surgical History Date Name Laterality Status Provider Name and Address Organization Details Recorded Time vaginoscopy with biopsy of cervix completed Manasa Nicholson [facility] 07/05/2024 16:11:39 colonoscopy completed Manasa [facility] 07/05/2024 16:11:48 Imaging Results None recorded. Procedure Notes None recorded. Medical Equipment None Reported. Allergies Allergen ID Allergen Name Allergen Category Reaction Reaction Severity Criticality Documentation Date Start Date Code Code System Note Provider Name and Address Organization Details Recorded Time 2154 ciproflox acin medicatio n Not available Not available Not available 07/05/2024 2551 RxNorm Manasa Nicholson [facility] 4 16:10:10 2156 sulfameth oxazole / trimethop rim medicatio n Not available Not available Not available 07/05/2024 06964 RxNorm Manasa Nicholson [facility] 4 16:10:24 Medications Name Sig Start Date Stop Date Status Note LastModified by Organization Details LastModified Time naltrexone 1.5mg capsules TAKE 1 CAPSULE BY MOUTH EVERY DAY FOR 1 WEEK THEN 2 CAPSULES DAILY FOR 1 WEEK THEN 3 CAPSULES DAILY active Not Available Not Available No t Available amphoterici n b 3% cream active Not Available Not Available Not Available freestyle lite test strips strp active Not Available Not Available Not Available flucytosine 17% vaginal cream active Not Available Not Available Not Available methocarbam ol 500 mg tablet TAKE 1 TABLET BY MOUTH THREE TIMES DAILY active Not Available Not Available No t Available terconazole 0.4 % vaginal cream INSERT 1 APPLICATO RFUL VAGINALLY DAILY AT BEDTIME FOR 7 DAYS active Not Available Not Available No t Available fluticasone 250 mcg-salmete rol 50 mcg/dose blistr powdr for inhalation INHALE 1 PUFF BY MOUTH TWICE DAILY active Not Available Not Available No t Available Estring 2 mg (7.5 mcg/24 hour) vaginal ring INSERT 1 RING VAGINALLY EVERY 3 MONTHS active Not Available Not Available No t Available nitrofurant oin macrocrysta l 50 mg capsule TAKE 1 CAPSULE BY MOUTH AT BEDTIME. MUST ADMINISTE R WITH FOOD/MEAL active Not Available Not Available No t Available doxycycline hyclate 100 mg capsule TAKE 1 CAPSULE BY MOUTH TWICE DAILY active Not Available Not Available No t Available atorvastati n 20 mg tablet TAKE 1 TABLET BY MOUTH DAILY active Not Available Not Available No t Available flucytosine 500 mg capsule active Not Available Not Available Not Available polyethylen e glycol 3350 17 gram oral powder packet MIX AND DRINK 1 PACKET BY MOUTH DAILY active Not Available Not Available No t Available cetirizine 10 mg tablet TAKE 2 TABLETS BY MOUTH EVERY DAY active Not Available Not Available No t Available fluconazole 150 mg tablet TAKE 1 TABLET BY MOUTH 1 TIME A DAY. MAY TAKE THE 2 ND PILL BY MOUTH 2 DAYS LATER IF SYMPTOMS ARE STILL PRESENT active Not Available Not Available No t Available fluconazole 200 mg tablet TAKE 2 TABLETS BY MOUTH EVERY 72 HOURS FOR 3 DOSES active Not Available Not Available No t Available propranolol ER 60 mg capsule,24 hr,extended release active Not Available Not Available Not Available bacitracin 500 unit/gram topical ointment APPLY TOPICALLY TO THE AFFECTED AREA TWICE DAILY 03/01 completed Not Available Not Available Not Available triamcinolo ne acetonide 0.1 % topical cream active Not Available Not Available Not Available amoxicillin 500 mg tablet TAKE 1 TABLET BY MOUTH EVERY 8 HOURS FOR 7 DAYS active Not Available Not Available No t Available levothyroxi ne 25 mcg tablet active Not Available Not Available Not Available amphoterici n B (bulk) powder active Not Available Not Available Not Available amitriptyli ne 25 mg tablet active Not Available Not Available Not Available metoclopram fam 5 mg tablet TAKE 1 TABLET BY MOUTH 4 TIMES DAILY BEFORE MEAL/BEDT DARLENE active Not Available Not Available No t Available Humalog U-100 Insulin 100 unit/mL subcutaneou s solution INJECT UP TO 50 UNITS SUBCUTANE OUS DAILY IN PUMP active Not Available Not Available No t Available amitriptyli ne 10 mg tablet TAKE 1 TABLET BY MOUTH EVERY NIGHT AT BEDTIME active Not Available Not Available No t Available doxycycline monohydrate 100 mg capsule TAKE 1 CAPSULE BY MOUTH TWICE DAILY WITH FOOD active Not Available Not Available No t Available levothyroxi ne 50 mcg tablet TAKE 1 TABLET BY MOUTH DAILY active Not Available Not Available No t Available cephalexin 500 mg capsule TAKE 1 CAPSULE BY MOUTH THREE TIMES DAILY FOR 7 DAYS active Not Available Not Available No t Available pantoprazol e 40 mg tablet,lety yed release TAKE 1 TABLET BY MOUTH ON AN EMPTY STOMACH WAIT 30 MINUTES AND THEN EAT TO ACTIVATE MEDICATIO N active Not Available Not Available No t Available metformin 1,000 mg tablet TAKE 1 TABLET BY MOUTH TWICE DAILY active Not Available Not Available No t Available gabapentin 300 mg capsule Take 1 capsule 3 times a day by oral route. 2024 active Not Available Not Available Not Avai lable omeprazole 20 mg capsule,del ayed release TAKE 1 CAPSULE BY MOUTH DAILY active Not Available Not Available No t Available montelukast 10 mg tablet TAKE 1 TABLET BY MOUTH AT BEDTIME active Not Available Not Available No t Available hydroxyzine HCl 25 mg tablet TAKE 1 TABLET BY MOUTH TWICE DAILY NEEDED FOR ANXIETY active Not Available Not Available No t Available mupirocin 2 % topical ointment APPLY TOPICALLY TO THE AFFECTED AREA THREE TIMES DAILY active Not Available Not Available No t Available norethindro ne acetate 5 mg tablet TAKE 1 TABLET BY MOUTH DAILY active Not Available Not Available No t Available albuterol sulfate HFA 90 mcg/actuati on aerosol inhaler INHALE 1 PUFF BY MOUTH FOUR TIMES DAILY NEEDED FOR SHORTNESS OF BREATH OR WHEEZING active Not Available Not Available No t Available ipratropium bromide 42 mcg (0.06 %) nasal spray USE 2 SPRAYS IN EACH NOSTRIL THREE TIMES DAILY active Not Available Not Available No t Available norethindro ne (contracept teresa) 0.35 mg tablet TAKE 1 TABLET BY MOUTH DAILY active Not Available Not Available No t Available oxybutynin chloride 5 mg tablet TAKE 1 TABLET BY MOUTH EVERY 8 HOURS NEEDED FOR BLADDER SPASMS active Not Available Not Available No t Available fluticasone propionate 50 mcg/actuati on nasal spray,suspe nsion SHAKE LIQUID AND USE 2 SPRAYS IN EACH NOSTRIL TWICE DAILY active Not Available Not Available No t Available metformin ER 500 mg tablet,exte nded release 24 hr TAKE 2 TABLETS BY MOUTH TWICE DAILY active Not Available Not Available No t Available itraconazol e 100 mg capsule TAKE 2 CAPSULES BY MOUTH DAILY FOR 7 DAYS active Not Available Not Available No t Available amoxicillin 875 mg-potassiu m clavulanate 125 mg tablet TAKE 1 TABLET BY MOUTH EVERY 12 HOURS active Not Available Not Available No t Available Sarah-Lanta 200 mg-200 mg-20 mg/5 mL oral suspension TAKE 15 ML BY MOUTH 4 TIMES DAILY NEEDED active Not Available Not Available No t Available escitalopra m 10 mg tablet TAKE 1 TABLET BY MOUTH DAILY active Not Available Not Available No t Available cyclobenzap rine 5 mg tablet TAKE 1 TABLET BY MOUTH AT BEDTIME FOR 10 DAYS active Not Available Not Available No t Available metformin ER 750 mg tablet,exte nded release 24 hr TAKE 1 TABLET BY MOUTH TWICE DAILY active Not Available Not Available No t Available bupropion HCl XL 150 mg 24 hr tablet, extended release TAKE 1 TABLET BY MOUTH EVERY MORNING active Not Available Not Available No t Available metoprolol tartrate 25 mg tablet TAKE 1 AND 1/2 TABLETS BY MOUTH TWICE DAILY active Not Available Not Available No t Available tinidazole 500 mg tablet TAKE 4 TABLETS BY MOUTH DAILY FOR 2 DAYS active Not Available Not Available No t Available nitrofurant oin monohydrate /macrocryst als 100 mg capsule TAKE 1 CAPSULE BY MOUTH EVERY 12 HOURS FOR 5 DAYS 03/01 completed Not Available Not Available Not Available duloxetine 20 mg capsule,del ayed release TAKE 1 CAPSULE BY MOUTH DAILY active Not Available Not Available No t Available duloxetine 30 mg capsule,del ayed release active Not Available Not Available Not Available duloxetine 60 mg capsule,del ayed release TAKE 1 CAPSULE BY MOUTH DAILY active Not Available Not Available No t Available pregabalin 25 mg capsule TAKE 1 CAPSULE BY MOUTH THREE TIMES DAILY active Not Available Not Available No t Available Lyrica 50 mg capsule Take 1 capsule twice a day by oral route. 2024 active Not Available Not Available Not Avai lable Lyrica 75 mg capsule Take 1 capsule every day by oral route. 2024 active Not Available Not Available Not Avai lable clindamycin 1.2 % (1 % base)-benzo yl peroxide 5 % topical gel APPLY TO ACNE PRONE SKIN DAILY TOLERATED active Not Available Not Available No t Available FreeStyle Lite Strips USE DIRECTED TO TEST BLOOD GLUCOSE 8 TIMES DAILY active Not Available Not Available No t Available SymlinPen 60 1,500 mcg/1.5 mL subcutaneou s pen injector ADMINISTE R 60 MCG UNDER THE SKIN THREE TIMES DAILY BEFORE MEALS active Not Available Not Available No t Available Capsule Adry-Snap #3 (gelatin) capsule active Not Available Not Available Not Available lidocaine 5 % topical ointment APPLY EXTERNALL Y TO THE AFFECTED AREA TWICE DAILY active Not Available Not Available No t Available Gynazole-1 2 % vaginal cream active Not Available Not Available Not Available Victoza 3-Deonte 0.6 mg/0.1 mL (18 mg/3 mL) subcutaneou s pen injector ADMINISTE R 1.8 MG UNDER THE SKIN DAILY active Not Available Not Available No t Available insulin degludec (U-100) 100 unit/mL (3 mL) subcutaneou s pen INJECT 18 UNITS SUBCUTANE OUS EVERY DAY WITH PUMP FAILURE active Not Available Not Available No t Available Intrarosa 6.[address] 1 SUPPOSITO RY VAGINALLY AT BEDTIME active Not Available Not Available No t Available Humalog Min KwikPen (U-100) 100 unit/mL subcutaneou s half-unit pen INJECT 10-15 MINUTES PRIOR TO MEALS IN CASE OF PUMP FAILURE MAX OF 20 UNITS active Not Available Not Available No t Available Gvoke HypoPen 2-Pack 1 mg/0.2 mL subcutaneou s auto-inject or INJECT 1MG SUBCUTANE OUS ONCE active Not Available Not Available No t Available Wegovy 1 mg/0.5 mL subcutaneou s pen injector active Not Available Not Available Not Available Wegovy 0.25 mg/0.5 mL subcutaneou s pen injector active Not Available Not Available Not Available Wegovy 0.5 mg/0.5 mL subcutaneou s pen injector active Not Available Not Available Not Available Ozempic 0.25 mg or 0.5 mg (2 mg/3 mL) subcutaneou s pen injector active Not Available Not Available Not Available Zepbound 5 mg/0.5 mL subcutaneou s pen injector INJECT 5 MG SUBCUTANE OUS EVERY WEEK active Not Available Not Available No t Available Zepbound 2.5 mg/0.5 mL subcutaneou s pen injector INJECT 2.5MG SUBCUTANE OUS ONCE WEEKLY active Not Available Not Available No t Available Omnipod 5 G6-G7 Intro Kit(Gen 5) subcutaneou s cartridge and controller USE DIRECTED TO INSULIN ADMINISTR ATION active Not Available Not Available No t Available Vitals None Recorded Social History None recorded. Functional Status None recorded. Mental Status None recorded. Family History Relationship Description Onset Age of this Age Resolved Age Notes LastModified by Organization Details LastModified Time Father Heart disease Heart diseas e; Member s: Father [email or web address] Not available 10/08/2024 03:42:49 Medical History Condition Response Allergies/Hayfever Y Diabetes Y Migraines Y Anxiety Y Thyroid Problems Y Asthma Y Gynecological HistoryNo gynecological history recorded. Obstetrics History GPAL:G 0 P 0 0 0 0 Past Encounters Encounter ID Performer Location Encounter Start Date Encounter Closed Date Diagnosis/Indication Diagnosis SNOMED-CT Code Diagnosis ICD10 Code Diagnosis IMO Codes Diagnosis Note [id number] Jose Mar MD [id number] [facility] [address] [facility] [address] [place], [place] [address] , [place] [address] 07/08/2024 12:54:56 07/08/2024 13:54:32 Perineal pain 897344290 R10.2 [id number] Jose Mar MD [id number] [facility] [address] [facility] [address] [place], [place] [address] , [place] [address] 08/20/2024 07:34:17 08/20/2024 13:32:55 Perineal pain 371525627 R10.2 [id number] Jose Mar MD [id number] [facility] [address] [facility] [address] [place] [address] 09/11/2024 07:32:12 09/11/2024 12:27:47 Perineal pain 886987466 R10.2 [id number] Jose Mar MD [id number]_CA [facility] [address] [facility] [address] [place] [address] 10/15/2024 07:15:33 10/15/2024 12:29:53 Perineal pain 820286312 R10.2 [id number] Jose Mar MD [id number] [facility] [address] [facility] [address] [place], [place] [address] , [place] [address] 10/29/2024 07:50:37 10/29/2024 12:12:07 Perineal pain 015610628 R10.2 [id number] Jose Mar MD [id number] [facility] [address] [facility] [address] [place] [address] 12/03/2024 07:59:58 12/03/2024 14:30:58 Perineal pain 736588451 R10.2 [id number] Jose Mar MD [id number] [facility] [place] [place] [address] 03/04/2025 07:05:37 03/04/2025 12:21:34 Perineal pain 211869747 R10.2 Health Concerns Section Related Observation LastModified by Organization Detai ls LastModified Time None Recorded Concern Status LastModified by Organization Details LastModified Time None Recorded Advance Directives Directive None Recorded Payers Insurance Date Sequence Insurance Name Policy Number Policy Casarez Covered Member ID Casarez Member ID Guarantor Name 03/01/2025 1 [facility] [id number] Michelle Whiting [id number] Michelle Whiting Notes Date Note Type Note Provider Name and Address Organization Details Recorded Time 09/11/2024 text/html ROS as noted in the HPI Michelle Whiting is a pleasant 44 y.o. year old female, who has a past medical history of Disease of thyroid gland, Migraines, Palpitations, and Recurrent urinary tract infection., DM type I with insulin pump who presents with severe perineal pain (L>R) for ~1 year. she denies any inciting events.The pain is constant and is described as burning and sharp in character. The current pain intensity is 8/10 at rest, increasing to 9/10 with activity. The pain increases with sitting on the area and with certain positions and is decreased with lying down and taking pressure off her perineal area. She denies any numbness/parathesias in the perineal area. She does report having some urinary frequency, and has been tested repeatedly for UTI, which have been negative. She also does report some itching in the area as well. She states that the left side of her perineal area feels like a sharp pain that is described as a deep paper cut.Patient has tried: at least 6 weeks of PT/HEP within the past 6 monthsCurrent pain medications: tylenol, OTC NSAID's, LDN 3mg QDPrevious Medications and doses tried/effect: gabapentin--drowsy/n o benefit; nortriptyline--tachy cardia, topical lidocaine/gabapentin --no benefit; cymbalta--no benefit; flexeril--no benefit; pyridium--no benefit; methocarbamol--no benefit; LDN 6mg--mild benefitPrevious Nerve Block or Injection: bilateral pudendal nerve block (07/2023): partial benefit, but only for 2-3 days, then pain was back at baselineI personally reviewed prior radiological services. I also obtained relevant old records and reviewed lab data. 08/20/24: Spoke with patient over telephone. She reports tolerating the increase in Lyrica to 50 mg 3 times a day. She does report having slight drowsiness on that initial day of the increase, however since that time she has not noticed any side effects. No drowsiness, tiredness, sleepiness, or sedation. She denies any swelling of her lower extremities. She does report that the medication seems to be helping her with her perineal pain. She reports that her pain is currently a 5 out of 10. She would like to attempt to increase the dosage of Lyrica to see if it would help her pain even more. She has since stopped the methocarbamol since it had not been doing much to decrease her pain. This is a medically necessary visit as the patient would typically be seen in the office, however, due to the COVID-19 pandemic, the patient verbally agreed to a virtual phone visit in place of a physical appointment. The patient was informed that provider would take precautions to ensure privacy of PHI as much as possible. The patient was informed that they can opt out or refuse services at anytime. Visit included:- substantial medical advice- revising treatment plan- prescribing/revising medications, if prescribed.- providing self-care/patient education information for new and/or chronic health problem 09/11/24: Spoke with patient over telephone. She reports that her pain is relatively well-controlled. She states that her pain is a 3-4 out of 10. She did find that over the past month that she was feeling a little tired/drowsy on the medication during the daytime. We had increased the dosage of your Lyrica from 50 mg 3 times a day to 75 mg 3 times a day. She also states that she did not notice a significant change in her pain levels going from the 50 mg to 75 mg, but she is not completely sure. Denies any other side effects associated with her current medication regimen. She states that the pain is still mostly in the groin/perineal area. Jose Mar MD [facility], [place] - [facility] 09/11/2024 12:18:20 10/15/2024 text/html ROS as noted in the HPI Michelle Whiting is a pleasant 44 y.o. year old female, who has a past medical history of Disease of thyroid gland, Migraines, Palpitations, and Recurrent urinary tract infection., DM type I with insulin pump who presents with severe perineal pain (L>R) for ~1 year. she denies any inciting events.The pain is constant and is described as burning and sharp in character. The current pain intensity is 8/10 at rest, increasing to 9/10 with activity. The pain increases with sitting on the area and with certain positions and is decreased with lying down and taking pressure off her perineal area. She denies any numbness/parathesias in the perineal area. She does report having some urinary frequency, and has been tested repeatedly for UTI, which have been negative. She also does report some itching in the area as well. She states that the left side of her perineal area feels like a sharp pain that is described as a deep paper cut.Patient has tried: at least 6 weeks of PT/HEP within the past 6 monthsCurrent pain medications: tylenol, OTC NSAID's, LDN 3mg QDPrevious Medications and doses tried/effect: gabapentin--drowsy/n o benefit; nortriptyline--tachy cardia, topical lidocaine/gabapentin --no benefit; cymbalta--no benefit; flexeril--no benefit; pyridium--no benefit; methocarbamol--no benefit; LDN 6mg--mild benefitPrevious Nerve Block or Injection: bilateral pudendal nerve block (07/2023): partial benefit, but only for 2-3 days, then pain was back at baselineI personally reviewed prior radiological services. I also obtained relevant old records and reviewed lab data. 08/20/24: Spoke with patient over telephone. She reports tolerating the increase in Lyrica to 50 mg 3 times a day. She does report having slight drowsiness on that initial day of the increase, however since that time she has not noticed any side effects. No drowsiness, tiredness, sleepiness, or sedation. She denies any swelling of her lower extremities. She does report that the medication seems to be helping her with her perineal pain. She reports that her pain is currently a 5 out of 10. She would like to attempt to increase the dosage of Lyrica to see if it would help her pain even more. She has since stopped the methocarbamol since it had not been doing much to decrease her pain. 09/11/24: Spoke with patient over telephone. She reports that her pain is relatively well-controlled. She states that her pain is a 3-4 out of 10. She did find that over the past month that she was feeling a little tired/drowsy on the medication during the daytime. We had increased the dosage of your Lyrica from 50 mg 3 times a day to 75 mg 3 times a day. She also states that she did not notice a significant change in her pain levels going from the 50 mg to 75 mg, but she is not completely sure. Denies any other side effects associated with her current medication regimen. She states that the pain is still mostly in the groin/perineal area. This is a medically necessary visit as the patient would typically be seen in the office, however, due to the COVID-19 pandemic, the patient verbally agreed to a virtual phone visit in place of a physical appointment. The patient was informed that provider would take precautions to ensure privacy of PHI as much as possible. The patient was informed that they can opt out or refuse services at anytime. Visit included:- substantial medical advice- revising treatment plan- prescribing/revising medications, if prescribed.- providing self-care/patient education information for new and/or chronic health problem 10/15/24: Spoke with patient over telephone, she states that the gabapentin has been helping her with her pain symptoms. She does notice a little bit of drowsiness with the medication, but reports that it is not that significant. Saw her admissions nurse on 10/01/24, and had a Holter study done, which showed predominately sinus no PVC's/PAC's. Discussed about possibly transitioning back to lyrica, however patient would like to continue with gabapentin 300mg TID for now, as she is still slightly concerned that the lyrica could have caused her to feel some palpitations; however she does think that the palpitations could have been coincidental as well as she had an infection around that time too. Denies any other side effects with her current medication regimen. States her pain is a 3-4/10. Jose Mar MD [facility], [facility] 10/15/2024 12:21:11 10/29/2024 text/html ROS as noted in the HPI Michelle Whiting is a pleasant 44 y.o. year old female, who has a past medical history of Disease of thyroid gland, Migraines, Palpitations, and Recurrent urinary tract infection., DM type I with insulin pump who presents with severe perineal pain (L>R) for ~1 year. she denies any inciting events.The pain is constant and is described as burning and sharp in character. The current pain intensity is 8/10 at rest, increasing to 9/10 with activity. The pain increases with sitting on the area and with certain positions and is decreased with lying down and taking pressure off her perineal area. She denies any numbness/parathesias in the perineal area. She does report having some urinary frequency, and has been tested repeatedly for UTI, which have been negative. She also does report some itching in the area as well. She states that the left side of her perineal area feels like a sharp pain that is described as a deep paper cut.Patient has tried: at least 6 weeks of PT/HEP within the past 6 monthsCurrent pain medications: tylenol, OTC NSAID's, LDN 3mg QDPrevious Medications and doses tried/effect: gabapentin--drowsy/n o benefit; nortriptyline--tachy cardia, topical lidocaine/gabapentin --no benefit; cymbalta--no benefit; flexeril--no benefit; pyridium--no benefit; methocarbamol--no benefit; LDN 6mg--mild benefitPrevious Nerve Block or Injection: bilateral pudendal nerve block (07/2023): partial benefit, but only for 2-3 days, then pain was back at baselineI personally reviewed prior radiological services. I also obtained relevant old records and reviewed lab data. 09/11/24: Spoke with patient over telephone. She reports that her pain is relatively well-controlled. She states that her pain is a 3-4 out of 10. She did find that over the past month that she was feeling a little tired/drowsy on the medication during the daytime. We had increased the dosage of your Lyrica from 50 mg 3 times a day to 75 mg 3 times a day. She also states that she did not notice a significant change in her pain levels going from the 50 mg to 75 mg, but she is not completely sure. Denies any other side effects associated with her current medication regimen. She states that the pain is still mostly in the groin/perineal area. 10/15/24: Spoke with patient over telephone, she states that the gabapentin has been helping her with her pain symptoms. She does notice a little bit of drowsiness with the medication, but reports that it is not that significant. Saw her admissions nurse on 10/01/24, and had a Holter study done, which showed predominately sinus no PVC's/PAC's. Discussed about possibly transitioning back to lyrica, however patient would like to continue with gabapentin 300mg TID for now, as she is still slightly concerned that the lyrica could have caused her to feel some palpitations; however she does think that the palpitations could have been coincidental as well as she had an infection around that time too. Denies any other side effects with her current medication regimen. States her pain is a 3-4/10. This is a medically necessary visit as the patient would typically be seen in the office, however, due to the COVID-19 pandemic, the patient verbally agreed to a virtual phone visit in place of a physical appointment. The patient was informed that provider would take precautions to ensure privacy of PHI as much as possible. The patient was informed that they can opt out or refuse services at anytime. Visit included:- substantial medical advice- revising treatment plan- prescribing/revising medications, if prescribed.- providing self-care/patient education information for new and/or chronic health problem 10/29/24: Spoke with patient over telephone. She states that the drowsiness from the gabapentin is bothering her, so she had stopped taking the gabapentin last week. Will now plan to restart the lyrica 50mg TID. She states that the pain is mostly still in the perineal area. Now that she has been off the gabapentin for ~1 week, she does notice that her pain levels are higher. Jose Mar MD null, [place] - [facility] 10/29/2024 11:43:55 12/03/2024 text/html ROS as noted in the HPI Michelle Whiting is a pleasant 44 y.o. year old female, who has a past medical history of Disease of thyroid gland, Migraines, Palpitations, and Recurrent urinary tract infection., DM type I with insulin pump who presents with severe perineal pain (L>R) for ~1 year. she denies any inciting events.The pain is constant and is described as burning and sharp in character. The current pain intensity is 8/10 at rest, increasing to 9/10 with activity. The pain increases with sitting on the area and with certain positions and is decreased with lying down and taking pressure off her perineal area. She denies any numbness/parathesias in the perineal area. She does report having some urinary frequency, and has been tested repeatedly for UTI, which have been negative. She also does report some itching in the area as well. She states that the left side of her perineal area feels like a sharp pain that is described as a deep paper cut.Patient has tried: at least 6 weeks of PT/HEP within the past 6 monthsCurrent pain medications: tylenol, OTC NSAID's, LDN 3mg QDPrevious Medications and doses tried/effect: gabapentin--drowsy/n o benefit; nortriptyline--tachy cardia, topical lidocaine/gabapentin --no benefit; cymbalta--no benefit; flexeril--no benefit; pyridium--no benefit; methocarbamol--no benefit; LDN 6mg--mild benefitPrevious Nerve Block or Injection: bilateral pudendal nerve block (07/2023): partial benefit, but only for 2-3 days, then pain was back at baselineI personally reviewed prior radiological services. I also obtained relevant old records and reviewed lab data. 09/11/24: Spoke with patient over telephone. She reports that her pain is relatively well-controlled. She states that her pain is a 3-4 out of 10. She did find that over the past month that she was feeling a little tired/drowsy on the medication during the daytime. We had increased the dosage of your Lyrica from 50 mg 3 times a day to 75 mg 3 times a day. She also states that she did not notice a significant change in her pain levels going from the 50 mg to 75 mg, but she is not completely sure. Denies any other side effects associated with her current medication regimen. She states that the pain is still mostly in the groin/perineal area. 10/15/24: Spoke with patient over telephone, she states that the gabapentin has been helping her with her pain symptoms. She does notice a little bit of drowsiness with the medication, but reports that it is not that significant. Saw her admissions nurse on 10/01/24, and had a Holter study done, which showed predominately sinus no PVC's/PAC's. Discussed about possibly transitioning back to lyrica, however patient would like to continue with gabapentin 300mg TID for now, as she is still slightly concerned that the lyrica could have caused her to feel some palpitations; however she does think that the palpitations could have been coincidental as well as she had an infection around that time too. Denies any other side effects with her current medication regimen. States her pain is a 3-10. This is a medically necessary visit as the patient would typically be seen in the office, however, due to the COVID-19 pandemic, the patient verbally agreed to a virtual phone visit in place of a physical appointment. The patient was informed that provider would take precautions to ensure privacy of PHI as much as possible. The patient was informed that they can opt out or refuse services at anytime. Visit included:- substantial medical advice- revising treatment plan- prescribing/revising medications, if prescribed.- providing self-care/patient education information for new and/or chronic health problem 12/03/24: Spoke to patient over telephone. She reports that over the past month she has been tolerating the Lyrica 50 mg 3 times a day. She states that the medication does not 100% take away the pain however it does help her quite a bit with her perineal pain. She denies any side effects associated with her current medication regimen. Jose Mar MD [facility], [place] - [facility] 12/03/2024 14:30:22 03/04/2025 text/html ROS as noted in the HPI Michelle Whiting is a pleasant 44 y.o. year old female, who has a past medical history of Disease of thyroid gland, Migraines, Palpitations, and Recurrent urinary tract infection., DM type I with insulin pump who presents with severe perineal pain (L>R) for ~1 year. she denies any inciting events.The pain is constant and is described as burning and sharp in character. The current pain intensity is 8/10 at rest, increasing to 9/10 with activity. The pain increases with sitting on the area and with certain positions and is decreased with lying down and taking pressure off her perineal area. She denies any numbness/parathesias in the perineal area. She does report having some urinary frequency, and has been tested repeatedly for UTI, which have been negative. She also does report some itching in the area as well. She states that the left side of her perineal area feels like a sharp pain that is described as a deep paper cut.Patient has tried: at least 6 weeks of PT/HEP within the past 6 monthsCurrent pain medications: tylenol, OTC NSAID's, LDN 3mg QDPrevious Medications and doses tried/effect: gabapentin--drowsy/n o benefit; nortriptyline--tachy cardia, topical lidocaine/gabapentin --no benefit; cymbalta--no benefit; flexeril--no benefit; pyridium--no benefit; methocarbamol--no benefit; LDN 6mg--mild benefitPrevious Nerve Block or Injection: bilateral pudendal nerve block (07/2023): partial benefit, but only for 2-3 days, then pain was back at baselineI personally reviewed prior radiological services. I also obtained relevant old records and reviewed lab data. 09/11/24: Spoke with patient over telephone. She reports that her pain is relatively well-controlled. She states that her pain is a 3-4 out of 10. She did find that over the past month that she was feeling a little tired/drowsy on the medication during the daytime. We had increased the dosage of your Lyrica from 50 mg 3 times a day to 75 mg 3 times a day. She also states that she did not notice a significant change in her pain levels going from the 50 mg to 75 mg, but she is not completely sure. Denies any other side effects associated with her current medication regimen. She states that the pain is still mostly in the groin/perineal area. 10/15/24: Spoke with patient over telephone, she states that the gabapentin has been helping her with her pain symptoms. She does notice a little bit of drowsiness with the medication, but reports that it is not that significant. Saw her admissions nurse on 10/01/24, and had a Holter study done, which showed predominately sinus no PVC's/PAC's. Discussed about possibly transitioning back to lyrica, however patient would like to continue with gabapentin 300mg TID for now, as she is still slightly concerned that the lyrica could have caused her to feel some palpitations; however she does think that the palpitations could have been coincidental as well as she had an infection around that time too. Denies any other side effects with her current medication regimen. States her pain is a . 12/03/24: Spoke to patient over telephone. She reports that over the past month she has been tolerating the Lyrica 50 mg 3 times a day. She states that the medication does not 100% take away the pain however it does help her quite a bit with her perineal pain. She denies any side effects associated with her current medication regimen. This is a medically necessary visit as the patient would typically be seen in the office, however, due to the COVID-19 pandemic, the patient verbally agreed to a virtual phone visit in place of a physical appointment. The patient was informed that provider would take precautions to ensure privacy of PHI as much as possible. The patient was informed that they can opt out or refuse services at anytime. Visit included:- substantial medical advice- revising treatment plan- prescribing/revising medications, if prescribed.- providing self-care/patient education information for new and/or chronic health problem 03/04/25: Spoke with patient over telephone. She states that she underwent perinealplasty in 12/2024 to try to help with her perineal pain. She reports that it doesn't seem to have helped much yet. Still continuing with lyrica. Denies any side effects with her current pain regimen. No drowsiness, tiredness, or sedation. She states that the pain is better with the lyrica, and wants to continue at her current dosage. MD raven Sanchez, [place] - [facility] 03/04/2025 12:21:04 OBGyn Episode No OBEpisode recorded.
--- OUTSIDE RECORDS SUMMARY | 2025-04-30 06:38 | XMS_ITS | Clinical Summary ---
Author Organization [facility] Address [address] [place] [address] Care Team Providers Care Postdoctoral Scientist Name Role Phone Unavailable Primary Care Provider [...] series) 2001 Pap Smear (Ages 21-65) 2003 Mammogram 2022 Influenza Vaccine 02/28/2025 05/28/2013, 05/31/2010 COVID-19 Vaccine (2023-2 5 season) 2025 HPV Vaccines (No Doses Required) Completed Pneumococcal Vaccine: Pediatric (0-5 Years) and At-Risk Patients (6 to 49 Years) Aged Out No longer eligible b ased on patient's age to complete this topic Insurance [facility]
--- OUTSIDE RECORDS SUMMARY | 2025-04-30 06:38 | XMS_ITS | Clinical Summary ---
Author Organization [address] [place] [address] [place] [phone] Phone Care Team Providers Care Sales Recruiting Coordinator Name Role Phone Antwon Mendoza NP Primary [...] breakfast. Active blood-glucose meter,continuou s (Dexcom G6 Curbing Stonecutter) misc 1 Device by Does not apply [...] 2 (two) times a day. 90 each 5 12/28/19 Active atorvastatin (LIPITOR) 20 mg tablet Take 1 tablet (20 mg total) by mouth at bedtime. 90 tablet 3 Active sodium chloride 1 gram tablet Take 1 tablet (1 g total) by mouth 3 (three) times a day. Or as much as tolerated 90 each 5 04/25/20 Active Active Problems Problem Noted Date Diagnosed [...] nature. I have reached out to her financial aid administrator to see if she has any thoughts. [...] 05/05/2020 Diabetes mellitus type 1, un complicated ([facility] V24, [facility] V28) 01/07/2020 Chronic sinusitis 08/26/2019 Overview (09/20/2024): 2019 x 2, 2018, 2017 x 2 Recurrent UTI 08/26/2019 Overview (09/20/2024): 2019, & 2018 Dermatographic urticaria 05/21/2018 Asthma 01/18/2018 Internal hemorrhoid 05/01/2017 Overview (09/20/2024): Cnsp 05/01/2017 Panic disorder 12/29/2016 Anxiety 12/29/2016 Encounters Date Type Department Care Team Description 04/25/2025 10:50 AM EDT Office Visit [facility] [address] [facility] [address] [place] [phone] Jennie Adams MD Dysautonomia ([facility] V24, [facility] V28) (Primary Dx); Hyperlipidemia, unspecified hyperlipidemia type from Last 3 Months Immunizations Immunization Administration Dates Next Due Hepatitis B (Vyqydhn-C-Pugan , Recombivax HB-Adult) 19yo and older 01/21/2016 Influenza Quadravalent, MDCK , 0.5ml, preservative free (Flucelvax) 6mo and older 08/01/2018 MMR, measles mumps and rubel la Live (Priorix; M-M-R II) 12mo and older 01/21/2016 Surgical History Surgery Date Site/Laterality Comments VAGINOSCOPY 2016 PROCEDURE: [place] COLPOSCOPY CERVIX BX CERVIX & ENDOCRV CURRETAGE; [...] sin usitis; COMMENT: 2018 x 2, 2018, 2017 x 2 Recurrent UTI 08/26/2019 DX:Recurrent UTI ; COMMENT: 2019, & 2018 Asthma 01/18/2018 DX:Asthma History of cellulitis 05/05/2020 DX:History of cellulitis; COMMENT: Facial, 07/25/2017 Migraines 05/05/2020 DX:Migraines; CO MMENT: occular Esophageal reflux DX:Esophageal reflux Diabetes mellitus type 2, co ntrolled, with complications (CMS/HCC V24, CMS/HCC V28) DX:Diabetes mellitus type 2, controlled, with complications ([facility]) Hyperlipidemia 12/13/2023 DX:Hyperlipidemi a Early satiety DX:Early [...] Record ed Within the last 3 months, karen valle many times did you visit the emergency [...] for your loved ones. For example, child protective investigator or elderly care for an older adult? [...] Mass Index 23.91 04/25/2025 10:42 AM EDT Plan of Treatment Health Maintenance Due Date Last Done Comments Breast Cancer Screening 1982 Diabetes: Annual Foot Exam 1992 Diabetes: Annual Retina Eye Exam 1992 Cervical Cancer Screening: Pap Smear 2003 HPV Vaccines (1 - 3-dose SCDM series) 2009 Pneumococcal Vaccine: Pediatrics (0 to 5 Years) and At-Risk Patients (6 to 49 Years) (2 of 2 - PCV) 01/09/2016 01/08/2015 Hepatitis B Vaccines (2 of 3 - 19+ 3-dose series) 02/18/2016 01/21/2016 DTaP,Tdap,and Td Vaccines (2 - Td or Tdap) 04/06/2021 04/06/2011 HIV Screening 07/05/2022 Diabetes: Annual Urine Albumin-Creatinine Ratio (uACR) 07/13/2022 12/17/2019 Diabetes: Blood Sugar Control Test (HGBA1C) 07/13/2022 11/30/2020 Diabetes: Annual GFR (Glomerular Filtration Rate) 05/26/2024 05/26/2023 COVID-19 Vaccine ( season) 2025 09/29/2020, 09/08/2020 Influenza Vaccine (#1) 2025 , 08/01/2018, 05/28/2013, Additional history exists Social Influencers of Health Screening 04/03/2026 04/03/2025 Cholesterol Screening (Lipid Panel) 03/18/2029 03/18/2024, 03/18/2024 RSV Immunization Adult Patients (1 - 1-dose 75+ series) 2057 MMR Vaccines Aged Out 01/21/2016 No longer eligi ble based on patient's age to complete this topic Hepatitis C Screening Completed 07/26/2018 Depression Screening Completed 04/03/2025 HIB Vaccines Aged Out No longer eligi [...] Maintenance Results * (ABNORMAL) Lipid panel (03/18/2024) LDL/HDL Ratio 4 0 - 4 Triglycerides 72 0 - 150 mg/dL Cholesterol 163 0 - 200 mg/dL HDL 44 >=40 mg/dL LDL Cholesterol 105(A) 0 - 100 mg/dL Blood Venous blood specimen / Unknown Historical Provider LAB BLOOD ORDERABLES Gillian l Result * Annual BMP Blood Test (05/26/2023) Pathologist [facility] Annual BMP Blood Test abstracted Historical Provider HEALTH MAINTENANCE Final Result * (ABNORMAL) Hemoglobin A1c (11/30/2020) Pathologist [facility] Hemoglobin A1C 6.7(A) <=6.5 % Blood Venous blood specimen / Unknown Historical Provider LAB BLOOD ORDERABLES Gillian l Result * Urine Albumin Creatinine Ratio (12/17/2019) Urine Albumin Creatinine Ratio abstracted Historical Provider HEALTH MAINTENANCE Final Result * Hepatitis C Screening (07/26/2018) Hepatitis C Screening abstracted Historical Provider HEALTH MAINTENANCE Final Result from Last 3 Months or Most Recently Relevant to Health Maintenance Insurance [facility] Care Teams Sales Recruiting Coordinator Relationship Specialty Start Date End Date Antwon Mendoza NP [phone] [facility] MICHAEL Menjivar PCP - General 07/06/23
--- NOTE | 2025-04-30 07:24 | A.OFFPC_ITS ---
Intake Visit Reasons: FMLA paperwork FU Allergies azithromycin Allergy (Unknown, Verified 01/13/25 08:03) palpitations levofloxacin Allergy (Unknown, Verified 01/13/25 08:03) Hives Sulfa (Sulfonamide Antibiotics) Allergy (Unknown, Verified 01/13/25 08:03) Unknown ciprofloxacin (From Cipro) Adverse Reaction (Mild, Verified 01/13/25 08:03) Rash bactrium Adverse Reaction (Mild, Uncoded 01/13/25 08:03) Rash Tobacco use date assessed: 01/07/25 Dental Screening Dental Screen Date: 01/07/25 HPI FMLA paperwork FU HPI Details History of Present Illness The patient is a 44-year-old female presenting with ongoing peroneal pain. The pain has been described as debilitating, significantly impacting her daily activities. She has been diagnosed with pudendal neuralgia by a painter tumbling barrel. The patient has undergone several interventions, including nerve blocks, which have not provided relief. She is currently on Lyrica, initially at a dose of 50 mg three times a day, now adjusted to 50 mg in the morning, 50 mg in the afternoon, and 75 mg at night. The patient was advised to maintain this regimen for a month before considering an increase to 75 mg three times a day, due to potential side effects. ongoing FMLA, due to the fact her symptoms continue, including severe pain with standing, sitting, moving. Review of Systems - Neurological: Reports ongoing peroneal pain, described as debilitating. -denies any fevers, chills, vag discharg e Plan 1. Pudendal Neuralgia The patient is advised to continue her current medication regimen of Lyrica, with a gradual increase in dosage as tolerated, to manage her pudendal neuralgia. She is encouraged to maintain regular follow-ups with her painter tumbling barrel to monitor her condition and adjust treatment as necessary. Discussion Notes I discussed with the patient the importance of adhering to her current medication regimen and the potential for increasing the dosage of Lyrica if needed, while being mindful of side effects. I also emphasized the need for ongoing follow-up with her painter tumbling barrel to ensure optimal management of her condition. Patient Instructions - Continue taking Lyrica as prescribed. - Follow up with your pain management sp ecialist regularly. - Monitor for any side effects and repor t them to your doctor. [facility] Medical History Pudendal neuralgia Perineal discomfort in female Chronic headaches Word finding difficulty Restless legs syndrome (RLS) Perineal pain in female Palpitations Hyperlipidemia PVC (premature ventricular contraction) Lichen sclerosus of vulva Facial cellulitis Diabetes type 1, controlled Surgical History No pertinent past surgical history Family History Father Heart disease Mother No problems noted. Family/Other Thyroid disease Sister Jose Cruz thyroiditis Social History Housing: House Alcohol intake: former Patient Tobacco Use Status: Former Tobacco user Years Smoked: 6 years ago e-Cigarette/Vaping Use: Former Use Second Hand Smoke Exposure: No service: No Current occupational status: employed Current occupation: [employer] Current occupational exposures/hazards: No Cognitive needs: No Hearing needs: No Vision needs: Yes Questionnaire Thrive Questionnaire Date Thrive assessed: 01/04/25 I am a: Patient What is your living situation today?: I have a steady place to live Within the past 12 months, did the food you bought not last and you didn't have the money to get more?: Never true Within the past 12 months, did you worry whether your food would run out before you got money to buy more?: Never true Do you have trouble paying for medicines?: No Do you have trouble getting transportation to medical appointments?: No Do you have trouble paying your heating and electricity bill?: No Do you have trouble taking care of your child, family member or friend?: No Do you have trouble with day-to-day activities such as bathing, preparing meals, shopping, managing finances, etc.?: No Are you currently unemployed and looking for a job?: No Are you interested in more education?: No Please select the resources that you would like help with: None Currently or been in a relationship where the following occur: No concerns reported THRIVE Score: 0 KATHYA-7 AMB Questionnaire KATHYA-7 Date KATHYA - 7 assessed: 01/07/25 Source: Developed by Drs. Luis Fuller, Corrie Pacheco, Fab Miller and colleagues, with an educational darlin from [employer]. Physical exam (Primary Care) Tobacco/Smoking Status: Tobacco use Status Tobacco use date assessed 01/07/25 02/27/25 07:42 Patient Tobacco Use Status Former Tobacco user 02/27/25 07:42 e-Cigarette/Vaping Use Former Use 02/27/25 07:42 Thrive Assessment: Date of Thrive Assessment Date Thrive assessed 01/04/25 02/27/25 07:42 Currently or been in a relationship where the following occur: No concerns reported Telehealth Telehealth Telehealth [facility]: [facility] Location of provider rendering services: practice address Location of patient: address on file Patient Identification confirmed using: Name, : Yes Telehealth method: video Patient verbally consented to treatment: Yes Patient verbally consented to billing insurance company: Yes Patient informed of any privacy concerns related to visit: Yes Minutes spent on Phone/Video with Pt.: 22 Coding Level of Care Code Tele Est Pt Level 4 (47531) Diagnoses Pudendal neuralgia G58.8 Assessment & Plan Assessment & Plan (1) Pudendal neuralgia: Code(s): G58.8 - Other specified mononeuropathies Category: Medical Plan .
== END 2025-04-30 10:30 | disposition home or self-care (01) ==
PROVIDERS: PCP Nurse Practitioner Family; Visit Provider Nurse Practitioner Family
DX: G58.8 Other specified mononeuropathies (principal)

== ENCOUNTER 2025-05-21 08:02 | Outpatient (REF) | payer OTHER, SELFPAY ==
--- OUTSIDE RECORDS SUMMARY | 2025-05-21 08:06 | XMS_ITS | Clinical Summary ---
Author Organization [address] [place] [address] [place] [phone] Phone Care Team Providers Care Shroud Line Tier Name Role Phone Antwon Mendoza NP Primary [...] breakfast. Active blood-glucose meter,continuou s (Dexcom G6 Ditch Digger) misc 1 Device by Does not apply [...] nature. I have reached out to her occ therapy asst to see if she has any thoughts. [...] 05/05/2020 Diabetes mellitus type 1, un complicated ([facility] V24, 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 V24, [facility] V28) (Primary Dx); Hyperlipidemia, unspecified hyperlipidemia type from Last 3 Months Immunizations Immunization Administration Dates Next Due Hepatitis B (Qaivgps-L-Iedbs , Recombivax HB-Adult) 19yo and older 01/21/2016 [...] DX:Diabetes mellitus type 2, controlled, with complications ([facility]) Hyperlipidemia 12/13/2023 DX:Hyperlipidemi a Early satiety DX:Early [...] care for your loved ones. For example, children's ministries director or elderly care for an older adult? [...] (HGBA1C) 07/13/2022 11/30/2020 COVID-19 Vaccine ( season) 2025 09/29/2020, 09/08/2020 Influenza Vaccine (#1) 2025 , 08/01/2018, 05/28/2013, Additional history exists Social Influencers of Health Screening 04/03/2026 04/03/2025 Diabetes: Annual GFR (Glomerular Filtration Rate) 05/15/2026 05/15/2025, 05/26/2023 Cholesterol Screening (Lipid Panel) 03/18/2029 03/18/2024, 03/18/2024 [...] Procedure Name Priority Date/Time Associated Diagnosis Comments BASIC METABOLIC PANEL Routine 05/15/2025 9:23 AM EDT Dysautonomia ([facility] V24, [facility] V28) LIPID PANEL Routine 03/18/2024 HEMOGLOBIN A1C Routine 11/30/2020 URINE ALBUMIN CREATININE RATIO Routine 12/17/2019 HEPATITIS C SCREENING Routine 07/26/2018 from Last 3 Months or Most Recently Relevant to Health Maintenance Results * (ABNORMAL) Basic metabolic panel (05/15/2025 9:23 AM EDT) Glucose 191(H) 70 - 99 mg/dL [facility] 1 Blood Urea Nitrogen (BUN) 11 6 - 24 mg/dL [facility] 1 Creatinine 0.59 0.57 - 1.00 mg/dL [facility] 1 eGFR 115 >59 mL/min/1.7 3 [facility] 1 BUN/Creatinine Ratio 19 9 - 23 [facility] 1 Sodium 138 134 - 144 mmol/L [facility] 1 Potassium 5.0 3.5 - 5.2 mmol/L [facility] 1 Chloride 99 96 - 106 mmol/L [facility] 1 Carbon Dioxide 21 20 - 29 mmol/L [facility] 1 Calcium 9.6 8.7 - 10.2 mg/dL [facility] 1 Blood Venous blood specimen / Unknown 05/15/2025 9:23 AM EDT 05/15/2025 Narrative [facility] 1 - 05/16/2025 1:06 AM EDT Performed at: 01 - [facility] [address] [id number] Billet Header: Annie Valerio MD, Phone: [phone] Result [facility] Jennie Adams MD LAB BLOOD ORDERABLES Final Resu lt [facility] 1 * (ABNORMAL) Lipid panel (03/18/2024) [facility] LDL/HDL Ratio 4 0 - 4 Triglycerides 72 0 - 150 mg/dL Cholesterol 163 0 - 200 mg/dL HDL 44 >=40 mg/dL LDL Cholesterol 105(A) 0 - 100 mg/dL Blood Venous blood specimen / Unknown Result [facility] [place] LAB BLOOD ORDERABLES Gillian l Result * (ABNORMAL) Hemoglobin A1c (11/30/2020) [facility] Hemoglobin A1C 6.7(A) <=6.5 % Blood Venous blood specimen / Unknown Result [facility] [place] LAB BLOOD ORDERABLES Gillian l Result * Urine Albumin Creatinine Ratio (12/17/2019) [facility] Urine Albumin Creatinine Ratio abstracted Result [facility] [place] [facility] Final Result * Hepatitis C Screening (07/26/2018) [facility] Hepatitis C Screening abstracted Result [facility] [place] [facility] Final Result from Last 3 Months or Most Recently Relevant to Health Maintenance Insurance [facility] Care Teams Shroud Line Tier Relationship Specialty Start Date End Date Antwon Mendoza NP [address] [facility] MICHAEL Menjivar PCP - General 07/06/23
--- OUTSIDE RECORDS SUMMARY | 2025-05-21 08:06 | XMS_ITS | Clinical Summary ---
Author Organization [facility] Address [address] [place] [address] Care Team Providers Care Tax Agent Name Role Phone Unavailable Primary Care Provider [...] patient's age to complete this topic Insurance [facility]
--- OUTSIDE RECORDS SUMMARY | 2025-05-21 08:06 | XMS_ITS | Clinical Summary ---
Author Organization [facility] Address [address] [place] [address] Care Team Providers Care Manager Business Development Hospice Name Role Phone Antwon Mendoza Primary Care Provider [phone] Allergies Active Allergy Reactions Criticality Noted Date [...] Group Subscriber ID Effective Dates Phone Address [facility] [id number] 2013-Present [address] [phone] [facility] [id number] 2022-Present [address] [address] [facility] Care Teams Manager Business Development Hospice Relationship Specialty Start Date End Date Antwon Mendoza [address] [facility] MIC[place]EL Menjivar [address] PCP - General Family Medicine 07/06/23
--- OUTSIDE RECORDS SUMMARY | 2025-05-21 08:06 | XMS_ITS | Clinical Summary ---
Author Organization [facility] [place] [address] Care Team Providers Care System Archive Analyst Name Role Phone Antwon Mendoza APRN Primary Care Provider [phone] Social History Tobacco Use Types Packs/Day Years [...] Cancer screening 2022 Covid-19 Vaccine ( - season) 2025 Influenza (Flu) vaccine (1 o f 1 - Influenza standard series) 03/31/2025 Insurance Care Teams System Archive Analyst Relationship Specialty Start Date End Date Antwon Mendoza APRN [address] [place] [address] PCP - General Internal Medicine 05/26/23
[2025-05-21 08:26] LABS: MANUAL DIFF FLAG NO
[2025-05-21 08:53] LABS: Hematocrit 40.6 % (37.0-47.0); Hemoglobin 13.4 g/dl (12.0-16.0); Imm Gran Abs Auto 0.02 X10*3/uL (0.00-0.03); Imm Gran Pct Auto 0.3 % (0.0-0.4); Lymphocytes Absolute Auto 2.2 X10*3/uL (1.2-4.9); Mean Corpuscular HGB Conc 33.0 g/dl (31.0-35.0); Mean Corpuscular Hemoglobin 29.1 pg (27.0-33.0); Mean Corpuscular Volume 88.1 fL (80.0-98.0); NRBC Abs Auto 0.000 X10*3/uL (0.0-0.012); NRBC Pct Auto 0.0 /100WBC (0.0-0.2); Platelet Count 400 X10*3/uL (160-400); Red Blood Count 4.61 X10*6/uL (4.20-5.50); White Blood Count 6.9 X10*3/uL (4.8-10.8)
[2025-05-21 09:44] LABS: Alanine Aminotransferase 27 U/L (0-31); Albumin Level 4.6 g/dL (3.5-5.0); Alkaline Phosphatase 31 U/L (39-117); Anion Gap 13 (12-20); Aspartate Amino Transferase 21 U/L (5-31); Blood Urea Nitrogen 14 mg/dL (9-16); Calcium 9.0 mg/dL (8.4-10.2); Carbon Dioxide 26 mmol/L (22-29); Chloride 104 mmol/L (96-108); Estimated Glomerular Filt Rate > 60; Iron 49 mcg/dL (30-160); Percent Iron Saturation 22 % (15-50); Potassium 4.7 mmol/L (3.3-5.1); Sodium 138 mmol/L (135-145); Total Iron Binding Capacity 221 mcg/dL (228-428); Total Protein 7.1 g/dL (6.5-8.0); Unsaturated Iron Binding 172 ug/dL
[2025-05-21 09:51] LABS: Ferritin 41 ng/mL (10-250)
[2025-05-21 10:10] LABS: Folate 4.7 ng/mL (> or = 4.0); Vitamin B12 542 pg/mL (200-900)
[2025-05-22 06:04] LABS: Lyme Abs Screen <0.90 index
[2025-05-22 15:38] LABS: Antibody to SS-A Antigen <1.0 NEG AI (<1.0 NEG); Antibody to SS-B Antigen <1.0 NEG AI (<1.0 NEG)
[2025-05-22 23:12] LABS: A. Phagocytphilium DNA,RT-PCR NOT DETECTED (NOT DETECTED); Babesia Microti DNA, RT-PCR NOT DETECTED (NOT DETECTED); Borrelia Miyamotoi,DNA RT-PCR NOT DETECTED (NOT DETECTED); E.Chaffeensis DNA RT-PCR NOT DETECTED (NOT DETECTED); Lyme(Borrelia ssp)DNA RT-PCR NOT DETECTED (NOT DETECTED)
[2025-05-29 07:23] LABS: Anti Nuclear Antibody Screen NEGATIVE (NEGATIVE)
== END 2025-05-21 08:03 | disposition home or self-care (01) ==
LOC: HO.LAB 08:02
PROVIDERS: PCP Nurse Practitioner Family; Visit Provider Nurse Practitioner Family
DX: Z01.84 Encounter for antibody response examination (principal); R53.83 Other fatigue
CPT/HCPCS: 36415; 80053; 82306; 82607; 82728; 82746; 83540; 84443; 85025; 85652; 86038; 86140; 86235; 86617; 86618; 87468; 87469; 87478; 87484; 87798

== ENCOUNTER 2025-06-03 08:50 | Outpatient (REF) | payer OTHER, SELFPAY ==
--- OUTSIDE RECORDS SUMMARY | 2025-06-03 09:21 | XMS_ITS | Clinical Summary ---
Author Organization [facility] Address [address] [place] [address] Care Team Providers Care Microfilm Machine Operator Name Role Phone Unavailable Primary Care Provider [...] patient's age to complete this topic Insurance [facility]
--- OUTSIDE RECORDS SUMMARY | 2025-06-03 09:21 | XMS_ITS | Clinical Summary ---
Author Organization [facility] Address [address] [place] [address] Care Team Providers Care Dimpling Machine Operator Name Role Phone Antwon Mendoza Primary Care Provider [phone] Allergies Active Allergy Reactions Criticality Noted Date [...] Group Subscriber ID Effective Dates Phone Address [facility] [id number] 2013-Present [address] [phone] [facility] [id number] 2022-Present [address] [address] [facility] Care Teams Dimpling Machine Operator Relationship Specialty Start Date End Date Antwon Mendoza [address] [facility] [place] Menjivar [address] PCP - General Family Medicine 07/06/23
--- OUTSIDE RECORDS SUMMARY | 2025-06-03 09:21 | XMS_ITS | Clinical Summary ---
Author Organization [address] [place] [address] [place] [phone] Phone Care Team Providers Care Naval Engineer Name Role Phone Antwon Mendoza NP Primary [...] breakfast. Active blood-glucose meter,continuou s (Dexcom G6 Scaler) misc 1 Device by Does not apply [...] nature. I have reached out to her dried fruit washer to see if she has any thoughts. 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 Asthma 01/18/2018 Internal hemorrhoid 05/01/2017 Overview (09/20/2024): Cnsp 05/01/2017 Panic disorder 12/29/2016 Anxiety 12/29/2016 Encounters Date Type Department Care Team Description 05/02/2025 Telephone Obstetrics and Gynecology [address] [phone] Monica Rodriguez CNM 04/25/2025 10:50 AM EDT Office Visit [facility] [address] [facility] [address] [place] [address] Jennie Adams MD Dysautonomia ([facility] V24, [facility] V28) (Primary Dx); Hyperlipidemia, unspecified hyperlipidemia type from Last 3 Months Immunizations Immunization Administration Dates Next Due Hepatitis B (Ejgooeu-W-Sgqwy , Recombivax HB-Adult) 19yo and older 01/21/2016 Influenza Quadravalent, MDCK , 0.5ml, preservative free (Flucelvax) 6mo and older 08/01/2018 MMR, measles mumps and rubel la Live (Priorix; M-M-R II) 12mo and older 01/21/2016 Surgical History Surgery Date Site/Laterality Comments VAGINOSCOPY 2016 PROCEDURE: NC COLPOSCOPY CERVIX BX CERVIX & ENDOCRV CURRETAGE; [...] mellitus type 2, controlled, with complications ([facility]) Hyperlipidemia 12/13/2023 DX:Hyperlipidemi a Early satiety [...] for your loved ones. For example, child psychologist or elderly care for an older adult? [...] PANEL Routine 05/15/2025 9:23 AM EDT Dysautonomia ([facility] V24, [facility] V28) LIPID PANEL Routine 03/18/2024 HEMOGLOBIN [...] AM EDT Performed at: 01 - [facility] [address] [id number] Head Sawyer: Annie Valerio MD, Phone: [phone] Result [facility] Jennie Adams MD LAB BLOOD ORDERABLES Final Resu lt [facility] 1 * (ABNORMAL) Lipid panel (03/18/2024) [facility] LDL/HDL Ratio 4 0 - 4 Triglycerides 72 0 - 150 mg/dL Cholesterol 163 0 - 200 mg/dL HDL 44 >=40 mg/dL LDL Cholesterol 105(A) 0 - 100 mg/dL Blood Venous blood specimen / Unknown Result [facility] [place] LAB BLOOD ORDERABLES Gillian l Result * (ABNORMAL) Hemoglobin A1c (11/30/2020) [facility] Hemoglobin A1C 6.7(A) <=6.5 % Blood Venous blood specimen / Unknown Result [facility] [place] LAB BLOOD ORDERABLES Gillian l Result * Urine Albumin Creatinine Ratio (12/17/2019) [facility] Urine Albumin Creatinine Ratio abstracted Result [facility] [place] [facility] Final Result * Hepatitis C Screening (07/26/2018) [facility] Hepatitis C Screening abstracted Result [facility] [place] [facility] Final Result from Last 3 Months or Most Recently Relevant to Health Maintenance Insurance [facility] Care Teams Naval Engineer Relationship Specialty Start Date End Date Antwon Mendoza NP [address] [facility] MICHAEL Menjivar PCP - General 07/06/23
--- OUTSIDE RECORDS SUMMARY | 2025-06-03 09:21 | XMS_ITS | Data Portability ---
Author Organization [place] [facility] ica Group [facility], [id number] Address [address] [place] [address] Care Team Providers Care Induction Machine Operator Name Role Phone JUAN J BOWLES Referring Provider [phone] ANTIONE MILLER Primary Care Provider Assessment Encounter [...] denies having any other further questions/areli rns [email or web address] Not available 09/11/2024 12:18:07 10/15/2024 10/15/2024 -patient [...] denies having any other further questions/areli rns [email or web address] Not available 10/15/2024 12:20:57 10/29/2024 10/29/2024 -patient [...] denies having any other further questions/areli rns [email or web address] Not available 10/29/2024 11:43:04 12/03/2024 12/03/2024 -patient [...] information for new and/or chronic health problem [email or web address] Not available 12/03/2024 14:30:05 03/04/2025 03/04/2025 -patient [...] to help with her pain with a uro-pole incisor operator, but so far it has not seemed [...] Orders Lyrica 50 mg capsule 2024 025 [facility][id number], [address] [place] [address], [id number], 12:21:03 Lyrica 50 mg capsule 2024 025 [facility] #[id number], [address] [place], [place], [id number], 5 14:29:44 Lyrica 50 mg capsule 2024 025 [facility] #25448, [address] [place], [place], [id number], 5 11:43:43 gabapentin 300 mg capsule 2024 025 [email or web address] #23035, [address], [place], [id number], 5 12:06:40 Lyrica 75 mg capsule 2024 025 [facility] #35415, [address], [place], [id number], 5 12:15:42 Lyrica 50 mg capsule 2024 025 [facility] #[id number], [address], [place], [id number], 5 12:15:42 Patient TargetsNo targets recorded. Patient InstructionsNo instructions recorded. Reason for Referral None Reported. Problems Name Problem SNOMED Code Status Onset Date Resolution Date Notes Provider Name and Address Organization Details Recorded Time Hypothyroidism 49701134 Active 2023 Manasa carbajal [facility] 4 16:10:39 Type 1 diabetes mellitus 83972194 Active 2023 Manasa carbajal [facility] 4 16:10:52 Perineal pain 256989482 Active 2023 MD raven Sanchez, [facility] 4 13:51:05 Chronic pain syndrome 070986646 Active 2023 [facility] 16:16[facility] Problem Notes None recorded. Procedures Surgical History Date Name Laterality Status Provider Name and Address Organization Details Recorded Time vaginoscopy with biopsy of cervix completed Manasa [facility] 07/05/2024 16:11:39 colonoscopy completed Manasa [facility] 07/05/2024 16:11:48 Imaging Results None recorded. Procedure Notes None recorded. Medical Equipment None Reported. Allergies Allergen ID Allergen Name Allergen Category Reaction Reaction Severity Criticality Documentation Date Start Date Code Code System Note Provider Name and Address Organization Details Recorded Time 2154 ciproflox acin medicatio n Not available Not available Not available 07/05/2024 2551 RxNorm Manasa [facility]olson [facility] 4 16:10:10 2156 sulfameth oxazole / trimethop rim medicatio n Not available Not available Not available 07/05/2024 40184 RxNorm Manasa Nicholson [facility] 4 16:10:24 Medications Name Sig Start Date [...] 03:42:49 Medical History Condition Response Allergies/Hayfever Y Anxiety Y Migraines Y Thyroid Problems Y Diabetes Y Asthma Y Gynecological HistoryNo gynecological history recorded. Obstetrics History GPAL:G 0 P 0 0 0 0 Past Encounters Encounter ID Performer Location Encounter Start Date Encounter Closed Date Diagnosis/Indication Diagnosis SNOMED-CT Code Diagnosis ICD10 Code Diagnosis IMO Codes Diagnosis Note [id number] Jose Mar MD [id number] [facility] [facility] [address] [place], [place] [address] , [place] [address] 07/08/2024 12:54:56 07/08/2024 13:54:32 Perineal pain 539876725 R10.2 [id number] Jose Mar MD [id number] [facility] [facility] [address] [place], [place] [address] , [place] [address] 08/20/2024 07:34:17 08/20/2024 13:32:55 Perineal pain 986600380 R10.2 [id number] Jose Mar MD [id number] [facility] [address] [facility] [address] [place] [address] 09/11/2024 07:32:12 09/11/2024 12:27:47 Perineal pain 680079541 R10.2 [id number] Jose Mar MD [id number] [facility] [address] [facility] [address] [place] [address] 10/15/2024 07:15:33 10/15/2024 12:29:53 Perineal pain 640289936 R10.2 [id number] Jose Mar MD [id number] [facility] [address] [facility] [address] [place], [place] [address] , [place] [address] 10/29/2024 07:50:37 10/29/2024 12:12:07 Perineal pain 140254480 R10.2 [id number] Jose Mar MD [id number] [facility] [address] [facility] [address] [place] [address] 12/03/2024 07:59:58 12/03/2024 14:30:58 Perineal pain 356778103 R10.2 [id number] Jose Mar MD [id number] [facility] [place] [address] [place] [address] 03/04/2025 07:05:37 03/04/2025 12:21:34 Perineal pain 237381207 R10.2 Health Concerns Section Related Observation LastModified by Organization Detai ls LastModified Time None Recorded Concern Status LastModified by Organization Details LastModified Time None Recorded Advance Directives Directive None Recorded Payers Insurance Date Sequence Insurance Name Policy Number Policy Casarez Covered Member ID Casarez Member ID Guarantor Name 03/01/2025 1 [facility] [id number] Michelle Whiting [id number] Michelle Whiting Notes Date Note Type Note [...] in the groin/perineal area. Jose Mar MD [facility], [place] [facility] 09/11/2024 12:18:20 10/15/2024 text/html ROS as [...] it is not that significant. Saw her garment looper on 10/01/24, and had a Holter study [...] pain is a 3-4/10. Jose Mar MD [facility], [facility] 10/15/2024 12:21:11 10/29/2024 text/html ROS as [...] it is not that significant. Saw her garment looper on 10/01/24, and had a Holter study [...] higher. Jose Mar MD null, [place] [facility] 10/29/2024 11:43:55 12/03/2024 text/html ROS as [...] it is not that significant. Saw her garment looper on 10/01/24, and had a Holter study [...] her current medication regimen. Jose Mar MD [facility], [place] [facility] 12/03/2024 14:30:22 03/04/2025 text/html ROS as [...] it is not that significant. Saw her garment looper on 10/01/24, and had a Holter study [...] current dosage. MD raven Sanchez, [place] [facility] 03/04/2025 12:21:04 OBGyn Episode No OBEpisode recorded.
--- OUTSIDE RECORDS SUMMARY | 2025-06-03 09:21 | XMS_ITS | Clinical Summary ---
Author Organization [facility] Address [address] [place] [id number] Phone Care Team Providers Care Coping Machine Operator Name Role Phone Antwon Mendoza NP Primary [...] NEEDED FOR SHORTNESS OF BREATH OR WHEEZING 01/19/20 23 Active atorvastatin (LIPITOR) 20 MG tablet 03/21/20 20 Active cetirizine (ZYRTEC) 10 MG tablet Take 20 mg by mouth daily. 01/31/20 23 Active cyclobenzaprine (FLEXERIL) 5 MG tablet TAKE 1 TABLET BY MOUTH AT BEDTIME FOR 10 DAYS 04/03/20 24 Active DULoxetine (CYMBALTA) 20 MG capsule Take 40 mg by mouth. 10/23/19 24 Active ESTRING 2 mg (7.5 mcg /24 hour) vaginal ring INSERT 1 RING VAGINALLY EVERY 3 MONTHS 02/19/20 24 Active FLUoxetine (PROZAC) 20 MG capsule 05/22/20 24 Active fluticasone propion-salmeter oL (ADVAIR DISKUS) 250-50 mcg/dose DISKUS Inhale into the lungs 2 (two) times a day. 04/25/20 24 Active HUMALOG U-100 INSULIN 100 unit/mL injection vial INJECT UP TO 50 UNITS UNDER THE SKIN DAILY IN PUMP Active insulin pump cart,auto,BT-cnt r (OMNIPOD 5 G6 INTRO KIT, GEN 5,) Crtg USE DIRECTED TO INSULIN ADMINISTRATION 03/28/20 24 Active levothyroxine (SYNTHROID, LEVOTHROID) 50 MCG tablet Take 50 mcg by mouth daily. Active SAUL-LANTA 200-200-20 mg/5 mL Susp TAKE 15 ML BY MOUTH 4 TIMES DAILY NEEDED 03/06/20 24 Active metFORMIN (GLUCOPHAGE) 1000 MG tablet Take 1,000 mg by mouth 2 (two) times a day. Active metoclopramide HCl (REGLAN) 5 MG tablet TAKE 1 TABLET BY MOUTH 4 TIMES DAILY BEFORE MEAL/BEDTIME 03/13/20 24 Active metoprolol tartrate (LOPRESSOR) 25 MG tablet Take 37.5 mg by mouth 2 (two) times a day. Active norethindrone (MICRONOR) 0.35 mg tablet Take 1 tablet by mouth daily. Active semaglutide, weight loss, (WEGOVY) 0.5 mg/0.5 mL subcutaneous injection Inject 0.5 mg under the skin. 05/17/20 24 Active oxyCODONE 5 MG immediate release tablet Take 1 tablet (5 mg total) by mouth every 6 (six) hours as needed for pain (specific location in comments) (post-op pain). Partial fill ok 10 tablet 01/29/20 25 Active bacitracin 500 unit/gram ointment Apply topically 2 (two) times a day. 15 g 01/29/20 25 Active estradioL (ESTRACE) 0.01 % (0.1 mg/gram) vaginal cream Apply pea size amount to the area of discomfort of the vulva 3x/week 42.5 g 03/13/20 25 Active lidocaine 5 % topical gel Apply topically 2 (two) times a day. Apply to left labia prn pain 30 g 03/19/20 25 Active Encounters Date Type Department Care Team Description 04/17/2025 10:00 AM EDT Office Visit [facility] [address] [address] Bo Boyce MD, JESSE Pelvic pain in female (Primary Dx); Labial pain; Female dyspareunia; Myofascial pain 03/19/2025 11:15 AM EDT Telemedicine - audio only [facility] [address] [address] Bo Boyce MD, JESSE Pelvic pain in female (Primary Dx); Labial pain 03/19/2025 Orders Only [facility] [address] [address] July Prasad PA-C 03/13/2025 Orders Only [facility] [address] [address] July Prasad PA-C 03/05/2025 Telephone [facility] [address] [address] July Prasad PA-C from Last 3 Months [...] Mass Index - - Plan of Treatment Health Maintenance Due Date Last Done Comments Adult Td,Tdap Booster 1982 CREATININE LEVEL 1982 TSH LEVEL 1982 DEPRESSION SCREENING 1994 HEPATITIS C SCREENING 2000 HIV ONE-TIME SCREENING (18-6 5 YEARS) 2000 PAP SMEAR 2003 MAMMOGRAM 2022 INFLUENZA VACCINE (#1) 2025 COVID-19 VACCINE (2024-2 6 season) 2025 SMOKING STATUS SCREENING (On ce After 26 [...] topic Medical Devices Not on file Insurance HMO O O O O O O O O O Care Teams Coping Machine Operator Relationship Specialty Start Date End Date Antwon Mendoza NP [facility] [address] PCP - General Nurse Practitioner 02/20/24 Additional Source Comments The information contained in this document represents components of the legal health record. It is not the complete legal health record.[facility]
--- OUTSIDE RECORDS SUMMARY | 2025-06-03 09:22 | XMS_ITS | Clinical Summary ---
Author Organization [facility] [place] [address] Care Team Providers Care Surveillance Supervisor Name Role Phone Antwon Mendoza APRN Primary Care Provider [phone] Social History Tobacco Use Types Packs/Day Years [...] Cancer screening 2022 Covid-19 Vaccine ( - 2024- season) 2025 Influenza (Flu) vaccine (1 o f 1 - Influenza standard series) 03/31/2025 Insurance Care Teams Surveillance Supervisor Relationship Specialty Start Date End Date Antwon Mendoza APRN [address] [facility] [place] [address] PCP - General Internal Medicine 05/26/23
[2025-06-03 11:20] LABS: Ferritin 34 ng/mL (10-250)
[2025-06-03 11:32] LABS: Folate 5.7 ng/mL (> or = 4.0); Vitamin B12 562 pg/mL (200-900)
[2025-06-10 15:03] LABS: Vitamin D 25-OH, D2 <4 ng/mL; Vitamin D 25-OH, D3 45 ng/mL; Vitamin D 25-OH, Total 45 ng/mL (30-100)
[2025-06-11 13:13] LABS: Anti Nuclear Antibody Screen NEGATIVE (NEGATIVE)
== END 2025-06-03 08:51 | disposition home or self-care (01) ==
LOC: HO.HMGCLDS 08:50
PROVIDERS: Psychiatry & Neurology Neurology; PCP Nurse Practitioner Family; Visit Provider Nurse Practitioner Family
DX: G25.81 Restless legs syndrome (principal); R53.83 Other fatigue
CPT/HCPCS: 36415; 82306; 82607; 82728; 82746; 82784; 85652; 86038

== ENCOUNTER 2025-06-24 06:29 | Outpatient (AMB) | payer OTHER, SELFPAY ==
--- OUTSIDE RECORDS SUMMARY | 2025-06-18 23:59 | XMS_ITS | Continuity of Care Document ---
Author Organization [facility] Address [address] [place] [address]- Care Team Providers Care Regulatory Affairs Associate Name Role Phone Reji PAZ, Antwon Capps Primary Care Physician [phone] Encounter [facility] Date(s): 05/19/25 - 06/18/25 [facility] [address] [place] [id number] Encounter Type: Triage Allergies, Adverse Reactions, Alerts Substance Criticality Severity Reaction Reaction Severity Status ciprofloxacin High criticality Moderate Chest pain at rest Active Bactrim rash Active azithromycin Active levofloxacin headache Active Immunizations Given and Recorded Vaccine Date Status Refusal Reason pneumococcal 23-valent vaccine 01/08/15 Given influenza virus vaccine, inactivated 1 05/28/13 Re corded tetanus/diphtheria/pertussis, acel(Tdap) 2 04/06/11 Given FluLaval (oldterm) 3 05/31/10 Given 1Result Comment: [06/19/2013] given at [facility] 2Admin Note: VIM 06/17/08 3Admin Note: ADMINISTERED BY [facility] Medications duloxetine 20 mg oral enteric coated capsule 2 capsule = 40 mg, By Mouth, Daily, # 60 capsule, 0 Refills, Maintenance, 12/27/23 8:53:00 AM EDT, EC Capsule, Partial fill upon patient request if the prescription is for a schedule II opioid drug. Start Date: 12/27/23 Status: Ordered Medication Dispense Status: Completed Quantity: 60.0 Unit: capsule Total Allowed Fills: 1 Fills Dispensed: 0 Freestyle Lite Test Strips See Instructions, # 750 each, Refills 3, Tot. Refills 3, Maintenance, 8x/day. Use test strips to check blood sugar 8x/day E10.65 90 day, 10/01/24 8:57:00 AM EST, Supply, 161, cm, 02/13/24 14:13:00 EDT,Height, 70.4, kg, 12/27/23 8:49:00 EDT, Dry Weight Start Date: 10/01/24 Status: Ordered Medication Dispense Status: Completed Quantity: 750.0 Unit: each Total Allowed Fills: 4 Fills Dispensed: 0 Gvoke HypoPen Two Pack 1 mg/0.2 mL subcutaneous solution = 1 mg, Subcutaneous Infusion, Once, E10.9 30 day. Use for hypoglycemic emergency, # 2 each, 3 Refills, Soft Stop, 10/01/24 8:58:00 AM [facility], [facility] #[id number], Partial fill upon patient request if the prescription is for a schedule II opioid drug., 161, cm, 02/13/24 14:13:00 EDT, Height, 70.4, kg, 12/27/23 8:49:00 EDT, Dry Weight Start Date: 10/01/24 Status: Ordered Medication Dispense Status: Completed Quantity: 2.0 Unit: each Total Allowed Fills: 4 Fills Dispensed: 0 Humalog 100 u/ml subcutaneous injection See Instructions, E10.9 90 day INJECT UP TO 50 UNITS UNDER THE SKIN DAILY IN PUMP, # 50 mL, 3 Refills, Maintenance, 10/01/24 8:58:00 AM [facility], [facility] #[id number], 161, cm, 02/13/24 14:13:00 EDT,Height, 70.4, kg, 12/27/23 8:49:00 EDT, Dry Weight Start Date: 10/01/24 Status: Ordered Medication Dispense Status: Completed Quantity: 50.0 Unit: mL Total Allowed Fills: 4 Fills Dispensed: 0 HumaLOG Min KwikPen 100 units/mL injectable solution See Instructions, Inject 10-15 minutes prior to meals in case of pump failure MDD: 20 units, # 6 mL, 3 Refills, Maintenance, 03/03/25 4:17:00 PM EDT, [facility] #[id number], dx e13.65, 161, cm, 10/16/24 15:09:00 EDT, Height, 70.4, kg, 12/27/23 8:49:00 EDT, Dry Weight Start Date: 03/03/25 Status: Ordered Medication Dispense Status: Completed Quantity: 6.0 Unit: mL Total Allowed Fills: 4 Fills Dispensed: 0 levothyroxine 0.05 mg oral tablet 1 tablet = 50 mcg, By Mouth, Daily, # 30 tablet, 11 Refills, Maintenance, 10/01/24 8:59:00 AM EST, Tablet, [facility] #[id number], Partial fill upon patient request if the prescription is for a schedule II opioid drug., 161, cm, 02/13/24 14:13:00 EDT, Height, 70.4, kg, 12/27/23 8:49:00 EDT, Dry Weight Start Date: 10/01/24 Status: Ordered Medication Dispense Status: Completed Quantity: 30.0 Unit: tablet Total Allowed Fills: 12 Fills Dispensed: 0 metFORMIN 500 mg oral tablet, extended release 2 tablet = 1,000 mg, By Mouth, 2 times a day, # 120 tablet, 7 Refills, Maintenance, 10/01/24 8:59:00 AM EST, ER Tablet, [facility] #[id number], Partial fill upon patient request if the prescription is for a schedule II opioid drug., 161, cm, 02/13/24 14:13:00 EDT, Height, 70.4, kg, 12/27/23 8:49:00 EDT, Dry Weight Start Date: 10/01/24 Status: Ordered Medication Dispense Status: Completed Quantity: 120.0 Unit: tablet Total Allowed Fills: 8 Fills Dispensed: 0 metoprolol 25 mg oral tablet 25 mg, 1, tablet, By Mouth, 2 times a day, # 60 tablet, Refills 0, Maintenance, 12/27/23 8:51:00 AM EDT, Partial fill upon patient request if the prescription is for a schedule II opioid drug. Start Date: 12/27/23 Status: Ordered Medication Dispense Status: Completed Quantity: 60.0 Unit: tablet Total Allowed Fills: 1 Fills Dispensed: 0 Pen [place], 31 G x 5 mm BD Ultra Fine III See Instructions, # 100 each, Refills 3, Tot. Refills 3, Maintenance, use daily with basal insulin in case of pump failure, 06/28/24 4:47:00 PM EST, Supply, 161, cm, 02/13/24 14:13:00 EDT, Height, 70.4, kg, 12/27/23 8:49:00 EDT, Dry Weight Start Date: 06/28/24 Status: Ordered Medication Dispense Status: Completed Quantity: 100.0 Unit: each Total Allowed Fills: 4 Fills Dispensed: 0 Tresiba FlexTouch 100 units/mL subcutaneous solution = 18 units, Subcutaneous Infusion, Daily, to use in case of insulin pump failure, # 18 mL, 3 Refills, Maintenance, 06/28/24 4:44:00 PM EST, [facility] #[id number], Dx: E10.9, 161, cm, 02/13/24 14:13:00 EDT, Height, 70.4, kg, 12/27/23 8:49:00 EDT, Dry Weight Start Date: 06/28/24 Status: Ordered Medication Dispense Status: Completed Quantity: 18.0 Unit: mL Total Allowed Fills: 4 Fills Dispensed: 0 Zepbound 2.5 mg/0.5 mL subcutaneous solution = 2.5 mg, Subcutaneous Injection, Every week, rotate injection sites, # 2 mL, 11 Refills, Maintenance, 12/24/24 4:07:00 PM EDT, [facility] #[id number], Partial fill upon patient requestif the prescription is for a schedule II opioid drug., 161, cm, 10/16/24 15:09:00 EDT, Height, 70.4, kg, 12/27/23 8:49:00 EDT, Dry Weight Start Date: 12/24/24 Status: Ordered Medication Dispense Status: Completed Quantity: 2.0 Unit: mL Total Allowed Fills: 12 Fills Dispensed: 0 Zepbound 5 mg/0.5 mL subcutaneous solution = 5 mg, Subcutaneous Injection, Every week, rotate injection sites. e10.65., # 4 each, 5 Refills, Maintenance, 04/15/25 2:25:00 PM EDT, [facility] #[id number], Partial fill upon patientrequest if the prescription is for a schedule II opioid drug., 161, cm, 04/15/25 11:06:00 EDT, Height, 70.4, kg, 12/27/23 8:49:00 EDT, Dry Weight Start Date: 04/15/25 Status: Ordered Medication Dispense Status: Completed Quantity: 4.0 Unit: each Total Allowed Fills: 6 Fills Dispensed: 0 Zyrtec 10 mg oral tablet 1 tablet = 10 mg, By Mouth, Daily, # 90 tablet, 0 Refills, Maintenance, 05/03/16 7:50:31 AM EDT, [facility] [id number] Start Date: 05/03/16 Stop Date: 08/01/16 Status: Ordered Medication Dispense Status: Completed Quantity: 90.0 Unit: tablet Total Allowed Fills: 1 Fills Dispensed: 0 Problem List Condition Confirmation Course Effective Dates Status Health St atus Informant Anxiety 1, 2 Confirmed Active Asthma Confirmed Active GERD - Gastro-esophageal reflux disease 3 Confirmed Active 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/04/13 Active Tobacco 4 Confirmed Active 1no current therapist or psych 2Deidre [place]un[place], psych 3intermittent 4smokes occasionally Social History Social History Type Response Smoking Status Former smoker; Other : quit june 2010; entered on: 01/08/15 Sex Sex Representation Female (finding) Patient Care team information Care Team Personnel Name: Louise Tate RN Position: [facility] RN Member Role: Primary Care Nurse Name: Antwon Mendoza NP Position: Reference Physician Member Role: PCP Address: [address] [place] [address] Telecom: Name: Twila Blue MD Position: [facility] FOLDER INSPECTOR MD Member Role: Lifetime FOLDER INSPECTOR Physician Address: [address] [place] [address]'s [facility] Otorhinolaryngologist - [place], [place] [address] Telecom: Care Team Related Persons Name: NAOMIE PADILLA Name: RUPERTO LOPEZ Insurance Providers Guarantor name: EVERTON LOPEZ Health Plan Information #: 1 Payer: [facility] FF NON BHP HMO P Payer Identifier: NA Member Number: [id number] Group Number: [id number] Subscriber Identifier: NA Relationship to Subscriber: self Coverage Type: Other Private Insurance Coverage Verification Date: NA Telecom: NA Address: NA
--- OUTSIDE RECORDS SUMMARY | 2025-06-20 23:59 | XMS_ITS | Continuity of Care Document ---
Author Organization [facility] Address [address] [place] [address]- Care Team Providers Care Fitter Placer Name Role Phone Reji PAZ, Antwon Capps Primary Care Physician [phone] Encounter [facility] Date(s): 05/21/25 - 06/20/25 [facility] [address] [place] [address] Encounter Type: Triage Allergies, Adverse Reactions, [...] Note: VIM 06/17/08 3Admin Note: ADMINISTERED BY [facility] Medications duloxetine 20 mg oral enteric [...] 3 Refills, Soft Stop, 10/01/24 8:58:[address] [facility], [facility] #[id number], Partial fill upon patient request if the [...] mL, 3 Refills, Maintenance, 10/01/24 8:58:[address] [facility] #[id number], 161, cm, 02/13/24 14:13:00 EDT,Height, 70.4, kg, [...] 3 Refills, Maintenance, 03/03/25 4:17:00 PM EDT, [facility] #[id number], dx e13.65, 161, cm, 10/16/24 15:09:00 EDT, Height, 70.4, kg, 12/27/23 8:49:00 EDT, Dry Weight Start Date: 03/03/25 Status: Ordered Medication Dispense Status: Completed Quantity: 6.0 Unit: mL Total Allowed Fills: 4 Fills Dispensed: 0 levothyroxine 0.05 mg oral tablet 1 tablet = 50 mcg, By Mouth, Daily, # 30 tablet, 11 Refills, Maintenance, 10/01/24 8:59:00 AM EST, Tablet, [facility] #08400, Partial fill upon patient request if the [...] Maintenance, 10/01/24 8:59:00 AM EST, ER Tablet, [facility] #75261, Partial fill upon patient request if the [...] Allowed Fills: 1 Fills Dispensed: 0 Pen Reagan, 31 G x 5 mm BD Ultra [...] mL, 3 Refills, Maintenance, 06/28/24 4:44:00 PM [facility] #[id number], Dx: E10.9, 161, cm, 02/13/24 14:13:00 EDT, Height, 70.4, kg, 12/27/23 8:49:00 EDT, Dry Weight Start Date: 06/28/24 Status: Ordered Medication Dispense Status: Completed Quantity: 18.0 Unit: mL Total Allowed Fills: 4 Fills Dispensed: 0 Zepbound 2.5 mg/0.5 mL subcutaneous solution = 2.5 mg, Subcutaneous Injection, Every week, rotate injection sites, # 2 mL, 11 Refills, Maintenance, 12/24/24 4:07:00 PM EDT, [facility] #76514, Partial fill upon patient requestif the prescription [...] 5 Refills, Maintenance, 04/15/25 2:25:00 PM EDT, [facility] #[id number], Partial fill upon patientrequest if the prescription [...] 0 Refills, Maintenance, 05/03/16 7:50:31 AM EDT, [facility] Start Date: 05/03/16 Stop Date: 08/01/16 Status: [...] Active 1no current therapist or psych 2[employer], psych 3intermittent 4smokes occasionally Social History Social History Type Response Smoking Status Former smoker; Other : quit june 2010; entered on: 01/08/15 Sex Sex Representation Female (finding) Patient Care team information Care Team Personnel Name: Louise Tate RN Position: [facility] RN Member Role: Primary Care Nurse Name: Antwon Mendoza NP Position: Reference Physician Member Role: PCP Address: [address] [place] [id number] Telecom: Name: Twila Blue MD Position: [facility] CENTRAL COMMUNICATIONS SPECIALIST Member Role: Lifetime CENTRAL COMMUNICATIONS SPECIALIST Physician Address: [address] [place] [address] [place], [place] [address] Telecom: Care Team Related Persons Name: NAOMIE PADILLA Name: RUPERTO LOPEZ Insurance Providers Guarantor name: EVERTON LOPEZ Health Plan Information #: 1 Payer: [facility] FF NON BHP HMO P Payer Identifier: NA Member Number: [id number] Group Number: [id number] Subscriber Identifier: NA Relationship to Subscriber: self Coverage Type: Other Private Insurance Coverage Verification Date: NA Telecom: NA Address: NA
--- OUTSIDE RECORDS SUMMARY | 2025-06-24 06:35 | XMS_ITS | Data Portability ---
Author Organization [place] [facility], [facility] Address [id number] [place] [address] Care Team Providers Care Corporate Relations Manager Name Role Phone ANTIONE MILLER Primary Care Provider [phone] Assessment No assessment recorded. Plan of Treatment Reminders Order Date Submit Date Provider Last Modified By Organization Details Last Modified Time Details Appointments None recorde d. Lab alex wet prep 024 10/12/19 24 [email or web address] In-Office Order, Internal Use Only DO Not Attach Compendium DO Not Attach Compendium, Do Not Delete/merge, [id number] 4 11:44:12 culture , vaginal , yeast 024 10/12/19 24 [facility], [address] [place], [address] 4 12:14:17 Referral None recorde d. Procedures None recorde d. Surgeries None recorde d. Imaging None recorde d. Medication Orders None recorde d. Patient TargetsNo targets recorded. Patient Instructions Encounter Date Encounter Id Patient Instructions Last Modified By Organization Details Last Modified Time 10/12/2023 [id number] pt here for 13 months of vestibular [...] medical record: __5___ minutes Other : minutes [email or web address] Not available 10/12/2023 12:43:08 Reason for Referral None Reported. Results Created Date Observation Date Name Description Value Unit Range Abnormal Flag Note LastModifiedBy Organization Detail LastModifiedTime 10/12/19 24 10/23/2023 CULTU RE, YEAST , W/DIR ECT FLUOR ESCEN T ALEX culture, yeast, w/direct fluorescent alex SEE NOTE CULTU RE, YEAST , W/DIR ECT FLUOR ESCEN T ALEX Micro Numbe r: [id number] Test Statu s: Final Speci men Sourc e: Vagin a Speci men Quali ty: Adequ ate Smear : No yeast seen Resul t: No yeast isola hamilton Not Available [facility] [address], [place], [address], 10/23/2023 12:14:17 10/12/1910/12/2023 alex wet prep Hyphae [...] DO Not Attach Compendium, Do Not Delete/merge, [id number] 10/12/2023 11:43:35 10/12/19 24 10/12/2023 alex wet prep Other nl moncho Not Available In-Office Order Internal Use Only DO Not Attach Compendium DO Not Attach Compendium, Do Not Delete/merge, [address] 10/12/2023 11:43:35 Result Notes None recorded. Problems No Known Problems Medical Equipment None Reported. Allergies Allergen ID Allergen Name Allergen Category Reaction Reaction Severity Criticality Documentation Date Start Date Code Code System Note Provider Name and Address Organization Details Recorded Time 1892444 Cipro medicatio n Not available Not available Not available 10/12/2023 68903 3 [facility] 4 11:10:17 2533159 Bactrim medicatio n Not available Not available Not available 10/12/2023 33493 9 [facility], [facility] 4 11:10:23 Medications Name Sig Start Date [...] Updated DateTime 10/12/2023 160.02 cm 26.6 kg/m2 90224.86 g 112/71 mm[Hg] Libia Vaughan [facility] 10/12/2023 11:09:50 Social History Question Answer Notes LastModified by Organizat Funding Profiles Details LastModified Time Tobacco Smoking Status Former Smoker Ericka Johnson MD [address] [place] [address], [address] Floor, [place], [address], [facility] 10/12/2023 11:23:48 Drug Use? No [email or web address] Information no t available 10/12/2023 Sex: Unknown Functional Status Question Answer Note LastModified by Organizat Funding Profiles Details LastModified Time What is your level of alcohol consumption? Occasional Information not available 10/12/2023 What is your occupation? [email or web address] Information not available 10/09/2023 What is your exercise level? Occasional [email or web address] Information not available 10/12/2023 Mental Status None recorded. Family History Nothing Reported. Medical History Condition Response Diabetes Y Heart Problems Hyperlipidemia Y Gynecological History Statement/Question Response STIs/STDs [...] ICD10 Code Diagnosis IMO Codes Diagnosis Note [id number] Ericka Johnson MD [address]WO[address] [place] [phone] 10/12/2023 10:51:23 10/12/2023 12:10:06 Inflammation of vestibule of vulva 88339741 N94.810 Health Concerns Section Related Observation LastModified by Organization Detai ls LastModified Time None Recorded Concern Status LastModified by Organization Details LastModified Time None Recorded Advance Directives Directive None Recorded Payers Insurance Date Sequence Insurance Name Policy Number Policy Casarez Covered Member ID Casarez Member ID Guarantor Name 10/25/2023 1 [facility] (O) [id number] Michelle Marvinmayrejacquie [id number] Michelle Galnathanael 10/25/2023 1 [facility] (O) [id number] Michelle Carejacquie [id number] Michelle Cacarmelina Notes Date Note Type Note [...] block without any relief Ericka Johnson MD [address] [place] [address], [address] Floor, [place], [address], [place] [facility] 10/12/2023 12:43:31 OBGyn Episode No OBEpisode recorded.
--- OUTSIDE RECORDS SUMMARY | 2025-06-24 06:35 | XMS_ITS | Encounter Summary ---
Author Organization [facility] Address [address] [place] [address] Care Team Providers Care Graining Operator Name Role Phone Antwon Mendoza NP Primary Care Provider Encounter Details Date Type Department Care Team (Late st Contact Info) Description 06/17/2025 Telephone [facility] [address] [facility] [address] [place] [address] Tremaine Blevins NP [address] [place] [address] [place] [address] Social History Tobacco Use Types Packs/Day Years [...] care for your loved ones. For example, exceptional children teacher or elderly care for an older adult? [...] on file documented as of this encounter Progress Notes * Zahira Gaming RN - 06/19/2025 9:00 AM EST Please see Results f/u. Referral placed for [facility]OT[facility] clinic. * Hilaria Pacheco RN - 06/18/2025 2:13 PM EST [facility] has not resulted . She just got blood work drawn today. * Lelo Stephens - 06/18/2025 1:43 PM EST Patient called and said she has her blood work done today. * Zahira Gaming RN - 06/17/2025 12:01 PM EST Pt aware to update CBC. Pt will call back to update once she completes it. Please see [employer] message 06/16/25. * Tremaine Blevins NP - 06/17/2025 11:25 AM EST I think we should probably update a CBC. Those EKG tracings are not concerning. If she changing positions slowly? Has she been able to do any lower extremity exercises, such as recumbent biking? Has she been able to utilize the sodium chloride tablets? documented in this encounter Plan of Treatment Not on file documented as of this encounter Visit Diagnoses Not on filedocumented in this encounter Additional Health Concerns Assessment Noted Time PHQ-9 Depression Total Score: 0 04/03/20 25 9:40 AM EDT documented as of this encounter Care Teams Graining Operator Relationship Specialty Start Date End Date Antwon Mendoza NP [address] [facility] [place] PCP - General 07/06/23 documented as of this encounter
--- OUTSIDE RECORDS SUMMARY | 2025-06-24 06:35 | XMS_ITS | Data Portability ---
Author Organization [place] - [facility] [employer] [id number] Address [address] [place] [address] Care Team Providers Care Territory Sales Executive Name Role Phone JUAN J BOWLES Referring Provider ANTIONE MILLER Primary Care Provider [phone] Assessment Encounter Date Assessment Date Assessment LastModified [...] denies having any other further questions/areli rns [email or web address] Not available 09/11/2024 12:18:07 10/15/2024 10/15/2024 -patient [...] denies having any other further questions/areli rns [email or web address] Not available 10/15/2024 12:20:57 10/29/2024 10/29/2024 -patient [...] denies having any other further questions/areli rns [email or web address] Not available 10/29/2024 11:43:04 12/03/2024 12/03/2024 -patient [...] information for new and/or chronic health problem [email or web address] Not available 12/03/2024 14:30:05 03/04/2025 03/04/2025 -patient [...] to help with her pain with a uro-plate roller, but so far it has not seemed to help much -will continue lyrica 50mg TID, will increase as needed/tolerate d -f/up in 3 months -14minutes was used for chart review, interviewing/ex amining, and counseling the patient during today's visit, and patient denies having any other further questions/areli rns [email or web address] Not available 03/04/2025 12:20:24 Plan of Treatment Reminders Order Date Submit Date Provider Last Modified By Organization Details Last Modified Time Details Appointments WAA EST PT 30 NEW PROVIDER 2024 08:30A Jay Gold MD Not available Not available Not available Lab None recorded. Referral None recorded. Procedures None recorded. Surgeries None recorded. Imaging None recorded. Medication Orders Lyrica 50 mg capsule 2024 08/05/ 025 [email or web address][id number], [address] [place] [address], [id number], 03/04/2025 12:21:03 Lyrica 50 mg capsule 2024 025 [facility] #18454, [address] [place] [address], [id number], 12/03/2024 14:29:44 Lyrica 50 mg capsule 2024 025 [facility] #64597, [address] [place] [address], [id number], 10/29/2024 11:43:43 gabapenti n 300 mg capsule 2024 025 [email or web address] [facility] #32666, [address] [place] [address], [id number], 10/15/2024 12:06:40 Lyrica 75 mg capsule 2024 025 [facility] #84382, [address] [place] [address], [id number], 09/11/2024 12:15:42 Lyrica 50 mg capsule 2024 025 [facility] #23262, [address] [place] [address], [id number], 09/11/2024 12:15:42 Patient TargetsNo targets recorded. Patient InstructionsNo instructions recorded. Reason for Referral None Reported. Problems Name Problem SNOMED Code Status Onset Date Resolution Date Notes Provider Name and Address Organization Details Recorded Time Hypothyroidism 29345555 Active 2023 Manasa carbajal, [facility] 4 16:10:39 Type 1 diabetes mellitus 89436256 Active 2023 Manasa carbajal, [facility] 4 16:10:52 Perineal pain 994822031 Active 2023 Jose Mar MD null, [facility] 4 13:51:05 Chronic pain syndrome 506394671 Active 2023 [facility] 4 16:16:50 Problem Notes None recorded. Procedures Surgical History Date Name Laterality Status Provider Name and Address Organization Details Recorded Time vaginoscopy with biopsy of cervix completed Manasa Nicholson [facility] 07/05/2024 16:11:39 [facility] 16:11:48 Imaging Results None recorded. Procedure Notes None recorded. Medical Equipment None Reported. Allergies Allergen ID Allergen Name Allergen Category Reaction Reaction Severity Criticality Documentation Date Start Date Code Code System Note Provider Name and Address Organization Details Recorded Time 2154 ciproflox acin medicatio n Not available Not available Not available 07/05/2024 2551 Rx[facility] 4 16:10:10 2155 sulfameth oxazole / trimethop rim medicatio n Not available Not available Not available 07/05/2024 88359 RxNorm Manasa Nicholson On license of [facility] 4 16:10:24 Medications Name Sig Start Date [...] Codes Diagnosis Note [id number] Jose Mar MD [id number] [facility] [address] [place] [address] 07/08/2024 12:54:56 07/08/2024 13:54:32 Perineal pain 226041280 R10.2 88107 Jose Mar MD [id number] [facility] [address] [place] [address] 08/20/2024 07:34:17 08/20/2024 13:32:55 Perineal pain 590977150 R10.2 06713 Jose Mar MD [id number] [facility] [place] [address] [place] [address] 09/11/2024 07:32:12 09/11/2024 12:27:47 Perineal pain 830525293 R10.2 [id number] Jose Mar MD [id number] [facility] [address] [place] [address] 10/15/2024 07:15:33 10/15/2024 12:29:53 Perineal pain 396041266 R10.2 [id number] Jose Mar MD [id number] [facility] [address] [place] [address] 10/29/2024 07:50:37 10/29/2024 12:12:07 Perineal pain 618311061 R10.2 [id number] Jose Mar MD [id number] [facility] [address], [place] [address] 12/03/2024 07:59:58 12/03/2024 14:30:58 Perineal pain 312094461 R10.2 [id number] Jose Mar MD [id number] [facility] [address] [facility] [employer] [facility] [address] 03/04/2025 07:05:37 03/04/2025 12:21:34 Perineal pain 234322647 R10.2 Health Concerns Section Related Observation LastModified by Organization Detai ls LastModified Time None Recorded Concern Status LastModified by Organization Details LastModified Time None Recorded Advance Directives Directive None Recorded Payers Insurance Date Sequence Insurance Name Policy Number Policy Casarez Covered Member ID Casarez Member ID Guarantor Name 03/01/2025 1 [facility] [id number] Michelle Whiting [id number] Michelle Whiting Notes Date Note Type Note [...] in the groin/perineal area. Jose Mar MD [facility], [facility] 09/11/2024 12:18:20 10/15/2024 text/html ROS as [...] it is not that significant. Saw her slinger sequins on 10/01/24, and had a Holter study [...] pain is a 3-4/10. Jose Mar MD [facility], [place] [facility] 10/15/2024 12:21:11 10/29/2024 text/html ROS [...] it is not that significant. Saw her slinger sequins on 10/01/24, and had a Holter study [...] pain levels are higher. Jose Mar MD [facility], [facility] 10/29/2024 11:43:55 12/03/2024 text/html ROS as [...] it is not that significant. Saw her slinger sequins on 10/01/24, and had a Holter study [...] her current medication regimen. Jose Mar MD [facility], [place] [facility] 12/03/2024 14:30:22 03/04/2025 text/html ROS as [...] it is not that significant. Saw her slinger sequins on 10/01/24, and had a Holter study [...] wants to continue at her current dosage. Jose Mar MD [facility], [place] [facility] 03/04/2025 12:21:04 OBGyn Episode No OBEpisode recorded.
--- OUTSIDE RECORDS SUMMARY | 2025-06-24 06:35 | XMS_ITS | Clinical Summary ---
Author Organization [facility] Address [address] [place] [address] Care Team Providers Care Liner Checker Name Role Phone Unavailable Primary Care Provider [...] 21-65) 2003 Mammogram 2022 Influenza Vaccine 02/28/2025 08/01/2018, 05/28/2013, 05/31/2010 COVID-19 Vaccine (2023-2 5 season) 2025 HPV Vaccines (No Doses Required) Completed Pneumococcal Vaccine: Pediatric (0-5 Years) and At-Risk Patients (6 to 49 Years) Aged Out No longer eligible b ased on patient's age to complete this topic Insurance [facility]
--- OUTSIDE RECORDS SUMMARY | 2025-06-24 06:35 | XMS_ITS | Clinical Summary ---
Author Organization [address] [place] [address] [place] [phone] Phone Care Team Providers Care Heel Seat Trimmer Name Role Phone Antwon Mendoza NP Primary Care Provider [phone] Allergies Active Allergy Reactions Criticality Noted Date [...] breakfast. Active blood-glucose meter,continuou s ([employer]excom G6 Sterilization Specialist) misc 1 Device by Does not apply [...] nature. I have reached out to her dining room coordinator to see if she has any thoughts. 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 Asthma 01/18/2018 Internal hemorrhoid 05/01/2017 Overview (09/20/2024): Cnsp 05/01/2017 Panic disorder 12/29/2016 Anxiety 12/29/2016 Encounters Date Type Department Care Team Description 06/19/2025 Results Follow-Up [facility] [address] [facility] [address] [place] [phone] Tremaine Blevins NP 06/17/2025 Telephone [facility] [address] [facility] 154 [place] [phone] Tremaine Blevins NP 05/02/2025 Telephone Obstetrics and Gynecology [address] [phone] Monica Rodriguez CNM 04/25/2025 10:50 AM EDT Office Visit [facility] [address] [facility] 154 [place] [phone] Jennie Adams MD Dysautonomia ([facility] V24, [facility] V28) (Primary Dx); Hyperlipidemia, unspecified hyperlipidemia type from Last 3 Months Immunizations Immunization Administration Dates Next Due Hepatitis B (Zsrztvu-A-Wozky , Recombivax HB-Adult) 19yo and older 01/21/2016 Influenza Quadravalent, MDCK , 0.5ml, preservative free (Flucelvax) 6mo and older 08/01/2018 MMR, measles mumps and rubel la Live (Priorix; M-M-R II) 12mo and older 01/21/2016 Surgical History Surgery Date Site/Laterality Comments VAGINOSCOPY 2015 PROCEDURE: NE COLPOSCOPY CERVIX BX CERVIX & ENDOCRV CURRETAGE; [...] DX:Diabetes mellitus type 2, controlled, with complications ([facility]) Hyperlipidemia 12/13/2023 DX:Hyperlipidemi a Early satiety DX:Early [...] for your loved ones. For example, child welfare assistant or elderly care for an older adult? [...] Test (HGBA1C) 07/13/2022 11/30/2020 COVID-19 Vaccine ( - season) 2025 09/29/2020, 09/08/2020 Influenza Vaccine (#1) 2025 2, 08/01/2018, 05/28/2013, Additional history exists Social Influencers [...] Procedure Name Priority Date/Time Associated Diagnosis Comments CBC WITH AUTO DIFFERENTIAL Routine 06/18/2025 11:49 AM EST BASIC METABOLIC PANEL Routine 05/15/2025 9:23 AM EDT Dysautonomia (CMS/HCC V24, CMS/HCC V28) LIPID PANEL Routine 03/18/2024 HEMOGLOBIN A1C Routine 11/30/2020 HM URINE ALBUMIN CREATININE RATIO Routine 12/17/2019 HEPATITIS C SCREENING Routine 07/26/2018 from Last 3 Months or Most Recently Relevant to Health Maintenance Results * CBC auto differential (06/18/2025 11:49 AM EST) WBC 7.4 3.4 - 10.8 x10E3/uL [facility] 1 RBC 4.42 3.77 - 5.28 x10E6/uL [facility] 1 Hemoglobin 14.1 11.1 - 15.9 g/dL [facility] 1 Hematocrit 41.0 34.0 - 46.6 % [facility] 1 MCV 93 79 - 97 fL [facility] 1 MCH 31.9 26.6 - 33.0 pg [facility] 1 MCHC 34.4 31.5 - 35.7 g/dL [facility] 1 RDW 12.8 11.7 - 15.4 % [facility] 1 Platelets 439 150 - 450 x10E3/uL [facility] 1 Neutrophils 52 Not Estab. % [facility] 1 Lymphocytes 36 Not Estab. % [facility] 1 Monocytes 7 Not Estab. % [facility] 1 Eosinophils 4 Not Estab. % [facility] 1 Basophils 1 Not Estab. % [facility] 1 Neutrophils Absolute 3.8 1.4 - 7.0 x10E3/uL [facility] 1 Lymphocytes Absolute 2.7 0.7 - 3.1 x10E3/uL [facility] 1 Monocytes Absolute 0.5 0.1 - 0.9 x10E3/uL [facility] 1 Eosinophils Absolute 0.3 0.0 - 0.4 x10E3/uL [facility] 1 Basophils Absolute 0.1 0.0 - 0.2 x10E3/uL [facility] 1 Immature Granulocytes Relative 0 Not Estab. % [facility] 1 Immature Grans (Abs) 0.0 0.0 - 0.1 x10E3/uL [facility] 1 06/18/2025 11:4 9 AM EST 06/18/2025 Narrative [facility] 1 - 06/18/2025 10:06 PM EST Performed at: 01 - [facility] [address] [id number] Steam Shovelman: Annie Valerio MD, Phone: [phone] us Tremaine Blevins NP LAB BLOOD ORDERABLES Final Resul t [facility] 1 * (ABNORMAL) Basic metabolic panel (05/15/2025 9:23 AM EDT) Pathologist [facility] Glucose 191(H) 70 - 99 mg/dL [facility] [...] 1:06 AM EDT Performed at: 01 - [facility] [id number] Steam Shovelman: Annie Valerio MD, Phone: [phone] Jennie Adams MD LAB BLOOD ORDERABLES Final Resu lt [facility] 1 * (ABNORMAL) Lipid panel (03/18/2024) [facility] LDL/HDL Ratio 4 0 - 4 Triglycerides 72 0 - 150 mg/dL Cholesterol 163 0 - 200 mg/dL HDL 44 >=40 mg/dL LDL Cholesterol 105(A) 0 - 100 mg/dL Blood Venous blood specimen / Unknown Historical Provider LAB BLOOD ORDERABLES Gillian l Result * (ABNORMAL) Hemoglobin A1c (11/30/2020) [facility] Hemoglobin A1C 6.7(A) <=6.5 % Blood Venous blood specimen / Unknown Historical Provider LAB BLOOD ORDERABLES Gillian l Result * HM Urine Albumin Creatinine Ratio (12/17/2019) Urine Albumin Creatinine Ratio abstracted us Historical Provider HEALTH MAINTENANCE Final Result * Hepatitis C Screening (07/26/2018) Hepatitis C Screening abstracted us Historical Provider HEALTH MAINTENANCE Final Result from Last 3 Months or Most Recently Relevant to Health Maintenance Insurance [facility] Care Teams Heel Seat Trimmer Relationship Specialty Start Date End Date Antwon Mendoza NP [address] [facility] MICHAEL Menjivar PCP - General 07/06/23
--- OUTSIDE RECORDS SUMMARY | 2025-06-24 06:35 | XMS_ITS | Encounter Summary ---
Author Organization [facility] Address [address] [place] [address] Care Team Providers Care Plastic Welder Name Role Phone Antwon Mendoza NP Primary Care Provider [phone] Reason for Referral * Consultation (Routine) - Pending Review Specialty Diagnoses / Procedures Referred By Conttenisha t Referred To Contact Cardiology Diagnoses Dysautonomia (CMS/HCC V24, CMS/HCC V28) Tremaine Blevins NP [address] [place] [address] Dr [address] [place] [phone] Phone: tel: fax: Dexter Lay MD [address] [place] [address] Phone: tel: fax: Referral ID Status Reason Start Date Expiration Date Visits Requested Visits Authorized [id number] Pending Review Specialty Services Required 5 06/19/2026 1 1 Encounter Details Date Type Department Care Team (Late st Contact Info) Description 06/19/2025 Results Follow-Up [facility] [address] [facility] [address] [place] [address] Tremaine Blevins NP [address] [place] [address] [place] [address] Social History Tobacco Use Types Packs/Day Years [...] care for your loved ones. For example, early childhood education instructor or elderly care for an older adult? [...] on file documented as of this encounter Plan of Treatment Scheduled Referrals Name Type Priority Associated Diagnoses Order Schedule Ambulatory referral to Cardiology Outpatient Referral Routine Dysautonomia ([facility] V24, [facility] V28) 1 Occurrences starting 06/19/2025 until 06/19/2026 documented as of this encounter Visit Diagnoses Diagnosis Dysautonomia ([facility] V24, [facility] V28)- Primary Unspecified disorder of autonomic nervous system documented in this encounter Additional Health Concerns Assessment Noted Time PHQ-9 Depression Total Score: 0 04/03/20 25 9:40 AM EDT documented as of this encounter Care Teams Plastic Welder Relationship Specialty Start Date End Date Antwon Mendoza NP [address] [place], [place] PCP - General 07/06/23 documented as of this encounter
--- OUTSIDE RECORDS SUMMARY | 2025-06-24 06:35 | XMS_ITS | Clinical Summary ---
Author Organization [facility] [place] [address] Care Team Providers Care Check Airman Name Role Phone Antwon Mendoza APRN Primary Care Provider [phone] Social History Tobacco Use Types Packs/Day Years [...] Influenza standard series) 03/31/2025 Insurance Care Teams Check Airman Relationship Specialty Start Date End Date Antwon Mendoza APRN [address] [place] [address] PCP - General Internal Medicine 05/26/23
--- OUTSIDE RECORDS SUMMARY | 2025-06-24 06:35 | XMS_ITS | Clinical Summary ---
Author Organization [facility] Address [address] [place] [address] Care Team Providers Care [place] Name Role Phone Antwon Mendoza Primary Care Provider [phone] Allergies Active Allergy Reactions Criticality Noted Date [...] Group Subscriber ID Effective Dates Phone Address [facility] [id number] 2013-Present [address] [phone] [facility] [id number] 2022-Present [address] [phone] [facility] Care Teams [place] Relationship Specialty Start Date End Date Antwon Mendoza [address] [facility] MICHAEL Menjivar [address] PCP - General Family Medicine 07/06/23
--- OUTSIDE RECORDS SUMMARY | 2025-06-24 06:35 | XMS_ITS | Clinical Summary ---
Author Organization [facility] Address [address] [place] [phone] Phone Care Team Providers Care Fighting Vehicle Infantryman Name Role Phone Antwon Mendoza NP Primary [...] Description 04/17/2025 10:00 AM EDT Office Visit [facility] [address] [facility] [address] [place] [address] Bo Boyce MD, JESSE Pelvic pain in female (Primary Dx); Labial pain; Female dyspareunia; Myofascial pain from Last 3 Months Family History Medical [...] file Insurance [address] [place], [place] [address] [place], [place] [address]O [facility] HMO Care Teams Fighting Vehicle Infantryman Relationship Specialty Start Date End Date Antwon Mendoza NP [address] [facility] [place] [address] PCP - General Nurse Practitioner 02/20/24 Additional Source Comments The information contained in this document represents components of the legal health record. It is not the complete legal health record.[facility]
--- NOTE | 2025-06-24 07:15 | A.OFFPC_ITS ---
Intake Visit Reasons: Discuss pain management Allergies azithromycin Allergy (Unknown, Verified 06/24/25 07:15) palpitations levofloxacin Allergy (Unknown, Verified 06/24/25 07:15) Hives Sulfa (Sulfonamide Antibiotics) Allergy (Unknown, Verified 06/24/25 07:15) Unknown ciprofloxacin (From Cipro) Adverse Reaction (Mild, Verified 06/24/25 07:15) Rash bactrium Adverse Reaction (Mild, Uncoded 06/24/25 07:15) Rash Medication List - Last Reconciled 06/24/25 by Antwon Mendoza, [facility] albuterol sulfate 90 mcg/actuation 1 puff inhalation QID PRN atorvastatin 20 mg PO DAILY 90 days blood sugar diagnostic (FreeStyle Lite Strips) As directed blood-glucose meter As directed cetirizine 20 mg (2 x 10 mg) PO DAILY fluticasone propion-salmeterol 250-50 mcg/dose 1 ea PO BID fluticasone propionate 50 mcg/actuation 2 sprays intranasal BID 90 days insulin lispro (Humalog U-100 Insulin) 0 - 50 units subcut DAILY levothyroxine 50 mcg PO DAILY metformin ER 1,000 mg PO BID metoprolol tartrate 50 mg PO BID pregabalin (Lyrica) 50 mg PO BID 45 days tirzepatide (weight loss) (Zepbound) 2.5 mg subcut QWEEK Tobacco use date assessed: 01/07/25 Dental Screening Dental Screen Date: 01/07/25 HPI Discuss pain management HPI Details History of Present Illness The patient is a 44 year old individual presenting for a telehealth follow-up for ongoing perineal and vulvar pain diagnosed as pudendal neuralgia. The patient was previously under the care of an anesthesiologist/painter ski edge for this condition, but that provider has retired. Past interventions include a perineoplasty with a nerve block, which did not provide significant relief. The patient has previously seen gynecologists and other pain management experts. The patient's current medication regimen is Lyrica 50 mg in the morning, 50 mg at noon, and 75 mg at night. The pain is described as severe discomfort in the perineal region, which causes difficulty with sitting and prolonged standing. Due to the severity of the condition, the patient is not currently working. Review of Systems - Neurological: Reports feeling groggy a t times. Reports ongoing, severe perineal and vulvar pain. - Musculoskeletal: Reports difficulty wi th sitting and standing for long periods. Plan 1. Pudendal Neuralgia The patient's Lyrica dosage will be increased to 50 mg in the morning, 75 mg at noon, and 75 mg at night to manage symptoms, and a new prescription will be sent. The patient will research and identify a new painter ski edge, preferably an anesthesiologist, to replace the retired provider. A referral will be placed once the patient has chosen a new specialist. We discussed that the patient experiences grogginess from the Lyrica, but the functional impairment from the severe pain, which affects sitting, standing, and the ability to work, warrants the medication increase. Discussion Notes I had a telehealth follow-up discussion with the patient regarding ongoing management of pudendal neuralgia. We discussed increasing the Lyrica dosage to 50mg in the morning, 75mg at noon, and 75mg at night, and I will send in the prescription. We acknowledged the side effect of grogginess but agreed the severity of the condition, which prevents the patient from working and causes difficulty with sitting and standing, necessitates the dosage adjustment. I a dvised the patient to research and select a new painter ski edge to take over care from the retired provider, and I will place the referral upon receiving the patient's preference. Patient Instructions - I will send a new prescription for Lyr ica. - Please begin taking the new dose of Ly carrie as follows: 50 mg in the morning, 75 mg at noon, and 75 mg at night. - This medication may cause you to feel groggy. - Please do your own research to find a new painter ski edge that you would like to see. - Once you have chosen a new specialist, please let me know so I can place a referral for you. [facility] Medical History Pudendal neuralgia Perineal discomfort in female Chronic headaches Word finding difficulty Restless legs syndrome (RLS) Perineal pain in female Palpitations Hyperlipidemia PVC (premature ventricular contraction) Lichen sclerosus of vulva Facial cellulitis Diabetes type 1, controlled Surgical History No pertinent past surgical history Family History Father Heart disease Mother No problems noted. Family/Other Thyroid disease Sister Jose Cruz thyroiditis Social History Housing: House Alcohol intake: former Patient Tobacco Use Status: Former Tobacco user Years Smoked: 6 years ago e-Cigarette/Vaping Use: Former Use Second Hand Smoke Exposure: No service: No Current occupational status: employed Current occupation: [employer] Current occupational exposures/hazards: No Cognitive needs: No Hearing needs: No Vision needs: Yes Questionnaire Thrive Questionnaire Date Thrive assessed: 01/04/25 I am a: Patient What is your living situation today?: I have a steady place to live Within the past 12 months, did the food you bought not last and you didn't have the money to get more?: Never true Within the past 12 months, did you worry whether your food would run out before you got money to buy more?: Never true Do you have trouble paying for medicines?: No Do you have trouble getting transportation to medical appointments?: No Do you have trouble paying your heating and electricity bill?: No Do you have trouble taking care of your child, family member or friend?: No Do you have trouble with day-to-day activities such as bathing, preparing meals, shopping, managing finances, etc.?: No Are you currently unemployed and looking for a job?: No Are you interested in more education?: No Please select the resources that you would like help with: None Currently or been in a relationship where the following occur: No concerns reported THRIVE Score: 0 KATHYA-7 AMB Questionnaire KATHYA-7 Date KATHYA - 7 assessed: 01/07/25 Source: Developed by Drs. Luis Fuller, Corrie Pacheco, Fab Miller and colleagues, with an educational darlin from [employer]. Physical exam (Primary Care) Tobacco/Smoking Status: Tobacco use Status Tobacco use date assessed 01/07/25 04/30/25 07:26 Patient Tobacco Use Status Former Tobacco user 04/30/25 07:26 e-Cigarette/Vaping Use Former Use 04/30/25 07:26 Thrive Assessment: Date of Thrive Assessment Date Thrive assessed 01/04/25 04/30/25 07:26 Currently or been in a relationship where the following occur: No concerns reported Telehealth Telehealth Telehealth Platform: [employer] Location of provider rendering services: practice address Location of patient: address on file Patient Identification confirmed using: Name, : Yes Telehealth method: video Patient verbally consented to treatment: Yes Patient verbally consented to billing insurance company: Yes Patient informed of any privacy concerns related to visit: Yes Minutes spent on Phone/Video with Pt.: 15 Coding Level of Care Code Tele Est Pt Level 3 (39827) Diagnoses Perineal pain in female R10.2 Vulvar pain R10.2 Suprapubic pressure R10.2 Pudendal neuralgia G58.8 Assessment & Plan Assessment & Plan (1) Perineal pain in female: Code(s): R10.2 - Pelvic and perineal pain Category: Medical (2) Vulvar pain: Code(s): R10.2 - Pelvic and perineal pain Category: Medical (3) Suprapubic pressure: Code(s): R10.2 - Pelvic and perineal pain Category: Medical (4) Pudendal neuralgia: Code(s): G58.8 - Other specified mononeuropathies Category: Medical Plan . Medications: Changed From pregabalin (Lyrica) 50 mg PO BID 45 days 90 caps 1RF To pregabalin 50mg am, 75mg noon, 75mg night orally; 240 caps 2RF 30 days
== END 2025-06-24 08:06 | disposition home or self-care (01) ==
LOC: HO.HMCC 06:31
PROVIDERS: PCP Nurse Practitioner Family; Visit Provider Nurse Practitioner Family
DX: R10.20 Pelvic and perineal pain unspecified side (principal); G58.8 Other specified mononeuropathies

== ENCOUNTER 2025-07-14 09:41 | Outpatient (AMB) | payer OTHER, SELFPAY ==
[2025-07-14 10:07] VITALS: BP 110/70; PULSE 86; O2SAT 98
--- NOTE | 2025-07-14 10:07 | A.OFFPC_ITS ---
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 by: Self / Same As Patient Allergies azithromycin Allergy (Unknown, Verified 07/14/25 10:20) palpitations levofloxacin Allergy (Unknown, Verified 07/14/25 10:20) Hives Sulfa (Sulfonamide Antibiotics) Allergy (Unknown, Verified 07/14/25 10:20) Unknown ciprofloxacin (From Cipro) Adverse Reaction (Mild, Verified 07/14/25 10:20) Rash bactrium Adverse Reaction (Mild, Uncoded 07/14/25 10:20) Rash Medication List - Last Reconciled 07/14/25 by GISSELLE Edwards- albuterol sulfate 90 mcg/actuation 1 puff inhalation QID PRN atorvastatin 20 mg PO DAILY 90 days blood sugar diagnostic (FreeStyle Lite Strips) As directed blood-glucose meter As directed cetirizine 20 mg (2 x 10 mg) PO DAILY fluticasone propion-salmeterol 250-50 mcg/dose 1 ea PO BID fluticasone propionate 50 mcg/actuation 2 sprays intranasal BID 90 days insulin lispro (Humalog U-100 Insulin) 0 - 50 units subcut DAILY levothyroxine 50 mcg PO DAILY metformin ER 1,000 mg PO BID metoprolol tartrate 50 mg PO BID pregabalin 50mg am, 75mg noon, 75mg night orally; 30 days pregabalin 25 mg PO BID 30 days tirzepatide (weight loss) (Zepbound) 2.5 mg subcut QWEEK Tobacco use date assessed: 07/14/25 Dental Screening Dental Screen Date: 07/14/25 Did you have a dental visit in the last 12 months?: Yes Did you have a dental problem in the last 6 months where you did not have access to dental care?: No Was dental information given to patient?: Patient has dentist HPI 6 month follow up HPI Details Chief Complaint The patient presents with a chief complaint of ongoing pudendal neuralgia. History of Present Illness The patient is a 44 year old female presenting for follow-up for ongoing pudendal neuralgia. 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 The pain is severe enough to prevent her from working. She was under the care of a painter foreman and her Lyrica has been increased, though it provides minimal relief. She plans to see a previous provider in July for more treatment options and may seek referrals to other providers she has researched after her insurance changes. The patient has a therapist and a psychiatrist and denies suicidal or homicidal ideation. Social History - Employment: The patient is currently o ut of work due to the severity of her pain. Health Maintenance - Influenza vaccination: The patient has received her flu shot. Review of Systems - Neurological/Pain: Reports ongoing, se lito vulvar and peroneal pain, making it difficult to sit, stand, or lie down comfortably. - Psychiatric: Denies suicidal or homici sammy ideation. Physical Exam General: Cooperative, healthy appearing, comfortable, no acute distress and well developed Orientation: Patient oriented x3 Limitations: Difficulty sitting, standing, and lying down for long periods Head: Normal to inspection Ears: Hearing grossly normal bilaterally Nose: Normal external nose present Face and sinus: Normal facial exam Eyes: Appearance normal, both eyes and all related structures Neck: Normal visual inspection and Yes full ROM Respiratory: Normal respiratory effort and able to speak in complete sentences. Clear to auscultation bilaterally Cardiovascular: Regular rate and rhythm. Normal S1 and S2 GI: Normal to inspection. Soft to palpation and nontender Skin: No rashes or lesions noted Neuro: Patient oriented x3 Extremities: Normal to inspection Results Plan 1. Pudendal Neuralgia The patient is being managed by a pain specialist and is taking Lyrica with mini mal benefit, though the dose was recently increased. She has a scheduled appointment in July with a provider she has seen previously to discuss further treatment options. She is also anticipating a change in insurance, which may allow for referrals to other providers she has researched for her condition. A physical exam is scheduled for December. Discussion Notes I saw the patient for a follow-up visit for her primary issue of ongoing pudendal neuralgia, which causes significant vulvar and perineal pain, limiting her ability to sit, stand, and lie down comfortably. Her pain is severe enough that she is currently out of work. We discussed that she is under the care of a painter foreman who has increased her Lyrica, which offers minimal help. She has an upcoming appointment in July with a previous provider to discuss more treatments and is also exploring other providers pending an insurance change. We noted that she has a therapist and psychiatrist and denies any suicidal or homicidal ideation. I will see her for a physical exam in December. She will keep me posted with all future appts and medical status with this diagnosis. Any referrals she needs i will gladly provide. Patient Instructions - Continue with your medical management for pudendal neuralgia as prescribed by your pain specialist. - Keep your scheduled appointment in [place] to discuss more treatment options for your pain. - You have a follow-up appointment for a physical exam scheduled in December. [facility] Medical History Pudendal neuralgia Perineal discomfort in female Chronic headaches Word finding difficulty Restless legs syndrome (RLS) Perineal pain in female Palpitations Hyperlipidemia PVC (premature ventricular contraction) Lichen sclerosus of vulva Facial cellulitis Diabetes type 1, controlled Surgical History No pertinent past surgical history Family History Father Heart disease Mother No problems noted. Family/Other Thyroid disease Sister Jose Cruz thyroiditis Social History Housing: House Alcohol intake: former Patient Tobacco Use Status: Former Tobacco user Years Smoked: 6 years ago e-Cigarette/Vaping Use: Former Use Second Hand Smoke Exposure: No service: No Current occupational status: employed Current occupation: [employer] Current occupational exposures/hazards: No Cognitive needs: No Hearing needs: No Vision needs: Yes Questionnaire Thrive Questionnaire Date Thrive assessed: 01/04/25 I am a: Patient What is your living situation today?: I have a steady place to live Within the past 12 months, did the food you bought not last and you didn't have the money to get more?: Never true Within the past 12 months, did you worry whether your food would run out before you got money to buy more?: Never true Do you have trouble paying for medicines?: No Do you have trouble getting transportation to medical appointments?: No Do you have trouble paying your heating and electricity bill?: No Do you have trouble taking care of your child, family member or friend?: No Do you have trouble with day-to-day activities such as bathing, preparing meals, shopping, managing finances, etc.?: No Are you currently unemployed and looking for a job?: No Are you interested in more education?: No Please select the resources that you would like help with: None Currently or been in a relationship where the following occur: No concerns reported THRIVE Score: 0 KATHYA-7 AMB Questionnaire KATHYA-7 Date KATHYA - 7 assessed: 01/07/25 Source: Developed by Drs. Luis Fuller, Corrie Pacheco, Fab Miller and colleagues, with an educational darlin from [employer]. Physical exam (Primary Care) Vital Signs: Last Vital Signs Pulse 86 07/14/25 10:07 BP 110/70 07/14/25 10:07 Pulse Ox 98 07/14/25 10:07 Tobacco/Smoking Status: Tobacco use Status Tobacco use date assessed 07/14/25 07/14/25 10:10 Patient Tobacco Use Status Former Tobacco user 07/14/25 10:10 e-Cigarette/Vaping Use Former Use 07/14/25 10:10 Thrive Assessment: Date of Thrive Assessment Date Thrive assessed 01/04/25 07/14/25 10:10 Currently or been in a relationship where the following occur: No concerns reported Coding Level of Care Code Est Pt Level 3 (05986) Diagnoses Perineal discomfort in female N94.9 Pudendal neuralgia G58.8 Assessment & Plan Assessment & Plan (1) Perineal discomfort in female: Code(s): N94.9 - Unspecified condition associated with female genital organs and menstrual cycle Category: Medical (2) Pudendal neuralgia: Code(s): G58.8 - Other specified mononeuropathies Category: Medical Plan .
== END 2025-07-14 11:39 | disposition home or self-care (01) ==
PROVIDERS: PCP Nurse Practitioner Family; Visit Provider Nurse Practitioner Family
DX: N94.9 Unspecified condition associated with female genital organs and menstrual cycle (principal); G58.8 Other specified mononeuropathies